=== PATIENT | male | born 1955 | race Two or more races ===

== ENCOUNTER 2020-08-30 07:57 | Inpatient (IN) | payer MEDICARE ==
[2020-08-30] VITALS (21 sets, daily range): BP systolic 79–124; BP diastolic 49–66
[~2020-08-30] VITALS: Ht 170.2 cm; Wt 54.4 kg
[2020-08-30] MEDS ORDERED: Vancomycin 1 GM in NS 275 ML IVPB ONE (08:00)
[2020-08-30] MEDS ORDERED: dexAMETHasone 10mg/ml Inj IV ONE (08:00)
[2020-08-30] MEDS ORDERED: Cefepime HCl 2 GM in D5W 55 ML IVPB ONE (08:00)
--- NOTE | 2020-08-30 08:10 | Emergency Room Report ---
History of Present Illness General Chief Complaint: Dyspnea/Respdistress Source: Medical Record, EMS Present Illness HPI Patient is a 64-year-old male past medical history of diabetes, CVA with acute respiratory failure trach in place with blow-by oxygen who presents to the ER for hypoxia. Per EMS correction staff told them that patient had nausea and vomiting since last night. This morning they found him to be hypoxic with oxygen saturation of 77%. Patient was brought into the ER from his extended care facility by EMS. Allergies: Coded Allergies: No Known Allergies (Unverified , 08/30/20) COVID-19 Screening Contact w/high risk pt: No Experienced COVID-19 symptoms?: Yes COVID-19 Testing performed GLUED WOOD TESTER: No Patient History Reviewed Nursing Documentation: PMH: Agreed; PSxH: Agreed Nursing Documentation-PMH Past Medical History: No History, Except For Hx Hypertension: Yes Hx Diabetes: Yes Review of Systems All Other Systems: limited - non-verbal Physical Exam Vital Signs Date Time Temp Pulse Resp B/P (MAP) Pulse Ox O2 Delivery O2 Flow Rate FiO2 08/30/20 07:50 116 12 71/48 (56) 78 Ambu-Bag 15.0 Sp02 EP Interpretation: abnormal General Appearance: thin, Chronically Ill Head: normocephalic, atraumatic ENT: dry mucus membranes Neck: other - Trach in place with vomit around the trach site Respiratory: rhonchi Cardiovascular #1: tachycardia Gastrointestinal: non tender, soft, non-distended, other - G-tube in the epigastric region Rectal: deferred Musculoskeletal: no calf tenderness, no lower extremity edema Psychiatric: other - Unable to assess as parent patient is nonverbal Skin: no rash Procedures Critical Care Time Critical Care Time Total critical care time: Approximately 75 minutes. Due to a high probability of clinically significant, life threatening deterioration, the patient required my highest level of preparedness to intervene emergently and I personally spent this critical care time directly and personally managing the patient. This critical care time included obtaining a history; examining the patient; pulse oximetry; ordering and review of studies; arranging urgent treatment with development of a management plan; evaluation of patient's response to treatment; frequent reassessment; and, discussions with other providers.This critical care time was performed to assess and manage the high probability of imminent, life-threatening deterioration that could result in multi-organ failure. It was exclusive of separately billable procedures and treating other patients and teaching time. Please see MDM section and the rest of the note for further information on patient assessment and treatment. Medical Decision Making Diagnostic Impression: Primary Impression: Sepsis Additional Impressions: Pneumonia Septic shock Acute renal failure Upper GI bleed ER Course Patient presents with coffee-ground emesis our facility is currently back ordered for Protonix patient given IV Pepcid and Zofran. Patient visibly very dehydrated and hypotensive and tachycardic. Patient given IV fluids and is fluid responsive. Heart rate is now in the 80s and patient's map is stayed above 60. I have ordered for a PICC line to be placed in case the patient's blood pressure drops and he requires Levophed which I have also ordered as needed. Patient has not required either of these things while under my care in the emergency room. Patient does have acute renal insufficiency and dehydrated with elevated BUN and creatinine. Patient has elevated white blood cell count and elevated lactate. Patient has been pancultured and started on broad- spectrum antibiotics. Patient likely aspirated his vomitus and x-ray demonstrates bilateral pneumonia. Patient will be admitted for further treatment and evaluation. Laboratory Tests Test 08/30/20 08:00 08/30/20 08:20 08/30/20 08:52 08/30/20 09:20 White Blood Count 14.1 K/UL (4.8-10.8) H Red Blood Count 4.14 M/UL (4.70-6.10) L Hemoglobin 12.2 G/DL (14.2-18.0) L Hematocrit 41.1 % (42.0-52.0) L Mean Corpuscular Volume 99 FL (80-99) Mean Corpuscular Hemoglobin 29.4 PG (27.0-31.0) Mean Corpuscular Hemoglobin Concent 29.6 G/DL (32.0-36.0) L Red Cell Distribution Width 15.3 % (11.6-14.8) H Platelet Count 304 K/UL (150-450) Mean Platelet Volume 7.0 FL (6.5-10.1) Neutrophils (%) (Auto) 82.7 % (45.0-75.0) H Lymphocytes (%) (Auto) 9.5 % (20.0-45.0) L Monocytes (%) (Auto) 6.8 % (1.0-10.0) Eosinophils (%) (Auto) 0.0 % (0.0-3.0) Basophils (%) (Auto) 1.0 % (0.0-2.0) Prothrombin Time 11.4 SEC (9.30-11.50) Prothrombin Time INR 1.0 (0.9-1.1) Activated Partial Thromboplast Time 28 SEC (23-33) D-Dimer 3.64 mg/L FEU (0.00-0.49) H Sodium Level 139 MMOL/L (136-145) Potassium Level 5.8 MMOL/L (3.5-5.1) H Chloride Level 94 MMOL/L (98-107) L Carbon Dioxide Level 40 MMOL/L (21-32) H Anion Gap 5 mmol/L (5-15) Blood Urea Nitrogen 84 mg/dL (7-18) H Creatinine 3.3 MG/DL (0.55-1.30) H Estimated Glomerular Filtration Rate 19.0 mL/min (>60) Glucose Level 146 MG/DL (74-106) H Calcium Level 10.9 MG/DL (8.5-10.1) H Magnesium Level 3.2 MG/DL (1.8-2.4) H Ferritin 153 NG/ML (8-388) Total Bilirubin 0.4 MG/DL (0.2-1.0) Aspartate Amino Transferase (AST) 31 U/L (15-37) Alanine Aminotransferase (ALT) 25 U/L (12-78) Alkaline Phosphatase 146 U/L (46-116) H Lactate Dehydrogenase 128 U/L (81-234) Total Creatine Kinase 245 U/L (26-308) Troponin I 0.000 ng/mL (0.000-0.056) C-Reactive Protein, Quantitative 34.7 mg/dL (0.00-0.90) H Pro-B-Type Natriuretic Peptide 3556 pg/mL (0-125) H Total Protein 9.5 G/DL (6.4-8.2) H Albumin 2.2 G/DL (3.4-5.0) L Globulin 7.3 g/dL Albumin/Globulin Ratio 0.3 (1.0-2.7) L Lipase 159 U/L (73-393) Beta-Hydroxybutyric Acid Pending Acetone Level Negative (NEGATIVE) Lactic Acid Level 3.80 mmol/L (0.4-2.0) H Arterial Blood pH 7.273 (7.350-7.450) Arterial Blood Partial Pressure CO2 71.2 mmHg (35.0-45.0) *H Arterial Blood Partial Pressure O2 244.8 mmHg (75.0-100.0) H Arterial Blood HCO3 32.2 mmol/L (22.0-26.0) H Arterial Blood Oxygen Saturation 99.2 % (95-100) Arterial Blood Base Excess 3.8 (-2-2) H Jayden Test Positive Urine Color Yellow Urine Appearance Clear Urine pH 5 (4.5-8.0) Urine Specific [place] 1.025 (1.005-1.035) Urine Protein 2+ (NEGATIVE) H Urine Glucose (UA) Negative (NEGATIVE) Urine Ketones 1+ (NEGATIVE) H Urine Blood 1+ (NEGATIVE) H Urine Nitrite Negative (NEGATIVE) Urine Bilirubin Negative (NEGATIVE) Urine Urobilinogen 1 MG/DL (0.0-1.0) H Urine Leukocyte Esterase 1+ (NEGATIVE) H Urine RBC 0-2 /HPF (0 - 0) H Urine WBC 2-4 /HPF (0 - 0) Urine Squamous Epithelial Cells Occasional /LPF Urine Bacteria Few /HPF (NONE) EKG Diagnostic Results Troponin ordered: Yes When was troponin ordered?: Aug 30, 2020 EKG Time: 08:29 EP Interpretation: Britta Mckeon MD Rate: tachycardiac - 109 bpm Rhythm: other - Sinus tachycardia ST Segments: no acute changes ASA given to the pt in ED: No Rhythm Strip Diag. Results Rhythm Strip Time: 08:10 EP Interpretation: yes - Britta Mckeon MD Rate: 111 bpm Rhythm: no PVC's, no ectopy, other - Sinus tachycardia Chest X-Ray Diagnostic Results Chest X-Ray Diagnostic Results : Chest X-Ray Ordered: Yes # of Views/Limited/Complete: 1 View Indication: Shortness of Breath EP Interpretation: Yes Interpretation: no effusion, no pneumothorax, other - Bilateral patchy infiltrates most significant left lower right lower lobe Impression: Other - Pneumonia Electronically Signed by: Britta Mckeon MD Last Vital Signs Date Time Temp Pulse Resp B/P (MAP) Pulse Ox O2 Delivery O2 Flow Rate FiO2 08/30/20 07:50 116 12 71/48 (56) 78 Ambu-Bag 15.0 Disposition: ADMITTED INPATIENT - ICU Condition: Critical Physician Consult: Dr. Nette MD Additional Instructions: Please note that this report is being documented using DRAGON technology. This can lead to erroneous entry secondary to incorrect interpretation by the dictating instrument. Sepsis Event Note Evaluation Current Stage of Sepsis: Septic Shock Possible Source: Pulmonary Focused Exam Allergies: Coded Allergies: No Known Allergies (Unverified , 08/30/20) Date Exam Occurred: Aug 30, 2020 Time Exam Occurred: 10:00 Laboratory Studies Laboratory Tests Test 08/30/20 08:00 08/30/20 08:20 08/30/20 08:52 08/30/20 09:20 White Blood Count 14.1 K/UL (4.8-10.8) H Red Blood Count 4.14 M/UL (4.70-6.10) L Hemoglobin 12.2 G/DL (14.2-18.0) L Hematocrit 41.1 % (42.0-52.0) L Mean Corpuscular Volume 99 FL (80-99) Mean Corpuscular Hemoglobin 29.4 PG (27.0-31.0) Mean Corpuscular Hemoglobin Concent 29.6 G/DL (32.0-36.0) L Red Cell Distribution Width 15.3 % (11.6-14.8) H Platelet Count 304 K/UL (150-450) Mean Platelet Volume 7.0 FL (6.5-10.1) Neutrophils (%) (Auto) 82.7 % (45.0-75.0) H Lymphocytes (%) (Auto) 9.5 % (20.0-45.0) L Monocytes (%) (Auto) 6.8 % (1.0-10.0) Eosinophils (%) (Auto) 0.0 % (0.0-3.0) Basophils (%) (Auto) 1.0 % (0.0-2.0) Prothrombin Time 11.4 SEC (9.30-11.50) Prothromb Time International Ratio 1.0 (0.9-1.1) Activated Partial Thromboplast Time 28 SEC (23-33) D-Dimer 3.64 mg/L FEU (0.00-0.49) H Sodium Level 139 MMOL/L (136-145) Potassium Level 5.8 MMOL/L (3.5-5.1) H Chloride Level 94 MMOL/L (98-107) L Carbon Dioxide Level 40 MMOL/L (21-32) H Anion Gap 5 mmol/L (5-15) Blood Urea Nitrogen 84 mg/dL (7-18) H Creatinine 3.3 MG/DL (0.55-1.30) H Estimat Glomerular Filtration Rate 19.0 mL/min (>60) Glucose Level 146 MG/DL (74-106) H Calcium Level 10.9 MG/DL (8.5-10.1) H Magnesium Level 3.2 MG/DL (1.8-2.4) H Ferritin 153 NG/ML (8-388) Total Bilirubin 0.4 MG/DL (0.2-1.0) Aspartate Amino Transf (AST/SGOT) 31 U/L (15-37) Alanine Aminotransferase (ALT/SGPT) 25 U/L (12-78) Alkaline Phosphatase 146 U/L (46-116) H Lactate Dehydrogenase 128 U/L (81-234) Total Creatine Kinase 245 U/L (26-308) Troponin I 0.000 ng/mL (0.000-0.056) C-Reactive Protein, Quantitative 34.7 mg/dL (0.00-0.90) H Pro-B-Type Natriuretic Peptide 3556 pg/mL (0-125) H Total Protein 9.5 G/DL (6.4-8.2) H Albumin 2.2 G/DL (3.4-5.0) L Globulin 7.3 g/dL Albumin/Globulin Ratio 0.3 (1.0-2.7) L Lipase 159 U/L (73-393) Beta-Hydroxybutyric Acid Pending Acetone Level Negative (NEGATIVE) Lactic Acid Level 3.80 mmol/L (0.4-2.0) H Arterial Blood pH 7.273 (7.350-7.450) Arterial Blood Partial Pressure CO2 71.2 mmHg (35.0-45.0) *H Arterial Blood Partial Pressure O2 244.8 mmHg (75.0-100.0) H Arterial Blood HCO3 32.2 mmol/L (22.0-26.0) H Arterial Blood Oxygen Saturation 99.2 % (95-100) Arterial Blood Base Excess 3.8 (-2-2) H Jayden Test Positive Urine Color Yellow Urine Appearance Clear Urine pH 5 (4.5-8.0) Urine Specific [place] 1.025 (1.005-1.035) Urine Protein 2+ (NEGATIVE) H Urine Glucose (UA) Negative (NEGATIVE) Urine Ketones 1+ (NEGATIVE) H Urine Blood 1+ (NEGATIVE) H Urine Nitrite Negative (NEGATIVE) Urine Bilirubin Negative (NEGATIVE) Urine Urobilinogen 1 MG/DL (0.0-1.0) H Urine Leukocyte Esterase 1+ (NEGATIVE) H Urine RBC 0-2 /HPF (0 - 0) H Urine WBC 2-4 /HPF (0 - 0) Urine Squamous Epithelial Cells Occasional /LPF Urine Bacteria Few /HPF (NONE) Vital Signs Last 24 Hour Vital Signs Date Time Temp Pulse Resp B/P (MAP) Pulse Ox O2 Delivery O2 Flow Rate FiO2 08/30/20 11:04 90 22 40 08/30/20 10:00 97.0 92 22 97/66 100 Mechanical Ventilator 15.0 60 08/30/20 09:40 110 22 60 08/30/20 09:30 97.0 107 22 87/56 100 Mechanical Ventilator 15.0 100 08/30/20 09:00 97.0 110 14 95/59 100 Mechanical Ventilator 15.0 100 08/30/20 08:44 97.0 113 14 98/62 100 Mechanical Ventilator 08/30/20 08:37 106 16 100 Mechanical Ventilator 100 116 17 100 08/30/20 08:25 106 16 Mechanical Ventilator 08/30/20 07:50 116 12 71/48 (56) 78 Ambu-Bag 15.0 Respiratory Exam: Rhonchi Cardiovascular Exam: RRR Capillary Refill: Less Than 2 Seconds Peripheral Pulse: Strong Britta Mckeon M.D. Aug 30, 2020 08:10
[2020-08-30] MEDS ORDERED: COLACE100 MG GT (08:12)
[2020-08-30] MEDS ORDERED: ZINC SULFATE220 M1 GT (08:12)
[2020-08-30] MEDS ORDERED: ATROVENT HFA12.9 GM PO (08:12)
[2020-08-30] MEDS ORDERED: HEPARIN SO5000 UNIT2 SUBQ (08:12)
[2020-08-30] MEDS ORDERED: ALBUTEROL SULF8.5 G1 TRANSTR092 (08:12)
[2020-08-30] MEDS ORDERED: UTI-STAT L3875 MG/31 GT (08:12)
[2020-08-30] MEDS ORDERED: ZOFRAN4 M3 GT (08:12)
[2020-08-30] MEDS ORDERED: ARTIFICIALS TEA30 M1 OP (08:12)
[2020-08-30] MEDS ORDERED: ATORVASTATIN CA80 MG GT (08:12)
[2020-08-30] MEDS ORDERED: VITAMIN C500 M1 GT (08:12)
[2020-08-30] MEDS ORDERED: ACETAMINOPHEN325 M1 ORAL (08:12)
--- NOTE | 2020-08-30 08:20 | NUR ---
Resive pt from [facility] by EMS in trauma room due to low oxygen sat and vomiting since last night. 75 % Sat and trach dependent, peg tube in place and patent at this time. Pt with leora brown coming out of his mouth and tracheotomy, suctioned pt by tracheotomy and moth.pt is reposnding to pain and is capable to follow comands at this time. RT in room, conect pt to ventilator, St 100% with [address] IV in his Rt wrist blood samples taken and send to the lab.Provider ordes taken.will continue monitoring pt for any change in condition
[2020-08-30] MEDS: Albuterol/Ipratropium 3ml neb HHN SCH ×2 (08:21→08:45)
[2020-08-30 09:01] LABS: HEMATOCRIT 41.1 % (42.0-52.0); HEMOGLOBIN 12.2 G/DL (14.2-18.0); LYMPHOCYTES % (AUTO) 9.5 % (20.0-45.0); MEAN CORPUSCULAR VOLUME 99 FL (80-99); MONOCYTES % (AUTO) 6.8 % (1.0-10.0); NEUTROPHILS % (AUTO) 82.7 % (45.0-75.0); PLATELET COUNT 304 K/UL (150-450); RED BLOOD COUNT 4.14 M/UL (4.70-6.10); RED CELL DISTRIBUTION WIDTH 15.3 % (11.6-14.8); WHITE BLOOD COUNT 14.1 K/UL (4.8-10.8)
[2020-08-30 09:12] LABS: ANION GAP 5 mmol/L (5-15); BLOOD UREA NITROGEN 84 mg/dL (7-18); CALCIUM 10.9 MG/DL (8.5-10.1); CARBON DIOXIDE 40 MMOL/L (21-32); CHLORIDE 94 MMOL/L (98-107); CREATININE 3.3 MG/DL (0.55-1.30); POTASSIUM 5.8 MMOL/L (3.5-5.1); SODIUM 139 MMOL/L (136-145)
[2020-08-30 09:25] LABS: ALANINE AMINOTRANSFERASE 25 U/L (12-78); ALBUMIN 2.2 G/DL (3.4-5.0); ALBUMIN/GLOBULIN RATIO 0.3 (1.0-2.7); ALKALINE PHOSPHATASE 146 U/L (46-116); ASPARTATE AMINO TRANSFERASE 31 U/L (15-37); BILIRUBIN,TOTAL 0.4 MG/DL (0.2-1.0); CREATINE KINASE 245 U/L (26-308); FERRITIN 153 NG/ML (8-388); LACTATE DEHYDROGENASE 128 U/L (81-234)
--- NOTE | 2020-08-30 09:40 | NUR ---
Medication note: provider give order to put hold levophed
--- NOTE | 2020-08-30 09:41 | Diagnostic Imaging Report ---
Indication: Reason For Exam: SOB Technique: XRAY Chest 1v Comparison:None Findings: Heart is normal in size. There is a tracheostomy. Extensive infiltrate is noted in the left mid and lower lung obscuring the left hemidiaphragm. There is patchy infiltrate in the right base as well. No pleural fluid. Osseous structures are unremarkable. Impression: Left lower lobe infiltrate consistent with pneumonia. Right basilar pneumonia versus atelectasis. Tracheostomy.
[2020-08-30 09:42] LABS: APPEARANCE,URINE CLEAR; BILIRUBIN, URINE NEGATIVE (NEGATIVE); GLUCOSE, URINE (UA) NEGATIVE (NEGATIVE); KETONES,URINE 1+ (NEGATIVE); LEUKOCYTE ESTERASE ,URINE 1+ (NEGATIVE); NITRITE,URINE NEGATIVE (NEGATIVE); PH,URINE 5 (4.5-8.0); PROTEIN,URINE 2+ (NEGATIVE); UROBILINOGEN,URINE 1 MG/DL (0.0-1.0)
[2020-08-30 09:43] LABS: COLOR,URINE YELLOW
--- NOTE | 2020-08-30 11:00 | NUR ---
Nurses note: Pt restin with eyes close. V/S stable under his condition.
--- NOTE | 2020-08-30 14:07 | NUR ---
Call to ICU and give report to Zelda HERNÁNDEZ
--- NOTE | 2020-08-30 14:41 | NUR ---
NURSE NOTES: Report received from EDGAR Epps. Pt admitted from the ER d/t sepsis, hypotension, and, vomiting of coffee ground emesis. Pt is alert and oriented, mostly Croatian speaking. Pt is trach to vent; AC 22, TV 450, FiO2 40%, PEEP 5; O2sat 93%. Pt has a Gtube; currently clamped. Pt had a medium formed brown BM. No bleeding noted from the rectum. Upon assessing pt's skin, old scar noted to Lt ischial tuberosity. Optifoam applied to Bony prominences for protection. Rt Wrist PIV 18g and Lt wrist PIV #24g noted; both intact and patent. Bed locked and in lowest position, with call light within reach. Will contact attending MD for admission orders.
--- NOTE | 2020-08-30 16:00 | NUR ---
NURSE NOTES: Pt is afebrile. B/P remains >90. Pt appears comfortable, resting in bed. FiO4 40%; O2sat 94% on strategic communications manager
[2020-08-30] MEDS ORDERED: Sodium Polystyrene Sulfonate 15gm Powder GT SCH (16:58)
--- NOTE | 2020-08-30 18:00 | NUR ---
NURSE NOTES: Kayexalate given for high potassium. Gtube patent and flushes without issue. Dressing clean, dry, and intact. BS 200. Novolog insulin given, per sliding scale.
[2020-08-30 19:10] LABS: APPEARANCE,URINE SLIGHTLY CLOUDY; BILIRUBIN, URINE NEGATIVE (NEGATIVE); COLOR,URINE PALE YELLOW; GLUCOSE, URINE (UA) NEGATIVE (NEGATIVE); KETONES,URINE NEGATIVE (NEGATIVE); LEUKOCYTE ESTERASE ,URINE NEGATIVE (NEGATIVE); NITRITE,URINE NEGATIVE (NEGATIVE); PH,URINE 5 (4.5-8.0); PROTEIN,URINE 2+ (NEGATIVE); UROBILINOGEN,URINE NORMAL MG/DL (0.0-1.0)
[2020-08-30] MEDS: NovoLOG Insulin Flexpen SUBQ SCH ×2 (19:30→23:54)
--- NOTE | 2020-08-30 19:30 | NUR ---
NURSE NOTES: Received pt , trache to vent on ac mode SR on the monitor Bp stable, afebrile.No coffee ground emesis at this time. NPO GT clamped Will continue to monitor.
--- NOTE | 2020-08-30 19:32 | NUR ---
NURSE HAND-OFF REPORT: Latest Vital Signs: Temperature 98.9 , Pulse 100 , B/P 114 /56 , Respiratory Rate 22 , O2 SAT 97 , Mechanical Ventilator, FiO2 40% . Vital Sign Comment: EKG Rhythm: Sinus Rhythm Rhythm change?: N MD Notified?: - MD Response: Latest Brewer Fall Score: 20 Fall Risk: Low Risk Safety Measures: Call light Within Reach, Bed Alarm Zone 1, Side Rails Side Rails x3, Bed position Low and Locked. Fall Precautions: Yellow Socks Patient Fall Education Report given to EDGAR Dela Cruz.
[2020-08-30] MEDS ORDERED: Vancomycin 1 GM in D5W 275 ML IVPB SCH (21:00)
[2020-08-31] VITALS (22 sets, daily range): BP systolic 99–143; BP diastolic 42–86
--- NOTE | 2020-08-31 | NUR ---
NURSE NOTES: Pt had x1 brownish stool. Cleaned up pt. Will continue to monitor.
--- NOTE | 2020-08-31 01:14 | History and Physical Report ---
DATE OF ADMISSION: 08/30/2020 This is the first admission to [facility] of this 64-year-old patient because of shortness of breath, nausea, vomiting, and hypotension. HISTORY OF PRESENT ILLNESS: Patient is a resident of an extended care facility subacute unit where he has been in relatively stable condition for the last several days. He was recently discharged after COVID-19 pneumonia. He was transferred to [facility] subacute unit. After few days in the subacute unit, patient developed nausea, vomiting, diarrhea, abdominal pain, shortness of breath, palpitations, and dizziness. He was transferred to [facility] ER and was admitted. PAST MEDICAL HISTORY: Known to have high blood pressure and diabetes mellitus. PAST SURGICAL HISTORY: No surgical history. ALLERGIES: No known drug allergy. PHYSICAL EXAMINATION: VITAL SIGNS: Blood pressure , pulse is 97, respirations 22, temperature 98.2. HEENT: Eyes were normal. Pupils were round, equal, and reactive to light. Sclerae were white. Conjunctivae were pale. Extraocular movements were normal. Temporal arteries were palpable bilaterally. There was no bilateral temporal wasting. Visual flor to confrontation were normal and neglect sign was negative. ENT, mucous membranes were not dehydrated. Auditory canals were clear and tympanic membranes could not be visualized. Nasal cavity was not congested. The septum was intact. Soft palate was free of ulcerations. Pharynx was clear from exudate or tonsillar hypertrophy. Uvula anne to phonation. Tongue was moist, midline, and normally papillated. NECK: Supple. There was no goiter. No mass. No lymphadenopathy. There was no JVD. No bruits. Carotid upstroke was 1+. Tracheostomy site was clean. LUNGS: There was bilateral rhonchi at both bases. HEART: PMI was fifth left intercostal space midclavicular line. There was normal S1 and normal S2. There was no murmur. No arrhythmia. No S3. No S4. No pericardial rub. ABDOMEN: Soft, nontender with normal bowel sounds. Gastrostomy site is clean. EXTREMITIES: Warm without cyanosis, clubbing, or edema. NEUROLOGICAL: Reflexes in biceps, triceps, and brachioradialis were symmetric and equal. Patellar retinaculum was symmetric and equal. There was no tremor. No nystagmus. No extrapyramidal rigidity. Sensory exam to pinprick, cotton touch, and position are grossly normal. Motor strength was 4/5 against resistance in upper extremity and 5/5 against resistance in lower extremities in proximal and distal muscles. LABORATORY DATA: Hemoglobin is 12.2, hematocrit 41.1 with MCV of 99, WBC of 14.1, and platelets . His BUN and creatinine are 84 and 3.3 respectively. Sodium is 139, potassium 5.8, chloride 94, CO2 is 40. SGOT and SGPT are within normal limits. CRP is 34. ProBNP is 3500. Albumin is 2.2, globulin is 7.3. IMPRESSION: Patient has sepsis. He is started on cefepime 1 g IV piggyback q.12, vancomycin 1 g IV piggyback q.12 as well. Patient's blood pressure stabilized. He is on vancomycin 1 g q.12, Zosyn 2.25 g IV piggyback q.6. Repeat laboratory tests will be done in the a.m. Jason Perdue M.D. DR: MARY JOB#: [id number] CC:
--- NOTE | 2020-08-31 04:00 | NUR ---
NURSE NOTES: Complete bed bath with bed changed was done.
[2020-08-31 04:25] LABS: HEMATOCRIT 26.7 % (42.0-52.0); HEMOGLOBIN 8.4 G/DL (14.2-18.0); MEAN CORPUSCULAR VOLUME 96 FL (80-99); PLATELET COUNT 189 K/UL (150-450); RED BLOOD COUNT 2.78 M/UL (4.70-6.10); RED CELL DISTRIBUTION WIDTH 14.6 % (11.6-14.8); WHITE BLOOD COUNT 12.1 K/UL (4.8-10.8)
[2020-08-31 04:55] LABS: ALBUMIN 1.6 G/DL (3.4-5.0); ALBUMIN/GLOBULIN RATIO 0.3 (1.0-2.7); BILIRUBIN,TOTAL 0.3 MG/DL (0.2-1.0); CALCIUM 8.7 MG/DL (8.5-10.1); CREATININE 1.3 MG/DL (0.55-1.30)
[2020-08-31 05:00] LABS: CREATINE KINASE 166 U/L (26-308); GAMMA GLUTAMYL TRANSPEPTIDASE 24 U/L (5-85); PHOSPHORUS 1.8 MG/DL (2.5-4.9)
[2020-08-31 05:10] LABS: ALANINE AMINOTRANSFERASE 23 U/L (12-78); ALBUMIN 1.6 G/DL (3.4-5.0); ALKALINE PHOSPHATASE 62 U/L (46-116); AMYLASE 44 U/L (25-115); ANION GAP 6 mmol/L (5-15); ASPARTATE AMINO TRANSFERASE 41 U/L (15-37); BILIRUBIN,DIRECT 0.2 MG/DL (0.0-0.3); BILIRUBIN,TOTAL 0.3 MG/DL (0.2-1.0); BLOOD UREA NITROGEN 51 mg/dL (7-18); CALCIUM 8.7 MG/DL (8.5-10.1); CARBON DIOXIDE 32 MMOL/L (21-32); CHLORIDE 107 MMOL/L (98-107); CREATININE 1.4 MG/DL (0.55-1.30); SODIUM 144 MMOL/L (136-145)
[2020-08-31] MEDS: NovoLOG Insulin Flexpen SUBQ SCH ×3 (05:59→18:00)
[2020-08-31] MEDS ORDERED: Vancomycin 1gm in D5W 275ml IVPB SCH (06:00)
--- NOTE | 2020-08-31 06:00 | NUR ---
NURSE NOTES: No active bleeding noted. VSS
--- NOTE | 2020-08-31 06:54 | Consultation ---
History of Present Illness General Chief Complaint: Dyspnea/Respdistress Present Illness Allergies: Coded Allergies: No Known Allergies (Unverified , 08/30/20) Medication History Scheduled Albuterol Sulfate* (Albuterol Sulfate Hfa*), 2 PUFF [id number] Q3H, (Reported) Ascorbic Acid* (Vitamin C*), 500 MG ORAL DAILY, (Reported) Atorvastatin Calcium* (Lipitor*), 80 MG [id number] BEDTIME, (Reported) Cran/Vitc/Mannose/Inulin/Brom (Uti-Stat Liquid), 3,875 MG GT DAILY, (Reported) Dextran 70/Hypromellose (Artificials Tears Drops), 30 ML OP FOUR TIMES A DAY, (Reported) Docusate Sodium* (Colace*), 100 MG GT DAILY, (Reported) Heparin Sod (Porcine) (Heparin Sodium*), 5,000 UNITS SUBQ EVERY 12 HOURS, (Reported) Ipratropium Huggins (Atrovent Hfa), Unknown Dose [id number] Q3HR, (Reported) Zinc Sulfate (Zinc Sulfate*), 220 MG ORAL DAILY, (Reported) Scheduled PRN Acetaminophen* (Acetaminophen 325MG Tablet*), 650 MG ORAL Q4H PRN for fever/pain, (Reported) Ondansetron* (Zofran*), 4 MG GT Q8HR PRN for Nausea & Vomiting, (Reported) Patient History Healthcare decision maker Resuscitation status Advanced Directive on File Physical Exam Last 24 Hour Vital Signs Date Time Temp Pulse Resp B/P (MAP) Pulse Ox O2 Delivery O2 Flow Rate FiO2 08/31/20 06:00 69 0 135/54 (81) 100 08/31/20 05:30 100.0 61 22 130/70 (90) 100 08/31/20 05:00 59 21 132/60 (84) 100 08/31/20 04:00 Mechanical Ventilator 08/31/20 04:00 64 22 136/85 (102) 100 08/31/20 04:00 76 08/31/20 04:00 99.2 62 17 138/82 (100) 99 08/31/20 03:57 84 22 40 08/31/20 03:30 69 20 121/74 (90) 100 08/31/20 03:00 71 17 107/57 (74) 99 08/31/20 03:00 71 17 107/57 (74) 99 08/31/20 02:30 76 12 124/56 (78) 99 08/31/20 02:30 76 12 124/56 (78) 99 08/31/20 02:00 76 22 107/46 (66) 99 08/31/20 02:00 76 22 107/46 (66) 99 08/31/20 01:30 80 22 125/62 (83) 99 08/31/20 01:00 88 22 98 08/31/20 01:00 88 22 120/62 (81) 98 08/31/20 00:30 87 22 99/81 (87) 99 08/31/20 00:00 93 22 125/86 (99) 99 08/31/20 00:00 Mechanical Ventilator 08/31/20 00:00 99.0 93 22 125/86 (99) 99 08/31/20 00:00 90 08/30/20 23:51 86 22 40 08/30/20 23:00 94 22 124/49 (74) 98 08/30/20 22:00 96 22 107/49 (68) 97 08/30/20 21:00 103 22 114/52 (72) 97 08/30/20 20:00 Mechanical Ventilator 08/30/20 20:00 98.2 98 22 112/56 (74) 97 08/30/20 19:18 100 22 40 08/30/20 19:00 94 22 114/56 (75) 97 08/30/20 18:00 99 22 112/57 (75) 97 08/30/20 17:00 97 22 118/60 (79) 97 08/30/20 16:00 94 08/30/20 16:00 Mechanical Ventilator 08/30/20 16:00 98.9 95 22 110/57 (74) 94 08/30/20 15:49 92 22 40 08/30/20 15:49 92 22 99 Mechanical Ventilator 40 08/30/20 15:30 96 22 79/49 (59) 93 08/30/20 15:15 99 22 83/51 (62) 94 08/30/20 15:01 98.9 101 22 92/56 (68) 95 08/30/20 15:00 100 20 95 08/30/20 14:45 98.3 94 22 91/58 93 Mechanical Ventilator 15.0 40 08/30/20 14:41 40 08/30/20 14:41 Mechanical Ventilator 08/30/20 14:00 98.3 94 22 91/58 93 Mechanical Ventilator 15.0 40 08/30/20 13:30 98.3 94 22 99/56 95 Mechanical Ventilator 15.0 40 08/30/20 13:00 98.3 87 22 96/60 95 Mechanical Ventilator 15.0 40 08/30/20 12:30 98.3 90 22 101/63 94 Mechanical Ventilator 15.0 40 08/30/20 12:00 98.3 87 22 100/64 94 Mechanical Ventilator 15.0 40 08/30/20 11:30 98.3 91 22 92/54 94 Mechanical Ventilator 15.0 40 08/30/20 11:04 90 22 40 08/30/20 10:00 97.0 92 22 97/66 100 Mechanical Ventilator 15.0 60 08/30/20 09:40 110 22 60 08/30/20 09:30 97.0 107 22 87/56 100 Mechanical Ventilator 15.0 100 08/30/20 09:00 97.0 110 14 95/59 100 Mechanical Ventilator 15.0 100 08/30/20 08:44 97.0 113 14 98/62 100 Mechanical Ventilator 08/30/20 08:37 106 16 100 Mechanical Ventilator 100 116 17 100 08/30/20 08:25 106 16 Mechanical Ventilator 08/30/20 07:50 116 12 71/48 (56) 78 Ambu-Bag 15.0 Intake and Output 08/30/20 08/31/20 19:00 07:00 Intake Total 450 ml 1100 ml Output Total 460 ml 900 ml Balance -10 ml 200 ml Intake IV Total 150 ml 1100 ml Other 300 ml Output Urine Total 460 ml 900 ml # Voids 80 # Bowel Movements 3 4 Laboratory Tests Test 08/30/20 08:00 08/30/20 08:20 08/30/20 08:52 08/30/20 09:20 White Blood Count 14.1 K/UL (4.8-10.8) H Red Blood Count 4.14 M/UL (4.70-6.10) L Hemoglobin 12.2 G/DL (14.2-18.0) L Hematocrit 41.1 % (42.0-52.0) L Mean Corpuscular Volume 99 FL (80-99) Mean Corpuscular Hemoglobin 29.4 PG (27.0-31.0) Mean Corpuscular Hemoglobin Concent 29.6 G/DL (32.0-36.0) L Red Cell Distribution Width 15.3 % (11.6-14.8) H Platelet Count 304 K/UL (150-450) Mean Platelet Volume 7.0 FL (6.5-10.1) Neutrophils (%) (Auto) 82.7 % (45.0-75.0) H Lymphocytes (%) (Auto) 9.5 % (20.0-45.0) L Monocytes (%) (Auto) 6.8 % (1.0-10.0) Eosinophils (%) (Auto) 0.0 % (0.0-3.0) Basophils (%) (Auto) 1.0 % (0.0-2.0) Prothrombin Time 11.4 SEC (9.30-11.50) Prothromb Time International Ratio 1.0 (0.9-1.1) Activated Partial Thromboplast Time 28 SEC (23-33) D-Dimer 3.64 mg/L FEU (0.00-0.49) H Sodium Level 139 MMOL/L (136-145) Potassium Level 5.8 MMOL/L (3.5-5.1) H Chloride Level 94 MMOL/L (98-107) L Carbon Dioxide Level 40 MMOL/L (21-32) H Anion Gap 5 mmol/L (5-15) Blood Urea Nitrogen 84 mg/dL (7-18) H Creatinine 3.3 MG/DL (0.55-1.30) H Estimat Glomerular Filtration Rate 19.0 mL/min (>60) Glucose Level 146 MG/DL (74-106) H Calcium Level 10.9 MG/DL (8.5-10.1) H Magnesium Level 3.2 MG/DL (1.8-2.4) H Ferritin 153 NG/ML (8-388) Total Bilirubin 0.4 MG/DL (0.2-1.0) Aspartate Amino Transf (AST/SGOT) 31 U/L (15-37) Alanine Aminotransferase (ALT/SGPT) 25 U/L (12-78) Alkaline Phosphatase 146 U/L (46-116) H Lactate Dehydrogenase 128 U/L (81-234) Total Creatine Kinase 245 U/L (26-308) Troponin I 0.000 ng/mL (0.000-0.056) C-Reactive Protein, Quantitative 34.7 mg/dL (0.00-0.90) H Pro-B-Type Natriuretic Peptide 3556 pg/mL (0-125) H Total Protein 9.5 G/DL (6.4-8.2) H Albumin 2.2 G/DL (3.4-5.0) L Globulin 7.3 g/dL Albumin/Globulin Ratio 0.3 (1.0-2.7) L Lipase 159 U/L (73-393) Beta-Hydroxybutyric Acid Pending Acetone Level Negative (NEGATIVE) Lactic Acid Level 3.80 mmol/L (0.4-2.0) H Arterial Blood pH 7.273 (7.350-7.450) Arterial Blood Partial Pressure CO2 71.2 mmHg (35.0-45.0) *H Arterial Blood Partial Pressure O2 244.8 mmHg (75.0-100.0) H Arterial Blood HCO3 32.2 mmol/L (22.0-26.0) H Arterial Blood Oxygen Saturation 99.2 % (95-100) Arterial Blood Base Excess 3.8 (-2-2) H Jayden Test Positive Urine Color Yellow Urine Appearance Clear Urine pH 5 (4.5-8.0) Urine Specific [place] 1.025 (1.005-1.035) Urine Protein 2+ (NEGATIVE) H Urine Glucose (UA) Negative (NEGATIVE) Urine Ketones 1+ (NEGATIVE) H Urine Blood 1+ (NEGATIVE) H Urine Nitrite Negative (NEGATIVE) Urine Bilirubin Negative (NEGATIVE) Urine Urobilinogen 1 MG/DL (0.0-1.0) H Urine Leukocyte Esterase 1+ (NEGATIVE) H Urine RBC 0-2 /HPF (0 - 0) H Urine WBC 2-4 /HPF (0 - 0) Urine Squamous Epithelial Cells Occasional /LPF Urine Bacteria Few /HPF (NONE) Test 08/30/20 17:00 08/30/20 19:50 08/31/20 03:45 Urine Color Pale yellow Urine Appearance Slightly cloudy Urine pH 5 (4.5-8.0) Urine Specific [place] 1.030 (1.005-1.035) Urine Protein 2+ (NEGATIVE) H Urine Glucose (UA) Negative (NEGATIVE) Urine Ketones Negative (NEGATIVE) Urine Blood 5+ (NEGATIVE) H Urine Nitrite Negative (NEGATIVE) Urine Bilirubin Negative (NEGATIVE) Urine Urobilinogen Normal MG/DL (0.0-1.0) Urine Leukocyte Esterase Negative (NEGATIVE) Urine RBC 60-80 /HPF (0 - 0) H Urine WBC 0-2 /HPF (0 - 0) Urine Squamous Epithelial Cells Occasional /LPF Urine Bacteria Few /HPF (NONE) Lactic Acid Level 2.40 mmol/L (0.4-2.0) H 1.20 mmol/L (0.4-2.0) White Blood Count 12.1 K/UL (4.8-10.8) H Red Blood Count 2.78 M/UL (4.70-6.10) L Hemoglobin 8.4 G/DL (14.2-18.0) #L Hematocrit 26.7 % (42.0-52.0) #L Mean Corpuscular Volume 96 FL (80-99) Mean Corpuscular Hemoglobin 30.3 PG (27.0-31.0) Mean Corpuscular Hemoglobin Concent 31.5 G/DL (32.0-36.0) L Red Cell Distribution Width 14.6 % (11.6-14.8) Platelet Count 189 K/UL (150-450) Mean Platelet Volume 7.3 FL (6.5-10.1) Neutrophils (%) (Auto) % (45.0-75.0) Lymphocytes (%) (Auto) % (20.0-45.0) Monocytes (%) (Auto) % (1.0-10.0) Eosinophils (%) (Auto) % (0.0-3.0) Basophils (%) (Auto) % (0.0-2.0) Neutrophils % (Manual) Pending Lymphocytes % (Manual) Pending Platelet Estimate Pending Platelet Morphology Pending Sodium Level 144 MMOL/L (136-145) Potassium Level 4.0 MMOL/L (3.5-5.1) Chloride Level 107 MMOL/L (98-107) Carbon Dioxide Level 32 MMOL/L (21-32) Anion Gap 5 mmol/L (5-15) Blood Urea Nitrogen 50 mg/dL (7-18) H Creatinine 1.3 MG/DL (0.55-1.30) # Estimat Glomerular Filtration Rate 55.6 mL/min (>60) Glucose Level 136 MG/DL (74-106) H Hemoglobin A1c 5.9 % (4.3-6.0) Uric Acid 5.9 MG/DL (2.6-7.2) Calcium Level 8.7 MG/DL (8.5-10.1) # Phosphorus Level 1.8 MG/DL (2.5-4.9) L Magnesium Level 2.1 MG/DL (1.8-2.4) Total Bilirubin 0.3 MG/DL (0.2-1.0) Direct Bilirubin 0.2 MG/DL (0.0-0.3) Gamma Glutamyl Transpeptidase 24 U/L (5-85) Aspartate Amino Transf (AST/SGOT) 40 U/L (15-37) H Alanine Aminotransferase (ALT/SGPT) 23 U/L (12-78) Alkaline Phosphatase 63 U/L (46-116) Total Creatine Kinase 166 U/L (26-308) C-Reactive Protein, Quantitative 38.2 mg/dL (0.00-0.90) H Pro-B-Type Natriuretic Peptide 967 pg/mL (0-125) H Total Protein 7.0 G/DL (6.4-8.2) Albumin 1.6 G/DL (3.4-5.0) L Globulin 5.4 g/dL Albumin/Globulin Ratio 0.3 (1.0-2.7) L Amylase Level 44 U/L (25-115) Lipase 106 U/L (73-393) Thyroid Stimulating Hormone (TSH) 0.420 uiU/mL (0.358-3.740) Free Thyroxine 1.22 NG/DL (0.76-1.46) Random Vancomycin Level 7.7 ug/mL Microbiology Date/Time Source Procedure Growth Status 08/31/20 03:15 Rectum Received 08/31/20 03:15 Nasopharynx SARS-CoV-2 Antigen (Rapid)(PEDRO) - Final Complete 08/30/20 08:00 Blood Blood Culture - Preliminary Gram Positive Cocci Resulted 08/30/20 08:00 Blood Blood Culture - Preliminary Gram Positive Cocci Resulted Height (Feet): 5 Height (Inches): 7.00 Weight (Pounds): 120 Medications Current Medications Medications (Trade) Dose Ordered Sig/Kirby Route PRN Reason Start Time Stop Time Status Last Admin Dose Admin Albuterol/ Ipratropium (Albuterol/ Ipratropium) 3 ml Q15M HHN 08/30/20 08:00 09/04/20 07:59 08/30/20 08:21 Cefepime HCl 1 gm/ Dextrose 55 ml @ 110 mls/hr Q24H IVPB 08/31/20 12:00 09/07/20 11:59 Dextrose (Dextrose 50%) 25 ml Q30M PRN IV Hypoglycemia 08/30/20 16:45 11/28/20 16:44 Dextrose (Dextrose 50%) 50 ml Q30M PRN IV Hypoglycemia 08/30/20 16:45 11/28/20 16:44 Insulin Aspart (NovoLOG) Q6HR SUBQ 08/30/20 18:00 11/28/20 17:59 08/30/20 19:30 Lansoprazole (Prevacid) 30 mg BID GT 08/31/20 09:00 09/30/20 08:59 UNV Norepinephrine Bitartrate 4 mg/ Dextrose 250 ml @ 0 mls/hr Q24H IV 08/30/20 09:45 09/02/20 09:44 Ondansetron HCl (Zofran) 4 mg Q4H PRN IVP Nausea & Vomiting 08/30/20 16:45 09/29/20 16:44 Sodium Chloride 1,000 ml @ 100 mls/hr Q10H IV 08/30/20 16:45 09/29/20 16:44 08/31/20 03:35 Vancomycin HCl (Vanco pharmacy to dose) 1 ea DAILY PRN MISC . 08/30/20 17:00 09/29/20 16:59 Vancomycin HCl 1 gm/Dextrose 275 ml @ 183.708 mls/hr Q24H IVPB 08/31/20 08:00 09/05/20 07:59 Assessment/Plan Assessment/Plan: Hematology consultation ANDREA GILLILAND: Jason Perdue DOS: 08/31/2020 RFC: Anemia ID Patient is a 64-year-old male past medical history of diabetes, CVA with acute respiratory failure trach in place with blow-by oxygen who presents to the ER for hypoxia. Per EMS correction staff told them that patient had nausea and vomiting since last night. This morning they found him to be hypoxic with oxygen saturation of 77%. Patient was brought into the ER from his extended care facility by EMS. Coded Allergies: No Known Allergies (Unverified , 08/30/20) COVID-19 Screening Contact w/high risk pt: No Experienced COVID-19 symptoms?: Yes COVID-19 Testing performed GED TUTOR: No Patient History Reviewed Nursing Documentation: PMH: Agreed; PSxH: Agreed Nursing Documentation-PMH Past Medical History: No History, Except For Hx Hypertension: Yes Hx Diabetes: Yes Review of Systems All Other Systems: limited - non-verbal Physical Exam Sp02 EP Interpretation: abnormal General Appearance: thin, Chronically Ill Heent: normocephalic, atraumatic ++ Trach in place with vomit around the trach site Respiratory: rhonchi Cardiovascular: tachycardia Gastrointestinal: non tender, soft, non-distended, other ++ G-tube in the epigastric region Musculoskeletal: no calf tenderness, no lower extremity edema Psychiatric: other - Unable to assess as parent patient is nonverbal Skin: no rash Labs: noted Imaging: reviewed Assessment and recs # Leukocytosis due to underlying Sepsis --> per ID recs --> ABX # Anemia with a upper gi bleed --> per gi eval --> hgb 12-->8.8 --> anemia panel is noted --> transfuse prn basis --> review smear # Pneumonia b//l pna on imaging --> imaging seen --> Abx vanc/cefepime # Septic shock # Acute renal failure # Upper GI bleed # Hypotensive and tachycardic. --> Patient given IV fluids and is fluid responsive. # Dvt ppx scds Appreciate consultation and dw Nick Ramírez MD Aug 31, 2020 06:54
--- NOTE | 2020-08-31 07:30 | NUR ---
NURSE NOTES: Report and pt received from EDGAR Dela Cruz. Pt is alert and oriented, mostly [place] speaking. Pt is trach to vent; AC 22, TV 450, FiO2 40%, PEEP 5; O2sat 100%. No coffee ground emesis noted; secretions are greenberg/ brownish. Pt has a Gtube; currently clamped so pt can have an Abd ultrasound, as ordered. Will begin tube feeding; Vital AF 1.2 with a goal of 60mL/hr after ultrasound. Optifoam in place on Bony prominences for protection. Rt Wrist PIV 18g and Lt wrist PIV #24g noted; both intact and patent. Bed locked and in lowest position, with call light within reach. Will contact attending MD for admission orders.
--- NOTE | 2020-08-31 07:33 | NUR ---
NURSE HAND-OFF REPORT: Latest Vital Signs: Temperature 100.0 , Pulse 69 , B/P 133 /45 , Respiratory Rate 0 , O2 SAT 100 , Mechanical Ventilator, O2 Flow Rate 15.0 . Vital Sign Comment: EKG Rhythm: Sinus Rhythm Rhythm change?: N MD Notified?: - MD Response: Latest Brewer Fall Score: 20 Fall Risk: Low Risk Safety Measures: Call light Within Reach, Bed Alarm Zone 1, Side Rails Side Rails x3, Bed position Low and Locked. Fall Precautions: Yellow Socks Patient Fall Education Report given to .
[2020-08-31] MEDS: Vancomycin 1gm in D5W 275ml IVPB SCH (07:56)
--- NOTE | 2020-08-31 07:59 | Consultation ---
DATE OF CONSULTATION: 08/31/2020 GASTROENTEROLOGY CONSULTATION CONSULTING PHYSICIAN: Yaakov Jacques MD. CHIEF COMPLAINT: Coffee-ground emesis. HISTORY OF PRESENT ILLNESS: Most of the history per chart. This is a 64-year-old senior living patient on trach and vent. The patient was transferred to the hospital with hypoxemia and also coffee-ground emesis. His hemoglobin has dropped since admission, so GI consult requested for evaluation. PAST MEDICAL HISTORY: Respiratory failure with trach, dysphagia with PEG, CVA, hypertension, COPD. ALLERGIES: No known allergies. MEDICATIONS: Please see medication reconciliation list. PAST SURGICAL HISTORY: Tracheostomy. FAMILY HISTORY: Noncontributory. SOCIAL HISTORY: Currently lives in a senior living. No history of tobacco, alcohol, or drug abuse. REVIEW OF SYSTEMS: Unable to obtain. PHYSICAL EXAMINATION: VITAL SIGNS: Temperature 100, pulse 61, respirations 22, blood pressure is 130/70. HEENT: Normocephalic and atraumatic. Sclerae are anicteric. NECK: Supple. No evidence of obvious lymphadenopathy. CARDIOVASCULAR: Regular rate and rhythm. Plus S1, S2. LUNGS: Decreased breath sounds bilaterally based on supine exam. ABDOMEN: Soft, nontender. G-tube in place. No rebound. No guarding. No peritoneal sign. EXTREMITIES: No cyanosis, no clubbing, no edema. LABORATORY DATA: White count is 12, hemoglobin 8.4, hematocrit , platelet is 189. ASSESSMENT AND PLAN: This is a 64-year-old male admitted to the hospital with hypoxia, possible sepsis. Also had a coffee-ground emesis with hemoglobin dropped from [address] the patient on G-tube feeding today. Make NPO after midnight tonight. PPI twice a day. Transfuse as needed to keep hemoglobin above 7. Plan to do endoscopy tomorrow, pending consent. Yaakov Jacques M.D. DR: MINNA JOB#: [id number] CC:
[2020-08-31] MEDS: Lansoprazole 15mg cap GT SCH ×2 (08:10→17:03)
--- NOTE | 2020-08-31 08:11 | NUR ---
RD ASSESSMENT & RECOMMENDATIONS SEE CARE ACTIVITY FOR COMPLETE ASSESSMENT DAILY ESTIMATED NEEDS: Needs based on Critical care, underweight, TF SAW GRINDER 50kg 28-33 kcals/kg 7598-7244 total kcals 1.2-2 g protein/kg 60-100 g total protein 25-30 mL/kg 8858-3959 total fluid mLs NUTRITION DIAGNOSIS: Swallowing difficulty r/t respiratory failure as evidenced by pt is vent dep via trach/ PEG dep. CURRENT TF: now vital @60ml/hr ENTERAL NUTRITION RECOMMENDATIONS: rec to LOWER Vital 1.2 goal of 55ml/hr x24 hrs to provide 1320ml, 1584 kcal, 99g pro, 1071ml free H2O - rec to LOWER goal to 55ml/hr to not exceed est needs - flush per MD. HOB over 30 degrees ADDITIONAL RECOMMENDATIONS: 1) Maintain calibrated bed scale wts 2) rec bedside BG testing/ niss 3) replete lytes as needed (low phos) 4) feed w/ stability
--- NOTE | 2020-08-31 08:22 | Consultation ---
Consult Note Consult Note I am asked to evaluate the patient at the request of Dr. Perdue Patient was seen in ICU. Discussed with EDGAR Ndiaye. Emergency room note: Patient is a 64-year-old male past medical history of diabetes, CVA with acute respiratory failure trach in place with blow-by oxygen who presents to the ER for hypoxia. Per EMS [facility] staff told them that patient had nausea and vomiting since last night. This morning they found him to be hypoxic with oxygen saturation of 77%. Patient was brought into the ER from his extended care facility by EMS. Allergies: No Known Allergies (Unverified , 08/30/20) COVID-19 Screening Contact w/high risk pt: No Experienced COVID-19 symptoms?: Yes COVID-19 Testing performed MINUTE CLERK FOR BASIC TRAFFIC: No Past Medical History: No History, Except For Hx Hypertension: Yes Hx Diabetes: Yes Vital Signs Date Time Temp Pulse Resp B/P (MAP) Pulse Ox O2 Delivery O2 Flow Rate FiO2 08/30/20 07:50 116 12 71/48 (56) 78 Ambu-Bag 15.0 PHYSICAL EXAMINATION: GENERAL: Reveals a 64-year-old male. VITAL SIGNS: Blood pressure is 130/40, heart rate is 68, respirations are 26, currently on AC mode, FiO2 of 40%, saturation 100%. HEENT: Unremarkable. LUNGS: Clear breath sounds bilaterally. ABDOMEN: Soft. G-tube is noted. EXTREMITIES: There is no edema. Tracheostomy is clean. LABORATORY DATA: Blood cultures are positive for Gram-positive cocci. His rapid COVID-19 testing is negative. Assessment/Plan Acute renal failure: Cr 3.3 on admission Prerenal azotemia/dehydration Acute GI bleed Sepsis, pneumonia Hypotension, septic shock PEG Trach to vent Hydrate Monitor renal parameters and electrolytes Correct abnormal electrolytes Monitor hemoglobin and hematocrit IV Pepcid Albumin bolus Per call center consultant Ben Aguilar MD Aug 31, 2020 08:22
[2020-08-31] MEDS ORDERED: Acetaminophen 650mg/20.3ml NG PRN (09:00)
--- NOTE | 2020-08-31 09:00 | NUR ---
NURSE NOTES: pre sales technical engineer at bedside performing Abd ultrasound.
--- NOTE | 2020-08-31 09:08 | Consultation ---
History of Present Illness General Date patient seen: Aug 31, 2020 Chief Complaint: Dyspnea/Respdistress Reason for Consultation: Sepsis Present Illness HPI Mr. Shaikh is a 64 yo male with PMHx of CVA, Hx of COVID 19 s/p Trach, DM and HTN who was sent to the ED form his care home with hypoxia. They also report N/V/D and abd pain for one day. He is now on a vent in the ICU. WBCs elevated and Blood Cx 2/2 positive for GPC. CXR LLL PNA and Possibly right PNA vs atelectasis. ID was consulted for bacteremia/sepsis PMHx/PSHx CVA s/p PEG Hx of COVID 19 s/p Trach DM HTN SocHx Unable to obtain FamHx Unable to obtain Allergies: Coded Allergies: No Known Allergies (Unverified , 08/30/20) Medication History Scheduled Albuterol Sulfate* (Albuterol Sulfate Hfa*), 2 PUFF [id number] Q3H, (Reported) Ascorbic Acid* (Vitamin C*), 500 MG ORAL DAILY, (Reported) Atorvastatin Calcium* (Lipitor*), 80 MG [id number] BEDTIME, (Reported) Cran/Vitc/Mannose/Inulin/Brom (Uti-Stat Liquid), 3,875 MG GT DAILY, (Reported) Dextran 70/Hypromellose (Artificials Tears Drops), 30 ML OP FOUR TIMES A DAY, (Reported) Docusate Sodium* (Colace*), 100 MG GT DAILY, (Reported) Heparin Sod (Porcine) (Heparin Sodium*), 5,000 UNITS SUBQ EVERY 12 HOURS, (Reported) Ipratropium [place] (Atrovent Hfa), Unknown Dose [id number] Q3HR, (Reported) Zinc Sulfate (Zinc Sulfate*), 220 MG ORAL DAILY, (Reported) Scheduled PRN Acetaminophen* (Acetaminophen 325MG Tablet*), 650 MG ORAL Q4H PRN for fever/pain, (Reported) Ondansetron* (Zofran*), 4 MG GT Q8HR PRN for Nausea & Vomiting, (Reported) Patient History Healthcare decision maker Resuscitation status Advanced Directive on File Review of Systems ROS Narrative Unable to obtain Physical Exam Last 24 Hour Vital Signs Date Time Temp Pulse Resp B/P (MAP) Pulse Ox O2 Delivery O2 Flow Rate FiO2 08/31/20 08:00 98.9 62 29 135/53 (80) 100 08/31/20 08:00 Mechanical Ventilator 08/31/20 07:54 57 24 40 08/31/20 07:30 66 21 123/47 (72) 100 08/31/20 07:15 133/45 08/31/20 07:00 70 21 133/45 (74) 100 08/31/20 06:00 69 0 135/54 (81) 100 08/31/20 05:30 100.0 61 22 130/70 (90) 100 08/31/20 05:00 59 21 132/60 (84) 100 08/31/20 04:00 Mechanical Ventilator 08/31/20 04:00 64 22 136/85 (102) 100 08/31/20 04:00 76 08/31/20 04:00 99.2 62 17 138/82 (100) 99 08/31/20 03:57 84 22 40 08/31/20 03:30 69 20 121/74 (90) 100 08/31/20 03:00 71 17 107/57 (74) 99 08/31/20 03:00 71 17 107/57 (74) 99 08/31/20 02:30 76 12 124/56 (78) 99 08/31/20 02:30 76 12 124/56 (78) 99 08/31/20 02:00 76 22 107/46 (66) 99 08/31/20 02:00 76 22 107/46 (66) 99 08/31/20 01:30 80 22 125/62 (83) 99 08/31/20 01:00 88 22 98 08/31/20 01:00 88 22 120/62 (81) 98 08/31/20 00:30 87 22 99/81 (87) 99 08/31/20 00:00 93 22 125/86 (99) 99 08/31/20 00:00 Mechanical Ventilator 08/31/20 00:00 99.0 93 22 125/86 (99) 99 08/31/20 00:00 90 08/30/20 23:51 86 22 40 08/30/20 23:00 94 22 124/49 (74) 98 08/30/20 22:00 96 22 107/49 (68) 97 08/30/20 21:00 103 22 114/52 (72) 97 08/30/20 20:00 Mechanical Ventilator 08/30/20 20:00 98.2 98 22 112/56 (74) 97 08/30/20 19:18 100 22 40 08/30/20 19:00 94 22 114/56 (75) 97 08/30/20 18:00 99 22 112/57 (75) 97 08/30/20 17:00 97 22 118/60 (79) 97 08/30/20 16:00 94 08/30/20 16:00 Mechanical Ventilator 08/30/20 16:00 98.9 95 22 110/57 (74) 94 08/30/20 15:49 92 22 40 08/30/20 15:49 92 22 99 Mechanical Ventilator 40 08/30/20 15:30 96 22 79/49 (59) 93 08/30/20 15:15 99 22 83/51 (62) 94 08/30/20 15:01 98.9 101 22 92/56 (68) 95 08/30/20 15:00 100 20 95 08/30/20 14:45 98.3 94 22 91/58 93 Mechanical Ventilator 15.0 40 08/30/20 14:41 40 08/30/20 14:41 Mechanical Ventilator 08/30/20 14:00 98.3 94 22 91/58 93 Mechanical Ventilator 15.0 40 08/30/20 13:30 98.3 94 22 99/56 95 Mechanical Ventilator 15.0 40 08/30/20 13:00 98.3 87 22 96/60 95 Mechanical Ventilator 15.0 40 08/30/20 12:30 98.3 90 22 101/63 94 Mechanical Ventilator 15.0 40 08/30/20 12:00 98.3 87 22 100/64 94 Mechanical Ventilator 15.0 40 08/30/20 11:30 98.3 91 22 92/54 94 Mechanical Ventilator 15.0 40 08/30/20 11:04 90 22 40 08/30/20 10:00 97.0 92 22 97/66 100 Mechanical Ventilator 15.0 60 08/30/20 09:40 110 22 60 08/30/20 09:30 97.0 107 22 87/56 100 Mechanical Ventilator 15.0 100 Intake and Output 08/30/20 08/31/20 19:00 07:00 Intake Total 450 ml 1200 ml Output Total 460 ml 950 ml Balance -10 ml 250 ml Intake IV Total 150 ml 1200 ml Other 300 ml Output Urine Total 460 ml 950 ml # Voids 80 # Bowel Movements 3 4 Laboratory Tests Test 08/30/20 09:20 08/30/20 17:00 08/30/20 19:50 08/31/20 03:45 Urine Color Yellow Pale yellow Urine Appearance Clear Slightly cloudy Urine pH 5 (4.5-8.0) 5 (4.5-8.0) Urine Specific [place] 1.025 (1.005-1.035) 1.030 (1.005-1.035) Urine Protein 2+ (NEGATIVE) H 2+ (NEGATIVE) H Urine Glucose (UA) Negative (NEGATIVE) Negative (NEGATIVE) Urine Ketones 1+ (NEGATIVE) H Negative (NEGATIVE) Urine Blood 1+ (NEGATIVE) H 5+ (NEGATIVE) H Urine Nitrite Negative (NEGATIVE) Negative (NEGATIVE) Urine Bilirubin Negative (NEGATIVE) Negative (NEGATIVE) Urine Urobilinogen 1 MG/DL (0.0-1.0) H Normal MG/DL (0.0-1.0) Urine Leukocyte Esterase 1+ (NEGATIVE) H Negative (NEGATIVE) Urine RBC 0-2 /HPF (0 - 0) H 60-80 /HPF (0 - 0) H Urine WBC 2-4 /HPF (0 - 0) 0-2 /HPF (0 - 0) Urine Squamous Epithelial Cells Occasional /LPF Occasional /LPF Urine Bacteria Few /HPF (NONE) Few /HPF (NONE) Lactic Acid Level 2.40 mmol/L (0.4-2.0) H 1.20 mmol/L (0.4-2.0) White Blood Count 12.1 K/UL (4.8-10.8) H Red Blood Count 2.78 M/UL (4.70-6.10) L Hemoglobin 8.4 G/DL (14.2-18.0) #L Hematocrit 26.7 % (42.0-52.0) #L Mean Corpuscular Volume 96 FL (80-99) Mean Corpuscular Hemoglobin 30.3 PG (27.0-31.0) Mean Corpuscular Hemoglobin Concent 31.5 G/DL (32.0-36.0) L Red Cell Distribution Width 14.6 % (11.6-14.8) Platelet Count 189 K/UL (150-450) Mean Platelet Volume 7.3 FL (6.5-10.1) Neutrophils (%) (Auto) % (45.0-75.0) Lymphocytes (%) (Auto) % (20.0-45.0) Monocytes (%) (Auto) % (1.0-10.0) Eosinophils (%) (Auto) % (0.0-3.0) Basophils (%) (Auto) % (0.0-2.0) Differential Total Cells Counted 100 Neutrophils % (Manual) 81 % (45-75) H Lymphocytes % (Manual) 4 % (20-45) L Monocytes % (Manual) 6 % (1-10) Eosinophils % (Manual) 0 % (0-3) Basophils % (Manual) 0 % (0-2) Band Neutrophils 9 % (0-8) H Platelet Estimate Adequate Platelet Morphology Normal Hypochromasia 1+ Anisocytosis 1+ Sodium Level 144 MMOL/L (136-145) Potassium Level 4.0 MMOL/L (3.5-5.1) Chloride Level 107 MMOL/L (98-107) Carbon Dioxide Level 32 MMOL/L (21-32) Anion Gap 5 mmol/L (5-15) Blood Urea Nitrogen 50 mg/dL (7-18) H Creatinine 1.3 MG/DL (0.55-1.30) # Estimat Glomerular Filtration Rate 55.6 mL/min (>60) Glucose Level 136 MG/DL (74-106) H Hemoglobin A1c 5.9 % (4.3-6.0) Uric Acid 5.9 MG/DL (2.6-7.2) Calcium Level 8.7 MG/DL (8.5-10.1) # Phosphorus Level 1.8 MG/DL (2.5-4.9) L Magnesium Level 2.1 MG/DL (1.8-2.4) Total Bilirubin 0.3 MG/DL (0.2-1.0) Direct Bilirubin 0.2 MG/DL (0.0-0.3) Gamma Glutamyl Transpeptidase 24 U/L (5-85) Aspartate Amino Transf (AST/SGOT) 40 U/L (15-37) H Alanine Aminotransferase (ALT/SGPT) 23 U/L (12-78) Alkaline Phosphatase 63 U/L (46-116) Total Creatine Kinase 166 U/L (26-308) C-Reactive Protein, Quantitative 38.2 mg/dL (0.00-0.90) H Pro-B-Type Natriuretic Peptide 967 pg/mL (0-125) H Total Protein 7.0 G/DL (6.4-8.2) Albumin 1.6 G/DL (3.4-5.0) L Globulin 5.4 g/dL Albumin/Globulin Ratio 0.3 (1.0-2.7) L Amylase Level 44 U/L (25-115) Lipase 106 U/L (73-393) Thyroid Stimulating Hormone (TSH) 0.420 uiU/mL (0.358-3.740) Free Thyroxine 1.22 NG/DL (0.76-1.46) Random Vancomycin Level 7.7 ug/mL Microbiology Date/Time Source Procedure Growth Status 08/31/20 03:15 Rectum Received 08/31/20 03:15 Nasopharynx SARS-CoV-2 Antigen (Rapid)(PEDRO) - Final Complete Height (Feet): 5 Height (Inches): 7.00 Weight (Pounds): 120 Medications Current Medications Medications (Trade) Dose Ordered Sig/Kirby Route PRN Reason Start Time Stop Time Status Last Admin Dose Admin Cefepime HCl 1 gm/ Dextrose 55 ml @ 110 mls/hr Q24H IVPB 08/31/20 12:00 09/07/20 11:59 Dextrose (Dextrose 50%) 25 ml Q30M PRN IV Hypoglycemia 08/30/20 16:45 11/28/20 16:44 Dextrose (Dextrose 50%) 50 ml Q30M PRN IV Hypoglycemia 08/30/20 16:45 11/28/20 16:44 Insulin Aspart (NovoLOG) Q6HR SUBQ 08/30/20 18:00 11/28/20 17:59 08/30/20 19:30 Lansoprazole (Prevacid) 30 mg BID GT 08/31/20 09:00 09/30/20 08:59 08/31/20 08:10 Norepinephrine Bitartrate 4 mg/ Dextrose 250 ml @ 0 mls/hr Q24H IV 08/30/20 09:45 09/02/20 09:44 Ondansetron HCl (Zofran) 4 mg Q4H PRN IVP Nausea & Vomiting 08/30/20 16:45 09/29/20 16:44 Sodium Chloride 1,000 ml @ 100 mls/hr Q10H IV 08/30/20 16:45 09/29/20 16:44 08/31/20 03:35 Sodium Phosphate 30 mm/Sodium Chloride 285 ml @ 47.5 mls/hr ONCE ONCE IVPB 08/31/20 09:30 08/31/20 15:29 Vancomycin HCl (Vanco pharmacy to dose) 1 ea DAILY PRN MISC . 08/30/20 17:00 09/29/20 16:59 Vancomycin HCl 1 gm/Dextrose 275 ml @ 183.708 mls/hr Q24H IVPB 08/31/20 08:00 09/05/20 07:59 08/31/20 07:56 Objective Narrative Gen: NAD on Vent HEENT: NCAT, MMM, EOMI, No scleral icterus, Trach in place NECK Supple, No LAD HEART: RRR, S1, S2 Pulm: CTAB, No W No accessory mescle use Abd: Soft, NT, ND, + BS, PEG ( No E/P) : Differed Neuro: Not verbal SKIN: Exposed skin normal in color no rash noted Assessment/Plan Assessment/Plan: 64 yo male with PMHx of CVA, Hx of COVID 19 s/p Trach, DM and HTN who was sent to the ED form his care home with hypoxia. Sepsis [place]ot[place]oss[place] No fever Bacteremia vs contaminant Blood Cx 08/30/20 - 08/10 GPC Blood Cx 08/30/20 - Possibly right PNA vs atelectasis. Resp fail - Acute on chronic Trached PNA CXR shows - LLL PNA and possible N/V/D and abd pain CVA s/p PEG Hx of COVID 19 s/p Trach DM HTN PLAN Start Flagyl Continue Cefepime #1 and Vancocmyin #1 f/u cultures B/U/S Monitor Resp status [place] CBC and Temps Thank you for this consult. [facility] will continue to follow Mr. Shaikh with you. Kostas Packer MD Aug 31, 2020 09:08
[2020-08-31] MEDS ORDERED: Sodium Phosphate 30 MM in NS 275 ML IVPB ONE (09:30)
[2020-08-31] MEDS: D5 1/2NS 1,000 ML IV SCH ×2 (10:00→22:04)
--- NOTE | 2020-08-31 10:00 | NUR ---
NURSE NOTES: Dr Packer at the bedside assessing pt. Updated him on pt's current condition. Urine and Sputum cultures collected and COVID PCR collected, as ordered. Sent down to the lab for testing. Tube feedings started @ 15mL/hr.
[2020-08-31] MEDS: Cefepime HCl 1 GM in D5W 55 ML IVPB SCH (11:49)
--- NOTE | 2020-08-31 12:00 | NUR ---
NURSE NOTES: Pt fully cleaned after having a moderate brown formed BM. Oral care done. Pt turned and repositioned for comfort. BS 198 Novolog insulin given per sliding scale
--- NOTE | 2020-08-31 13:15 | NUR ---
TRANSFER TO FLOOR: Patient transferred to SDU 237-1, per Dr Ferguson. Report given to EDGAR Dubois. Pt had no belongings. informed of transfer.
--- NOTE | 2020-08-31 14:12 | Diagnostic Imaging Report ---
EXAM: ULTRASOUND US ABD Complete CLINICAL HISTORY: Nausea and vomiting. COMPARISON: None TECHNIQUE: Ultrasound examination of the abdomen includes grayscale images, and color and spectral doppler analysis. FINDINGS: The liver and spleen are homogeneous. Mild wall thickening of the gallbladder noted. Common bile duct measures 3 mm. The pancreas is unremarkable to the extent visualized. There are nonshadowing cortical echogenic focus in the left kidney likely perivascular fat. No renal stone or hydronephrosis seen bilaterally. Aorta and cava are within normal limits. IMPRESSION: NO GALLSTONE OR SLUDGE IS IDENTIFIED BUT THERE IS EDEMA AND GALLBLADDER WALL THICKENING. PATIENT IS UNABLE TO REPORT FOCAL SYMPTOMS. LEFT RENAL CORTICAL ECHOGENIC FOCUS WITHOUT SHADOWING LIKELY PERIVASCULAR FAT. NO DISCRETE RENAL STONE OR HYDRONEPHROSIS. INCIDENTAL SMALL LEFT PLEURAL EFFUSION.
--- NOTE | 2020-08-31 19:06 | Consultation ---
History of Present Illness General Date patient seen: Aug 31, 2020 Reason for Hospitalization: Dyspnea/Respdistress Present Illness HPI Is a 64-year-old male multiple medical committees history of CVA presented from care facility where he is care dependent for evaluation hypoxia identified to have leukocytosis abnormal labs ultrasound with gallbladder wall thickening no stones consideration of a calculus cholecystitis surgery called to evaluate assist with care patient seen patient evaluate chart reviewed patient who provide history given his history. Drop in hemoglobin bloody stool consideration GI bleed. Allergies: Coded Allergies: No Known Allergies (Unverified , 08/30/20) COVID-19 Screening Contact w/high risk pt: No Experienced COVID-19 symptoms?: Yes Coronavirus symptoms experienc: Shortness of Breath, Nausea/Vomiting Medication History Scheduled Albuterol Sulfate* (Albuterol Sulfate Hfa*), 2 PUFF [id number] Q3H, (Reported) Ascorbic Acid* (Vitamin C*), 500 MG ORAL DAILY, (Reported) Atorvastatin Calcium* (Lipitor*), 80 MG [id number] BEDTIME, (Reported) Cran/Vitc/Mannose/Inulin/Brom (Uti-Stat Liquid), 3,875 MG GT DAILY, (Reported) Dextran 70/Hypromellose (Artificials Tears Drops), 30 ML OP FOUR TIMES A DAY, (Reported) Docusate Sodium* (Colace*), 100 MG GT DAILY, (Reported) Heparin Sod (Porcine) (Heparin Sodium*), 5,000 UNITS SUBQ EVERY 12 HOURS, (Reported) Ipratropium [place] (Atrovent Hfa), Unknown Dose [id number] Q3HR, (Reported) Zinc Sulfate (Zinc Sulfate*), 220 MG ORAL DAILY, (Reported) Scheduled PRN Acetaminophen* (Acetaminophen 325MG Tablet*), 650 MG ORAL Q4H PRN for fever/pain, (Reported) Ondansetron* (Zofran*), 4 MG GT Q8HR PRN for Nausea & Vomiting, (Reported) Patient History Limited by: medical condition History Provided By: Medical Record, PMD Healthcare decision maker Resuscitation status Advanced Directive on File Past Medical/Surgical History Past Medical/Surgical History: (1) Septic shock (2) Acute renal failure (3) Sepsis (4) Pneumonia (5) Upper GI bleed Review of Systems Review of Symptoms General ROS: no weight loss or fever Psychological ROS: no depression or mood changes, no memory loss Ophthalmic ROS: no visual changes or eye irritation ENT ROS: no nasal congestion, hearing loss, dizziness Allergy and Immunology ROS: no allergic symptoms or urticaria Hematological and Lymphatic ROS: no swollen glands, unusual bleeding or bruising Endocrine ROS: no polyuria, polydipsia, weight changes, temperature intolerance Respiratory ROS: no cough, shortness of breath, or wheezing Cardiovascular ROS: no chest pain or dyspnea on exertion Gastrointestinal ROS: denies abdominal pain, bright red blood in stool. Musculoskeletal ROS: no myalgias or arthralgias Neurological ROS: no TIA or stroke symptoms Dermatological ROS: no new or changing skin lesions, rashes or pruritis limited given medical condition Physical Exam Physical Exam General appearance: alert, cooperative, no distress, appears stated age Head: Normocephalic, without obvious abnormality, atraumatic Eyes: conjunctivae/corneas clear. PERRL, EOM's intact. Fundi benign Throat: Lips, mucosa, and tongue normal. Teeth and gums normal Neck: supple, symmetrical, trachea midline, no adenopathy, thyroid: not enlarged, symmetric, no tenderness/mass/nodules, no carotid bruit and no JVD Lungs: clear to auscultation bilaterally Heart: regular rate and rhythm, S1, S2 normal, no murmur, click, rub or gallop Abdomen: soft, non-tender. Bowel sounds normal. No masses, no organomegaly Extremities: extremities normal, atraumatic, no cyanosis or edema Pulses: 2+ and symmetric Skin: Skin color, texture, turgor normal. No rashes or lesions Neurologic: Grossly normal Last 24 Hour Vital Signs Date Time Temp Pulse Resp B/P (MAP) Pulse Ox O2 Delivery O2 Flow Rate FiO2 08/31/20 16:00 Mechanical Ventilator 08/31/20 16:00 76 08/31/20 16:00 98.4 73 26 118/61 (80) 100 08/31/20 15:38 60 26 40 08/31/20 14:00 40 08/31/20 12:00 98.4 73 26 118/61 (80) 100 08/31/20 12:00 Mechanical Ventilator 08/31/20 12:00 72 08/31/20 11:26 75 25 40 08/31/20 11:00 65 31 130/42 (71) 100 08/31/20 10:00 65 27 136/59 (84) 100 08/31/20 09:00 73 30 143/61 (88) 100 08/31/20 08:30 59 29 142/61 (88) 100 08/31/20 08:00 62 08/31/20 08:00 98.9 62 29 135/53 (80) 100 08/31/20 08:00 Mechanical Ventilator 08/31/20 07:54 57 24 40 08/31/20 07:30 66 21 123/47 (72) 100 08/31/20 07:15 133/45 08/31/20 07:00 70 21 133/45 (74) 100 08/31/20 06:00 69 0 135/54 (81) 100 08/31/20 05:30 100.0 61 22 130/70 (90) 100 08/31/20 05:00 59 21 132/60 (84) 100 08/31/20 04:00 Mechanical Ventilator 08/31/20 04:00 64 22 136/85 (102) 100 08/31/20 04:00 76 08/31/20 04:00 99.2 62 17 138/82 (100) 99 08/31/20 03:57 84 22 40 08/31/20 03:30 69 20 121/74 (90) 100 08/31/20 03:00 71 17 107/57 (74) 99 08/31/20 03:00 71 17 107/57 (74) 99 08/31/20 02:30 76 12 124/56 (78) 99 08/31/20 02:30 76 12 124/56 (78) 99 08/31/20 02:00 76 22 107/46 (66) 99 08/31/20 02:00 76 22 107/46 (66) 99 08/31/20 01:30 80 22 125/62 (83) 99 08/31/20 01:00 88 22 98 08/31/20 01:00 88 22 120/62 (81) 98 08/31/20 00:30 87 22 99/81 (87) 99 08/31/20 00:00 93 22 125/86 (99) 99 08/31/20 00:00 Mechanical Ventilator 08/31/20 00:00 99.0 93 22 125/86 (99) 99 08/31/20 00:00 90 08/30/20 23:51 86 22 40 08/30/20 23:00 94 22 124/49 (74) 98 08/30/20 22:00 96 22 107/49 (68) 97 08/30/20 21:00 103 22 114/52 (72) 97 08/30/20 20:00 Mechanical Ventilator 08/30/20 20:00 98.2 98 22 112/56 (74) 97 08/30/20 19:18 100 22 40 Intake and Output 08/30/20 08/31/20 19:00 07:00 Intake Total 450 ml 1200 ml Output Total 460 ml 950 ml Balance -10 ml 250 ml Intake IV Total 150 ml 1200 ml Other 300 ml Output Urine Total 460 ml 950 ml # Voids 80 # Bowel Movements 3 4 Laboratory Tests Test 08/30/20 19:50 08/31/20 03:45 08/31/20 18:55 Lactic Acid Level 2.40 mmol/L (0.4-2.0) H 1.20 mmol/L (0.4-2.0) White Blood Count 12.1 K/UL (4.8-10.8) H Red Blood Count 2.78 M/UL (4.70-6.10) L Hemoglobin 8.4 G/DL (14.2-18.0) #L Hematocrit 26.7 % (42.0-52.0) #L Mean Corpuscular Volume 96 FL (80-99) Mean Corpuscular Hemoglobin 30.3 PG (27.0-31.0) Mean Corpuscular Hemoglobin Concent 31.5 G/DL (32.0-36.0) L Red Cell Distribution Width 14.6 % (11.6-14.8) Platelet Count 189 K/UL (150-450) Mean Platelet Volume 7.3 FL (6.5-10.1) Neutrophils (%) (Auto) % (45.0-75.0) Lymphocytes (%) (Auto) % (20.0-45.0) Monocytes (%) (Auto) % (1.0-10.0) Eosinophils (%) (Auto) % (0.0-3.0) Basophils (%) (Auto) % (0.0-2.0) Differential Total Cells Counted 100 Neutrophils % (Manual) 81 % (45-75) H Lymphocytes % (Manual) 4 % (20-45) L Monocytes % (Manual) 6 % (1-10) Eosinophils % (Manual) 0 % (0-3) Basophils % (Manual) 0 % (0-2) Band Neutrophils 9 % (0-8) H Platelet Estimate Adequate Platelet Morphology Normal Hypochromasia 1+ Anisocytosis 1+ Sodium Level 144 MMOL/L (136-145) Potassium Level 4.0 MMOL/L (3.5-5.1) Chloride Level 107 MMOL/L (98-107) Carbon Dioxide Level 32 MMOL/L (21-32) Anion Gap 5 mmol/L (5-15) Blood Urea Nitrogen 50 mg/dL (7-18) H Creatinine 1.3 MG/DL (0.55-1.30) # Estimat Glomerular Filtration Rate 55.6 mL/min (>60) Glucose Level 136 MG/DL (74-106) H Hemoglobin A1c 5.9 % (4.3-6.0) Uric Acid 5.9 MG/DL (2.6-7.2) Calcium Level 8.7 MG/DL (8.5-10.1) # Phosphorus Level 1.8 MG/DL (2.5-4.9) L Magnesium Level 2.1 MG/DL (1.8-2.4) Total Bilirubin 0.3 MG/DL (0.2-1.0) Direct Bilirubin 0.2 MG/DL (0.0-0.3) Gamma Glutamyl Transpeptidase 24 U/L (5-85) Aspartate Amino Transf (AST/SGOT) 40 U/L (15-37) H Alanine Aminotransferase (ALT/SGPT) 23 U/L (12-78) Alkaline Phosphatase 63 U/L (46-116) Total Creatine Kinase 166 U/L (26-308) C-Reactive Protein, Quantitative 38.2 mg/dL (0.00-0.90) H Pro-B-Type Natriuretic Peptide 967 pg/mL (0-125) H Total Protein 7.0 G/DL (6.4-8.2) Albumin 1.6 G/DL (3.4-5.0) L Globulin 5.4 g/dL Albumin/Globulin Ratio 0.3 (1.0-2.7) L Amylase Level 44 U/L (25-115) Lipase 106 U/L (73-393) Thyroid Stimulating Hormone (TSH) 0.420 uiU/mL (0.358-3.740) Free Thyroxine 1.22 NG/DL (0.76-1.46) Random Vancomycin Level 7.7 ug/mL POC Whole Blood Glucose 180 MG/DL (74-106) H Microbiology Date/Time Source Procedure Growth Status 08/31/20 03:15 Rectum Received 08/31/20 03:15 Nasopharynx SARS-CoV-2 Antigen (Rapid)(PEDRO) - Final Complete Height (Feet): 5 Height (Inches): 7.00 Weight (Pounds): 120 Medications Current Medications Medications (Trade) Dose Ordered Sig/Kirby Route PRN Reason Start Time Stop Time Status Last Admin Dose Admin Acetaminophen (Tylenol) 650 mg Q4H PRN NG Mild Pain (Pain Scale 1-3) 08/31/20 09:00 09/30/20 08:59 Acetaminophen (Tylenol) 650 mg Q4H PRN NG Temp >100.5 08/31/20 09:00 09/30/20 08:59 Cefepime HCl 1 gm/ Dextrose 55 ml @ 110 mls/hr Q24H IVPB 08/31/20 12:00 09/07/20 11:59 08/31/20 11:49 Dextrose (Dextrose 50%) 25 ml Q30M PRN IV Hypoglycemia 08/30/20 16:45 11/28/20 16:44 Dextrose (Dextrose 50%) 50 ml Q30M PRN IV Hypoglycemia 08/30/20 16:45 11/28/20 16:44 Dextrose/Sodium Chloride 1,000 ml @ 100 mls/hr Q10H IV 08/31/20 09:30 09/30/20 09:29 08/31/20 10:00 Famotidine (Pepcid I.v.) 20 mg Q12HR IVP 08/31/20 09:30 09/30/20 09:29 08/31/20 10:21 Insulin Aspart (NovoLOG) Q6HR SUBQ 08/30/20 18:00 11/28/20 17:59 08/31/20 11:54 Lansoprazole (Prevacid) 30 mg BID GT 08/31/20 09:00 09/30/20 08:59 08/31/20 17:03 Metronidazole 100 ml @ 100 mls/hr Q8HR IVPB 08/31/20 14:00 09/07/20 13:59 08/31/20 14:00 Ondansetron HCl (Zofran) 4 mg Q4H PRN IVP Nausea & Vomiting 08/30/20 16:45 09/29/20 16:44 Vancomycin HCl (Vanco pharmacy to dose) 1 ea DAILY PRN MISC . 08/30/20 17:00 09/29/20 16:59 Vancomycin HCl 1 gm/Dextrose 275 ml @ 183.708 mls/hr Q24H IVPB 08/31/20 08:00 09/05/20 07:59 08/31/20 07:56 Assessment/Plan Problem List: (1) Septic shock ICD Codes: A41.9 - Sepsis, unspecified organism; R65.21 - Severe sepsis with septic shock SNOMED: 45882515 (2) Acute renal failure ICD Codes: N17.9 - Acute kidney failure, unspecified SNOMED: 01990200 (3) Sepsis Assessment & Plan: 64-year-old male leukocytosis abnormal labs ultrasound with gallbladder wall thickening no pericholecystic fluid no gallstones potentially a calculus cholecystitis. Patient unable to verbalize or identify tenderness. Examination fairly unreliable. Clinically recommend given patient's history and condition medical management and will monitor clinically. The liver and spleen are homogeneous. Mild wall thickening of the gallbladder noted. Common bile duct measures 3 mm. The pancreas is unremarkable to the extent visualized. There are nonshadowing cortical echogenic focus in the left kidney likely perivascular fat. No renal stone or hydronephrosis seen bilaterally. Aorta and cava are within normal limits. IMPRESSION: NO GALLSTONE OR SLUDGE IS IDENTIFIED BUT THERE IS EDEMA AND GALLBLADDER WALL THICKENING. PATIENT IS UNABLE TO REPORT FOCAL SYMPTOMS. LEFT RENAL CORTICAL ECHOGENIC FOCUS WITHOUT SHADOWING LIKELY PERIVASCULAR FAT. NO DISCRETE RENAL STONE OR HYDRONEPHROSIS. INCIDENTAL SMALL LEFT PLEURAL EFFUSION. ICD Codes: A41.9 - Sepsis, unspecified organism SNOMED: 41081604 (4) Pneumonia ICD Codes: J18.9 - Pneumonia, unspecified organism SNOMED: 879763945 (5) Upper GI bleed Assessment & Plan: Patient had acute drop in hemoglobin noted some dark stool consider removed potentially blood GI called GI eval pending occult stool trend H&H PRBC if drops below 7 will follow with recommendations ICD Codes: K92.2 - Gastrointestinal hemorrhage, unspecified SNOMED: [id number] Doe Nina Aug 31, 2020 19:06
--- NOTE | 2020-08-31 19:10 | NUR ---
Received pt in bed, alert but non verbal, on vent via trach not showing any signs of distress at current settings. Vital AF 1.2 running at 20cc/hr via PEG. Right wrist #18 intact and patent with D51/2NS infusing at 100cc/hr. Bob cath in place draining yellow urine. VSS and pt is SR on the monitor.
--- NOTE | 2020-08-31 19:51 | General Progress Note ---
Subjective Constitutional: Reports: no symptoms HEENT: Reports: no symptoms Cardiovascular: Reports: no symptoms Respiratory: Reports: no symptoms Gastrointestinal/Abdominal: Reports: no symptoms Genitourinary: Reports: no symptoms Neurologic/Psychiatric: Reports: no symptoms Endocrine: Reports: no symptoms Hematologic/Lymphatic: Reports: no symptoms Allergies: Coded Allergies: No Known Allergies (Unverified , 08/30/20) Objective Last 24 Hour Vital Signs Date Time Temp Pulse Resp B/P (MAP) Pulse Ox O2 Delivery O2 Flow Rate FiO2 08/31/20 19:26 59 22 40 08/31/20 16:00 Mechanical Ventilator 08/31/20 16:00 76 08/31/20 16:00 98.4 73 26 118/61 (80) 100 08/31/20 15:38 60 26 40 08/31/20 14:00 40 08/31/20 12:00 98.4 73 26 118/61 (80) 100 08/31/20 12:00 Mechanical Ventilator 08/31/20 12:00 72 08/31/20 11:26 75 25 40 08/31/20 11:00 65 31 130/42 (71) 100 08/31/20 10:00 65 27 136/59 (84) 100 08/31/20 09:00 73 30 143/61 (88) 100 08/31/20 08:30 59 29 142/61 (88) 100 08/31/20 08:00 62 08/31/20 08:00 98.9 62 29 135/53 (80) 100 08/31/20 08:00 Mechanical Ventilator 08/31/20 07:54 57 24 40 08/31/20 07:30 66 21 123/47 (72) 100 08/31/20 07:15 133/45 08/31/20 07:00 70 21 133/45 (74) 100 08/31/20 06:00 69 0 135/54 (81) 100 08/31/20 05:30 100.0 61 22 130/70 (90) 100 08/31/20 05:00 59 21 132/60 (84) 100 08/31/20 04:00 Mechanical Ventilator 08/31/20 04:00 64 22 136/85 (102) 100 08/31/20 04:00 76 08/31/20 04:00 99.2 62 17 138/82 (100) 99 08/31/20 03:57 84 22 40 08/31/20 03:30 69 20 121/74 (90) 100 08/31/20 03:00 71 17 107/57 (74) 99 08/31/20 03:00 71 17 107/57 (74) 99 08/31/20 02:30 76 12 124/56 (78) 99 08/31/20 02:30 76 12 124/56 (78) 99 08/31/20 02:00 76 22 107/46 (66) 99 08/31/20 02:00 76 22 107/46 (66) 99 08/31/20 01:30 80 22 125/62 (83) 99 08/31/20 01:00 88 22 98 08/31/20 01:00 88 22 120/62 (81) 98 08/31/20 00:30 87 22 99/81 (87) 99 08/31/20 00:00 93 22 125/86 (99) 99 08/31/20 00:00 Mechanical Ventilator 08/31/20 00:00 99.0 93 22 125/86 (99) 99 08/31/20 00:00 90 08/30/20 23:51 86 22 40 08/30/20 23:00 94 22 124/49 (74) 98 08/30/20 22:00 96 22 107/49 (68) 97 08/30/20 21:00 103 22 114/52 (72) 97 08/30/20 20:00 Mechanical Ventilator 08/30/20 20:00 98.2 98 22 112/56 (74) 97 Intake and Output 08/30/20 08/31/20 19:00 07:00 Intake Total 450 ml 1200 ml Output Total 460 ml 950 ml Balance -10 ml 250 ml Intake IV Total 150 ml 1200 ml Other 300 ml Output Urine Total 460 ml 950 ml # Voids 80 # Bowel Movements 3 4 Laboratory Tests 08/30/20 19:50: Lactic Acid Level 2.40H 08/31/20 03:45: Lactic Acid Level 1.20, White Blood Count 12.1H, Red Blood Count 2.78L, Hemoglobin 8.4#L, Hematocrit 26.7#L, Mean Corpuscular Volume 96, Mean Corpuscular Hemoglobin 30.3, Mean Corpuscular Hemoglobin Concent 31.5L, Red Cell Distribution Width 14.6, Platelet Count 189, Mean Platelet Volume 7.3, Neutrophils (%) (Auto) , Lymphocytes (%) (Auto) , Monocytes (%) (Auto) , Eosinophils (%) (Auto) , Basophils (%) (Auto) , Differential Total Cells Counted 100, Neutrophils % (Manual) 81H, Lymphocytes % (Manual) 4L, Monocytes % (Manual) 6, Eosinophils % (Manual) 0, Basophils % (Manual) 0, Band Neutrophils 9H, Platelet Estimate Adequate, Platelet Morphology Normal, Hypochromasia 1+, Anisocytosis 1+, Sodium Level 144, Potassium Level 4.0, Chloride Level 107, Carbon Dioxide Level 32, Anion Gap 5, Blood Urea Nitrogen 50H, Creatinine 1.3#, Estimat Glomerular Filtration Rate 55.6, Glucose Level 136H, Hemoglobin A1c 5.9, Uric Acid 5.9, Calcium Level 8.7#, Phosphorus Level 1.8L, Magnesium Level 2.1, Total Bilirubin 0.3, Direct Bilirubin 0.2, Gamma Glutamyl Transpeptidase 24, Aspartate Amino Transf (AST/SGOT) 40H, Alanine Aminotransferase (ALT/SGPT) 23, Alkaline Phosphatase 63, Total Creatine Kinase 166, C-Reactive Protein, Quantitative 38.2H, Pro-B-Type Natriuretic Peptide 967H, Total Protein 7.0, Albumin 1.6L, Globulin 5.4, Albumin/Globulin Ratio 0.3L, Amylase Level 44, Lip ase 106, Thyroid Stimulating Hormone (TSH) 0.420, Free Thyroxine 1.22, Random Vancomycin Level 7.7 08/31/20 18:55: POC Whole Blood Glucose 180H Height (Feet): 5 Height (Inches): 7.00 Weight (Pounds): 120 General Appearance: WD/WN, no apparent distress, alert EENT: normal ENT inspection Neck: supple Cardiovascular: normal rate, regular rhythm, no gallop/murmur, no JVD Respiratory/Chest: lungs clear, normal breath sounds, no respiratory distress, no accessory muscle use Abdomen: normal bowel sounds, non tender, soft, no organomegaly, no mass Extremities: non-tender Neurologic: alert Skin: warm/dry Assessment/Plan Status Narrative Awake alert responsive afebrile declares that he has no symptoms he was transferred to from the ICU today with a plan to undergo upper GI endoscopy tomorrow the signs are normal oratory tests are acceptable for the procedure admitted because of multiple coffee-ground material vomiting repeat laboratory tests will be done in a.m.Jason Figueroa MD, MD Aug 31, 2020 19:51
--- NOTE | 2020-08-31 19:59 | Consultation ---
DATE OF CONSULTATION: 08/31/2020 PULMONARY CONSULTATION CONSULTING PHYSICIAN: Michel Pleitez M.D. HISTORY OF PRESENT ILLNESS: This is a 64-year-old male with history of chronic tracheostomy and chronic vent dependence, who was brought in from the facility with hypoxia. The patient was also noted to have an upper GI bleeding and having emesis. The patient was hypoxic. He was admitted to the hospital for management and care. Overnight, the patient has been seen by Nephrology, ID, and Gastroenterology. His hemoglobin has dropped, however, there are no immediate plans for endoscopy. The patient was started on a proton pump inhibitor and transfusions were recommended for anemia. His recent hemoglobin was 12.2 on arrival. It is noted to be 8.4 today. Also, his ABG shows pH 7.27, pCO2 71, pO2 244. Coags are negative. D-dimer 3.6. Toxicology is negative. Urinalysis negative. Imaging studies were obtained, which shows right bibasilar pneumonia. The patient has been seen by ID specialist and it is noted that the patient also has a history of previous COVID-19. The patient was started on Flagyl, cefepime, and vancomycin. REVIEW OF SYSTEMS: Not obtainable. PAST MEDICAL HISTORY: Notable for previous CVA, COVID-19 pneumonia, chronic tracheostomy, diabetes mellitus, hypertension, [facility]dc resident. ALLERGIES: None reported. HOME MEDICATIONS: Reviewed and reconciled in the chart. PAST SURGICAL HISTORY: Chronic tracheostomy, chronic G-tube. PHYSICAL EXAMINATION: GENERAL: Reveals a 64-year-old male. VITAL SIGNS: Blood pressure is 130/40, heart rate is 68, respirations are 26, currently on AC mode, FiO2 of 40%, saturation 100%. HEENT: Unremarkable. LUNGS: Clear breath sounds bilaterally. ABDOMEN: Soft. G-tube is noted. EXTREMITIES: There is no edema. Tracheostomy is clean. LABORATORY DATA: Blood cultures are positive for Gram-positive cocci. His rapid COVID-19 testing is negative. as discussed above. IMPRESSION: 1. Bilateral health-care associated pneumonia. 2. GI bleed. 3. Tracheostomy. 4. Diabetes mellitus. 5. Hypertension. 6. CVA. DISCUSSION: Admit to the hospital. Continue vent. We will continue AC mode, FiO2 40%, keep sats more than 94%. Agree with antibiotics as per ID. DVT and GI prophylaxes, we will hold anticoagulation given GI bleed. The patient was started on proton pump inhibitor and endoscopy was planned. We will follow carefully. Michel lPeitez M.D. DR: RENARD JOB#: [id number] CC:
[2020-09-01] VITALS: BP 120/67
--- NOTE | 2020-09-01 | NUR ---
NURSE NOTES: Pt remains stable. VSS. Accucheck 197. No coverage given as pt will be NPO for EGD in AM. Pt remains SR on the monitor.
[2020-09-01 04:00] VITALS: BP 157/80
--- NOTE | 2020-09-01 04:00 | NUR ---
NURSE NOTES: Pt remains stable with stable VS. Pt remains SR on the monitor.
[2020-09-01 05:36] LABS: HEMATOCRIT 26.7 % (42.0-52.0); HEMOGLOBIN 8.6 G/DL (14.2-18.0); MEAN CORPUSCULAR VOLUME 94 FL (80-99); PLATELET COUNT 203 K/UL (150-450); RED BLOOD COUNT 2.84 M/UL (4.70-6.10); RED CELL DISTRIBUTION WIDTH 14.3 % (11.6-14.8); WHITE BLOOD COUNT 13.3 K/UL (4.8-10.8)
[2020-09-01] MEDS: NovoLOG Insulin Flexpen SUBQ SCH ×4 (05:55→18:00)
[2020-09-01 06:04] LABS: ALANINE AMINOTRANSFERASE 53 U/L (12-78); ALBUMIN 1.4 G/DL (3.4-5.0); ALBUMIN/GLOBULIN RATIO 0.3 (1.0-2.7); ALKALINE PHOSPHATASE 68 U/L (46-116); ANION GAP 12 mmol/L (5-15); ASPARTATE AMINO TRANSFERASE 77 U/L (15-37); BILIRUBIN,TOTAL 0.3 MG/DL (0.2-1.0); BLOOD UREA NITROGEN 30 mg/dL (7-18); CALCIUM 8.2 MG/DL (8.5-10.1); CARBON DIOXIDE 27 MMOL/L (21-32); CHLORIDE 103 MMOL/L (98-107); CREATININE 0.9 MG/DL (0.55-1.30); SODIUM 141 MMOL/L (136-145)
[2020-09-01 06:08] LABS: POTASSIUM 2.7 MMOL/L (3.5-5.1)
--- NOTE | 2020-09-01 06:12 | NUR ---
NURSE NOTES: Joshua of lab calls. Pt's K is 2.7. Dr. Ferguson who is in to see pt made aware. Order to give KCL 40meq IV given.
--- NOTE | 2020-09-01 06:18 | Hematology/Onc Progress Note ---
Assessment/Plan Assessment/Plan Assessment and recs # Leukocytosis due to underlying Sepsis --> per ID recs --> ABX --> wbc 13 # Anemia with a upper gi bleed --> per gi eval --> hgb 12-->8.8 --> anemia panel is noted --> transfuse prn basis --> review smear # Pneumonia b//l pna on imaging --> imaging seen --> Abx vanc/cefepime/flagyl # Septic shock # Acute renal failure # Upper GI bleed # Hypotensive and tachycardic. --> Patient given IV fluids and is fluid responsive. # Dvt ppx scds Appreciate consultation and stefany Rn Subjective Constitutional: Denies: no symptoms, chills, fever, malaise, weakness, other HEENT: Denies: no symptoms, eye pain, blurred vision, tearing, double vision, ear pain, ear discharge, nose pain, nose congestion, throat pain, throat swelling, mouth pain, mouth swelling, other Cardiovascular: Denies: no symptoms, chest pain, edema, irregular heart rate, lightheadedness, palpitations, syncope, other Respiratory: Denies: no symptoms, cough, shortness of breath, SOB with excertion, SOB at rest, sputum, wheezing, other Gastrointestinal/Abdominal: Denies: no symptoms, abdomen distended, abdominal pain, black stools, tarry stools, blood in stool, constipated, diarrhea, difficulty swallowing, nausea, poor appetite, poor fluid intake, rectal bleeding, vomiting, other Genitourinary: Denies: no symptoms, burning, discharge, frequency, flank pain, hematuria, incontinence, pain, urgency, other Hematologic/Lymphatic: Denies: no symptoms, anemia, easy bleeding, easy bruising, adenopathy, other Allergies: Coded Allergies: No Known Allergies (Unverified , 08/30/20) Subjective 09/01 stefany rn, on abx broad spectrum, labs noted, no active bleed at this time Objective Objective Current Medications Medications (Trade) Dose Ordered Sig/Kirby Route PRN Reason Start Time Stop Time Status Last Admin Dose Admin Acetaminophen (Tylenol) 650 mg Q4H PRN NG Mild Pain (Pain Scale 1-3) 08/31/20 09:00 09/30/20 08:59 Acetaminophen (Tylenol) 650 mg Q4H PRN NG Temp >100.5 08/31/20 09:00 09/30/20 08:59 Cefepime HCl 1 gm/ Dextrose 55 ml @ 110 mls/hr Q24H IVPB 08/31/20 12:00 09/07/20 11:59 08/31/20 11:49 Dextrose (Dextrose 50%) 25 ml Q30M PRN IV Hypoglycemia 08/30/20 16:45 11/28/20 16:44 Dextrose (Dextrose 50%) 50 ml Q30M PRN IV Hypoglycemia 08/30/20 16:45 11/28/20 16:44 Dextrose/Sodium Chloride 1,000 ml @ 100 mls/hr Q10H IV 08/31/20 09:30 09/30/20 09:29 08/31/20 22:04 Famotidine (Pepcid I.v.) 20 mg Q12HR IVP 08/31/20 09:30 09/30/20 09:29 08/31/20 20:48 Insulin Aspart (NovoLOG) Q6HR SUBQ 08/30/20 18:00 11/28/20 17:59 08/31/20 18:00 Lansoprazole (Prevacid) 30 mg BID GT 08/31/20 09:00 09/30/20 08:59 08/31/20 17:03 Metronidazole 100 ml @ 100 mls/hr Q8HR IVPB 08/31/20 14:00 09/07/20 13:59 09/01/20 05:16 Ondansetron HCl (Zofran) 4 mg Q4H PRN IVP Nausea & Vomiting 08/30/20 16:45 09/29/20 16:44 Vancomycin HCl (Vanco pharmacy to dose) 1 ea DAILY PRN MISC . 08/30/20 17:00 09/29/20 16:59 Vancomycin HCl 1 gm/Dextrose 275 ml @ 183.708 mls/hr Q24H IVPB 08/31/20 08:00 09/05/20 07:59 08/31/20 07:56 Last 24 Hour Vital Signs Date Time Temp Pulse Resp B/P (MAP) Pulse Ox O2 Delivery O2 Flow Rate FiO2 09/01/20 05:16 55 22 40 09/01/20 04:00 Mechanical Ventilator 09/01/20 04:00 56 09/01/20 04:00 97.7 60 26 157/80 (105) 100 09/01/20 03:39 57 22 40 09/01/20 01:22 59 26 40 09/01/20 00:00 97.7 60 24 120/67 (84) 100 09/01/20 00:00 Mechanical Ventilator 09/01/20 00:00 61 08/31/20 23:02 62 26 40 08/31/20 21:34 64 22 40 08/31/20 20:00 97.7 63 24 126/69 (88) 100 08/31/20 20:00 98.1 70 20 136/83 (100) 93 08/31/20 20:00 60 08/31/20 20:00 Mechanical Ventilator 08/31/20 19:26 59 22 40 08/31/20 16:00 Mechanical Ventilator 08/31/20 16:00 76 08/31/20 16:00 98.4 73 26 118/61 (80) 100 08/31/20 15:38 60 26 40 08/31/20 14:00 40 08/31/20 12:00 98.4 73 26 118/61 (80) 100 08/31/20 12:00 Mechanical Ventilator 08/31/20 12:00 72 08/31/20 11:26 75 25 40 08/31/20 11:00 65 31 130/42 (71) 100 08/31/20 10:00 65 27 136/59 (84) 100 08/31/20 09:00 73 30 143/61 (88) 100 08/31/20 08:30 59 29 142/61 (88) 100 08/31/20 08:00 62 08/31/20 08:00 98.9 62 29 135/53 (80) 100 08/31/20 08:00 Mechanical Ventilator 08/31/20 07:54 57 24 40 08/31/20 07:30 66 21 123/47 (72) 100 08/31/20 07:15 133/45 08/31/20 07:00 70 21 133/45 (74) 100 08/31/20 06:00 69 0 135/54 (81) 100 08/31/20 05:30 100.0 61 22 130/70 (90) 100 08/31/20 05:00 59 21 132/60 (84) 100 08/31/20 04:00 Mechanical Ventilator 08/31/20 04:00 64 22 136/85 (102) 100 08/31/20 04:00 76 08/31/20 04:00 99.2 62 17 138/82 (100) 99 08/31/20 03:57 84 22 40 08/31/20 03:30 69 20 121/74 (90) 100 08/31/20 03:00 71 17 107/57 (74) 99 08/31/20 03:00 71 17 107/57 (74) 99 08/31/20 02:30 76 12 124/56 (78) 99 08/31/20 02:30 76 12 124/56 (78) 99 08/31/20 02:00 76 22 107/46 (66) 99 08/31/20 02:00 76 22 107/46 (66) 99 08/31/20 01:30 80 22 125/62 (83) 99 08/31/20 01:00 88 22 98 08/31/20 01:00 88 22 120/62 (81) 98 08/31/20 00:30 87 22 99/81 (87) 99 08/31/20 00:00 93 22 125/86 (99) 99 08/31/20 00:00 Mechanical Ventilator 08/31/20 00:00 99.0 93 22 125/86 (99) 99 08/31/20 00:00 90 08/30/20 23:51 86 22 40 08/30/20 23:00 94 22 124/49 (74) 98 08/30/20 22:00 96 22 107/49 (68) 97 08/30/20 21:00 103 22 114/52 (72) 97 08/30/20 20:00 Mechanical Ventilator 08/30/20 20:00 98.2 98 22 112/56 (74) 97 08/30/20 19:18 100 22 40 08/30/20 19:00 94 22 114/56 (75) 97 08/30/20 18:00 99 22 112/57 (75) 97 08/30/20 17:00 97 22 118/60 (79) 97 08/30/20 16:00 94 08/30/20 16:00 Mechanical Ventilator 08/30/20 16:00 98.9 95 22 110/57 (74) 94 08/30/20 15:49 92 22 40 08/30/20 15:49 92 22 99 Mechanical Ventilator 40 08/30/20 15:30 96 22 79/49 (59) 93 08/30/20 15:15 99 22 83/51 (62) 94 08/30/20 15:01 98.9 101 22 92/56 (68) 95 08/30/20 15:00 100 20 95 08/30/20 14:45 98.3 94 22 91/58 93 Mechanical Ventilator 15.0 40 08/30/20 14:41 40 08/30/20 14:41 Mechanical Ventilator 08/30/20 14:00 98.3 94 22 91/58 93 Mechanical Ventilator 15.0 40 08/30/20 13:30 98.3 94 22 99/56 95 Mechanical Ventilator 15.0 40 08/30/20 13:00 98.3 87 22 96/60 95 Mechanical Ventilator 15.0 40 08/30/20 12:30 98.3 90 22 101/63 94 Mechanical Ventilator 15.0 40 08/30/20 12:00 98.3 87 22 100/64 94 Mechanical Ventilator 15.0 40 08/30/20 11:30 98.3 91 22 92/54 94 Mechanical Ventilator 15.0 40 08/30/20 11:04 90 22 40 08/30/20 10:00 97.0 92 22 97/66 100 Mechanical Ventilator 15.0 60 08/30/20 09:40 110 22 60 08/30/20 09:30 97.0 107 22 87/56 100 Mechanical Ventilator 15.0 100 08/30/20 09:00 97.0 110 14 95/59 100 Mechanical Ventilator 15.0 100 08/30/20 08:44 97.0 113 14 98/62 100 Mechanical Ventilator 08/30/20 08:37 106 16 100 Mechanical Ventilator 100 116 17 100 08/30/20 08:25 106 16 Mechanical Ventilator 08/30/20 07:50 116 12 71/48 (56) 78 Ambu-Bag 15.0 Intake and Output 08/31/20 09/01/20 19:00 07:00 Intake Total 1379.1 ml 1220 ml Output Total 460 ml Balance 919.1 ml 1220 ml Intake IV Total 1119.1 ml 1100 ml Tube Feeding 100 ml 120 ml Other 160 ml Output Urine Total 460 ml # Bowel Movements 2 1 Labs Test 08/30/20 08:00 2/22/21 08:20 08/30/20 08:52 08/30/20 09:20 White Blood Count 14.1 K/UL (4.8-10.8) Red Blood Count 4.14 M/UL (4.70-6.10) Hemoglobin 12.2 G/DL (14.2-18.0) Hematocrit 41.1 % (42.0-52.0) Mean Corpuscular Volume 99 FL (80-99) Mean Corpuscular Hemoglobin 29.4 PG (27.0-31.0) Mean Corpuscular Hemoglobin Concent 29.6 G/DL (32.0-36.0) Red Cell Distribution Width 15.3 % (11.6-14.8) Platelet Count 304 K/UL (150-450) Mean Platelet Volume 7.0 FL (6.5-10.1) Neutrophils (%) (Auto) 82.7 % (45.0-75.0) Lymphocytes (%) (Auto) 9.5 % (20.0-45.0) Monocytes (%) (Auto) 6.8 % (1.0-10.0) Eosinophils (%) (Auto) 0.0 % (0.0-3.0) Basophils (%) (Auto) 1.0 % (0.0-2.0) Prothrombin Time 11.4 SEC (9.30-11.50) Prothromb Time International Ratio 1.0 (0.9-1.1) Activated Partial Thromboplast Time 28 SEC (23-33) D-Dimer 3.64 mg/L FEU (0.00-0.49) Sodium Level 139 MMOL/L (136-145) Potassium Level 5.8 MMOL/L (3.5-5.1) Chloride Level 94 MMOL/L (98-107) Carbon Dioxide Level 40 MMOL/L (21-32) Anion Gap 5 mmol/L (5-15) Blood Urea Nitrogen 84 mg/dL (7-18) Creatinine 3.3 MG/DL (0.55-1.30) Estimat Glomerular Filtration Rate 19.0 mL/min (>60) Glucose Level 146 MG/DL (74-106) Calcium Level 10.9 MG/DL (8.5-10.1) Magnesium Level 3.2 MG/DL (1.8-2.4) Ferritin 153 NG/ML (8-388) Total Bilirubin 0.4 MG/DL (0.2-1.0) Aspartate Amino Transf (AST/SGOT) 31 U/L (15-37) Alanine Aminotransferase (ALT/SGPT) 25 U/L (12-78) Alkaline Phosphatase 146 U/L (46-116) Lactate Dehydrogenase 128 U/L (81-234) Total Creatine Kinase 245 U/L (26-308) Troponin I 0.000 ng/mL (0.000-0.056) C-Reactive Protein, Quantitative 34.7 mg/dL (0.00-0.90) Pro-B-Type Natriuretic Peptide 3556 pg/mL (0-125) Total Protein 9.5 G/DL (6.4-8.2) Albumin 2.2 G/DL (3.4-5.0) Globulin 7.3 g/dL Albumin/Globulin Ratio 0.3 (1.0-2.7) Lipase 159 U/L (73-393) Acetone Level Negative (NEGATIVE) Lactic Acid Level 3.80 mmol/L (0.4-2.0) Arterial Blood pH 7.273 (7.350-7.450) Arterial Blood Partial Pressure CO2 71.2 mmHg (35.0-45.0) Arterial Blood Partial Pressure O2 244.8 mmHg (75.0-100.0) Arterial Blood HCO3 32.2 mmol/L (22.0-26.0) Arterial Blood Oxygen Saturation 99.2 % (95-100) Arterial Blood Base Excess 3.8 (-2-2) Jayden Test Positive Urine Color Yellow Urine Appearance Clear Urine pH 5 (4.5-8.0) Urine Specific Sutton 1.025 (1.005-1.035) Urine Protein 2+ (NEGATIVE) Urine Glucose (UA) Negative (NEGATIVE) Urine Ketones 1+ (NEGATIVE) Urine Blood 1+ (NEGATIVE) Urine Nitrite Negative (NEGATIVE) Urine Bilirubin Negative (NEGATIVE) Urine Urobilinogen 1 MG/DL (0.0-1.0) Urine Leukocyte Esterase 1+ (NEGATIVE) Urine RBC 0-2 /HPF (0 - 0) Urine WBC 2-4 /HPF (0 - 0) Urine Squamous Epithelial Cells Occasional /LPF Urine Bacteria Few /HPF (NONE) Test 08/30/20 17:00 08/30/20 19:50 08/31/20 03:45 08/31/20 18:55 Urine Color Pale yellow Urine Appearance Slightly cloudy Urine pH 5 (4.5-8.0) Urine Specific Sutton 1.030 (1.005-1.035) Urine Protein 2+ (NEGATIVE) Urine Glucose (UA) Negative (NEGATIVE) Urine Ketones Negative (NEGATIVE) Urine Blood 5+ (NEGATIVE) Urine Nitrite Negative (NEGATIVE) Urine Bilirubin Negative (NEGATIVE) Urine Urobilinogen Normal MG/DL (0.0-1.0) Urine Leukocyte Esterase Negative (NEGATIVE) Urine RBC 60-80 /HPF (0 - 0) Urine WBC 0-2 /HPF (0 - 0) Urine Squamous Epithelial Cells Occasional /LPF Urine Bacteria Few /HPF (NONE) Lactic Acid Level 2.40 mmol/L (0.4-2.0) 1.20 mmol/L (0.4-2.0) White Blood Count 12.1 K/UL (4.8-10.8) Red Blood Count 2.78 M/UL (4.70-6.10) Hemoglobin 8.4 G/DL (14.2-18.0) Hematocrit 26.7 % (42.0-52.0) Mean Corpuscular Volume 96 FL (80-99) Mean Corpuscular Hemoglobin 30.3 PG (27.0-31.0) Mean Corpuscular Hemoglobin Concent 31.5 G/DL (32.0-36.0) Red Cell Distribution Width 14.6 % (11.6-14.8) Platelet Count 189 K/UL (150-450) Mean Platelet Volume 7.3 FL (6.5-10.1) Neutrophils (%) (Auto) % (45.0-75.0) Lymphocytes (%) (Auto) % (20.0-45.0) Monocytes (%) (Auto) % (1.0-10.0) Eosinophils (%) (Auto) % (0.0-3.0) Basophils (%) (Auto) % (0.0-2.0) Differential Total Cells Counted 100 Neutrophils % (Manual) 81 % (45-75) Lymphocytes % (Manual) 4 % (20-45) Monocytes % (Manual) 6 % (1-10) Eosinophils % (Manual) 0 % (0-3) Basophils % (Manual) 0 % (0-2) Band Neutrophils 9 % (0-8) Platelet Estimate Adequate Platelet Morphology Normal Hypochromasia 1+ Anisocytosis 1+ Sodium Level 144 MMOL/L (136-145) Potassium Level 4.0 MMOL/L (3.5-5.1) Chloride Level 107 MMOL/L (98-107) Carbon Dioxide Level 32 MMOL/L (21-32) Anion Gap 5 mmol/L (5-15) Blood Urea Nitrogen 50 mg/dL (7-18) Creatinine 1.3 MG/DL (0.55-1.30) Estimat Glomerular Filtration Rate 55.6 mL/min (>60) Glucose Level 136 MG/DL (74-106) Hemoglobin A1c 5.9 % (4.3-6.0) Uric Acid 5.9 MG/DL (2.6-7.2) Calcium Level 8.7 MG/DL (8.5-10.1) Phosphorus Level 1.8 MG/DL (2.5-4.9) Magnesium Level 2.1 MG/DL (1.8-2.4) Total Bilirubin 0.3 MG/DL (0.2-1.0) Direct Bilirubin 0.2 MG/DL (0.0-0.3) Gamma Glutamyl Transpeptidase 24 U/L (5-85) Aspartate Amino Transf (AST/SGOT) 40 U/L (15-37) Alanine Aminotransferase (ALT/SGPT) 23 U/L (12-78) Alkaline Phosphatase 63 U/L (46-116) Total Creatine Kinase 166 U/L (26-308) C-Reactive Protein, Quantitative 38.2 mg/dL (0.00-0.90) Pro-B-Type Natriuretic Peptide 967 pg/mL (0-125) Total Protein 7.0 G/DL (6.4-8.2) Albumin 1.6 G/DL (3.4-5.0) Globulin 5.4 g/dL Albumin/Globulin Ratio 0.3 (1.0-2.7) Amylase Level 44 U/L (25-115) Lipase 106 U/L (73-393) Thyroid Stimulating Hormone (TSH) 0.420 uiU/mL (0.358-3.740) Free Thyroxine 1.22 NG/DL (0.76-1.46) Random Vancomycin Level 7.7 ug/mL POC Whole Blood Glucose 180 MG/DL (74-106) Test 08/31/20 23:36 09/01/20 04:40 09/01/20 05:07 White Blood Count 13.3 K/UL (4.8-10.8) Red Blood Count 2.84 M/UL (4.70-6.10) Hemoglobin 8.6 G/DL (14.2-18.0) Hematocrit 26.7 % (42.0-52.0) Mean Corpuscular Volume 94 FL (80-99) Mean Corpuscular Hemoglobin 30.3 PG (27.0-31.0) Mean Corpuscular Hemoglobin Concent 32.3 G/DL (32.0-36.0) Red Cell Distribution Width 14.3 % (11.6-14.8) Platelet Count 203 K/UL (150-450) Mean Platelet Volume 8.0 FL (6.5-10.1) Neutrophils (%) (Auto) % (45.0-75.0) Lymphocytes (%) (Auto) % (20.0-45.0) Monocytes (%) (Auto) % (1.0-10.0) Eosinophils (%) (Auto) % (0.0-3.0) Basophils (%) (Auto) % (0.0-2.0) Sodium Level 141 MMOL/L (136-145) Potassium Level 2.7 MMOL/L (3.5-5.1) Chloride Level 103 MMOL/L (98-107) Carbon Dioxide Level 27 MMOL/L (21-32) Anion Gap 12 mmol/L (5-15) Blood Urea Nitrogen 30 mg/dL (7-18) Creatinine 0.9 MG/DL (0.55-1.30) Estimat Glomerular Filtration Rate > 60 mL/min (>60) Glucose Level 198 MG/DL (74-106) Calcium Level 8.2 MG/DL (8.5-10.1) Total Bilirubin 0.3 MG/DL (0.2-1.0) Aspartate Amino Transf (AST/SGOT) 77 U/L (15-37) Alanine Aminotransferase (ALT/SGPT) 53 U/L (12-78) Alkaline Phosphatase 68 U/L (46-116) Total Protein 6.7 G/DL (6.4-8.2) Albumin 1.4 G/DL (3.4-5.0) Globulin 5.3 g/dL Albumin/Globulin Ratio 0.3 (1.0-2.7) Height (Feet): 5 Height (Inches): 7.00 Weight (Pounds): 120 Objective Physical Exam Vitals abnormal General Appearance: nv, thin, Chronically Ill Heent: normocephalic, atraumatic ++ Trach in place with vomit around the trach site Respiratory: rhonchi Cardiovascular: tachycardia Gastrointestinal: non tender, soft, non-distended, other ++ G-tube in the epigastric region Musculoskeletal: no calf tenderness, no lower extremity edema Psychiatric: other - Unable to assess as parent patient is nonverbal Skin: no rash Nick Ferguson MD Sep 01, 2020 06:18
[2020-09-01] MEDS: D5 1/2NS 1,000 ML IV SCH ×2 (07:13→15:32)
--- NOTE | 2020-09-01 07:25 | NUR ---
NURSE HAND-OFF REPORT: Important Events on Shift: Patient Status: Diet: Pending Orders: Pending Results/Labs: Pending MD notification: Latest Vital Signs: Temperature 97.7 , Pulse 55 , B/P 157 /80 , Respiratory Rate 22 , O2 SAT 100 , Mechanical Ventilator, O2 Flow Rate 15.0 . Vital Sign Comment: EKG Rhythm: Sinus Bradycardia Rhythm change?: N MD Notified?: - MD Response: Latest Brewer Fall Score: 20 Fall Risk: Low Risk Safety Measures: Call light Within Reach, Bed Alarm Zone 1, Side Rails Side Rails x3, Bed position Low and Locked. Fall Precautions: Yellow Socks Patient Fall Education Report given to EDGAR Dubois.
[2020-09-01 08:00] VITALS: BP 119/70
[2020-09-01] MEDS: Vancomycin 1gm in D5W 275ml IVPB SCH (08:00)
[2020-09-01] MEDS ORDERED: fentaNYL 100 mcg/2 mL IV PRN (08:30)
[2020-09-01] MEDS ORDERED: Midazolam 2mg/2ml Inj IVP PRN (08:30)
[2020-09-01] MEDS ORDERED: Atropine Inj 1mg/10ml Syr IVP PRN (08:30)
[2020-09-01] MEDS ORDERED: DiphenhydrAMINE 50mg/ml Inj IVP PRN (08:30)
--- NOTE | 2020-09-01 08:49 | General Progress Note ---
Subjective ROS Limited/Unobtainable: No Allergies: Coded Allergies: No Known Allergies (Unverified , 08/30/20) Objective Last 24 Hour Vital Signs Date Time Temp Pulse Resp B/P (MAP) Pulse Ox O2 Delivery O2 Flow Rate FiO2 09/01/20 05:16 55 22 40 09/01/20 04:00 Mechanical Ventilator 09/01/20 04:00 56 09/01/20 04:00 97.7 60 26 157/80 (105) 100 09/01/20 03:39 57 22 40 09/01/20 01:22 59 26 40 09/01/20 00:00 97.7 60 24 120/67 (84) 100 09/01/20 00:00 Mechanical Ventilator 09/01/20 00:00 61 08/31/20 23:02 62 26 40 08/31/20 21:34 64 22 40 08/31/20 20:00 97.7 63 24 126/69 (88) 100 08/31/20 20:00 98.1 70 20 136/83 (100) 93 08/31/20 20:00 60 08/31/20 20:00 Mechanical Ventilator 08/31/20 19:26 59 22 40 08/31/20 16:00 Mechanical Ventilator 08/31/20 16:00 76 08/31/20 16:00 98.4 73 26 118/61 (80) 100 08/31/20 15:38 60 26 40 08/31/20 14:00 40 08/31/20 12:00 98.4 73 26 118/61 (80) 100 08/31/20 12:00 Mechanical Ventilator 08/31/20 12:00 72 08/31/20 11:26 75 25 40 08/31/20 11:00 65 31 130/42 (71) 100 08/31/20 10:00 65 27 136/59 (84) 100 08/31/20 09:00 73 30 143/61 (88) 100 Intake and Output 08/31/20 09/01/20 19:00 07:00 Intake Total 1379.1 ml 1420.00 ml Output Total 460 ml 1500 ml Balance 919.1 ml -80.00 ml Intake IV Total 1119.1 ml 1300.00 ml Tube Feeding 100 ml 120 ml Other 160 ml Output Urine Total 460 ml 1500 ml # Bowel Movements 2 2 Laboratory Tests 08/31/20 18:55: POC Whole Blood Glucose 180H 08/31/20 23:36: POC Whole Blood Glucose [Pending] 09/01/20 04:40: White Blood Count 13.3H, Red Blood Count 2.84L, Hemoglobin 8.6L, Hematocrit 26.7L, Mean Corpuscular Volume 94, Mean Corpuscular Hemoglobin 30.3, Mean Corpuscular Hemoglobin Concent 32.3, Red Cell Distribution Width 14.3, Platelet Count 203, Mean Platelet Volume 8.0, Neutrophils (%) (Auto) , Lymphocytes (%) (Auto) , Monocytes (%) (Auto) , Eosinophils (%) (Auto) , Basophils (%) (Auto) , Neutrophils % (Manual) [Pending], Lymphocytes % (Manual) [Pending], Platelet Estimate [Pending], Platelet Morphology [Pending], Sodium Level 141, Potassium Level 2.7*L, Chloride Level 103, Carbon Dioxide Level 27, Anion Gap 12, Blood Urea Nitrogen 30H, Creatinine 0.9, Estimat Glomerular Filtration Rate > 60, Glucose Level 198H, Calcium Level 8.2L, Total Bilirubin 0.3, Aspartate Amino Transf (AST/SGOT) 77H, Alanine Aminotransferase (ALT/SGPT) 53, Alkaline Phosphatase 68, Total Protein 6.7, Albumin 1.4L, Globulin 5.3, Albumin/Globulin Ratio 0.3L 09/01/20 05:07: POC Whole Blood Glucose [Pending] Height (Feet): 5 Height (Inches): 7.00 Weight (Pounds): 120 General Appearance: no apparent distress EENT: normal ENT inspection Neck: supple Cardiovascular: normal rate Respiratory/Chest: decreased breath sounds Abdomen: hypoactive bowel sounds Extremities: non-tender Assessment/Plan Problem List: (1) Upper GI bleed ICD Codes: K92.2 - Gastrointestinal hemorrhage, unspecified SNOMED: 24900297 (2) Pneumonia ICD Codes: J18.9 - Pneumonia, unspecified organism SNOMED: 273627507 (3) Sepsis ICD Codes: A41.9 - Sepsis, unspecified organism SNOMED: 28374611 (4) Acute renal failure ICD Codes: N17.9 - Acute kidney failure, unspecified SNOMED: 55846075 (5) Septic shock ICD Codes: A41.9 - Sepsis, unspecified organism; R65.21 - Severe sepsis with septic shock SNOMED: 18616499 Assessment/Plan: EGD is rescheduled to tomorrow due to low K ppi fu H&H prn blood transfusion will Yaakov Rosen MD Sep 01, 2020 08:49
--- NOTE | 2020-09-01 09:10 | Infectious Diseases Prog Note ---
Assessment/Plan 64 yo male with PMHx of CVA, S/P PEG s/p Trach, DM and HTN who was sent to the ED form his half-way with hypoxia. Sepsis Leuckotyossi No fever Bacteremia vs contaminant Blood Cx 08/30/20 - 2/ GPC Blood Cx 08/31/20 - Pend Resp fail - Acute on chronic Trached PNA CXR shows - LLL PNA and possible N/V/D and abd pain Some blood In the vomit CVA s/p PEG and s/p Trach DM HTN PLAN Continue Flagyl #2 Continue Cefepime #2 and Vancocmyin #2 f/u cultures B/U/S Monitor Resp status Monitor CBC and Temps Thank you for this consult. [facility] will continue to follow Mr. Shaikh with you. Subjective Allergies: Coded Allergies: No Known Allergies (Unverified , 08/30/20) Afebrile WBCs 13 today On Vent satting well Patient reports no acute complaints Objective Last 24 Hour Vital Signs Date Time Temp Pulse Resp B/P (MAP) Pulse Ox O2 Delivery O2 Flow Rate FiO2 09/01/20 08:00 56 09/01/20 08:00 97.2 56 23 119/70 (86) 100 09/01/20 08:00 Mechanical Ventilator 09/01/20 05:16 55 22 40 09/01/20 04:00 Mechanical Ventilator 09/01/20 04:00 56 09/01/20 04:00 97.7 60 26 157/80 (105) 100 09/01/20 03:39 57 22 40 09/01/20 01:22 59 26 40 09/01/20 00:00 97.7 60 24 120/67 (84) 100 09/01/20 00:00 Mechanical Ventilator 09/01/20 00:00 61 08/31/20 23:02 62 26 40 08/31/20 21:34 64 22 40 08/31/20 20:00 97.7 63 24 126/69 (88) 100 08/31/20 20:00 98.1 70 20 136/83 (100) 93 08/31/20 20:00 60 08/31/20 20:00 Mechanical Ventilator 08/31/20 19:26 59 22 40 08/31/20 16:00 Mechanical Ventilator 08/31/20 16:00 76 08/31/20 16:00 98.4 73 26 118/61 (80) 100 08/31/20 15:38 60 26 40 08/31/20 14:00 40 08/31/20 12:00 98.4 73 26 118/61 (80) 100 08/31/20 12:00 Mechanical Ventilator 08/31/20 12:00 72 08/31/20 11:26 75 25 40 08/31/20 11:00 65 31 130/42 (71) 100 08/31/20 10:00 65 27 136/59 (84) 100 Height (Feet): 5 Height (Inches): 7.00 Weight (Pounds): 120 Gen: NAD on Vent HEENT: NCAT, MMM, EOMI, No scleral icterus, Trach in place Pulm: Equal rise and fall B/L No accessory muscle use Abd: Soft,ND PEG ( No E/P) SKIN: Exposed skin normal in color no rash noted Microbiology Date/Time Source Procedure Growth Status 08/31/20 03:15 Rectum Received 08/31/20 03:15 Nasopharynx SARS-CoV-2 Antigen (Rapid)(PEDRO) - Final Complete 08/30/20 08:00 Blood Blood Culture - Preliminary Gram Positive Cocci Resulted 08/30/20 08:00 Blood Blood Culture - Preliminary Gram Positive Cocci Resulted Laboratory Tests Test 08/31/20 18:55 08/31/20 23:36 09/01/20 04:40 09/01/20 05:07 POC Whole Blood Glucose 180 MG/DL (74-106) H Pending Pending White Blood Count 13.3 K/UL (4.8-10.8) H Red Blood Count 2.84 M/UL (4.70-6.10) L Hemoglobin 8.6 G/DL (14.2-18.0) L Hematocrit 26.7 % (42.0-52.0) L Mean Corpuscular Volume 94 FL (80-99) Mean Corpuscular Hemoglobin 30.3 PG (27.0-31.0) Mean Corpuscular Hemoglobin Concent 32.3 G/DL (32.0-36.0) Red Cell Distribution Width 14.3 % (11.6-14.8) Platelet Count 203 K/UL (150-450) Mean Platelet Volume 8.0 FL (6.5-10.1) Neutrophils (%) (Auto) % (45.0-75.0) Lymphocytes (%) (Auto) % (20.0-45.0) Monocytes (%) (Auto) % (1.0-10.0) Eosinophils (%) (Auto) % (0.0-3.0) Basophils (%) (Auto) % (0.0-2.0) Neutrophils % (Manual) Pending Lymphocytes % (Manual) Pending Platelet Estimate Pending Platelet Morphology Pending Sodium Level 141 MMOL/L (136-145) Potassium Level 2.7 MMOL/L (3.5-5.1) *L Chloride Level 103 MMOL/L (98-107) Carbon Dioxide Level 27 MMOL/L (21-32) Anion Gap 12 mmol/L (5-15) Blood Urea Nitrogen 30 mg/dL (7-18) H Creatinine 0.9 MG/DL (0.55-1.30) Estimat Glomerular Filtration Rate > 60 mL/min (>60) Glucose Level 198 MG/DL (74-106) H Calcium Level 8.2 MG/DL (8.5-10.1) L Total Bilirubin 0.3 MG/DL (0.2-1.0) Aspartate Amino Transf (AST/SGOT) 77 U/L (15-37) H Alanine Aminotransferase (ALT/SGPT) 53 U/L (12-78) Alkaline Phosphatase 68 U/L (46-116) Total Protein 6.7 G/DL (6.4-8.2) Albumin 1.4 G/DL (3.4-5.0) L Globulin 5.3 g/dL Albumin/Globulin Ratio 0.3 (1.0-2.7) L Current Medications Medications (Trade) Dose Ordered Sig/Kirby Route PRN Reason Start Time Stop Time Status Last Admin Dose Admin Acetaminophen (Tylenol) 650 mg Q4H PRN NG Mild Pain (Pain Scale 1-3) 08/31/20 09:00 09/30/20 08:59 Acetaminophen (Tylenol) 650 mg Q4H PRN NG Temp >100.5 08/31/20 09:00 09/30/20 08:59 Cefepime HCl 1 gm/ Dextrose 55 ml @ 110 mls/hr Q24H IVPB 08/31/20 12:00 09/07/20 11:59 08/31/20 11:49 Dextrose (Dextrose 50%) 25 ml Q30M PRN IV Hypoglycemia 08/30/20 16:45 11/28/20 16:44 Dextrose (Dextrose 50%) 50 ml Q30M PRN IV Hypoglycemia 08/30/20 16:45 11/28/20 16:44 Dextrose/Sodium Chloride 1,000 ml @ 100 mls/hr Q10H IV 08/31/20 09:30 09/30/20 09:29 09/01/20 07:13 Famotidine (Pepcid I.v.) 20 mg Q12HR IVP 08/31/20 09:30 09/30/20 09:29 08/31/20 20:48 Insulin Aspart (NovoLOG) Q6HR SUBQ 08/30/20 18:00 11/28/20 17:59 08/31/20 18:00 Lansoprazole (Prevacid) 30 mg BID GT 08/31/20 09:00 09/30/20 08:59 08/31/20 17:03 Metronidazole 100 ml @ 100 mls/hr Q8HR IVPB 08/31/20 14:00 09/07/20 13:59 09/01/20 05:16 Ondansetron HCl (Zofran) 4 mg Q4H PRN IVP Nausea & Vomiting 08/30/20 16:45 09/29/20 16:44 Potassium Chloride 100 ml @ 100 mls/hr Q1HR IVPB 09/01/20 07:00 09/01/20 10:59 09/01/20 08:00 Vancomycin HCl (Vanco pharmacy to dose) 1 ea DAILY PRN MISC . 08/30/20 17:00 09/29/20 16:59 Vancomycin HCl 1 gm/Dextrose 275 ml @ 183.708 mls/hr Q24H IVPB 08/31/20 08:00 09/05/20 07:59 09/01/20 08:00 Kostas Packer MD Sep 01, 2020 09:10
--- NOTE | 2020-09-01 09:45 | Pulmonology Progress Note ---
Subjective ROS Limited/Unobtainable: Yes Interval Events: EGD rescheduled for tomorrow given hypokalemia Constitutional: Reports: no symptoms HEENT: Repors: no symptoms Respiratory: Reports: no symptoms Cardiovascular: Reports: no symptoms Gastrointestinal/Abdominal: Reports: no symptoms Allergies: Coded Allergies: No Known Allergies (Unverified , 08/30/20) Objective Last 24 Hour Vital Signs Date Time Temp Pulse Resp B/P (MAP) Pulse Ox O2 Delivery O2 Flow Rate FiO2 09/01/20 08:00 56 09/01/20 08:00 97.2 56 23 119/70 (86) 100 09/01/20 08:00 Mechanical Ventilator 09/01/20 05:16 55 22 40 09/01/20 04:00 Mechanical Ventilator 09/01/20 04:00 56 09/01/20 04:00 97.7 60 26 157/80 (105) 100 09/01/20 03:39 57 22 40 09/01/20 01:22 59 26 40 09/01/20 00:00 97.7 60 24 120/67 (84) 100 09/01/20 00:00 Mechanical Ventilator 09/01/20 00:00 61 08/31/20 23:02 62 26 40 08/31/20 21:34 64 22 40 08/31/20 20:00 97.7 63 24 126/69 (88) 100 08/31/20 20:00 98.1 70 20 136/83 (100) 93 08/31/20 20:00 60 08/31/20 20:00 Mechanical Ventilator 08/31/20 19:26 59 22 40 08/31/20 16:00 Mechanical Ventilator 08/31/20 16:00 76 08/31/20 16:00 98.4 73 26 118/61 (80) 100 08/31/20 15:38 60 26 40 08/31/20 14:00 40 08/31/20 12:00 98.4 73 26 118/61 (80) 100 08/31/20 12:00 Mechanical Ventilator 08/31/20 12:00 72 08/31/20 11:26 75 25 40 08/31/20 11:00 65 31 130/42 (71) 100 08/31/20 10:00 65 27 136/59 (84) 100 Intake and Output 08/31/20 09/01/20 19:00 07:00 Intake Total 1379.1 ml 1420.00 ml Output Total 460 ml 1500 ml Balance 919.1 ml -80.00 ml Intake IV Total 1119.1 ml 1300.00 ml Tube Feeding 100 ml 120 ml Other 160 ml Output Urine Total 460 ml 1500 ml # Bowel Movements 2 2 General Appearance: no acute distress HEENT: atraumatic Respiratory: other - trach vent Cardiovascular: normal rate, regular rhythm Abdomen: soft, non tender Microbiology Date/Time Source Procedure Growth Status 08/31/20 03:15 Rectum Received 08/31/20 03:15 Nasopharynx SARS-CoV-2 Antigen (Rapid)(PEDRO) - Final Complete 08/30/20 08:00 Blood Blood Culture - Preliminary Gram Positive Cocci Resulted 08/30/20 08:00 Blood Blood Culture - Preliminary Gram Positive Cocci Resulted Laboratory Tests 08/31/20 18:55: POC Whole Blood Glucose 180H 08/31/20 23:36: POC Whole Blood Glucose [Pending] 09/01/20 04:40: White Blood Count 13.3H, Red Blood Count 2.84L, Hemoglobin 8.6L, Hematocrit 26.7L, Mean Corpuscular Volume 94, Mean Corpuscular Hemoglobin 30.3, Mean Corpuscular Hemoglobin Concent 32.3, Red Cell Distribution Width 14.3, Platelet Count 203, Mean Platelet Volume 8.0, Neutrophils (%) (Auto) , Lymphocytes (%) (Auto) , Monocytes (%) (Auto) , Eosinophils (%) (Auto) , Basophils (%) (Auto) , Differential Total Cells Counted 100, Neutrophils % (Manual) 89H, Lymphocytes % (Manual) 7L, Monocytes % (Manual) 4, Eosinophils % (Manual) 0, Basophils % ( Manual) 0, Band Neutrophils 0, Platelet Estimate Adequate, Platelet Morphology Normal, Red Blood Cell Morphology Normal, Sodium Level 141, Potassium Level 2.7*L, Chloride Level 103, Carbon Dioxide Level 27, Anion Gap 12, Blood Urea Nitrogen 30H, Creatinine 0.9, Estimat Glomerular Filtration Rate > 60, Glucose Level 198H, Calcium Level 8.2L, Total Bilirubin 0.3, Aspartate Amino Transf (AST/SGOT) 77H, Alanine Aminotransferase (ALT/SGPT) 53, Alkaline Phosphatase 68, Total Protein 6.7, Albumin 1.4L, Globulin 5.3, Albumin/Globulin Ratio 0.3L 09/01/20 05:07: POC Whole Blood Glucose [Pending] Current Medications Medications (Trade) Dose Ordered Sig/Kirby Route PRN Reason Start Time Stop Time Status Last Admin Dose Admin Acetaminophen (Tylenol) 650 mg Q4H PRN NG Mild Pain (Pain Scale 1-3) 08/31/20 09:00 09/30/20 08:59 Acetaminophen (Tylenol) 650 mg Q4H PRN NG Temp >100.5 08/31/20 09:00 09/30/20 08:59 Cefepime HCl 1 gm/ Dextrose 55 ml @ 110 mls/hr Q24H IVPB 08/31/20 12:00 09/07/20 11:59 08/31/20 11:49 Dextrose (Dextrose 50%) 25 ml Q30M PRN IV Hypoglycemia 08/30/20 16:45 11/28/20 16:44 Dextrose (Dextrose 50%) 50 ml Q30M PRN IV Hypoglycemia 08/30/20 16:45 11/28/20 16:44 Dextrose/Sodium Chloride 1,000 ml @ 100 mls/hr Q10H IV 08/31/20 09:30 09/30/20 09:29 09/01/20 07:13 Famotidine (Pepcid I.v.) 20 mg Q12HR IVP 08/31/20 09:30 09/30/20 09:29 08/31/20 20:48 Insulin Aspart (NovoLOG) Q6HR SUBQ 08/30/20 18:00 11/28/20 17:59 08/31/20 18:00 Lansoprazole (Prevacid) 30 mg BID GT 08/31/20 09:00 09/30/20 08:59 08/31/20 17:03 Metronidazole 100 ml @ 100 mls/hr Q8HR IVPB 08/31/20 14:00 09/07/20 13:59 09/01/20 05:16 Ondansetron HCl (Zofran) 4 mg Q4H PRN IVP Nausea & Vomiting 08/30/20 16:45 09/29/20 16:44 Potassium Chloride 100 ml @ 100 mls/hr Q1HR IVPB 09/01/20 07:00 09/01/20 10:59 09/01/20 08:00 Vancomycin HCl (Vanco pharmacy to dose) 1 ea DAILY PRN MISC . 08/30/20 17:00 09/29/20 16:59 Vancomycin HCl 1 gm/Dextrose 275 ml @ 183.708 mls/hr Q24H IVPB 08/31/20 08:00 09/05/20 07:59 09/01/20 08:00 Assessment/Plan Assessment/Plan 1. Bilateral health-care associated pneumonia. - Agree with Abx per ID 2. GI bleed. - On PPI - EGD rescheduled for 09/02 given hypokalemia 3. Tracheostomy. - Continue AC mode, FiO2 40%; Keep SaO2 >94% 4. Diabetes mellitus. 5. Hypertension. 6. CVA. 7. hypokalemia - K replaced DVT and GI prophylaxes, we will hold anticoagulation given GI bleed. The care for this patient was discussed with my supervising physician Time spent for this case was approximately 31 minutes Vicente Zhu Sep 01, 2020 09:45
[2020-09-01 12:00] VITALS: BP 119/70
[2020-09-01] MEDS: Cefepime HCl 1 GM in D5W 55 ML IVPB SCH (12:00)
[2020-09-01] MEDS ORDERED: Heparin1,000 units/500ml Premix(Conc:2 units/ml) IV PRN (13:05)
[2020-09-01] MEDS ORDERED: Lidocaine 1% Plain 30 ml INJ PRN (13:05)
--- NOTE | 2020-09-01 13:09 | Surgery Progress Note ---
Surgery Progress Note Subjective Additional Comments ill appearing on support no n/v labs noted wbc Objective Last 24 Hour Vital Signs Date Time Temp Pulse Resp B/P (MAP) Pulse Ox O2 Delivery O2 Flow Rate FiO2 09/01/20 12:00 61 09/01/20 12:00 97.2 56 23 119/70 (86) 100 09/01/20 12:00 Mechanical Ventilator 09/01/20 08:00 56 09/01/20 08:00 97.2 56 23 119/70 (86) 100 09/01/20 08:00 Mechanical Ventilator 09/01/20 05:16 55 22 40 09/01/20 04:00 Mechanical Ventilator 09/01/20 04:00 56 09/01/20 04:00 97.7 60 26 157/80 (105) 100 09/01/20 03:39 57 22 40 09/01/20 01:22 59 26 40 09/01/20 00:00 97.7 60 24 120/67 (84) 100 09/01/20 00:00 Mechanical Ventilator 09/01/20 00:00 61 08/31/20 23:02 62 26 40 08/31/20 21:34 64 22 40 08/31/20 20:00 97.7 63 24 126/69 (88) 100 08/31/20 20:00 98.1 70 20 136/83 (100) 93 08/31/20 20:00 60 08/31/20 20:00 Mechanical Ventilator 08/31/20 19:26 59 22 40 08/31/20 16:00 Mechanical Ventilator 08/31/20 16:00 76 08/31/20 16:00 98.4 73 26 118/61 (80) 100 08/31/20 15:38 60 26 40 08/31/20 14:00 40 I&O Intake and Output 08/31/20 09/01/20 19:00 07:00 Intake Total 1379.1 ml 1420.00 ml Output Total 460 ml 1500 ml Balance 919.1 ml -80.00 ml Intake IV Total 1119.1 ml 1300.00 ml Tube Feeding 100 ml 120 ml Other 160 ml Output Urine Total 460 ml 1500 ml # Bowel Movements 2 2 Dressing: saturated Cardiovascular: RSR Respiratory: decreased breath sounds Abdomen: soft, non-tender, present bowel sounds, decreased bowel sounds Extremities: no tenderness, no cyanosis Laboratory Tests Test 08/31/20 18:55 08/31/20 23:36 09/01/20 04:40 09/01/20 05:07 POC Whole Blood Glucose 180 MG/DL (74-106) H Pending Pending White Blood Count 13.3 K/UL (4.8-10.8) H Red Blood Count 2.84 M/UL (4.70-6.10) L Hemoglobin 8.6 G/DL (14.2-18.0) L Hematocrit 26.7 % (42.0-52.0) L Mean Corpuscular Volume 94 FL (80-99) Mean Corpuscular Hemoglobin 30.3 PG (27.0-31.0) Mean Corpuscular Hemoglobin Concent 32.3 G/DL (32.0-36.0) Red Cell Distribution Width 14.3 % (11.6-14.8) Platelet Count 203 K/UL (150-450) Mean Platelet Volume 8.0 FL (6.5-10.1) Neutrophils (%) (Auto) % (45.0-75.0) Lymphocytes (%) (Auto) % (20.0-45.0) Monocytes (%) (Auto) % (1.0-10.0) Eosinophils (%) (Auto) % (0.0-3.0) Basophils (%) (Auto) % (0.0-2.0) Differential Total Cells Counted 100 Neutrophils % (Manual) 89 % (45-75) H Lymphocytes % (Manual) 7 % (20-45) L Monocytes % (Manual) 4 % (1-10) Eosinophils % (Manual) 0 % (0-3) Basophils % (Manual) 0 % (0-2) Band Neutrophils 0 % (0-8) Platelet Estimate Adequate Platelet Morphology Normal Red Blood Cell Morphology Normal Sodium Level 141 MMOL/L (136-145) Potassium Level 2.7 MMOL/L (3.5-5.1) *L Chloride Level 103 MMOL/L (98-107) Carbon Dioxide Level 27 MMOL/L (21-32) Anion Gap 12 mmol/L (5-15) Blood Urea Nitrogen 30 mg/dL (7-18) H Creatinine 0.9 MG/DL (0.55-1.30) Estimat Glomerular Filtration Rate > 60 mL/min (>60) Glucose Level 198 MG/DL (74-106) H Calcium Level 8.2 MG/DL (8.5-10.1) L Total Bilirubin 0.3 MG/DL (0.2-1.0) Aspartate Amino Transf (AST/SGOT) 77 U/L (15-37) H Alanine Aminotransferase (ALT/SGPT) 53 U/L (12-78) Alkaline Phosphatase 68 U/L (46-116) Total Protein 6.7 G/DL (6.4-8.2) Albumin 1.4 G/DL (3.4-5.0) L Globulin 5.3 g/dL Albumin/Globulin Ratio 0.3 (1.0-2.7) L Test 09/01/20 12:37 POC Whole Blood Glucose 190 MG/DL (74-106) H Plan Problems: (1) Septic shock (2) Acute renal failure (3) Sepsis Assessment & Plan: 64-year-old male leukocytosis abnormal labs ultrasound with gallbladder wall thickening no pericholecystic fluid no gallstones potentially a calculus cholecystitis. Patient unable to verbalize or identify tenderness. Examination fairly unreliable. Clinically recommend given patient's history and condition medical management and will monitor clinically. The liver and spleen are homogeneous. Mild wall thickening of the gallbladder noted. Common bile duct measures 3 mm. The pancreas is unremarkable to the extent visualized. There are nonshadowing cortical echogenic focus in the left kidney likely perivascular fat. No renal stone or hydronephrosis seen bilaterally. Aorta and cava are within normal limits. IMPRESSION: NO GALLSTONE OR SLUDGE IS IDENTIFIED BUT THERE IS EDEMA AND GALLBLADDER WALL THICKENING. PATIENT IS UNABLE TO REPORT FOCAL SYMPTOMS. LEFT RENAL CORTICAL ECHOGENIC FOCUS WITHOUT SHADOWING LIKELY PERIVASCULAR FAT. NO DISCRETE RENAL STONE OR HYDRONEPHROSIS. INCIDENTAL SMALL LEFT PLEURAL EFFUSION. (4) Pneumonia (5) Upper GI bleed Assessment & Plan: Patient had acute drop in hemoglobin noted some dark stool consider removed potentially blood GI called GI eval pending occult stool trend H&H PRBC if drops below 7 will follow with recommendations Doe Nina Sep 01, 2020 13:09
--- NOTE | 2020-09-01 14:06 | NUR ---
RADIOLOGY NOTE: RIGHT UPPER EXTREMITY PICC LINE PLACEMENT BY DR. LYNN AT 1350 HRS. FA
--- NOTE | 2020-09-01 14:17 | Pre-Procedure Note/Attestation ---
Pre-Procedure Note/Attestation Complete Prior to Procedure Planned Procedure: not applicable Procedure Narrative: PICC insertion Indications for Procedure Pre-Operative Diagnosis: need IV access Attestation Informed consent obtained by the medical team, verified prior to the procedure Manuel Quezada M.D. Sep 01, 2020 14:17
[2020-09-01] MEDS ORDERED: LOVENOX10 M4 SUBQ (14:44)
[2020-09-01] MEDS ORDERED: HUMALOG KW200 UNIT/1 SQ (14:44)
[2020-09-01] MEDS ORDERED: ACETYLCYST200 MG/1 M HHN (14:44)
[2020-09-01] MEDS ORDERED: PRO-STAT LIQUID30 ML GT (14:44)
[2020-09-01] MEDS ORDERED: SEN-O-TAB8.6 MG GT (14:44)
[2020-09-01] MEDS ORDERED: MULTIVITAMINS1 EAC8 GT (14:44)
[2020-09-01] MEDS ORDERED: MILK OF MA400 MG/51 GT (14:44)
[2020-09-01] MEDS ORDERED: MIRALAX17 G2 GT (14:44)
[2020-09-01] MEDS ORDERED: santyl ointment TOPIC (14:44)
[2020-09-01] MEDS ORDERED: METFORMIN HCL500 M1 GT (14:44)
[2020-09-01] MEDS ORDERED: OMEPRAZOLE20 M2 GT (14:44)
--- NOTE | 2020-09-01 14:52 | Diagnostic Imaging Report ---
Indications: Needs long-term IV access Technique: Procedure performed at bedside. Procedural timeout performed. Ultrasound confirms patent compressible right brachial vein. Total sterile technique, including sterile probe cover and sterile gel, sterile gloves, hand hygiene, hat, mask,, sterile gown, large sterile drape, and preparation with 2% chlorhexidine utilized. Local anesthesia with 1% lidocaine. Under real-time ultrasound guidance, puncture right brachial vein using 21-gauge needle, passage 0.018 guidewire, exchange for 4.5 Malagasy peel-away sheath. 4French dual-lumen power PICC cut to 35 cm. It was inserted through the peel-away sheath. Peel-away sheath and guidewire removed. Catheter fixed to the skin. Both catheter ports aspirated and flushed. Patient tolerated procedure well, without immediate complication. Followup chest x-ray obtained, documents catheter tip position at the cavoatrial junction. Extensive bilateral infiltrate are again seen, similar to the prior chest radiograph. There is an indwelling tracheostomy tube. There is no pneumothorax. IMPRESSION: Successful bedside placement of right arm PICC under sonographic guidance, as described above. Catheter cleared for immediate use.
[2020-09-01 16:00] VITALS: BP 138/76
--- NOTE | 2020-09-01 16:41 | NUR ---
CASE MANAGEMENT: REVIEW 09/01/2020 SI:SEVERE SEPSIS. VS: T 97.3 HR 56 RR 23 B/P 138/76 SATS 100% ON MECH VENT FIO2 40 LABS: WBC 13.3 K 2.7 BUN 30 GLU 198 CA 8.2 AST 77 IS:D5ND @ 100 ML/HR PREVACID GT BID CEFEPIME IV Q24H VANCO IV Q24H INSULIN ASPART SUBQ Q6H FLAGYL IV Q8H SDU PLAN OF CARE: EGD rescheduled for 09/02 given hypokalemia
--- NOTE | 2020-09-01 17:06 | Nephrology Progress Note ---
Assessment/Plan Problem List: (1) Acute renal failure (2) Sepsis (3) Pneumonia (4) Upper GI bleed (5) Anemia Assessment Acute renal failure Prerenal azotemia/dehydration Acute GI bleed Sepsis, pneumonia Hypotension, septic shock PEG Trach to vent Plan Hydrate Monitor renal parameters and electrolytes Correct abnormal electrolytes Monitor hemoglobin and hematocrit IV Pepcid Albumin bolus Per python consultant Subjective ROS Limited/Unobtainable: Yes Objective Objective Last 24 Hour Vital Signs Date Time Temp Pulse Resp B/P (MAP) Pulse Ox O2 Delivery O2 Flow Rate FiO2 09/01/20 16:00 55 09/01/20 16:00 97.3 56 23 138/76 (96) 100 09/01/20 16:00 Mechanical Ventilator 09/01/20 15:00 56 22 40 09/01/20 14:00 40 09/01/20 12:00 61 09/01/20 12:00 97.2 56 23 119/70 (86) 100 09/01/20 12:00 Mechanical Ventilator 09/01/20 11:00 50 22 40 09/01/20 08:00 56 09/01/20 08:00 97.2 56 23 119/70 (86) 100 09/01/20 08:00 Mechanical Ventilator 09/01/20 07:00 54 22 40 09/01/20 05:16 55 22 40 09/01/20 04:00 Mechanical Ventilator 09/01/20 04:00 56 09/01/20 04:00 97.7 60 26 157/80 (105) 100 09/01/20 03:39 57 22 40 09/01/20 01:22 59 26 40 09/01/20 00:00 97.7 60 24 120/67 (84) 100 09/01/20 00:00 Mechanical Ventilator 09/01/20 00:00 61 08/31/20 23:02 62 26 40 08/31/20 21:34 64 22 40 08/31/20 20:00 97.7 63 24 126/69 (88) 100 08/31/20 20:00 98.1 70 20 136/83 (100) 93 08/31/20 20:00 60 08/31/20 20:00 Mechanical Ventilator 08/31/20 19:26 59 22 40 Intake and Output 08/31/20 09/01/20 19:00 07:00 Intake Total 1379.1 ml 1420.00 ml Output Total 460 ml 1500 ml Balance 919.1 ml -80.00 ml Intake IV Total 1119.1 ml 1300.00 ml Tube Feeding 100 ml 120 ml Other 160 ml Output Urine Total 460 ml 1500 ml # Bowel Movements 2 2 Laboratory Tests 08/31/20 18:55: POC Whole Blood Glucose 180H 08/31/20 23:36: POC Whole Blood Glucose [Pending] Current Medications Medications (Trade) Dose Ordered Sig/Kirby Route PRN Reason Start Time Stop Time Status Last Admin Dose Admin Acetaminophen (Tylenol) 650 mg Q4H PRN NG Mild Pain (Pain Scale 1-3) 08/31/20 09:00 09/30/20 08:59 Acetaminophen (Tylenol) 650 mg Q4H PRN NG Temp >100.5 08/31/20 09:00 09/30/20 08:59 Cefepime HCl 1 gm/ Dextrose 55 ml @ 110 mls/hr Q24H IVPB 08/31/20 12:00 09/07/20 11:59 09/01/20 12:00 Dextrose (Dextrose 50%) 25 ml Q30M PRN IV Hypoglycemia 08/30/20 16:45 11/28/20 16:44 Dextrose (Dextrose 50%) 50 ml Q30M PRN IV Hypoglycemia 08/30/20 16:45 11/28/20 16:44 Dextrose/Sodium Chloride 1,000 ml @ 100 mls/hr Q10H IV 08/31/20 09:30 09/30/20 09:29 09/01/20 15:32 Famotidine (Pepcid I.v.) 20 mg Q12HR IVP 08/31/20 09:30 09/30/20 09:29 09/01/20 09:00 Heparin Sodium/ Sodium Chloride (Heparin 1000 units/500ml Premix) 1,000 unit ONCE PRN IV PROCEDURE 09/01/20 13:05 09/01/20 23:59 Insulin Aspart (NovoLOG) Q6HR SUBQ 08/30/20 18:00 11/28/20 17:59 08/31/20 18:00 Lansoprazole (Prevacid) 30 mg BID GT 09/01/20 18:00 09/30/20 17:59 Lidocaine HCl (Xylocaine 1% 30ml) 30 ml ONCE PRN INJ PROCEDURE 09/01/20 13:05 09/01/20 23:59 Metronidazole 100 ml @ 100 mls/hr Q8HR IVPB 08/31/20 14:00 09/07/20 13:59 09/01/20 14:00 Ondansetron HCl (Zofran) 4 mg Q4H PRN IVP Nausea & Vomiting 08/30/20 16:45 09/29/20 16:44 Vancomycin HCl (Vanco pharmacy to dose) 1 ea DAILY PRN MISC . 08/30/20 17:00 09/29/20 16:59 Vancomycin HCl 1 gm/Dextrose 275 ml @ 183.708 mls/hr Q24H IVPB 08/31/20 08:00 09/05/20 07:59 09/01/20 08:00 09/01/20 04:40: White Blood Count 13.3H, Red Blood Count 2.84L, Hemoglobin 8.6L, Hematocrit 26.7L, Mean Corpuscular Volume 94, Mean Corpuscular Hemoglobin 30.3, Mean Corpuscular Hemoglobin Concent 32.3, Red Cell Distribution Width 14.3, Platelet Count 203, Mean Platelet Volume 8.0, Neutrophils (%) (Auto) , Lymphocytes (%) (Auto) , Monocytes (%) (Auto) , Eosinophils (%) (Auto) , Basophils (%) (Auto) , Differential Total Cells Counted 100, Neutrophils % (Manual) 89H, Lymphocytes % (Manual) 7L, Monocytes % (Manual) 4, Eosinophils % (Manual) 0, Basophils % (Manual) 0, Band Neutrophils 0, Platelet Estimate Adequate, Platelet Morphology Normal, Red Blood Cell Morphology Normal, Sodium Level 141, Potassium Level 2.7*L, Chloride Level 103, Carbon Dioxide Level 27, Anion Gap 12, Blood Urea Nitrogen 30H, Creatinine 0.9, Estimat Glomerular Filtration Rate > 60, Glucose Level 198H, Calcium Level 8.2L, Total Bilirubin 0.3, Aspartate Amino Transf (AST/SGOT) 77H, Alanine Aminotransferase (ALT/SGPT) 53, Alkaline Phosphatase 68, Total Protein 6.7, Albumin 1.4L, Globulin 5.3, Albumin/Globulin Ratio 0.3L 09/01/20 05:07: POC Whole Blood Glucose [Pending] 09/01/20 12:37: POC Whole Blood Glucose 190H Height (Feet): 5 Height (Inches): 7.00 Weight (Pounds): 120 General Appearance: no apparent distress EENT: other - Trach to vent Cardiovascular: normal rate Respiratory/Chest: decreased breath sounds Abdomen: distended Ben Aguilar MD Sep 01, 2020 17:06
[2020-09-01] MEDS ORDERED: NS 275ml ONE (18:02)
[2020-09-01] MEDS ORDERED: Tubing IV Secondary IV ONE (18:02)
--- NOTE | 2020-09-01 19:25 | NUR ---
Received report from EDGAR Dubois and assumed care of patient.
[2020-09-01 20:00] VITALS: BP 132/70
--- NOTE | 2020-09-01 20:35 | NUR ---
Assessment completed on patient. Pt now has PICC line so dc'd B wrist PIV's. VSS. Will continue to monitor the patient.
--- NOTE | 2020-09-01 22:30 | NUR ---
Patient stable, appears comfortable in bed. Asked if patient was in pain to which he nodded no that he is not in pain. Pt remains appropriate. Will continue to monitor.
--- NOTE | 2020-09-01 22:42 | General Progress Note ---
Subjective Constitutional: Reports: no symptoms HEENT: Reports: no symptoms Cardiovascular: Reports: no symptoms Respiratory: Reports: no symptoms Gastrointestinal/Abdominal: Reports: no symptoms Genitourinary: Reports: no symptoms Neurologic/Psychiatric: Reports: no symptoms Endocrine: Reports: no symptoms Hematologic/Lymphatic: Reports: no symptoms Allergies: Coded Allergies: No Known Allergies (Unverified , 08/30/20) Objective Last 24 Hour Vital Signs Date Time Temp Pulse Resp B/P (MAP) Pulse Ox O2 Delivery O2 Flow Rate FiO2 09/01/20 21:08 50 22 40 09/01/20 20:00 Mechanical Ventilator 09/01/20 20:00 98.2 58 20 132/70 (90) 100 09/01/20 20:00 55 09/01/20 19:07 55 22 40 09/01/20 16:00 55 09/01/20 16:00 97.3 56 23 138/76 (96) 100 09/01/20 16:00 Mechanical Ventilator 09/01/20 15:00 56 22 40 09/01/20 14:00 40 09/01/20 12:00 61 09/01/20 12:00 97.2 56 23 119/70 (86) 100 09/01/20 12:00 Mechanical Ventilator 09/01/20 11:00 50 22 40 09/01/20 08:00 56 09/01/20 08:00 97.2 56 23 119/70 (86) 100 09/01/20 08:00 Mechanical Ventilator 09/01/20 07:00 54 22 40 09/01/20 05:16 55 22 40 09/01/20 04:00 Mechanical Ventilator 09/01/20 04:00 56 09/01/20 04:00 97.7 60 26 157/80 (105) 100 09/01/20 03:39 57 22 40 09/01/20 01:22 59 26 40 09/01/20 00:00 97.7 60 24 120/67 (84) 100 09/01/20 00:00 Mechanical Ventilator 09/01/20 00:00 61 08/31/20 23:02 62 26 40 Intake and Output 08/31/20 09/01/20 19:00 07:00 Intake Total 1379.1 ml 1420.00 ml Output Total 460 ml 1500 ml Balance 919.1 ml -80.00 ml Intake IV Total 1119.1 ml 1300.00 ml Tube Feeding 100 ml 120 ml Other 160 ml Output Urine Total 460 ml 1500 ml # Bowel Movements 2 2 Laboratory Tests 08/31/20 23:36: POC Whole Blood Glucose [Pending] 09/01/20 04:40: White Blood Count 13.3H, Red Blood Count 2.84L, Hemoglobin 8.6L, Hematocrit 26.7L, Mean Corpuscular Volume 94, Mean Corpuscular Hemoglobin 30.3, Mean Corpuscular Hemoglobin Concent 32.3, Red Cell Distribution Width 14.3, Platelet Count 203, Mean Platelet Volume 8.0, Neutrophils (%) (Auto) , Lymphocytes (%) (Auto) , Monocytes (%) (Auto) , Eosinophils (%) (Auto) , Basophils (%) (Auto) , Differential Total Cells Counted 100, Neutrophils % (Manual) 89H, Lymphocytes % (Manual) 7L, Monocytes % (Manual) 4, Eosinophils % (Manual) 0, Basophils % (Manual) 0, Band Neutrophils 0, Platelet Estimate Adequate, Platelet Morphology Normal, Red Blood Cell Morphology Normal, Sodium Level 141, Potassium Level 2.7*L, Chloride Level 103, Carbon Dioxide Level 27, Anion Gap 12, Blood Urea Nitrogen 30H, Creatinine 0.9, Estimat Glomerular Filtration Rate > 60, Glucose Level 198H, Calcium Level 8.2L, Total Bilirubin 0.3, Aspartate Amino Transf (AST/SGOT) 77H, Alanine Aminotransferase (ALT/SGPT) 53, Alkaline Phosphatase 68, Total Protein 6.7, Albumin 1.4L, Globulin 5.3, Albumin/Globulin Ratio 0.3L 09/01/20 05:07: POC Whole Blood Glucose [Pending] 09/01/20 12:37: POC Whole Blood Glucose 190H 09/01/20 18:55: POC Whole Blood Glucose 112H Height (Feet): 5 Height (Inches): 7.00 Weight (Pounds): 120 General Appearance: WD/WN, no apparent distress, alert EENT: normal ENT inspection Neck: supple Cardiovascular: normal rate, regular rhythm, no gallop/murmur, no JVD Respiratory/Chest: lungs clear, normal breath sounds, no respiratory distress, no accessory muscle use Abdomen: normal bowel sounds, non tender, soft, no organomegaly, no mass Neurologic: alert, oriented x 3, responsive Skin: warm/dry Assessment/Plan Status Narrative Patient is awake alert afebrile hemodynamically stable denying any discomfort normal vital signs upper GI endoscopy however the procedure was delayed by 1 day until central line will be inserted currently patient is asymptomatic and his laboratory tests are stable scheduled to undergo upper GI endoscopy in a.m. repeat laboratory tests will be done in a.m. Jason Figueroa MD, MD Sep 01, 2020 22:42
[2020-09-02] VITALS: BP 142/72
--- NOTE | 2020-09-02 00:40 | NUR ---
Midnight assessment completed and charted. Pt denies pain when asked. VSS. Will continue to monitor patient. Pt assists with turns.
--- NOTE | 2020-09-02 02:45 | NUR ---
Pt remains stable, denies pain. Will continue to monitor.
[2020-09-02 04:00] VITALS: BP 136/70
--- NOTE | 2020-09-02 04:20 | NUR ---
Patient VSS, repositioned, denies pain. Will continue to monitor the patient.
[2020-09-02] MEDS: NovoLOG Insulin Flexpen SUBQ SCH ×5 (05:48→23:10)
--- NOTE | 2020-09-02 06:00 | NUR ---
BG checked on patient. Patient denies pain. Patient says he is comfortable when asked. Pt in NAD. Will continue to monitor.
--- NOTE | 2020-09-02 06:55 | Hematology/Onc Progress Note ---
Assessment/Plan Assessment/Plan Assessment and recs # Leukocytosis due to underlying Sepsis --> per ID recs --> ABX cefepime/vanc --> wbc 13-->13 # Anemia with a upper gi bleed --> per gi eval --> hgb 12-->8.8-->8.6 --> anemia panel is noted --> transfuse prn basis --> review smear # Pneumonia b//l pna on imaging --> imaging seen --> Abx vanc/cefepime/flagyl # Septic shock # Acute renal failure # Upper GI bleed # Hypotensive and tachycardic. --> Patient given IV fluids and is fluid responsive. # Dvt ppx scds Appreciate consultation and stefany Rn Subjective Constitutional: Denies: no symptoms, chills, fever, malaise, weakness, other HEENT: Denies: no symptoms, eye pain, blurred vision, tearing, double vision, ear pain, ear discharge, nose pain, nose congestion, throat pain, throat swelling, mouth pain, mouth swelling, other Respiratory: Denies: no symptoms, cough, shortness of breath, SOB with excer tion, SOB at rest, sputum, wheezing, other Gastrointestinal/Abdominal: Denies: no symptoms, abdomen distended, abdominal pain, black stools, tarry stools, blood in stool, constipated, diarrhea, difficulty swallowing, nausea, poor appetite, poor fluid intake, rectal bleeding, vomiting, other Neurologic/Psychiatric: Denies: no symptoms, anxiety, depressed, emotional problems, headache, numbness, paresthesia, pre-existing deficit, seizure, tingling, tremors, weakness, other Endocrine: Denies: no symptoms, excessive sweating, flushing, intolerance to cold, intolerance to heat, increased hunger, increased thirst, increased urine, unexplained weight gain, unexplained weight loss, other Hematologic/Lymphatic: Denies: no symptoms, anemia, easy bleeding, easy bruising, adenopathy, other Allergies: Coded Allergies: No Known Allergies (Unverified , 08/30/20) Subjective 09/01 stefany rn, on abx broad spectrum, labs noted, no active bleed at this time 09/02 meds noted, no bleeding, stefany rn, wbc 18, hgb 8.6, no hemolysis Objective Objective Current Medications Medications (Trade) Dose Ordered Sig/Kirby Route PRN Reason Start Time Stop Time Status Last Admin Dose Admin Acetaminophen (Tylenol) 650 mg Q4H PRN NG Mild Pain (Pain Scale 1-3) 08/31/20 09:00 09/30/20 08:59 Acetaminophen (Tylenol) 650 mg Q4H PRN NG Temp >100.5 08/31/20 09:00 09/30/20 08:59 Cefepime HCl 1 gm/ Dextrose 55 ml @ 110 mls/hr Q24H IVPB 08/31/20 12:00 09/07/20 11:59 09/01/20 12:00 Dextrose (Dextrose 50%) 25 ml Q30M PRN IV Hypoglycemia 08/30/20 16:45 11/28/20 16:44 Dextrose (Dextrose 50%) 50 ml Q30M PRN IV Hypoglycemia 08/30/20 16:45 11/28/20 16:44 Dextrose/Sodium Chloride 1,000 ml @ 50 mls/hr Q20H IV 08/31/20 09:30 09/30/20 09:29 09/01/20 15:32 Famotidine (Pepcid I.v.) 20 mg Q12HR IVP 08/31/20 09:30 09/30/20 09:29 09/01/20 21:00 Insulin Aspart (NovoLOG) Q6HR SUBQ 08/30/20 18:00 11/28/20 17:59 08/31/20 18:00 Lansoprazole (Prevacid) 30 mg BID GT 09/01/20 18:00 09/30/20 17:59 09/01/20 18:00 Metronidazole 100 ml @ 100 mls/hr Q8HR IVPB 08/31/20 14:00 09/07/20 13:59 09/02/20 05:47 Ondansetron HCl (Zofran) 4 mg Q4H PRN IVP Nausea & Vomiting 08/30/20 16:45 09/29/20 16:44 Vancomycin HCl (Vanco pharmacy to dose) 1 ea DAILY PRN MISC . 08/30/20 17:00 09/29/20 16:59 Vancomycin HCl 1 gm/Dextrose 275 ml @ 183.708 mls/hr Q24H IVPB 08/31/20 08:00 09/05/20 07:59 09/01/20 08:00 Last 24 Hour Vital Signs Date Time Temp Pulse Resp B/P (MAP) Pulse Ox O2 Delivery O2 Flow Rate FiO2 09/02/20 04:47 56 23 40 09/02/20 04:00 52 09/02/20 04:00 Mechanical Ventilator 09/02/20 04:00 97.2 57 24 136/70 (92) 100 09/02/20 03:24 57 23 40 09/02/20 01:06 54 22 40 09/02/20 00:00 98.2 56 23 142/72 (95) 100 09/02/20 00:00 Mechanical Ventilator 09/01/20 22:53 59 25 40 09/01/20 21:08 50 22 40 09/01/20 20:00 Mechanical Ventilator 09/01/20 20:00 98.2 58 20 132/70 (90) 100 09/01/20 20:00 55 09/01/20 19:07 55 22 40 09/01/20 16:00 55 09/01/20 16:00 97.3 56 23 138/76 (96) 100 09/01/20 16:00 Mechanical Ventilator 09/01/20 15:00 56 22 40 09/01/20 14:00 40 09/01/20 12:00 61 09/01/20 12:00 97.2 56 23 119/70 (86) 100 09/01/20 12:00 Mechanical Ventilator 09/01/20 11:00 50 22 40 09/01/20 08:00 56 09/01/20 08:00 97.2 56 23 119/70 (86) 100 09/01/20 08:00 Mechanical Ventilator 09/01/20 07:00 54 22 40 09/01/20 05:16 55 22 40 09/01/20 04:00 Mechanical Ventilator 09/01/20 04:00 56 09/01/20 04:00 97.7 60 26 157/80 (105) 100 09/01/20 03:39 57 22 40 09/01/20 01:22 59 26 40 09/01/20 00:00 97.7 60 24 120/67 (84) 100 09/01/20 00:00 Mechanical Ventilator 09/01/20 00:00 61 08/31/20 23:02 62 26 40 08/31/20 21:34 64 22 40 08/31/20 20:00 97.7 63 24 126/69 (88) 100 08/31/20 20:00 98.1 70 20 136/83 (100) 93 08/31/20 20:00 60 08/31/20 20:00 Mechanical Ventilator 08/31/20 19:26 59 22 40 08/31/20 16:00 Mechanical Ventilator 08/31/20 16:00 76 08/31/20 16:00 98.4 73 26 118/61 (80) 100 08/31/20 15:38 60 26 40 08/31/20 14:00 40 08/31/20 12:00 98.4 73 26 118/61 (80) 100 08/31/20 12:00 Mechanical Ventilator 08/31/20 12:00 72 08/31/20 11:26 75 25 40 08/31/20 11:00 65 31 130/42 (71) 100 08/31/20 10:00 65 27 136/59 (84) 100 08/31/20 09:00 73 30 143/61 (88) 100 08/31/20 08:30 59 29 142/61 (88) 100 08/31/20 08:00 62 08/31/20 08:00 98.9 62 29 135/53 (80) 100 08/31/20 08:00 Mechanical Ventilator 08/31/20 07:54 57 24 40 08/31/20 07:30 66 21 123/47 (72) 100 08/31/20 07:15 133/45 08/31/20 07:00 70 21 133/45 (74) 100 Intake and Output 09/01/20 09/02/20 19:00 07:00 Intake Total 100 ml 1000 ml Output Total 120 ml 855 ml Balance -20 ml 145 ml Intake IV Total 100 ml 1000 ml Tube Feeding 0 ml 0 ml Output Urine Total 120 ml 855 ml Labs Test 08/30/20 08:00 08/30/20 08:20 08/30/20 08:52 08/30/20 09:20 White Blood Count 14.1 K/UL (4.8-10.8) Red Blood Count 4.14 M/UL (4.70-6.10) Hemoglobin 12.2 G/DL (14.2-18.0) Hematocrit 41.1 % (42.0-52.0) Mean Corpuscular Volume 99 FL (80-99) Mean Corpuscular Hemoglobin 29.4 PG (27.0-31.0) Mean Corpuscular Hemoglobin Concent 29.6 G/DL (32.0-36.0) Red Cell Distribution Width 15.3 % (11.6-14.8) Platelet Count 304 K/UL (150-450) Mean Platelet Volume 7.0 FL (6.5-10.1) Neutrophils (%) (Auto) 82.7 % (45.0-75.0) Lymphocytes (%) (Auto) 9.5 % (20.0-45.0) Monocytes (%) (Auto) 6.8 % (1.0-10.0) Eosinophils (%) (Auto) 0.0 % (0.0-3.0) Basophils (%) (Auto) 1.0 % (0.0-2.0) Prothrombin Time 11.4 SEC (9.30-11.50) Prothromb Time International Ratio 1.0 (0.9-1.1) Activated Partial Thromboplast Time 28 SEC (23-33) D-Dimer 3.64 mg/L FEU (0.00-0.49) Sodium Level 139 MMOL/L (136-145) Potassium Level 5.8 MMOL/L (3.5-5.1) Chloride Level 94 MMOL/L (98-107) Carbon Dioxide Level 40 MMOL/L (21-32) Anion Gap 5 mmol/L (5-15) Blood Urea Nitrogen 84 mg/dL (7-18) Creatinine 3.3 MG/DL (0.55-1.30) Estimat Glomerular Filtration Rate 19.0 mL/min (>60) Glucose Level 146 MG/DL (74-106) Calcium Level 10.9 MG/DL (8.5-10.1) Magnesium Level 3.2 MG/DL (1.8-2.4) Ferritin 153 NG/ML (8-388) Total Bilirubin 0.4 MG/DL (0.2-1.0) Aspartate Amino Transf (AST/SGOT) 31 U/L (15-37) Alanine Aminotransferase (ALT/SGPT) 25 U/L (12-78) Alkaline Phosphatase 146 U/L (46-116) Lactate Dehydrogenase 128 U/L (81-234) Total Creatine Kinase 245 U/L (26-308) Troponin I 0.000 ng/mL (0.000-0.056) C-Reactive Protein, Quantitative 34.7 mg/dL (0.00-0.90) Pro-B-Type Natriuretic Peptide 3556 pg/mL (0-125) Total Protein 9.5 G/DL (6.4-8.2) Albumin 2.2 G/DL (3.4-5.0) Globulin 7.3 g/dL Albumin/Globulin Ratio 0.3 (1.0-2.7) Lipase 159 U/L (73-393) Acetone Level Negative (NEGATIVE) Lactic Acid Level 3.80 mmol/L (0.4-2.0) Arterial Blood pH 7.273 (7.350-7.450) Arterial Blood Partial Pressure CO2 71.2 mmHg (35.0-45.0) Arterial Blood Partial Pressure O2 244.8 mmHg (75.0-100.0) Arterial Blood HCO3 32.2 mmol/L (22.0-26.0) Arterial Blood Oxygen Saturation 99.2 % (95-100) Arterial Blood Base Excess 3.8 (-2-2) Jayden Test Positive Urine Color Yellow Urine Appearance Clear Urine pH 5 (4.5-8.0) Urine Specific [place] 1.025 (1.005-1.035) Urine Protein 2+ (NEGATIVE) Urine Glucose (UA) Negative (NEGATIVE) Urine Ketones 1+ (NEGATIVE) Urine Blood 1+ (NEGATIVE) Urine Nitrite Negative (NEGATIVE) Urine Bilirubin Negative (NEGATIVE) Urine Urobilinogen 1 MG/DL (0.0-1.0) Urine Leukocyte Esterase 1+ (NEGATIVE) Urine RBC 0-2 /HPF (0 - 0) Urine WBC 2-4 /HPF (0 - 0) Urine Squamous Epithelial Cells Occasional /LPF Urine Bacteria Few /HPF (NONE) Test 08/30/20 17:00 08/30/20 19:50 08/31/20 03:45 08/31/20 18:55 Urine Color Pale yellow Urine Appearance Slightly cloudy Urine pH 5 (4.5-8.0) Urine Specific [place] 1.030 (1.005-1.035) Urine Protein 2+ (NEGATIVE) Urine Glucose (UA) Negative (NEGATIVE) Urine Ketones Negative (NEGATIVE) Urine Blood 5+ (NEGATIVE) Urine Nitrite Negative (NEGATIVE) Urine Bilirubin Negative (NEGATIVE) Urine Urobilinogen Normal MG/DL (0.0-1.0) Urine Leukocyte Esterase Negative (NEGATIVE) Urine RBC 60-80 /HPF (0 - 0) Urine WBC 0-2 /HPF (0 - 0) Urine Squamous Epithelial Cells Occasional /LPF Urine Bacteria Few /HPF (NONE) Lactic Acid Level 2.40 mmol/L (0.4-2.0) 1.20 mmol/L (0.4-2.0) White Blood Count 12.1 K/UL (4.8-10.8) Red Blood Count 2.78 M/UL (4.70-6.10) Hemoglobin 8.4 G/DL (14.2-18.0) Hematocrit 26.7 % (42.0-52.0) Mean Corpuscular Volume 96 FL (80-99) Mean Corpuscular Hemoglobin 30.3 PG (27.0-31.0) Mean Corpuscular Hemoglobin Concent 31.5 G/DL (32.0-36.0) Red Cell Distribution Width 14.6 % (11.6-14.8) Platelet Count 189 K/UL (150-450) Mean Platelet Volume 7.3 FL (6.5-10.1) Neutrophils (%) (Auto) % (45.0-75.0) Lymphocytes (%) (Auto) % (20.0-45.0) Monocytes (%) (Auto) % (1.0-10.0) Eosinophils (%) (Auto) % (0.0-3.0) Basophils (%) (Auto) % (0.0-2.0) Differential Total Cells Counted 100 Neutrophils % (Manual) 81 % (45-75) Lymphocytes % (Manual) 4 % (20-45) Monocytes % (Manual) 6 % (1-10) Eosinophils % (Manual) 0 % (0-3) Basophils % (Manual) 0 % (0-2) Band Neutrophils 9 % (0-8) Platelet Estimate Adequate Platelet Morphology Normal Hypochromasia 1+ Anisocytosis 1+ Sodium Level 144 MMOL/L (136-145) Potassium Level 4.0 MMOL/L (3.5-5.1) Chloride Level 107 MMOL/L (98-107) Carbon Dioxide Level 32 MMOL/L (21-32) Anion Gap 5 mmol/L (5-15) Blood Urea Nitrogen 50 mg/dL (7-18) Creatinine 1.3 MG/DL (0.55-1.30) Estimat Glomerular Filtration Rate 55.6 mL/min (>60) Glucose Level 136 MG/DL (74-106) Hemoglobin A1c 5.9 % (4.3-6.0) Uric Acid 5.9 MG/DL (2.6-7.2) Calcium Level 8.7 MG/DL (8.5-10.1) Phosphorus Level 1.8 MG/DL (2.5-4.9) Magnesium Level 2.1 MG/DL (1.8-2.4) Total Bilirubin 0.3 MG/DL (0.2-1.0) Direct Bilirubin 0.2 MG/DL (0.0-0.3) Gamma Glutamyl Transpeptidase 24 U/L (5-85) Aspartate Amino Transf (AST/SGOT) 40 U/L (15-37) Alanine Aminotransferase (ALT/SGPT) 23 U/L (12-78) Alkaline Phosphatase 63 U/L (46-116) Total Creatine Kinase 166 U/L (26-308) C-Reactive Protein, Quantitative 38.2 mg/dL (0.00-0.90) Pro-B-Type Natriuretic Peptide 967 pg/mL (0-125) Total Protein 7.0 G/DL (6.4-8.2) Albumin 1.6 G/DL (3.4-5.0) Globulin 5.4 g/dL Albumin/Globulin Ratio 0.3 (1.0-2.7) Amylase Level 44 U/L (25-115) Lipase 106 U/L (73-393) Thyroid Stimulating Hormone (TSH) 0.420 uiU/mL (0.358-3.740) Free Thyroxine 1.22 NG/DL (0.76-1.46) Random Vancomycin Level 7.7 ug/mL POC Whole Blood Glucose 180 MG/DL (74-106) Test 08/31/20 23:36 09/01/20 04:40 09/01/20 05:07 09/01/20 12:37 White Blood Count 13.3 K/UL (4.8-10.8) Red Blood Count 2.84 M/UL (4.70-6.10) Hemoglobin 8.6 G/DL (14.2-18.0) Hematocrit 26.7 % (42.0-52.0) Mean Corpuscular Volume 94 FL (80-99) Mean Corpuscular Hemoglobin 30.3 PG (27.0-31.0) Mean Corpuscular Hemoglobin Concent 32.3 G/DL (32.0-36.0) Red Cell Distribution Width 14.3 % (11.6-14.8) Platelet Count 203 K/UL (150-450) Mean Platelet Volume 8.0 FL (6.5-10.1) Neutrophils (%) (Auto) % (45.0-75.0) Lymphocytes (%) (Auto) % (20.0-45.0) Monocytes (%) (Auto) % (1.0-10.0) Eosinophils (%) (Auto) % (0.0-3.0) Basophils (%) (Auto) % (0.0-2.0) Differential Total Cells Counted 100 Neutrophils % (Manual) 89 % (45-75) Lymphocytes % (Manual) 7 % (20-45) Monocytes % (Manual) 4 % (1-10) Eosinophils % (Manual) 0 % (0-3) Basophils % (Manual) 0 % (0-2) Band Neutrophils 0 % (0-8) Platelet Estimate Adequate Platelet Morphology Normal Red Blood Cell Morphology Normal Sodium Level 141 MMOL/L (136-145) Potassium Level 2.7 MMOL/L (3.5-5.1) Chloride Level 103 MMOL/L (98-107) Carbon Dioxide Level 27 MMOL/L (21-32) Anion Gap 12 mmol/L (5-15) Blood Urea Nitrogen 30 mg/dL (7-18) Creatinine 0.9 MG/DL (0.55-1.30) Estimat Glomerular Filtration Rate > 60 mL/min (>60) Glucose Level 198 MG/DL (74-106) Calcium Level 8.2 MG/DL (8.5-10.1) Total Bilirubin 0.3 MG/DL (0.2-1.0) Aspartate Amino Transf (AST/SGOT) 77 U/L (15-37) Alanine Aminotransferase (ALT/SGPT) 53 U/L (12-78) Alkaline Phosphatase 68 U/L (46-116) Total Protein 6.7 G/DL (6.4-8.2) Albumin 1.4 G/DL (3.4-5.0) Globulin 5.3 g/dL Albumin/Globulin Ratio 0.3 (1.0-2.7) POC Whole Blood Glucose 190 MG/DL (74-106) Test 09/01/20 18:55 09/01/20 23:58 09/02/20 05:43 POC Whole Blood Glucose 112 MG/DL (74-106) 130 MG/DL (74-106) Height (Feet): 5 Height (Inches): 7.00 Weight (Pounds): 120 Objective Physical Exam Vitals abnormal General Appearance: nv, thin, Chronically Ill Heent: normocephalic, atraumatic ++ Trach in place with vomit around the trach site Respiratory: rhonchi Cardiovascular: tachycardia Gastrointestinal: non tender, soft, non-distended, other ++ G-tube in the epigastric region Musculoskeletal: no calf tenderness, no lower extremity edema Psychiatric: other - Unable to assess as parent patient is nonverbal Skin: no rash Nick Ferguson MD Sep 02, 2020 06:55
[2020-09-02 07:13] LABS: BASOPHILS % (AUTO) 0.2 % (0.0-2.0); EOSINOPHILS % (AUTO) 0.3 % (0.0-3.0); HEMOGLOBIN 9.2 G/DL (14.2-18.0); LYMPHOCYTES % (AUTO) 8.2 % (20.0-45.0); MEAN CORPUSCULAR VOLUME 91 FL (80-99); MONOCYTES % (AUTO) 6.9 % (1.0-10.0); NEUTROPHILS % (AUTO) 84.5 % (45.0-75.0); PLATELET COUNT 224 K/UL (150-450); RED BLOOD COUNT 3.07 M/UL (4.70-6.10); RED CELL DISTRIBUTION WIDTH 13.7 % (11.6-14.8); WHITE BLOOD COUNT 11.5 K/UL (4.8-10.8)
--- NOTE | 2020-09-02 07:14 | NUR ---
This RN continuing care of the patient. Remains stable.
[2020-09-02 07:15] LABS: ALANINE AMINOTRANSFERASE 35 U/L (12-78); ALBUMIN 1.4 G/DL (3.4-5.0); ALBUMIN/GLOBULIN RATIO 0.3 (1.0-2.7); ALKALINE PHOSPHATASE 69 U/L (46-116); ANION GAP 8 mmol/L (5-15); ASPARTATE AMINO TRANSFERASE 40 U/L (15-37); BILIRUBIN,TOTAL 0.5 MG/DL (0.2-1.0); BLOOD UREA NITROGEN 18 mg/dL (7-18); CALCIUM 7.8 MG/DL (8.5-10.1); CARBON DIOXIDE 30 MMOL/L (21-32); CHLORIDE 102 MMOL/L (98-107); CREATININE 0.7 MG/DL (0.55-1.30); SODIUM 140 MMOL/L (136-145)
[2020-09-02 07:17] LABS: POTASSIUM 2.4 MMOL/L (3.5-5.1)
[2020-09-02 07:18] LABS: % IRON SATURATION 16 % (15-50); IRON 27 ug/dL (50-175); TOTAL IRON BINDING CAPACITY 167 ug/dL (250-450)
--- NOTE | 2020-09-02 07:20 | NUR ---
Called Dr. Perdue's office to leave a voicemail due to critically low K+ level of 2.4 called by the lab to this RN. Awaiting return call to begin K+ administration order. make up girl, Trudy vickers.
[2020-09-02 07:26] LABS: PHOSPHORUS 2.6 MG/DL (2.5-4.9)
[2020-09-02 08:00] VITALS: BP 122/68
--- NOTE | 2020-09-02 08:19 | Infectious Diseases Prog Note ---
Assessment/Plan 64 yo male with PMHx of CVA, S/P PEG s/p Trach, DM and HTN who was sent to the ED form his shelter with hypoxia. Sepsis Leuckotyosis No fever Bacteremialikely GI source Blood Cx 08/30/20- Enterococcus Blood Cx 08/31/20 - 1/2 GPC Blood Cx 09/02/20 - Pend Resp fail - Acute on chronic Trached PNA CXR shows - LLL PNA and possible N/V/D and abd pain Some blood In the vomit CVA s/p PEG and s/p Trach DM HTN PLAN Start Ampicillin 2g Q4hr #1/14 09/02/20 - SP Flagyl #3 and Cefepime #3 and Vancomycin #3 f/u TTE f/u culture Blood Monitor Resp status Monitor CBC and Temps Thank you for this consult. [facility] will continue to follow Mr. Shaikh with you. Subjective Allergies: Coded Allergies: No Known Allergies (Unverified , 08/30/20) Afebrile WBCs 11 today On Vent satting well Patient reports no acute complaints Blood Cx 08/10 Enterococcus Objective Last 24 Hour Vital Signs Date Time Temp Pulse Resp B/P (MAP) Pulse Ox O2 Delivery O2 Flow Rate FiO2 09/02/20 08:00 Mechanical Ventilator 09/02/20 04:47 56 23 40 09/02/20 04:00 52 09/02/20 04:00 Mechanical Ventilator 09/02/20 04:00 97.2 57 24 136/70 (92) 100 09/02/20 03:24 57 23 40 09/02/20 01:06 54 22 40 09/02/20 00:00 98.2 56 23 142/72 (95) 100 09/02/20 00:00 Mechanical Ventilator 09/01/20 22:53 59 25 40 09/01/20 21:08 50 22 40 09/01/20 20:00 Mechanical Ventilator 09/01/20 20:00 98.2 58 20 132/70 (90) 100 09/01/20 20:00 55 09/01/20 19:07 55 22 40 09/01/20 16:00 55 09/01/20 16:00 97.3 56 23 138/76 (96) 100 09/01/20 16:00 Mechanical Ventilator 09/01/20 15:00 56 22 40 09/01/20 14:00 40 09/01/20 12:00 61 09/01/20 12:00 97.2 56 23 119/70 (86) 100 09/01/20 12:00 Mechanical Ventilator 09/01/20 11:00 50 22 40 Height (Feet): 5 Height (Inches): 7.00 Weight (Pounds): 120 Gen: NAD on Vent 40% O2 HEENT: NCAT, MMM, EOMI, No scleral icterus, Trach in place Pulm: Equal rise and fall B/L No accessory muscle use Abd: Soft,ND PEG ( No E/P) SKIN: Exposed skin normal in color no rash noted Microbiology Date/Time Source Procedure Growth Status 08/31/20 10:20 Blood Blood Culture - Preliminary Resulted 08/31/20 10:20 Blood Blood Culture - Preliminary NO GROWTH AFTER 24 HOURS Resulted 08/31/20 09:45 Indwelling Cath Urine Culture - Preliminary NO GROWTH Resulted 08/31/20 09:45 Nasopharynx Coronavirus COVID-19 PCR (PEDRO) - Final Complete 08/31/20 09:45 Sputum Gram Stain - Final Resulted 08/31/20 09:45 Sputum Sputum Culture - Preliminary Resulted 08/31/20 03:15 Rectum VRE Culture - Final Enterococcus Faecium - Vre Complete 08/31/20 03:15 Nasal Nares MRSA Culture - Final NO METHICILLIN RESISTANT STAPH AUREUS... Complete 08/31/20 03:15 Nasopharynx SARS-CoV-2 Antigen (Rapid)(PEDRO) - Final Complete Laboratory Tests Test 09/01/20 12:37 09/01/20 18:55 09/01/20 23:58 09/02/20 05:43 POC Whole Blood Glucose 190 MG/DL (74-106) H 112 MG/DL (74-106) H Pending 130 MG/DL (74-106) H Test 09/02/20 06:51 White Blood Count 11.5 K/UL (4.8-10.8) H Red Blood Count 3.07 M/UL (4.70-6.10) L Hemoglobin 9.2 G/DL (14.2-18.0) L Hematocrit 28.0 % (42.0-52.0) L Mean Corpuscular Volume 91 FL (80-99) Mean Corpuscular Hemoglobin 30.0 PG (27.0-31.0) Mean Corpuscular Hemoglobin Concent 33.0 G/DL (32.0-36.0) Red Cell Distribution Width 13.7 % (11.6-14.8) Platelet Count 224 K/UL (150-450) Mean Platelet Volume 7.2 FL (6.5-10.1) Neutrophils (%) (Auto) 84.5 % (45.0-75.0) H Lymphocytes (%) (Auto) 8.2 % (20.0-45.0) L Monocytes (%) (Auto) 6.9 % (1.0-10.0) Eosinophils (%) (Auto) 0.3 % (0.0-3.0) Basophils (%) (Auto) 0.2 % (0.0-2.0) Sodium Level 140 MMOL/L (136-145) Potassium Level 2.4 MMOL/L (3.5-5.1) *L Chloride Level 102 MMOL/L (98-107) Carbon Dioxide Level 30 MMOL/L (21-32) Anion Gap 8 mmol/L (5-15) Blood Urea Nitrogen 18 mg/dL (7-18) Creatinine 0.7 MG/DL (0.55-1.30) Estimat Glomerular Filtration Rate > 60 mL/min (>60) Glucose Level 155 MG/DL (74-106) H Calcium Level 7.8 MG/DL (8.5-10.1) L Phosphorus Level 2.6 MG/DL (2.5-4.9) Magnesium Level 1.2 MG/DL (1.8-2.4) L Iron Level 27 ug/dL (50-175) L Total Iron Binding Capacity 167 ug/dL (250-450) L Percent Iron Saturation 16 % (15-50) Unsaturated Iron Binding 140 ug/dL (112-346) Ferritin 154 NG/ML (8-388) Total Bilirubin 0.5 MG/DL (0.2-1.0) Aspartate Amino Transf (AST/SGOT) 40 U/L (15-37) H Alanine Aminotransferase (ALT/SGPT) 35 U/L (12-78) Alkaline Phosphatase 69 U/L (46-116) Total Protein 6.6 G/DL (6.4-8.2) Albumin 1.4 G/DL (3.4-5.0) L Globulin 5.2 g/dL Albumin/Globulin Ratio 0.3 (1.0-2.7) L Vitamin B12 Level Pending Folate Pending Vancomycin Level Trough 3.2 ug/mL (5.0-12.0) L Current Medications Medications (Trade) Dose Ordered Sig/Kirby Route PRN Reason Start Time Stop Time Status Last Admin Dose Admin Acetaminophen (Tylenol) 650 mg Q4H PRN NG Mild Pain (Pain Scale 1-3) 08/31/20 09:00 09/30/20 08:59 Acetaminophen (Tylenol) 650 mg Q4H PRN NG Temp >100.5 08/31/20 09:00 09/30/20 08:59 Cefepime HCl 1 gm/ Dextrose 55 ml @ 110 mls/hr Q24H IVPB 08/31/20 12:00 09/07/20 11:59 09/01/20 12:00 Dextrose (Dextrose 50%) 25 ml Q30M PRN IV Hypoglycemia 08/30/20 16:45 11/28/20 16:44 Dextrose (Dextrose 50%) 50 ml Q30M PRN IV Hypoglycemia 08/30/20 16:45 11/28/20 16:44 Dextrose/Sodium Chloride 1,000 ml @ 50 mls/hr Q20H IV 08/31/20 09:30 09/30/20 09:29 09/01/20 15:32 Famotidine (Pepcid I.v.) 20 mg Q12HR IVP 08/31/20 09:30 09/30/20 09:29 09/01/20 21:00 Insulin Aspart (NovoLOG) Q6HR SUBQ 08/30/20 18:00 11/28/20 17:59 08/31/20 18:00 Lansoprazole (Prevacid) 30 mg BID GT 09/01/20 18:00 09/30/20 17:59 09/01/20 18:00 Magnesium Sulfate 100 ml @ 100 mls/hr Q1H IVPB 09/02/20 08:30 09/02/20 10:29 Metronidazole 100 ml @ 100 mls/hr Q8HR IVPB 08/31/20 14:00 09/07/20 13:59 09/02/20 05:47 Ondansetron HCl (Zofran) 4 mg Q4H PRN IVP Nausea & Vomiting 2/22/21 16:45 09/29/20 16:44 Potassium Chloride 100 ml @ 50 mls/hr Q2H IVPB 09/02/20 08:00 09/02/20 11:59 09/02/20 08:02 Potassium Chloride (K-Dur) 40 meq TWICE A DAY ORAL 09/02/20 21:00 12/01/20 20:59 Vancomycin HCl 250 ml @ 166.667 mls/hr Q12HR IVPB 09/02/20 09:00 09/07/20 08:59 Vancomycin HCl ([facility] pharmacy to dose) 1 ea DAILY PRN MISC . 08/30/20 17:00 09/29/20 16:59 Kostas Packer MD Sep 02, 2020 08:19
--- NOTE | 2020-09-02 08:30 | NUR ---
Report given to EDGAR Yates who assumed care of patient.
--- NOTE | 2020-09-02 08:33 | NUR ---
NURSE NOTES: received report EDGAR Hall,on ventilator,G tube feeding off for EGD
[2020-09-02] MEDS ORDERED: Vancomycin 1.25gm/250ml Premix IVPB SCH (09:00)
[2020-09-02] MEDS: Ampicillin 2 GM in NS 110 ML IV SCH ×4 (10:02→20:21)
[2020-09-02] MEDS: D5 1/2NS 1,000 ML IV SCH (10:12)
--- NOTE | 2020-09-02 10:25 | Pulmonology Progress Note ---
Subjective ROS Limited/Unobtainable: Yes Interval Events: EGD today Constitutional: Reports: no symptoms HEENT: Repors: no symptoms Respiratory: Reports: no symptoms Cardiovascular: Reports: no symptoms Gastrointestinal/Abdominal: Reports: no symptoms Allergies: Coded Allergies: No Known Allergies (Unverified , 08/30/20) Objective Last 24 Hour Vital Signs Date Time Temp Pulse Resp B/P (MAP) Pulse Ox O2 Delivery O2 Flow Rate FiO2 09/02/20 08:00 Mechanical Ventilator 09/02/20 08:00 97.9 50 22 122/68 (86) 98 09/02/20 07:12 56 24 40 09/02/20 04:47 56 23 40 09/02/20 04:00 52 09/02/20 04:00 Mechanical Ventilator 09/02/20 04:00 97.2 57 24 136/70 (92) 100 09/02/20 03:24 57 23 40 09/02/20 01:06 54 22 40 09/02/20 00:00 98.2 56 23 142/72 (95) 100 09/02/20 00:00 Mechanical Ventilator 09/01/20 22:53 59 25 40 09/01/20 21:08 50 22 40 09/01/20 20:00 Mechanical Ventilator 09/01/20 20:00 98.2 58 20 132/70 (90) 100 09/01/20 20:00 55 09/01/20 19:07 55 22 40 09/01/20 16:00 55 09/01/20 16:00 97.3 56 23 138/76 (96) 100 09/01/20 16:00 Mechanical Ventilator 09/01/20 15:00 56 22 40 09/01/20 14:00 40 09/01/20 12:00 61 09/01/20 12:00 97.2 56 23 119/70 (86) 100 09/01/20 12:00 Mechanical Ventilator 09/01/20 11:00 50 22 40 Intake and Output 09/01/20 09/02/20 19:00 07:00 Intake Total 100 ml 1000 ml Output Total 120 ml 855 ml Balance -20 ml 145 ml Intake IV Total 100 ml 1000 ml Tube Feeding 0 ml 0 ml Output Urine Total 120 ml 855 ml General Appearance: no acute distress HEENT: atraumatic Respiratory: other - trach vent Cardiovascular: normal rate, regular rhythm Abdomen: soft, non tender Microbiology Date/Time Source Procedure Growth Status 08/31/20 10:20 Blood Blood Culture - Preliminary Resulted 08/31/20 10:20 Blood Blood Culture - Preliminary NO GROWTH AFTER 24 HOURS Resulted 08/31/20 09:45 Indwelling Cath Urine Culture - Final NO GROWTH AFTER 48 HOURS Complete 08/31/20 09:45 Nasopharynx Coronavirus COVID-19 PCR (PEDRO) - Final Complete 08/31/20 09:45 Sputum Gram Stain - Final Resulted 08/31/20 09:45 Sputum Sputum Culture - Preliminary Resulted 08/31/20 03:15 Rectum VRE Culture - Final Enterococcus Faecium - Vre Complete 08/31/20 03:15 Nasal Nares MRSA Culture - Final NO METHICILLIN RESISTANT STAPH AUREUS... Complete 08/31/20 03:15 Nasopharynx SARS-CoV-2 Antigen (Rapid)(PEDRO) - Final Complete Laboratory Tests 09/01/20 12:37: POC Whole Blood Glucose 190H 09/01/20 18:55: POC Whole Blood Glucose 112H 09/01/20 23:58: POC Whole Blood Glucose [Pending] 09/02/20 05:43: POC Whole Blood Glucose 130H 09/02/20 06:51: White Blood Count 11.5H, Red Blood Count 3.07L, Hemoglobin 9.2L, Hematocrit 28.0L, Mean Corpuscular Volume 91, Mean Corpuscular Hemoglobin 30.0, Mean Corpuscular Hemoglobin Concent 33.0, Red Cell Distribution Width 13.7, Platelet Count 224, Mean Platelet Volume 7.2, Neutrophils (%) (Auto) 84.5H, Lymphocytes ( %) (Auto) 8.2L, Monocytes (%) (Auto) 6.9, Eosinophils (%) (Auto) 0.3, Basophils (%) (Auto) 0.2, Sodium Level 140, Potassium Level 2.4*L, Chloride Level 102, Carbon Dioxide Level 30, Anion Gap 8, Blood Urea Nitrogen 18, Creatinine 0.7, Estimat Glomerular Filtration Rate > 60, Glucose Level 155H, Calcium Level 7.8L, Phosphorus Level 2.6, Magnesium Level 1.2L, Iron Level 27L, Total Iron Binding Capacity 167L, Percent Iron Saturation 16, Unsaturated Iron Binding 140, Ferritin 154, Total Bilirubin 0.5, Aspartate Amino Transf (AST/SGOT) 40H, Alanine Aminotransferase (ALT/SGPT) 35, Alkaline Phosphatase 69, Total Protein 6.6, Albumin 1.4L, Globulin 5.2, Albumin/Globulin Ratio 0.3L, Vitamin B12 Level 1870H, Folate 9.6, Vancomycin Level Trough 3.2L Current Medications Medications (Trade) Dose Ordered Sig/Kirby Route PRN Reason Start Time Stop Time Status Last Admin Dose Admin Acetaminophen (Tylenol) 650 mg Q4H PRN NG Mild Pain (Pain Scale 1-3) 08/31/20 09:00 09/30/20 08:59 Acetaminophen (Tylenol) 650 mg Q4H PRN NG Temp >100.5 08/31/20 09:00 09/30/20 08:59 Ampicillin 2 gm/ Sodium Chloride 110 ml @ 220 mls/hr EVERY 4 HOURS IV 09/02/20 09:30 09/09/20 09:29 09/02/20 10:02 Dextrose (Dextrose 50%) 25 ml Q30M PRN IV Hypoglycemia 08/30/20 16:45 11/28/20 16:44 Dextrose (Dextrose 50%) 50 ml Q30M PRN IV Hypoglycemia 08/30/20 16:45 11/28/20 16:44 Dextrose/Sodium Chloride 1,000 ml @ 50 mls/hr Q20H IV 08/31/20 09:30 09/30/20 09:29 09/02/20 10:12 Famotidine (Pepcid I.v.) 20 mg Q12HR IVP 08/31/20 09:30 09/30/20 09:29 09/02/20 08:23 Insulin Aspart (NovoLOG) Q6HR SUBQ 08/30/20 18:00 11/28/20 17:59 08/31/20 18:00 Lansoprazole (Prevacid) 30 mg BID GT 09/01/20 18:00 09/30/20 17:59 09/01/20 18:00 Magnesium Sulfate 100 ml @ 100 mls/hr Q1H IVPB 09/02/20 08:30 09/02/20 10:29 09/02/20 10:02 Magnesium Sulfate 100 ml @ 100 mls/hr Q1H IVPB 09/02/20 11:00 09/02/20 12:59 Ondansetron HCl (Zofran) 4 mg Q4H PRN IVP Nausea & Vomiting 08/30/20 16:45 09/29/20 16:44 Potassium Chloride 20 ml @ 20 mls/hr ONCE IVPB 09/02/20 12:00 09/02/20 15:00 Potassium Chloride 100 ml @ 50 mls/hr Q2H IVPB 09/02/20 08:00 09/02/20 11:59 09/02/20 10:12 Potassium Chloride (K-Dur) 40 meq TWICE A DAY ORAL 09/02/20 21:00 12/01/20 20:59 Assessment/Plan Assessment/Plan 1. Bilateral health-care associated pneumonia. - Agree with Abx per ID 2. GI bleed. - On PPI - EGD (09/02) 3. Tracheostomy. - Continue AC mode, FiO2 40%; Keep SaO2 >94% 4. Diabetes mellitus. 5. Hypertension. 6. CVA. 7. hypokalemia - K replaced DVT and GI prophylaxes, we will hold anticoagulation given GI bleed. The care for this patient was discussed with my supervising physician Time spent for this case was approximately 31 minutes Vicente Zhu Sep 02, 2020 10:25
--- NOTE | 2020-09-02 11:59 | Surgery Progress Note ---
Surgery Progress Note Subjective Additional Comments no acute events labs noted imaging reviewed picc line in Objective Last 24 Hour Vital Signs Date Time Temp Pulse Resp B/P (MAP) Pulse Ox O2 Delivery O2 Flow Rate FiO2 09/02/20 11:22 54 24 40 09/02/20 08:00 Mechanical Ventilator 09/02/20 08:00 97.9 50 22 122/68 (86) 98 09/02/20 07:12 56 24 40 09/02/20 04:47 56 23 40 09/02/20 04:00 52 09/02/20 04:00 Mechanical Ventilator 09/02/20 04:00 97.2 57 24 136/70 (92) 100 09/02/20 03:24 57 23 40 09/02/20 01:06 54 22 40 09/02/20 00:00 98.2 56 23 142/72 (95) 100 09/02/20 00:00 Mechanical Ventilator 09/01/20 22:53 59 25 40 09/01/20 21:08 50 22 40 09/01/20 20:00 Mechanical Ventilator 09/01/20 20:00 98.2 58 20 132/70 (90) 100 09/01/20 20:00 55 09/01/20 19:07 55 22 40 09/01/20 16:00 55 09/01/20 16:00 97.3 56 23 138/76 (96) 100 09/01/20 16:00 Mechanical Ventilator 09/01/20 15:00 56 22 40 09/01/20 14:00 40 09/01/20 12:00 61 09/01/20 12:00 97.2 56 23 119/70 (86) 100 09/01/20 12:00 Mechanical Ventilator I&O Intake and Output 09/01/20 09/02/20 19:00 07:00 Intake Total 100 ml 1000 ml Output Total 120 ml 855 ml Balance -20 ml 145 ml Intake IV Total 100 ml 1000 ml Tube Feeding 0 ml 0 ml Output Urine Total 120 ml 855 ml Dressing: saturated Cardiovascular: RSR Respiratory: decreased breath sounds Abdomen: soft, non-tender, present bowel sounds, non-distended Extremities: no edema, no tenderness, no cyanosis Laboratory Tests Test 09/01/20 12:37 09/01/20 18:55 09/01/20 23:58 09/02/20 05:43 POC Whole Blood Glucose 190 MG/DL (74-106) H 112 MG/DL (74-106) H Pending 130 MG/DL (74-106) H Test 09/02/20 06:51 White Blood Count 11.5 K/UL (4.8-10.8) H Red Blood Count 3.07 M/UL (4.70-6.10) L Hemoglobin 9.2 G/DL (14.2-18.0) L Hematocrit 28.0 % (42.0-52.0) L Mean Corpuscular Volume 91 FL (80-99) Mean Corpuscular Hemoglobin 30.0 PG (27.0-31.0) Mean Corpuscular Hemoglobin Concent 33.0 G/DL (32.0-36.0) Red Cell Distribution Width 13.7 % (11.6-14.8) Platelet Count 224 K/UL (150-450) Mean Platelet Volume 7.2 FL (6.5-10.1) Neutrophils (%) (Auto) 84.5 % (45.0-75.0) H Lymphocytes (%) (Auto) 8.2 % (20.0-45.0) L Monocytes (%) (Auto) 6.9 % (1.0-10.0) Eosinophils (%) (Auto) 0.3 % (0.0-3.0) Basophils (%) (Auto) 0.2 % (0.0-2.0) Sodium Level 140 MMOL/L (136-145) Potassium Level 2.4 MMOL/L (3.5-5.1) *L Chloride Level 102 MMOL/L (98-107) Carbon Dioxide Level 30 MMOL/L (21-32) Anion Gap 8 mmol/L (5-15) Blood Urea Nitrogen 18 mg/dL (7-18) Creatinine 0.7 MG/DL (0.55-1.30) Estimat Glomerular Filtration Rate > 60 mL/min (>60) Glucose Level 155 MG/DL (74-106) H Calcium Level 7.8 MG/DL (8.5-10.1) L Phosphorus Level 2.6 MG/DL (2.5-4.9) Magnesium Level 1.2 MG/DL (1.8-2.4) L Iron Level 27 ug/dL (50-175) L Total Iron Binding Capacity 167 ug/dL (250-450) L Percent Iron Saturation 16 % (15-50) Unsaturated Iron Binding 140 ug/dL (112-346) Ferritin 154 NG/ML (8-388) Total Bilirubin 0.5 MG/DL (0.2-1.0) Aspartate Amino Transf (AST/SGOT) 40 U/L (15-37) H Alanine Aminotransferase (ALT/SGPT) 35 U/L (12-78) Alkaline Phosphatase 69 U/L (46-116) Total Protein 6.6 G/DL (6.4-8.2) Albumin 1.4 G/DL (3.4-5.0) L Globulin 5.2 g/dL Albumin/Globulin Ratio 0.3 (1.0-2.7) L Vitamin B12 Level 1870 PG/ML (193-986) H Folate 9.6 NG/ML (8.6-58.9) Vancomycin Level Trough 3.2 ug/mL (5.0-12.0) L Plan Problems: (1) Septic shock (2) Acute renal failure (3) Sepsis Assessment & Plan: 64-year-old male leukocytosis abnormal labs ultrasound with gallbladder wall thickening no pericholecystic fluid no gallstones potentially a calculus cholecystitis. Patient unable to verbalize or identify tenderness. Examination fairly unreliable. Clinically recommend given patient's history and condition medical management and will monitor clinically. The liver and spleen are homogeneous. Mild wall thickening of the gallbladder noted. Common bile duct measures 3 mm. The pancreas is unremarkable to the extent visualized. There are nonshadowing cortical echogenic focus in the left kidney likely perivascular fat. No renal stone or hydronephrosis seen bilaterally. Aorta and cava are within normal limits. IMPRESSION: NO GALLSTONE OR SLUDGE IS IDENTIFIED BUT THERE IS EDEMA AND GALLBLADDER WALL THICKENING. PATIENT IS UNABLE TO REPORT FOCAL SYMPTOMS. LEFT RENAL CORTICAL ECHOGENIC FOCUS WITHOUT SHADOWING LIKELY PERIVASCULAR FAT. NO DISCRETE RENAL STONE OR HYDRONEPHROSIS. INCIDENTAL SMALL LEFT PLEURAL EFFUSION. (4) Pneumonia (5) Upper GI bleed Assessment & Plan: Patient had acute drop in hemoglobin noted some dark stool consider removed potentially blood GI called GI eval pending occult stool trend H&H PRBC if drops below 7 will follow with recommendations Doe Nina Sep 02, 2020 11:59
[2020-09-02 12:00] VITALS: BP 126/77
[2020-09-02] MEDS ORDERED: POTASSIUM CHL 20 MEQ/100 ML IVPB SCH (12:00)
--- NOTE | 2020-09-02 12:57 | General Progress Note ---
Subjective ROS Limited/Unobtainable: No Allergies: Coded Allergies: No Known Allergies (Unverified , 08/30/20) Objective Last 24 Hour Vital Signs Date Time Temp Pulse Resp B/P (MAP) Pulse Ox O2 Delivery O2 Flow Rate FiO2 09/02/20 11:22 54 24 40 09/02/20 08:00 Mechanical Ventilator 09/02/20 08:00 97.9 50 22 122/68 (86) 98 09/02/20 07:12 56 24 40 09/02/20 04:47 56 23 40 09/02/20 04:00 52 09/02/20 04:00 Mechanical Ventilator 09/02/20 04:00 97.2 57 24 136/70 (92) 100 09/02/20 03:24 57 23 40 09/02/20 01:06 54 22 40 09/02/20 00:00 98.2 56 23 142/72 (95) 100 09/02/20 00:00 Mechanical Ventilator 09/01/20 22:53 59 25 40 09/01/20 21:08 50 22 40 09/01/20 20:00 Mechanical Ventilator 09/01/20 20:00 98.2 58 20 132/70 (90) 100 09/01/20 20:00 55 09/01/20 19:07 55 22 40 09/01/20 16:00 55 09/01/20 16:00 97.3 56 23 138/76 (96) 100 09/01/20 16:00 Mechanical Ventilator 09/01/20 15:00 56 22 40 09/01/20 14:00 40 Intake and Output 09/01/20 09/02/20 19:00 07:00 Intake Total 100 ml 1000 ml Output Total 120 ml 855 ml Balance -20 ml 145 ml Intake IV Total 100 ml 1000 ml Tube Feeding 0 ml 0 ml Output Urine Total 120 ml 855 ml Laboratory Tests 09/01/20 18:55: POC Whole Blood Glucose 112H 09/01/20 23:58: POC Whole Blood Glucose [Pending] 09/02/20 05:43: POC Whole Blood Glucose 130H 09/02/20 06:51: White Blood Count 11.5H, Red Blood Count 3.07L, Hemoglobin 9.2L, Hematocrit 28.0L, Mean Corpuscular Volume 91, Mean Corpuscular Hemoglobin 30.0, Mean Corpuscular Hemoglobin Concent 33.0, Red Cell Distribution Width 13.7, Platelet Count 224, Mean Platelet Volume 7.2, Neutrophils (%) (Auto) 84.5H, Lymphocytes (%) (Auto) 8.2L, Monocytes (%) (Auto) 6.9, Eosinophils (%) (Auto) 0.3, Basophils (%) (Auto) 0.2, Sodium Level 140, Potassium Level 2.4*L, Chloride Level 102, Carbon Dioxide Level 30, Anion Gap 8, Blood Urea Nitrogen 18, Creatinine 0.7, Estimat Glomerular Filtration Rate > 60, Glucose Level 155H, Calcium Level 7.8L, Phosphorus Level 2.6, Magnesium Level 1.2L, Iron Level 27L, Total Iron Binding Capacity 167L, Percent Iron Saturation 16, Unsaturated Iron Binding 140, Ferritin 154, Total Bilirubin 0.5, Aspartate Amino Transf (AST/SGOT) 40H, Alanine Aminotransferase (ALT/SGPT) 35, Alkaline Phosphatase 69, Total Protein 6.6, Albumin 1.4L, Globulin 5.2, Albumin/Globulin Ratio 0.3L, Vitamin B12 Level 1870H, Folate 9.6, Vancomycin Level Trough 3.2L Height (Feet): 5 Height (Inches): 7.00 Weight (Pounds): 120 General Appearance: no apparent distress EENT: normal ENT inspection Neck: supple Cardiovascular: normal rate Respiratory/Chest: decreased breath sounds Abdomen: normal bowel sounds, non tender, soft Extremities: non-tender Assessment/Plan Problem List: (1) Upper GI bleed ICD Codes: K92.2 - Gastrointestinal hemorrhage, unspecified SNOMED: 62668417 (2) Pneumonia ICD Codes: J18.9 - Pneumonia, unspecified organism SNOMED: 076627523 (3) Sepsis ICD Codes: A41.9 - Sepsis, unspecified organism SNOMED: 77847656 (4) Acute renal failure ICD Codes: N17.9 - Acute kidney failure, unspecified SNOMED: 62699336 (5) Septic shock ICD Codes: A41.9 - Sepsis, unspecified organism; R65.21 - Severe sepsis with septic shock SNOMED: 50787473 Assessment/Plan: EGD is rescheduled to tomorrow due to low K ppi fu H&H prn blood transfusion will Yaakov Rosen MD Sep 02, 2020 12:57
--- NOTE | 2020-09-02 13:18 | Diagnostic Imaging Report ---
EXAM: ULTRASOUND Venous Duplex Scan Edward Leg CLINICAL HISTORY: Leg pain and edema. COMPARISON: None TECHNIQUE: Doppler examination include grayscale images obtained with and without compression, and color and spectral doppler analysis. FINDINGS: Doppler examination shows normal spontaneity, phasicity, compressibility in the bilateral lower extremities. There is no thrombus identified by grayscale. Normal color and spectral flow is identified. There is no evidence of valvular incompetency or insufficiency. IMPRESSION: UNREMARKABLE VENOUS DUPLEX.
--- NOTE | 2020-09-02 13:24 | Nephrology Progress Note ---
Assessment/Plan Problem List: (1) Acute renal failure (2) Sepsis (3) Pneumonia (4) Upper GI bleed (5) Anemia Assessment Acute renal failure Prerenal azotemia/dehydration Acute GI bleed Sepsis, pneumonia Hypotension, septic shock PEG Trach to vent Plan September 02: Labs reviewed. Abnormal electrolytes addressed. Continue to monitor renal parameters and electrolytes. Continue per consultants. Medication list reviewed. Previously: Hydrate Monitor renal parameters and electrolytes Correct abnormal electrolytes Monitor hemoglobin and hematocrit IV Pepcid Albumin bolus Per financial analysis consultant Subjective ROS Limited/Unobtainable: Yes Objective Objective Last 24 Hour Vital Signs Date Time Temp Pulse Resp B/P (MAP) Pulse Ox O2 Delivery O2 Flow Rate FiO2 09/02/20 11:22 54 24 40 09/02/20 08:00 Mechanical Ventilator 09/02/20 08:00 97.9 50 22 122/68 (86) 98 09/02/20 07:12 56 24 40 09/02/20 04:47 56 23 40 09/02/20 04:00 52 09/02/20 04:00 Mechanical Ventilator 09/02/20 04:00 97.2 57 24 136/70 (92) 100 09/02/20 03:24 57 23 40 09/02/20 01:06 54 22 40 09/02/20 00:00 98.2 56 23 142/72 (95) 100 09/02/20 00:00 Mechanical Ventilator 09/01/20 22:53 59 25 40 09/01/20 21:08 50 22 40 09/01/20 20:00 Mechanical Ventilator 09/01/20 20:00 98.2 58 20 132/70 (90) 100 09/01/20 20:00 55 09/01/20 19:07 55 22 40 09/01/20 16:00 55 09/01/20 16:00 97.3 56 23 138/76 (96) 100 09/01/20 16:00 Mechanical Ventilator 09/01/20 15:00 56 22 40 09/01/20 14:00 40 Intake and Output 09/01/20 09/02/20 19:00 07:00 Intake Total 100 ml 1000 ml Output Total 120 ml 855 ml Balance -20 ml 145 ml Intake IV Total 100 ml 1000 ml Tube Feeding 0 ml 0 ml Output Urine Total 120 ml 855 ml Current Medications Medications (Trade) Dose Ordered Sig/Kirby Route PRN Reason Start Time Stop Time Status Last Admin Dose Admin Acetaminophen (Tylenol) 650 mg Q4H PRN NG Mild Pain (Pain Scale 1-3) 08/31/20 09:00 09/30/20 08:59 Acetaminophen (Tylenol) 650 mg Q4H PRN NG Temp >100.5 08/31/20 09:00 09/30/20 08:59 Ampicillin 2 gm/ Sodium Chloride 110 ml @ 220 mls/hr EVERY 4 HOURS IV 09/02/20 09:30 09/09/20 09:29 09/02/20 13:20 Dextrose (Dextrose 50%) 25 ml Q30M PRN IV Hypoglycemia 08/30/20 16:45 11/28/20 16:44 Dextrose (Dextrose 50%) 50 ml Q30M PRN IV Hypoglycemia 08/30/20 16:45 11/28/20 16:44 Dextrose/Sodium Chloride 1,000 ml @ 50 mls/hr Q20H IV 08/31/20 09:30 09/30/20 09:29 09/02/20 10:12 Famotidine (Pepcid I.v.) 20 mg Q12HR IVP 08/31/20 09:30 09/30/20 09:29 09/02/20 08:23 Insulin Aspart (NovoLOG) Q6HR SUBQ 08/30/20 18:00 11/28/20 17:59 08/31/20 18:00 Lansoprazole (Prevacid) 30 mg BID GT 09/01/20 18:00 09/30/20 17:59 09/01/20 18:00 Ondansetron HCl (Zofran) 4 mg Q4H PRN IVP Nausea & Vomiting 08/30/20 16:45 09/29/20 16:44 Potassium Chloride 100 ml @ 50 mls/hr ONCE ONCE IVPB 09/02/20 13:00 09/02/20 14:59 09/02/20 13:18 Potassium Chloride (K-Dur) 40 meq TWICE A DAY ORAL 09/02/20 21:00 12/01/20 20:59 Laboratory Tests 09/01/20 18:55: POC Whole Blood Glucose 112H 09/01/20 23:58: POC Whole Blood Glucose [Pending] 09/02/20 05:43: POC Whole Blood Glucose 130H 09/02/20 06:51: White Blood Count 11.5H, Red Blood Count 3.07L, Hemoglobin 9.2L, Hematocrit 28.0L, Mean Corpuscular Volume 91, Mean Corpuscular Hemoglobin 30.0, Mean Corpuscular Hemoglobin Concent 33.0, Red Cell Distribution Width 13.7, Platelet Count 224, Mean Platelet Volume 7.2, Neutrophils (%) (Auto) 84.5H, Lymphocytes (%) (Auto) 8.2L, Monocytes (%) (Auto) 6.9, Eosinophils (%) (Auto) 0.3, Basophils (%) (Auto) 0.2, Sodium Level 140, Potassium Level 2.4*L, Chloride Level 102, Carbon Dioxide Level 30, Anion Gap 8, Blood Urea Nitrogen 18, Creatinine 0.7, Estimat Glomerular Filtration Rate > 60, Glucose Level 155H, Calcium Level 7.8L, Phosphorus Level 2.6, Magnesium Level 1.2L, Iron Level 27L, Total Iron Binding Capacity 167L, Percent Iron Saturation 16, Unsaturated Iron Binding 140, Ferritin 154, Total Bilirubin 0.5, Aspartate Amino Transf (AST/SGOT) 40H, Alanine Aminotransferase (ALT/SGPT) 35, Alkaline Phosphatase 69, Total Protein 6.6, Albumin 1.4L, Globulin 5.2, Albumin/Globulin Ratio 0.3L, Vitamin B12 Level 1870H, Folate 9.6, Vancomycin Level Trough 3.2L Height (Feet): 5 Height (Inches): 7.00 Weight (Pounds): 120 General Appearance: no apparent distress EENT: other - Trach to vent Cardiovascular: normal rate Respiratory/Chest: decreased breath sounds Abdomen: distended Ben Aguilar MD Sep 02, 2020 13:24
[2020-09-02] MEDS ORDERED: Tubing IV Secondary IV ONE (15:21)
[2020-09-02] MEDS ORDERED: D5 1/2NS 1000ml IV ONE (15:21)
[2020-09-02] MEDS ORDERED: NS 275ml ONE (15:21)
[2020-09-02 16:00] VITALS: BP 116/58
[2020-09-02] MEDS ORDERED: DiphenhydrAMINE 50mg/ml Inj IVP PRN (18:45)
--- NOTE | 2020-09-02 19:35 | NUR ---
NURSE NOTES: Report received from EDGAR Yates. Pt is awake, non-verbal, but appears to be alert and oriented. Able to communication through head nods, body language, and facial expressions. Follows directions. No signs of acute distress noted. SpO2 100% on TV 450, AC 22, FiO2 35%, PEEP 5. SR on cardiac nurse practitioner. GT intact and dry, no residual and flushing well. Bob intact and draining well to gravity yellow urine. R UA PICC 2x intact, flushing well, no signs of infiltration noted, running D5 1/2 NS at 50cc/hr. Fall and aspiration precautions noted and reinforced. HOB elevated, side rails x3, call light within reach, bed alarmed, locked, and in lowest position. Will continue plan of care. Will continue to monitor.
[2020-09-02 20:00] VITALS: BP 113/62
--- NOTE | 2020-09-02 20:05 | General Progress Note ---
Subjective Constitutional: Reports: no symptoms HEENT: Reports: no symptoms Cardiovascular: Reports: no symptoms Respiratory: Reports: no symptoms Gastrointestinal/Abdominal: Reports: no symptoms Genitourinary: Reports: no symptoms Neurologic/Psychiatric: Reports: no symptoms Endocrine: Reports: no symptoms Hematologic/Lymphatic: Reports: no symptoms Allergies: Coded Allergies: No Known Allergies (Unverified , 08/30/20) Objective Last 24 Hour Vital Signs Date Time Temp Pulse Resp B/P (MAP) Pulse Ox O2 Delivery O2 Flow Rate FiO2 09/02/20 19:04 67 27 35 09/02/20 16:00 97.5 67 22 116/58 (77) 100 09/02/20 16:00 66 09/02/20 15:20 67 28 35 09/02/20 12:00 97.5 56 22 126/77 (93) 99 09/02/20 12:00 52 09/02/20 11:22 54 24 40 09/02/20 08:00 57 09/02/20 08:00 Mechanical Ventilator 09/02/20 08:00 97.9 50 22 122/68 (86) 98 09/02/20 07:12 56 24 40 09/02/20 04:47 56 23 40 09/02/20 04:00 52 09/02/20 04:00 Mechanical Ventilator 09/02/20 04:00 97.2 57 24 136/70 (92) 100 09/02/20 03:24 57 23 40 09/02/20 01:06 54 22 40 09/02/20 00:00 98.2 56 23 142/72 (95) 100 09/02/20 00:00 Mechanical Ventilator 09/01/20 22:53 59 25 40 09/01/20 21:08 50 22 40 Intake and Output 09/01/20 09/02/20 19:00 07:00 Intake Total 100 ml 1000 ml Output Total 120 ml 855 ml Balance -20 ml 145 ml Intake IV Total 100 ml 1000 ml Tube Feeding 0 ml 0 ml Output Urine Total 120 ml 855 ml Laboratory Tests 09/01/20 23:58: POC Whole Blood Glucose [Pending] 09/02/20 05:43: POC Whole Blood Glucose 130H 09/02/20 06:51: White Blood Count 11.5H, Red Blood Count 3.07L, Hemoglobin 9.2L, Hematocrit 28.0L, Mean Corpuscular Volume 91, Mean Corpuscular Hemoglobin 30.0, Mean Corpuscular Hemoglobin Concent 33.0, Red Cell Distribution Width 13.7, Platelet Count 224, Mean Platelet Volume 7.2, Neutrophils (%) (Auto) 84.5H, Lymphocytes (%) (Auto) 8.2L, Monocytes (%) (Auto) 6.9, Eosinophils (%) (Auto) 0.3, Basophils (%) (Auto) 0.2, Sodium Level 140, Potassium Level 2.4*L, Chloride Level 102, Carbon Dioxide Level 30, Anion Gap 8, Blood Urea Nitrogen 18, Creatinine 0.7, Estimat Glomerular Filtration Rate > 60, Glucose Level 155H, Calcium Level 7.8L, Phosphorus Level 2.6, Magnesium Level 1.2L, Iron Level 27L, Total Iron Binding Capacity 167L, Percent Iron Saturation 16, Unsaturated Iron Binding 140, Ferritin 154, Total Bilirubin 0.5, Aspartate Amino Transf (AST/SGOT) 40H, Alanine Aminotransferase (ALT/SGPT) 35, Alkaline Phosphatase 69, Total Protein 6.6, Albumin 1.4L, Globulin 5.2, Albumin/Globulin Ratio 0.3L, Vitamin B12 Level 1870H, Folate 9.6, Vancomycin Level Trough 3.2L 09/02/20 17:08: POC Whole Blood Glucose 133H Height (Feet): 5 Height (Inches): 7.00 Weight (Pounds): 120 General Appearance: WD/WN, no apparent distress, alert EENT: normal ENT inspection Neck: supple Cardiovascular: normal rate, regular rhythm, regularly irregular Respiratory/Chest: no respiratory distress, no accessory muscle use, decreased breath sounds, rhonchi - left Abdomen: non tender, soft, no organomegaly, no mass Extremities: non-tender Neurologic: alert, oriented x 3, responsive Skin: warm/dry Assessment/Plan Status Narrative Patient is awake alert afebrile responsive his blood pressure and heart rate are in normal limit his blood culture grew gram-positive cocci even though patient was on Zosyn Vanco disease pci security consultant BC is previous antibiotic and patient now is on ampicillin 2 g IVP IV piggyback every 4 hours increase the patient is responsive to question and deny having any symptom repeat laboratory tests and c hest x-ray will be done in a.m.Jason Perdue,Jason GILLILAND Sep 02, 2020 20:05
[2020-09-03] VITALS: BP 111/73
[2020-09-03] MEDS: Ampicillin 2 GM in NS 110 ML IV SCH ×6 (00:03→21:40)
--- NOTE | 2020-09-03 01:07 | NUR ---
NURSE NOTES: Pt had one large soft brown BM. Cleaned and changed linens and gowns. Oral care provided. Bed bath provided. Pt tolerated well. No change in status. Pt is able to communicate needs and is able to orally self-suction. Will continue to monitor.
[2020-09-03 04:00] VITALS: BP 122/69
[2020-09-03] MEDS: D5 1/2NS 1,000 ML IV SCH (05:04)
[2020-09-03] MEDS: NovoLOG Insulin Flexpen SUBQ SCH ×3 (05:14→18:58)
--- NOTE | 2020-09-03 05:40 | NUR ---
NURSE NOTES: BG 133, pt has been NPO since midnight for planned EGD. Assisted in turning pt. Oral care performed. No acute distress noted, vital signs stable. Pt denies pain. Will continue plan of care. WIll continue to monitor.
[2020-09-03 05:45] LABS: BASOPHILS % (AUTO) 0.3 % (0.0-2.0); EOSINOPHILS % (AUTO) 0.8 % (0.0-3.0); HEMATOCRIT 26.8 % (42.0-52.0); HEMOGLOBIN 8.8 G/DL (14.2-18.0); LYMPHOCYTES % (AUTO) 11.2 % (20.0-45.0); MEAN CORPUSCULAR VOLUME 92 FL (80-99); MONOCYTES % (AUTO) 9.9 % (1.0-10.0); NEUTROPHILS % (AUTO) 77.9 % (45.0-75.0); PLATELET COUNT 247 K/UL (150-450); RED BLOOD COUNT 2.91 M/UL (4.70-6.10); WHITE BLOOD COUNT 10.1 K/UL (4.8-10.8)
[2020-09-03 06:02] LABS: ALANINE AMINOTRANSFERASE 33 U/L (12-78); ALBUMIN 1.3 G/DL (3.4-5.0); ALBUMIN/GLOBULIN RATIO 0.3 (1.0-2.7); ALKALINE PHOSPHATASE 92 U/L (46-116); ANION GAP 7 mmol/L (5-15); ASPARTATE AMINO TRANSFERASE 31 U/L (15-37); BILIRUBIN,TOTAL 0.2 MG/DL (0.2-1.0); BLOOD UREA NITROGEN 15 mg/dL (7-18); CALCIUM 7.7 MG/DL (8.5-10.1); CARBON DIOXIDE 28 MMOL/L (21-32); CHLORIDE 102 MMOL/L (98-107); CREATININE 0.8 MG/DL (0.55-1.30); POTASSIUM 2.9 MMOL/L (3.5-5.1); SODIUM 137 MMOL/L (136-145)
--- NOTE | 2020-09-03 06:57 | NUR ---
NURSE HAND-OFF REPORT: Important Events on Shift:[No acute events] Patient Status: [Stable] Diet: [Vital AF 60cc/hr/ NPO] Pending Orders: [NA] Pending Results/Labs:[NA] Pending MD notification:[NA] Latest Vital Signs: Temperature 96.8 , Pulse 71 , B/P 122 /69 , Respiratory Rate 23 , O2 SAT 100 , Mechanical Ventilator, O2 Flow Rate 15.0 . Vital Sign Comment: [Stable] EKG Rhythm: Sinus Rhythm Rhythm change?: N MD Notified?: - MD Response: Latest Brewer Fall Score: 50 Fall Risk: High Risk Safety Measures: Call light Within Reach, Bed Alarm Zone 1, Side Rails Side Rails x3, Bed position Low and Locked. Fall Precautions: Yellow Socks Patient Fall Education Report given to [EDGAR Aguero].
--- NOTE | 2020-09-03 07:40 | NUR ---
RD ASSESSMENT & RECOMMENDATIONS SEE CARE ACTIVITY FOR COMPLETE ASSESSMENT DAILY ESTIMATED NEEDS: Needs based on Critical care, underweight, TF HEEL FINISHER 50kg 28-33 kcals/kg 2704-1398 total kcals 1.2-2 g protein/kg 60-100 g total protein 25-30 mL/kg 7529-1634 total fluid mLs NUTRITION DIAGNOSIS: Swallowing difficulty r/t respiratory failure as evidenced by pt is vent dep via trach/ PEG dep. CURRENT TF:Vital @60ml/hr x24 hrs -> now NPO for EGD ENTERAL NUTRITION RECOMMENDATIONS: rec to LOWER Vital 1.2 goal of 55ml/hr x24 hrs to provide 1320ml, 1584 kcal, 99g pro, 1071ml free H2O - rec to LOWER goal to 55ml/hr to not exceed est needs - flush per MD. HOB over 30 degrees ADDITIONAL RECOMMENDATIONS: 1) Maintain calibrated bed scale wts 2) rec bedside BG testing/ niss -> now on NISS 3) replete lytes as needed (low K and phos) 4) DC D5 IVF when TF resumes for improved BG control
--- NOTE | 2020-09-03 07:54 | Infectious Diseases Prog Note ---
Assessment/Plan 64 yo male with PMHx of CVA, S/P PEG s/p Trach, DM and HTN who was sent to the ED form his residential with hypoxia. Sepsis Leuckotyosis No fever Bacteremialikely GI source Blood Cx 08/30/20- Enterococcus Amp and Vanco sen Blood Cx 08/31/20 - Enterococcus Blood Cx 09/02/20 - Pend Resp fail - Acute on chronic Trached PNA CXR shows - LLL PNA and possible N/V/D and abd pain Some blood In the vomit CVA s/p PEG and s/p Trach DM HTN PLAN Ampicillin 2g Q4hr #2/ ( End date if Blood Cx 09/02/20 neg) 09/02/20 - SP Flagyl #3 and Cefepime #3 and Vancomycin #3 f/u TTE f/u culture Blood Monitor Resp status Monitor CBC and Temps Thank you for this consult. [facility] will continue to follow Mr. Shaikh with you. Subjective Allergies: Coded Allergies: No Known Allergies (Unverified , 08/30/20) Afebrile WBCs 10 today On Vent satting well Patient reports no acute complaints Objective Last 24 Hour Vital Signs Date Time Temp Pulse Resp B/P (MAP) Pulse Ox O2 Delivery O2 Flow Rate FiO2 09/03/20 05:08 71 23 35 09/03/20 04:00 Mechanical Ventilator 09/03/20 04:00 72 09/03/20 04:00 96.8 80 22 122/69 (86) 100 09/03/20 03:18 78 25 35 09/03/20 00:46 82 27 35 09/03/20 00:00 97.7 80 22 111/73 (86) 99 09/03/20 00:00 80 09/03/20 00:00 Mechanical Ventilator 09/02/20 23:14 83 27 35 09/02/20 20:57 65 24 35 09/02/20 20:00 97.5 72 22 113/62 (79) 99 09/02/20 20:00 Mechanical Ventilator 09/02/20 20:00 64 09/02/20 19:04 67 27 35 09/02/20 18:00 35 09/02/20 17:00 35 09/02/20 16:00 97.5 67 22 116/58 (77) 100 09/02/20 16:00 66 09/02/20 16:00 35 09/02/20 16:00 Mechanical Ventilator 09/02/20 15:20 67 28 35 09/02/20 15:00 35 09/02/20 14:00 35 09/02/20 13:00 35 09/02/20 12:00 97.5 56 22 126/77 (93) 99 09/02/20 12:00 Mechanical Ventilator 09/02/20 12:00 40 09/02/20 12:00 52 09/02/20 11:22 54 24 40 09/02/20 11:00 40 09/02/20 10:00 40 09/02/20 09:00 40 09/02/20 08:00 57 09/02/20 08:00 Mechanical Ventilator 09/02/20 08:00 97.9 50 22 122/68 (86) 98 09/02/20 08:00 40 Height (Feet): 5 Height (Inches): 7.00 Weight (Pounds): 120 Gen: NAD on Vent HEENT: NCAT, MMM, EOMI, No scleral icterus, Trach in place Pulm: Equal rise and fall B/L No accessory muscle use Abd: Soft,ND PEG ( No E/P) SKIN: Exposed skin normal in color no rash noted Microbiology Date/Time Source Procedure Growth Status 08/31/20 10:20 Blood Blood Culture - Final Enterococcus Faecalis Complete 08/31/20 10:20 Blood Blood Culture - Preliminary NO GROWTH AFTER 48 HOURS Resulted 08/31/20 09:45 Indwelling Cath Urine Culture - Final NO GROWTH AFTER 48 HOURS Complete 08/31/20 09:45 Nasopharynx Coronavirus COVID-19 PCR (PEDRO) - Final Complete 08/31/20 09:45 Sputum Gram Stain - Final Resulted 08/31/20 09:45 Sputum Sputum Culture - Preliminary Resulted Laboratory Tests Test 09/02/20 17:08 09/02/20 23:08 09/03/20 03:30 09/03/20 05:15 POC Whole Blood Glucose 133 MG/DL (74-106) H 153 MG/DL (74-106) H Pending White Blood Count 10.1 K/UL (4.8-10.8) Red Blood Count 2.91 M/UL (4.70-6.10) L Hemoglobin 8.8 G/DL (14.2-18.0) L Hematocrit 26.8 % (42.0-52.0) L Mean Corpuscular Volume 92 FL (80-99) Mean Corpuscular Hemoglobin 30.2 PG (27.0-31.0) Mean Corpuscular Hemoglobin Concent 32.8 G/DL (32.0-36.0) Red Cell Distribution Width 14.0 % (11.6-14.8) Platelet Count 247 K/UL (150-450) Mean Platelet Volume 7.5 FL (6.5-10.1) Neutrophils (%) (Auto) 77.9 % (45.0-75.0) H Lymphocytes (%) (Auto) 11.2 % (20.0-45.0) L Monocytes (%) (Auto) 9.9 % (1.0-10.0) Eosinophils (%) (Auto) 0.8 % (0.0-3.0) Basophils (%) (Auto) 0.3 % (0.0-2.0) Sodium Level 137 MMOL/L (136-145) Potassium Level 2.9 MMOL/L (3.5-5.1) L Chloride Level 102 MMOL/L (98-107) Carbon Dioxide Level 28 MMOL/L (21-32) Anion Gap 7 mmol/L (5-15) Blood Urea Nitrogen 15 mg/dL (7-18) Creatinine 0.8 MG/DL (0.55-1.30) Estimat Glomerular Filtration Rate > 60 mL/min (>60) Glucose Level 241 MG/DL (74-106) H Calcium Level 7.7 MG/DL (8.5-10.1) L Phosphorus Level 2.0 MG/DL (2.5-4.9) L Magnesium Level 1.7 MG/DL (1.8-2.4) L Total Bilirubin 0.2 MG/DL (0.2-1.0) Aspartate Amino Transf (AST/SGOT) 31 U/L (15-37) Alanine Aminotransferase (ALT/SGPT) 33 U/L (12-78) Alkaline Phosphatase 92 U/L (46-116) Total Protein 6.1 G/DL (6.4-8.2) L Albumin 1.3 G/DL (3.4-5.0) L Globulin 4.8 g/dL Albumin/Globulin Ratio 0.3 (1.0-2.7) L Current Medications Medications (Trade) Dose Ordered Sig/Kirby Route PRN Reason Start Time Stop Time Status Last Admin Dose Admin Acetaminophen (Tylenol) 650 mg Q4H PRN NG Mild Pain (Pain Scale 1-3) 08/31/20 09:00 09/30/20 08:59 Acetaminophen (Tylenol) 650 mg Q4H PRN NG Temp >100.5 08/31/20 09:00 09/30/20 08:59 Ampicillin 2 gm/ Sodium Chloride 110 ml @ 220 mls/hr EVERY 4 HOURS IV 09/02/20 09:30 09/09/20 09:29 09/03/20 05:04 Dextrose (Dextrose 50%) 25 ml Q30M PRN IV Hypoglycemia 08/30/20 16:45 11/28/20 16:44 Dextrose (Dextrose 50%) 50 ml Q30M PRN IV Hypoglycemia 08/30/20 16:45 11/28/20 16:44 Dextrose/Sodium Chloride 1,000 ml @ 50 mls/hr Q20H IV 08/31/20 09:30 09/30/20 09:29 09/03/20 05:04 Famotidine (Pepcid I.v.) 20 mg Q12HR IVP 08/31/20 09:30 09/30/20 09:29 09/02/20 20:21 Insulin Aspart (NovoLOG) Q6HR SUBQ 08/30/20 18:00 11/28/20 17:59 09/02/20 23:10 Lansoprazole (Prevacid) 30 mg BID GT 09/01/20 18:00 09/30/20 17:59 09/02/20 17:16 Ondansetron HCl (Zofran) 4 mg Q4H PRN IVP Nausea & Vomiting 08/30/20 16:45 09/29/20 16:44 Potassium Chloride (K-Dur) 40 meq TWICE A DAY ORAL 09/02/20 21:00 12/01/20 20:59 09/02/20 20:21 Kostas Packer MD Sep 03, 2020 07:54
[2020-09-03 08:00] VITALS: BP 133/77
--- NOTE | 2020-09-03 08:07 | Anethesia Preoperative Eval ---
Anesthesia Pre-op PMH/ROS General Date of Evaluation: Sep 03, 2020 Anesthesiologist: Joey ASA Score: ASA 3 Mallampati Score Class I : Soft palate, uvula, fauces, pillars visible Class II: Soft palate, uvula, fauces visible Class III: Soft palate, base of uvula visible Class IV: Only hard plate visible Mallampati Classification: Class II Surgeon: Sawyer Diagnosis: GI bleed Surgical Procedure: EGD Anesthesia History: none Family History: no anesthesia problems Allergies: Coded Allergies: No Known Allergies (Unverified , 08/30/20) Medications: see eMAR Patient NPO?: Yes NPO Date: Sep 03, 2020 NPO Time: 00:00 Anesthesia Pre-op Phys. Exam Physician Exam Last Vital Signs Date Time Temp Pulse Resp B/P (MAP) Pulse Ox O2 Delivery O2 Flow Rate FiO2 09/03/20 05:08 71 23 35 09/03/20 04:00 Mechanical Ventilator 09/03/20 04:00 96.8 122/69 (86) 100 08/30/20 14:45 15.0 Constitutional: NAD Respiratory: other - trach in place Airway Exam Mallampati Score: Class II Anesthesia Pre-op A/P Labs Hematology Test 09/03/20 03:30 White Blood Count 10.1 K/UL (4.8-10.8) Red Blood Count 2.91 M/UL (4.70-6.10) L Hemoglobin 8.8 G/DL (14.2-18.0) L Hematocrit 26.8 % (42.0-52.0) L Mean Corpuscular Volume 92 FL (80-99) Mean Corpuscular Hemoglobin 30.2 PG (27.0-31.0) Mean Corpuscular Hemoglobin Concent 32.8 G/DL (32.0-36.0) Red Cell Distribution Width 14.0 % (11.6-14.8) Platelet Count 247 K/UL (150-450) Mean Platelet Volume 7.5 FL (6.5-10.1) Neutrophils (%) (Auto) 77.9 % (45.0-75.0) H Lymphocytes (%) (Auto) 11.2 % (20.0-45.0) L Monocytes (%) (Auto) 9.9 % (1.0-10.0) Eosinophils (%) (Auto) 0.8 % (0.0-3.0) Basophils (%) (Auto) 0.3 % (0.0-2.0) Chemistry Test 09/02/20 17:08 09/02/20 23:08 09/03/20 03:30 09/03/20 05:15 POC Whole Blood Glucose 133 MG/DL (74-106) H 153 MG/DL (74-106) H Pending Sodium Level 137 MMOL/L (136-145) Potassium Level 2.9 MMOL/L (3.5-5.1) L Chloride Level 102 MMOL/L (98-107) Carbon Dioxide Level 28 MMOL/L (21-32) Anion Gap 7 mmol/L (5-15) Blood Urea Nitrogen 15 mg/dL (7-18) Creatinine 0.8 MG/DL (0.55-1.30) Estimat Glomerular Filtration Rate > 60 mL/min (>60) Glucose Level 241 MG/DL (74-106) H Calcium Level 7.7 MG/DL (8.5-10.1) L Phosphorus Level 2.0 MG/DL (2.5-4.9) L Magnesium Level 1.7 MG/DL (1.8-2.4) L Total Bilirubin 0.2 MG/DL (0.2-1.0) Aspartate Amino Transf (AST/SGOT) 31 U/L (15-37) Alanine Aminotransferase (ALT/SGPT) 33 U/L (12-78) Alkaline Phosphatase 92 U/L (46-116) Total Protein 6.1 G/DL (6.4-8.2) L Albumin 1.3 G/DL (3.4-5.0) L Globulin 4.8 g/dL Albumin/Globulin Ratio 0.3 (1.0-2.7) L Risk Assessment & Plan Assessment: ASA IV Plan: GA Status Change Before Surgery: No Pre-Antibiotics Drug: N/A Faith Cook MD Sep 03, 2020 08:07
--- NOTE | 2020-09-03 08:38 | Pulmonology Progress Note ---
Subjective ROS Limited/Unobtainable: Yes Interval Events: EGD pending correction of hypokalemia Constitutional: Reports: no symptoms HEENT: Repors: no symptoms Respiratory: Reports: no symptoms Cardiovascular: Reports: no symptoms Gastrointestinal/Abdominal: Reports: no symptoms Allergies: Coded Allergies: No Known Allergies (Unverified , 08/30/20) Objective Last 24 Hour Vital Signs Date Time Temp Pulse Resp B/P (MAP) Pulse Ox O2 Delivery O2 Flow Rate FiO2 09/03/20 07:36 65 22 30 09/03/20 05:08 71 23 35 09/03/20 04:00 Mechanical Ventilator 09/03/20 04:00 72 09/03/20 04:00 96.8 80 22 122/69 (86) 100 09/03/20 03:18 78 25 35 09/03/20 00:46 82 27 35 09/03/20 00:00 97.7 80 22 111/73 (86) 99 09/03/20 00:00 80 09/03/20 00:00 Mechanical Ventilator 09/02/20 23:14 83 27 35 09/02/20 20:57 65 24 35 09/02/20 20:00 97.5 72 22 113/62 (79) 99 09/02/20 20:00 Mechanical Ventilator 09/02/20 20:00 64 09/02/20 19:04 67 27 35 09/02/20 18:00 35 09/02/20 17:00 35 09/02/20 16:00 97.5 67 22 116/58 (77) 100 09/02/20 16:00 66 09/02/20 16:00 35 09/02/20 16:00 Mechanical Ventilator 09/02/20 15:20 67 28 35 09/02/20 15:00 35 09/02/20 14:00 35 09/02/20 13:00 35 09/02/20 12:00 97.5 56 22 126/77 (93) 99 09/02/20 12:00 Mechanical Ventilator 09/02/20 12:00 40 09/02/20 12:00 52 09/02/20 11:22 54 24 40 09/02/20 11:00 40 09/02/20 10:00 40 09/02/20 09:00 40 Intake and Output 09/02/20 09/03/20 19:00 07:00 Intake Total 590 ml 900 ml Output Total 1000 ml 600 ml Balance -410 ml 300 ml Intake Free Water 100 ml IV Total 50 ml 500 ml Tube Feeding 540 ml 300 ml Output Urine Total 1000 ml 600 ml # Bowel Movements 2 General Appearance: no acute distress HEENT: atraumatic Respiratory: other - trach vent Cardiovascular: normal rate, regular rhythm Abdomen: soft, non tender Microbiology Date/Time Source Procedure Growth Status 08/31/20 10:20 Blood Blood Culture - Final Enterococcus Faecalis Complete 08/31/20 10:20 Blood Blood Culture - Preliminary NO GROWTH AFTER 48 HOURS Resulted 08/31/20 09:45 Indwelling Cath Urine Culture - Final NO GROWTH AFTER 48 HOURS Complete 08/31/20 09:45 Nasopharynx Coronavirus COVID-19 PCR (PEDRO) - Final Complete 08/31/20 09:45 Sputum Gram Stain - Final Resulted 08/31/20 09:45 Sputum Sputum Culture - Preliminary Resulted Laboratory Tests 09/02/20 17:08: POC Whole Blood Glucose 133H 09/02/20 23:08: POC Whole Blood Glucose 153H 09/03/20 03:30: White Blood Count 10.1, Red Blood Count 2.91L, Hemoglobin 8.8L, Hematocrit 26.8L , Mean Corpuscular Volume 92, Mean Corpuscular Hemoglobin 30.2, Mean Corpuscular Hemoglobin Concent 32.8, Red Cell Distribution Width 14.0, Platelet Count 247, Mean Platelet Volume 7.5, Neutrophils (%) (Auto) 77.9H, Lymphocytes (%) (Auto) 11.2L, Monocytes (%) (Auto) 9.9, Eosinophils (%) (Auto) 0.8, Basophils (%) (Auto) 0.3, Sodium Level 137, Potassium Level 2.9L, Chloride Level 102, Carbon Dioxide Level 28, Anion Gap 7, Blood Urea Nitrogen 15, Creatinine 0.8, Estimat Glomerular Filtration Rate > 60, Glucose Level 241H, Calcium Level 7.7L, Phosphorus Level 2.0L, Magnesium Level 1.7L, Total Bilirubin 0.2, Aspartate Amino Transf (AST/SGOT) 31, Alanine Aminotransferase (ALT/SGPT) 33, Alkaline Phosphatase 92, Total Protein 6.1L, Albumin 1.3L, Globulin 4.8, Albumin/Globulin Ratio 0.3L 09/03/20 05:15: POC Whole Blood Glucose [Pending] Current Medications Medications (Trade) Dose Ordered Sig/Kirby Route PRN Reason Start Time Stop Time Status Last Admin Dose Admin Acetaminophen (Tylenol) 650 mg Q4H PRN NG Mild Pain (Pain Scale 1-3) 08/31/20 09:00 09/30/20 08:59 Acetaminophen (Tylenol) 650 mg Q4H PRN NG Temp >100.5 08/31/20 09:00 09/30/20 08:59 Ampicillin 2 gm/ Sodium Chloride 110 ml @ 220 mls/hr EVERY 4 HOURS IV 09/02/20 09:30 09/09/20 09:29 09/03/20 05:04 Dextrose (Dextrose 50%) 25 ml Q30M PRN IV Hypoglycemia 08/30/20 16:45 11/28/20 16:44 Dextrose (Dextrose 50%) 50 ml Q30M PRN IV Hypoglycemia 08/30/20 16:45 11/28/20 16:44 Dextrose/Sodium Chloride 1,000 ml @ 50 mls/hr Q20H IV 08/31/20 09:30 09/30/20 09:29 09/03/20 05:04 Famotidine (Pepcid I.v.) 20 mg Q12HR IVP 08/31/20 09:30 09/30/20 09:29 09/02/20 20:21 Insulin Aspart (NovoLOG) Q6HR SUBQ 08/30/20 18:00 11/28/20 17:59 09/02/20 23:10 Lansoprazole (Prevacid) 30 mg BID GT 09/01/20 18:00 09/30/20 17:59 09/02/20 17:16 Ondansetron HCl (Zofran) 4 mg Q4H PRN IVP Nausea & Vomiting 08/30/20 16:45 09/29/20 16:44 Potassium Phosphate 20 mm/ Sodium Chloride 281.6667 ml @ 46.944 m... ONCE ONCE IV 09/03/20 08:30 09/03/20 14:29 UNV Potassium Chloride 100 ml @ 50 mls/hr Q2H IVPB 09/03/20 08:30 09/03/20 12:29 09/03/20 08:21 Potassium Chloride (K-Dur) 40 meq TWICE A DAY ORAL 09/02/20 21:00 12/01/20 20:59 09/02/20 20:21 Assessment/Plan Assessment/Plan 1. Bilateral health-care associated pneumonia. - on Abx per ID 2. GI bleed. - On PPI - EGD held until hypokalemia resolves 3. Tracheostomy. - Continue AC mode; now FiO2 30%; Keep SaO2 >94% 4. Diabetes mellitus. 5. Hypertension. 6. CVA. 7. hypokalemia - K being replaced 8. hypomagnesemia 9. DVT ppx - V/D legs negative for DVT - we will order SCD GI prophylaxes, we will hold anticoagulation given GI bleed. The care for this patient was discussed with my supervising physician Time spent for this case was approximately 31 minutes Vicente Zhu Sep 03, 2020 08:38
--- NOTE | 2020-09-03 09:03 | Hematology/Onc Progress Note ---
Assessment/Plan Assessment/Plan Assessment and recs # Leukocytosis due to underlying Sepsis --> per ID recs --> ABX cefepime/vanc--ampicillin --> wbc 13-->13-->9 # Anemia with a upper gi bleed --> per gi eval --> hgb 12-->8.8-->8.6-->8.8 --> anemia panel is noted, and dw ACD --> transfuse prn basis --> review smear # Pneumonia b//l pna on imaging --> imaging seen --> Abx vanc/cefepime/flagyl # Septic shock # Acute renal failure # Upper GI bleed # Hypotensive and tachycardic. --> Patient given IV fluids and is fluid responsive. # Dvt ppx scds Appreciate consultation and stefany Rn Subjective Constitutional: Denies: no symptoms, chills, fever, malaise, weakness, other HEENT: Denies: no symptoms, eye pain, blurred vision, tearing, double vision, ear pain, ear discharge, nose pain, nose congestion, throat pain, throat swelling, mouth pain, mouth swelling, other Cardiovascular: Denies: no symptoms, chest pain, edema, irregular heart rate, lightheadedness, palpitations, syncope, other Respiratory: Denies: no symptoms, cough, shortness of breath, SOB with excertion, SOB at rest, sputum, wheezing, other Gastrointestinal/Abdominal: Denies: no symptoms, abdomen distended, abdominal pain, black stools, tarry stools, blood in stool, constipated, diarrhea, difficulty swallowing, nausea, poor appetite, poor fluid intake, rectal bleeding, vomiting, other Genitourinary: Denies: no symptoms, burning, discharge, frequency, flank pain, hematuria, incontinence, pain, urgency, other Neurologic/Psychiatric: Denies: no symptoms, anxiety, depressed, emotional problems, headache, numbness, paresthesia, pre-existing deficit, seizure, tingling, tremors, weakness, other Allergies: Coded Allergies: No Known Allergies (Unverified , 08/30/20) Subjective 09/01 stefany rn, on abx broad spectrum, labs noted, no active bleed at this time 09/02 meds noted, no bleeding, stefany rn, wbc 18, hgb 8.6, no hemolysis 09/03 plan for egd this am, labs noted, no bleeding, dw rn Objective Objective Current Medications Medications (Trade) Dose Ordered Sig/Kirby Route PRN Reason Start Time Stop Time Status Last Admin Dose Admin Acetaminophen (Tylenol) 650 mg Q4H PRN NG Mild Pain (Pain Scale 1-3) 08/31/20 09:00 09/30/20 08:59 Acetaminophen (Tylenol) 650 mg Q4H PRN NG Temp >100.5 08/31/20 09:00 09/30/20 08:59 Ampicillin 2 gm/ Sodium Chloride 110 ml @ 220 mls/hr EVERY 4 HOURS IV 09/02/20 09:30 09/09/20 09:29 09/03/20 05:04 Dextrose (Dextrose 50%) 25 ml Q30M PRN IV Hypoglycemia 08/30/20 16:45 11/28/20 16:44 Dextrose (Dextrose 50%) 50 ml Q30M PRN IV Hypoglycemia 08/30/20 16:45 11/28/20 16:44 Dextrose/Sodium Chloride 1,000 ml @ 50 mls/hr Q20H IV 08/31/20 09:30 09/30/20 09:29 09/03/20 05:04 Famotidine (Pepcid I.v.) 20 mg Q12HR IVP 08/31/20 09:30 09/30/20 09:29 09/02/20 20:21 Insulin Aspart (NovoLOG) Q6HR SUBQ 08/30/20 18:00 11/28/20 17:59 09/02/20 23:10 Lansoprazole (Prevacid) 30 mg BID GT 09/01/20 18:00 09/30/20 17:59 09/02/20 17:16 Ondansetron HCl (Zofran) 4 mg Q4H PRN IVP Nausea & Vomiting 08/30/20 16:45 09/29/20 16:44 Potassium Phosphate 20 mm/ Sodium Chloride 281.6667 ml @ 46.944 m... ONCE IV 09/03/20 10:00 09/03/20 11:00 Potassium Chloride 100 ml @ 50 mls/hr Q2H IVPB 09/03/20 08:30 09/03/20 12:29 09/03/20 08:21 Potassium Chloride (K-Dur) 40 meq TWICE A DAY ORAL 09/02/20 21:00 12/01/20 20:59 09/02/20 20:21 Last 24 Hour Vital Signs Date Time Temp Pulse Resp B/P (MAP) Pulse Ox O2 Delivery O2 Flow Rate FiO2 09/03/20 07:36 65 22 30 09/03/20 05:08 71 23 35 09/03/20 04:00 Mechanical Ventilator 09/03/20 04:00 72 09/03/20 04:00 96.8 80 22 122/69 (86) 100 09/03/20 03:18 78 25 35 09/03/20 00:46 82 27 35 09/03/20 00:00 97.7 80 22 111/73 (86) 99 09/03/20 00:00 80 09/03/20 00:00 Mechanical Ventilator 09/02/20 23:14 83 27 35 09/02/20 20:57 65 24 35 09/02/20 20:00 97.5 72 22 113/62 (79) 99 09/02/20 20:00 Mechanical Ventilator 09/02/20 20:00 64 09/02/20 19:04 67 27 35 09/02/20 18:00 35 09/02/20 17:00 35 09/02/20 16:00 97.5 67 22 116/58 (77) 100 09/02/20 16:00 66 09/02/20 16:00 35 09/02/20 16:00 Mechanical Ventilator 09/02/20 15:20 67 28 35 09/02/20 15:00 35 09/02/20 14:00 35 09/02/20 13:00 35 09/02/20 12:00 97.5 56 22 126/77 (93) 99 09/02/20 12:00 Mechanical Ventilator 09/02/20 12:00 40 09/02/20 12:00 52 09/02/20 11:22 54 24 40 09/02/20 11:00 40 09/02/20 10:00 40 09/02/20 09:00 40 09/02/20 08:00 57 09/02/20 08:00 Mechanical Ventilator 09/02/20 08:00 97.9 50 22 122/68 (86) 98 09/02/20 08:00 40 09/02/20 07:12 56 24 40 09/02/20 07:00 40 09/02/20 04:47 56 23 40 09/02/20 04:00 52 09/02/20 04:00 Mechanical Ventilator 09/02/20 04:00 97.2 57 24 136/70 (92) 100 09/02/20 03:24 57 23 40 09/02/20 01:06 54 22 40 09/02/20 00:00 98.2 56 23 142/72 (95) 100 09/02/20 00:00 Mechanical Ventilator 09/01/20 22:53 59 25 40 09/01/20 21:08 50 22 40 09/01/20 20:00 Mechanical Ventilator 09/01/20 20:00 98.2 58 20 132/70 (90) 100 09/01/20 20:00 55 09/01/20 19:07 55 22 40 09/01/20 16:00 55 09/01/20 16:00 97.3 56 23 138/76 (96) 100 09/01/20 16:00 Mechanical Ventilator 09/01/20 15:00 56 22 40 09/01/20 14:00 40 09/01/20 12:00 61 09/01/20 12:00 97.2 56 23 119/70 (86) 100 09/01/20 12:00 Mechanical Ventilator 09/01/20 11:00 50 22 40 Intake and Output 09/02/20 09/03/20 19:00 07:00 Intake Total 590 ml 900 ml Output Total 1000 ml 600 ml Balance -410 ml 300 ml Intake Free Water 100 ml IV Total 50 ml 500 ml Tube Feeding 540 ml 300 ml Output Urine Total 1000 ml 600 ml # Bowel Movements 2 Labs Test 08/31/20 18:55 08/31/20 23:36 09/01/20 04:40 09/01/20 05:07 POC Whole Blood Glucose 180 MG/DL (74-106) White Blood Count 13.3 K/UL (4.8-10.8) Red Blood Count 2.84 M/UL (4.70-6.10) Hemoglobin 8.6 G/DL (14.2-18.0) Hematocrit 26.7 % (42.0-52.0) Mean Corpuscular Volume 94 FL (80-99) Mean Corpuscular Hemoglobin 30.3 PG (27.0-31.0) Mean Corpuscular Hemoglobin Concent 32.3 G/DL (32.0-36.0) Red Cell Distribution Width 14.3 % (11.6-14.8) Platelet Count 203 K/UL (150-450) Mean Platelet Volume 8.0 FL (6.5-10.1) Neutrophils (%) (Auto) % (45.0-75.0) Lymphocytes (%) (Auto) % (20.0-45.0) Monocytes (%) (Auto) % (1.0-10.0) Eosinophils (%) (Auto) % (0.0-3.0) Basophils (%) (Auto) % (0.0-2.0) Differential Total Cells Counted 100 Neutrophils % (Manual) 89 % (45-75) Lymphocytes % (Manual) 7 % (20-45) Monocytes % (Manual) 4 % (1-10) Eosinophils % (Manual) 0 % (0-3) Basophils % (Manual) 0 % (0-2) Band Neutrophils 0 % (0-8) Platelet Estimate Adequate Platelet Morphology Normal Red Blood Cell Morphology Normal Sodium Level 141 MMOL/L (136-145) Potassium Level 2.7 MMOL/L (3.5-5.1) Chloride Level 103 MMOL/L (98-107) Carbon Dioxide Level 27 MMOL/L (21-32) Anion Gap 12 mmol/L (5-15) Blood Urea Nitrogen 30 mg/dL (7-18) Creatinine 0.9 MG/DL (0.55-1.30) Estimat Glomerular Filtration Rate > 60 mL/min (>60) Glucose Level 198 MG/DL (74-106) Calcium Level 8.2 MG/DL (8.5-10.1) Total Bilirubin 0.3 MG/DL (0.2-1.0) Aspartate Amino Transf (AST/SGOT) 77 U/L (15-37) Alanine Aminotransferase (ALT/SGPT) 53 U/L (12-78) Alkaline Phosphatase 68 U/L (46-116) Total Protein 6.7 G/DL (6.4-8.2) Albumin 1.4 G/DL (3.4-5.0) Globulin 5.3 g/dL Albumin/Globulin Ratio 0.3 (1.0-2.7) Test 09/01/20 12:37 09/01/20 18:55 09/01/20 23:58 09/02/20 05:43 POC Whole Blood Glucose 190 MG/DL (74-106) 112 MG/DL (74-106) 130 MG/DL (74-106) Test 09/02/20 06:51 09/02/20 17:08 09/02/20 23:08 09/03/20 03:30 White Blood Count 11.5 K/UL (4.8-10.8) 10.1 K/UL (4.8-10.8) Red Blood Count 3.07 M/UL (4.70-6.10) 2.91 M/UL (4.70-6.10) Hemoglobin 9.2 G/DL (14.2-18.0) 8.8 G/DL (14.2-18.0) Hematocrit 28.0 % (42.0-52.0) 26.8 % (42.0-52.0) Mean Corpuscular Volume 91 FL (80-99) 92 FL (80-99) Mean Corpuscular Hemoglobin 30.0 PG (27.0-31.0) 30.2 PG (27.0-31.0) Mean Corpuscular Hemoglobin Concent 33.0 G/DL (32.0-36.0) 32.8 G/DL (32.0-36.0) Red Cell Distribution Width 13.7 % (11.6-14.8) 14.0 % (11.6-14.8) Platelet Count 224 K/UL (150-450) 247 K/UL (150-450) Mean Platelet Volume 7.2 FL (6.5-10.1) 7.5 FL (6.5-10.1) Neutrophils (%) (Auto) 84.5 % (45.0-75.0) 77.9 % (45.0-75.0) Lymphocytes (%) (Auto) 8.2 % (20.0-45.0) 11.2 % (20.0-45.0) Monocytes (%) (Auto) 6.9 % (1.0-10.0) 9.9 % (1.0-10.0) Eosinophils (%) (Auto) 0.3 % (0.0-3.0) 0.8 % (0.0-3.0) Basophils (%) (Auto) 0.2 % (0.0-2.0) 0.3 % (0.0-2.0) Sodium Level 140 MMOL/L (136-145) 137 MMOL/L (136-145) Potassium Level 2.4 MMOL/L (3.5-5.1) 2.9 MMOL/L (3.5-5.1) Chloride Level 102 MMOL/L (98-107) 102 MMOL/L (98-107) Carbon Dioxide Level 30 MMOL/L (21-32) 28 MMOL/L (21-32) Anion Gap 8 mmol/L (5-15) 7 mmol/L (5-15) Blood Urea Nitrogen 18 mg/dL (7-18) 15 mg/dL (7-18) Creatinine 0.7 MG/DL (0.55-1.30) 0.8 MG/DL (0.55-1.30) Estimat Glomerular Filtration Rate > 60 mL/min (>60) > 60 mL/min (>60) Glucose Level 155 MG/DL (74-106) 241 MG/DL (74-106) Calcium Level 7.8 MG/DL (8.5-10.1) 7.7 MG/DL (8.5-10.1) Phosphorus Level 2.6 MG/DL (2.5-4.9) 2.0 MG/DL (2.5-4.9) Magnesium Level 1.2 MG/DL (1.8-2.4) 1.7 MG/DL (1.8-2.4) Iron Level 27 ug/dL (50-175) Total Iron Binding Capacity 167 ug/dL (250-450) Percent Iron Saturation 16 % (15-50) Unsaturated Iron Binding 140 ug/dL (112-346) Ferritin 154 NG/ML (8-388) Total Bilirubin 0.5 MG/DL (0.2-1.0) 0.2 MG/DL (0.2-1.0) Aspartate Amino Transf (AST/SGOT) 40 U/L (15-37) 31 U/L (15-37) Alanine Aminotransferase (ALT/SGPT) 35 U/L (12-78) 33 U/L (12-78) Alkaline Phosphatase 69 U/L (46-116) 92 U/L (46-116) Total Protein 6.6 G/DL (6.4-8.2) 6.1 G/DL (6.4-8.2) Albumin 1.4 G/DL (3.4-5.0) 1.3 G/DL (3.4-5.0) Globulin 5.2 g/dL 4.8 g/dL Albumin/Globulin Ratio 0.3 (1.0-2.7) 0.3 (1.0-2.7) Vitamin B12 Level 1870 PG/ML (193-986) Folate 9.6 NG/ML (8.6-58.9) Vancomycin Level Trough 3.2 ug/mL (5.0-12.0) POC Whole Blood Glucose 133 MG/DL (74-106) 153 MG/DL (74-106) Test 09/03/20 05:15 Height (Feet): 5 Height (Inches): 7.00 Weight (Pounds): 120 Objective Physical Exam Vitals abnormal General Appearance: nv, thin, Chronically Ill Heent: normocephalic, atraumatic ++ Trach in place with vomit around the trach site Respiratory: rhonchi Cardiovascular: tachycardia Gastrointestinal: non tender, soft, non-distended, other ++ G-tube in the epigastric region Musculoskeletal: no calf tenderness, no lower extremity edema Psychiatric: other - Unable to assess as parent patient is nonverbal Skin: no rash Nick Ferguson MD Sep 03, 2020 09:03
[2020-09-03] MEDS ORDERED: Potassium Phosphate 20 MM in NS 275 ML IV SCH (10:00)
--- NOTE | 2020-09-03 10:35 | Nephrology Progress Note ---
Assessment/Plan Problem List: (1) Acute renal failure (2) Sepsis (3) Pneumonia (4) Upper GI bleed (5) Anemia Assessment Acute renal failure Prerenal azotemia/dehydration Acute GI bleed Sepsis, pneumonia Hypotension, septic shock PEG Trach to vent Plan September 03: Labs reviewed. Abnormal electrolyte addressed. Discussed with RN. Continue to monitor renal parameters and electrolytes. Medication list reviewed. September 02: Labs reviewed. Abnormal electrolytes addressed. Continue to monitor renal parameters and electrolytes. Continue per consultants. Medication list reviewed. Previously: Hydrate Monitor renal parameters and electrolytes Correct abnormal electrolytes Monitor hemoglobin and hematocrit IV Pepcid Albumin bolus Per talent development consultant Subjective ROS Limited/Unobtainable: Yes Objective Objective Last 24 Hour Vital Signs Date Time Temp Pulse Resp B/P (MAP) Pulse Ox O2 Delivery O2 Flow Rate FiO2 09/03/20 07:36 65 22 30 09/03/20 05:08 71 23 35 09/03/20 04:00 Mechanical Ventilator 09/03/20 04:00 72 09/03/20 04:00 96.8 80 22 122/69 (86) 100 09/03/20 03:18 78 25 35 09/03/20 00:46 82 27 35 09/03/20 00:00 97.7 80 22 111/73 (86) 99 09/03/20 00:00 80 09/03/20 00:00 Mechanical Ventilator 09/02/20 23:14 83 27 35 09/02/20 20:57 65 24 35 09/02/20 20:00 97.5 72 22 113/62 (79) 99 09/02/20 20:00 Mechanical Ventilator 09/02/20 20:00 64 09/02/20 19:04 67 27 35 09/02/20 18:00 35 09/02/20 17:00 35 09/02/20 16:00 97.5 67 22 116/58 (77) 100 09/02/20 16:00 66 09/02/20 16:00 35 09/02/20 16:00 Mechanical Ventilator 09/02/20 15:20 67 28 35 09/02/20 15:00 35 09/02/20 14:00 35 09/02/20 13:00 35 09/02/20 12:00 97.5 56 22 126/77 (93) 99 09/02/20 12:00 Mechanical Ventilator 09/02/20 12:00 40 09/02/20 12:00 52 09/02/20 11:22 54 24 40 09/02/20 11:00 40 Intake and Output 09/02/20 09/03/20 19:00 07:00 Intake Total 590 ml 900 ml Output Total 1000 ml 600 ml Balance -410 ml 300 ml Intake Free Water 100 ml IV Total 50 ml 500 ml Tube Feeding 540 ml 300 ml Output Urine Total 1000 ml 600 ml # Bowel Movements 2 Current Medications Medications (Trade) Dose Ordered Sig/Kirby Route PRN Reason Start Time Stop Time Status Last Admin Dose Admin Acetaminophen (Tylenol) 650 mg Q4H PRN NG Mild Pain (Pain Scale 1-3) 08/31/20 09:00 09/30/20 08:59 Acetaminophen (Tylenol) 650 mg Q4H PRN NG Temp >100.5 08/31/20 09:00 09/30/20 08:59 Ampicillin 2 gm/ Sodium Chloride 110 ml @ 220 mls/hr EVERY 4 HOURS IV 09/02/20 09:30 09/09/20 09:29 09/03/20 09:03 Dextrose (Dextrose 50%) 25 ml Q30M PRN IV Hypoglycemia 08/30/20 16:45 11/28/20 16:44 Dextrose (Dextrose 50%) 50 ml Q30M PRN IV Hypoglycemia 08/30/20 16:45 11/28/20 16:44 Dextrose/Sodium Chloride 1,000 ml @ 50 mls/hr Q20H IV 08/31/20 09:30 09/30/20 09:29 09/03/20 05:04 Famotidine (Pepcid I.v.) 20 mg Q12HR IVP 08/31/20 09:30 09/30/20 09:29 09/03/20 09:02 Insulin Aspart (NovoLOG) Q6HR SUBQ 08/30/20 18:00 11/28/20 17:59 09/02/20 23:10 Lansoprazole (Prevacid) 30 mg BID GT 09/01/20 18:00 09/30/20 17:59 09/03/20 09:02 Ondansetron HCl (Zofran) 4 mg Q4H PRN IVP Nausea & Vomiting 08/30/20 16:45 09/29/20 16:44 Potassium Chloride (K-Dur) 40 meq TWICE A DAY ORAL 2/25/21 21:00 12/01/20 20:59 09/03/20 09:02 Sucralfate (Carafate) 1 gm FOUR TIMES A DAY ORAL 09/03/20 13:00 12/02/20 12:59 Laboratory Tests 09/02/20 17:08: POC Whole Blood Glucose 133H 09/02/20 23:08: POC Whole Blood Glucose 153H 09/03/20 03:30: White Blood Count 10.1, Red Blood Count 2.91L, Hemoglobin 8.8L, Hematocrit 26.8L , Mean Corpuscular Volume 92, Mean Corpuscular Hemoglobin 30.2, Mean Corpuscular Hemoglobin Concent 32.8, Red Cell Distribution Width 14.0, Platelet Count 247, Mean Platelet Volume 7.5, Neutrophils (%) (Auto) 77.9H, Lymphocytes (%) (Auto) 11.2L, Monocytes (%) (Auto) 9.9, Eosinophils (%) (Auto) 0.8, Basophils (%) (Auto) 0.3, Sodium Level 137, Potassium Level 2.9L, Chloride Level 102, Carbon Dioxide Level 28, Anion Gap 7, Blood Urea Nitrogen 15, Creatinine 0.8, Estimat Glomerular Filtration Rate > 60, Glucose Level 241H, Calcium Level 7.7L, Phosphorus Level 2.0L, Magnesium Level 1.7L, Total Bilirubin 0.2, Aspartate Amino Transf (AST/SGOT) 31, Alanine Aminotransferase (ALT/SGPT) 33, Alkaline Phosphatase 92, Total Protein 6.1L, Albumin 1.3L, Globulin 4.8, Albumin/Globulin Ratio 0.3L 09/03/20 05:15: POC Whole Blood Glucose [Pending] Height (Feet): 5 Height (Inches): 7.00 Weight (Pounds): 120 General Appearance: no apparent distress Cardiovascular: normal rate Respiratory/Chest: decreased breath sounds Abdomen: distended Ben Aguilar MD Sep 03, 2020 10:35
--- NOTE | 2020-09-03 10:58 | Diagnostic Imaging Report ---
Procedure: XRAY Chest 1v Reason for study: Shortness of breath. Comparison films: 08/30/2020. FINDINGS: Tracheostomy remains in place. There is a right PICC line with the tip in the SVC. Lateral infiltrates slightly improved with improved aeration of the lung bases. Cardiomegaly and small left effusion noted. The bony thorax appear unremarkable. IMPRESSION: Slightly improved aeration.
--- NOTE | 2020-09-03 11:21 | Surgery Progress Note ---
Surgery Progress Note Subjective Symptoms: improved, pain absent, tolerating diet, voiding well, passing flatus, BM Objective Last 24 Hour Vital Signs Date Time Temp Pulse Resp B/P (MAP) Pulse Ox O2 Delivery O2 Flow Rate FiO2 09/03/20 08:00 65 09/03/20 08:00 Mechanical Ventilator 09/03/20 08:00 97.0 22 133/77 (95) 100 09/03/20 07:36 65 22 30 09/03/20 05:08 71 23 35 09/03/20 04:00 Mechanical Ventilator 09/03/20 04:00 72 09/03/20 04:00 96.8 80 22 122/69 (86) 100 09/03/20 03:18 78 25 35 09/03/20 00:46 82 27 35 09/03/20 00:00 97.7 80 22 111/73 (86) 99 09/03/20 00:00 80 09/03/20 00:00 Mechanical Ventilator 09/02/20 23:14 83 27 35 09/02/20 20:57 65 24 35 09/02/20 20:00 97.5 72 22 113/62 (79) 99 09/02/20 20:00 Mechanical Ventilator 09/02/20 20:00 64 09/02/20 19:04 67 27 35 09/02/20 18:00 35 09/02/20 17:00 35 09/02/20 16:00 97.5 67 22 116/58 (77) 100 09/02/20 16:00 66 09/02/20 16:00 35 09/02/20 16:00 Mechanical Ventilator 09/02/20 15:20 67 28 35 09/02/20 15:00 35 09/02/20 14:00 35 09/02/20 13:00 35 09/02/20 12:00 97.5 56 22 126/77 (93) 99 09/02/20 12:00 Mechanical Ventilator 09/02/20 12:00 40 09/02/20 12:00 52 09/02/20 11:22 54 24 40 I&O Intake and Output 09/02/20 09/03/20 19:00 07:00 Intake Total 590 ml 900 ml Output Total 1000 ml 600 ml Balance -410 ml 300 ml Intake Free Water 100 ml IV Total 50 ml 500 ml Tube Feeding 540 ml 300 ml Output Urine Total 1000 ml 600 ml # Bowel Movements 2 Laboratory Tests Test 09/02/20 17:08 09/02/20 23:08 09/03/20 03:30 09/03/20 05:15 POC Whole Blood Glucose 133 MG/DL (74-106) H 153 MG/DL (74-106) H Pending White Blood Count 10.1 K/UL (4.8-10.8) Red Blood Count 2.91 M/UL (4.70-6.10) L Hemoglobin 8.8 G/DL (14.2-18.0) L Hematocrit 26.8 % (42.0-52.0) L Mean Corpuscular Volume 92 FL (80-99) Mean Corpuscular Hemoglobin 30.2 PG (27.0-31.0) Mean Corpuscular Hemoglobin Concent 32.8 G/DL (32.0-36.0) Red Cell Distribution Width 14.0 % (11.6-14.8) Platelet Count 247 K/UL (150-450) Mean Platelet Volume 7.5 FL (6.5-10.1) Neutrophils (%) (Auto) 77.9 % (45.0-75.0) H Lymphocytes (%) (Auto) 11.2 % (20.0-45.0) L Monocytes (%) (Auto) 9.9 % (1.0-10.0) Eosinophils (%) (Auto) 0.8 % (0.0-3.0) Basophils (%) (Auto) 0.3 % (0.0-2.0) Sodium Level 137 MMOL/L (136-145) Potassium Level 2.9 MMOL/L (3.5-5.1) L Chloride Level 102 MMOL/L (98-107) Carbon Dioxide Level 28 MMOL/L (21-32) Anion Gap 7 mmol/L (5-15) Blood Urea Nitrogen 15 mg/dL (7-18) Creatinine 0.8 MG/DL (0.55-1.30) Estimat Glomerular Filtration Rate > 60 mL/min (>60) Glucose Level 241 MG/DL (74-106) H Calcium Level 7.7 MG/DL (8.5-10.1) L Phosphorus Level 2.0 MG/DL (2.5-4.9) L Magnesium Level 1.7 MG/DL (1.8-2.4) L Total Bilirubin 0.2 MG/DL (0.2-1.0) Aspartate Amino Transf (AST/SGOT) 31 U/L (15-37) Alanine Aminotransferase (ALT/SGPT) 33 U/L (12-78) Alkaline Phosphatase 92 U/L (46-116) Total Protein 6.1 G/DL (6.4-8.2) L Albumin 1.3 G/DL (3.4-5.0) L Globulin 4.8 g/dL Albumin/Globulin Ratio 0.3 (1.0-2.7) L Plan Problems: (1) Septic shock (2) Acute renal failure (3) Sepsis Assessment & Plan: 64-year-old male leukocytosis abnormal labs ultrasound with gallbladder wall thickening no pericholecystic fluid no gallstones potentially a calculus cholecystitis. Patient unable to verbalize or identify tenderness. Examination fairly unreliable. Clinically recommend given patient's history and condition medical management and will monitor clinically. The liver and spleen are homogeneous. Mild wall thickening of the gallbladder noted. Common bile duct measures 3 mm. The pancreas is unremarkable to the extent visualized. There are nonshadowing cortical echogenic focus in the left kidney likely perivascular fat. No renal stone or hydronephrosis seen bilaterally. Aorta and cava are within normal limits. IMPRESSION: NO GALLSTONE OR SLUDGE IS IDENTIFIED BUT THERE IS EDEMA AND GALLBLADDER WALL THICKENING. PATIENT IS UNABLE TO REPORT FOCAL SYMPTOMS. LEFT RENAL CORTICAL ECHOGENIC FOCUS WITHOUT SHADOWING LIKELY PERIVASCULAR FAT. NO DISCRETE RENAL STONE OR HYDRONEPHROSIS. INCIDENTAL SMALL LEFT PLEURAL EFFUSION. (4) Pneumonia (5) Upper GI bleed Assessment & Plan: Patient had acute drop in hemoglobin noted some dark stool consider removed potentially blood GI called GI eval pending occult stool trend H&H PRBC if drops below 7 will follow with recommendations DAILY ESTIMATED NEEDS: Needs based on Critical care, underweight, TF CENTRAL SUPPLY AIDE 50kg 28-33 kcals/kg 2374-7027 total kcals 1.2-2 g protein/kg 60-100 g total protein 25-30 mL/kg 2117-6853 total fluid mLs NUTRITION DIAGNOSIS: Swallowing difficulty r/t respiratory failure as evidenced by pt is vent dep via trach/ PEG dep. CURRENT TF:Vital @60ml/hr x24 hrs -> now NPO for EGD ENTERAL NUTRITION RECOMMENDATIONS: rec to LOWER Vital 1.2 goal of 55ml/hr x24 hrs to provide 1320ml, 1584 kcal, 99g pro, 1071ml free H2O - rec to LOWER goal to 55ml/hr to not exceed est needs - flush per MD. HOB over 30 degrees ADDITIONAL RECOMMENDATIONS: 1) Maintain calibrated bed scale wts 2) rec bedside BG testing/ niss -> now on NISS 3) replete lytes as needed (low K and phos) 4) DC D5 IVF when TF resumes for improved BG control Doe Nina Sep 03, 2020 11:21
[2020-09-03 12:00] VITALS: BP 130/76
[2020-09-03] MEDS ORDERED: NS 500ML IVPB ONE (12:00)
[2020-09-03] MEDS ORDERED: Lidocaine 1% MPF 10mg/ml 5ml ONE (12:00)
--- NOTE | 2020-09-03 12:14 | Pre-Procedure Note/Attestation ---
Pre-Procedure Note/Attestation Complete Prior to Procedure Planned Procedure: not applicable Procedure Narrative: egd Indications for Procedure Pre-Operative Diagnosis: gib Attestation I attest that I discussed the nature of the procedure; its benefits; risks and complications; and alternatives (and the risks and benefits of such alternatives), prior to the procedure, with the patient (or the patient's legal brand representative). I attest that, if there was a reasonable possibility of needing a blood transfusion, the patient (or the patient's legal brand representative) was given the [facility] standardized written summary, pursuant to the Ghanshyam Dominguez Blood Safety Act ([place] Health and Safety Code # 1645, as amended). I attest that I re-evaluated the patient just prior to the surgery and that there has been no change in the patient's H&P, except as documented below: Yaakov Jacques MD Sep 03, 2020 12:13
--- NOTE | 2020-09-03 12:26 | NUR ---
RADIOLOGY DEPT., CHEST X-RAY DONE.-P.DYE
--- NOTE | 2020-09-03 12:31 | Immediate Post-Op Evaluation ---
Immediate Post-Op Evalulation Immediate Post-Op Evalulation Procedure: EGD Date of Evaluation: Sep 03, 2020 Time of Evaluation: 13:04 IV Fluids: 200 NS Blood Products: 0 Estimated Blood Loss: 1 Urinary Output: 0 Blood Pressure Systolic: 121 Blood Pressure Diastolic: 76 Pulse Rate: 82 Respiratory Rate: 18 O2 Sat by Pulse Oximetry: 100 Temperature (Fahrenheit): 98 Pain Score (1-10): 0 Nausea: No Vomiting: No Complications 0 Patient Status: awake, reacts, patent, none George Aguayo MD Sep 03, 2020 12:31
--- NOTE | 2020-09-03 12:31 | Anethesia Preoperative Eval ---
Anesthesia Pre-op PMH/ROS General Date of Evaluation: Sep 03, 2020 Time of Evaluation: 12:18 Anesthesiologist: Dede ASA Score: ASA 4 Mallampati Score Class I : Soft palate, uvula, fauces, pillars visible Class II: Soft palate, uvula, fauces visible Class III: Soft palate, base of uvula visible Class IV: Only hard plate visible Mallampati Classification: Class II Surgeon: Sawyer Diagnosis: Abd Pain Surgical Procedure: EGD Anesthesia History: none Family History: no anesthesia problems Allergies: Coded Allergies: No Known Allergies (Unverified , 08/30/20) Patient NPO?: Yes NPO Date: Sep 03, 2020 NPO Time: 00:00 Past Medical History Cardiovascular: Reports: HTN, other - HL Pulmonary: Reports: COPD Neurologic/Psychiatric: Reports: dementia, CVA Endocrine: Reports: DM HEENT: Reports: other - Tracheostomy Hematology/Immune: Reports: anemia Anesthesia Pre-op Phys. Exam Physician Exam Last Vital Signs Date Time Temp Pulse Resp B/P (MAP) Pulse Ox O2 Delivery O2 Flow Rate FiO2 09/03/20 12:00 76 09/03/20 12:00 97.7 24 130/76 (94) 100 09/03/20 12:00 Mechanical Ventilator 09/03/20 07:36 30 08/30/20 14:45 15.0 Constitutional: NAD Neurologic: CN 2-12 intact Cardiovascular: RRR Respiratory: CTA Gastrointestinal: S/NT/ND Airway Exam Mallampati Score: Class II MO: limited Neck: Trach ROM: limited Teeth: missing Anesthesia Pre-op A/P Labs Hematology Test 09/03/20 03:30 White Blood Count 10.1 K/UL (4.8-10.8) Red Blood Count 2.91 M/UL (4.70-6.10) L Hemoglobin 8.8 G/DL (14.2-18.0) L Hematocrit 26.8 % (42.0-52.0) L Mean Corpuscular Volume 92 FL (80-99) Mean Corpuscular Hemoglobin 30.2 PG (27.0-31.0) Mean Corpuscular Hemoglobin Concent 32.8 G/DL (32.0-36.0) Red Cell Distribution Width 14.0 % (11.6-14.8) Platelet Count 247 K/UL (150-450) Mean Platelet Volume 7.5 FL (6.5-10.1) Neutrophils (%) (Auto) 77.9 % (45.0-75.0) H Lymphocytes (%) (Auto) 11.2 % (20.0-45.0) L Monocytes (%) (Auto) 9.9 % (1.0-10.0) Eosinophils (%) (Auto) 0.8 % (0.0-3.0) Basophils (%) (Auto) 0.3 % (0.0-2.0) Chemistry Test 09/02/20 17:08 09/02/20 23:08 09/03/20 03:30 09/03/20 05:15 POC Whole Blood Glucose 133 MG/DL (74-106) H 153 MG/DL (74-106) H Pending Sodium Level 137 MMOL/L (136-145) Potassium Level 2.9 MMOL/L (3.5-5.1) L Chloride Level 102 MMOL/L (98-107) Carbon Dioxide Level 28 MMOL/L (21-32) Anion Gap 7 mmol/L (5-15) Blood Urea Nitrogen 15 mg/dL (7-18) Creatinine 0.8 MG/DL (0.55-1.30) Estimat Glomerular Filtration Rate > 60 mL/min (>60) Glucose Level 241 MG/DL (74-106) H Calcium Level 7.7 MG/DL (8.5-10.1) L Phosphorus Level 2.0 MG/DL (2.5-4.9) L Magnesium Level 1.7 MG/DL (1.8-2.4) L Total Bilirubin 0.2 MG/DL (0.2-1.0) Aspartate Amino Transf (AST/SGOT) 31 U/L (15-37) Alanine Aminotransferase (ALT/SGPT) 33 U/L (12-78) Alkaline Phosphatase 92 U/L (46-116) Total Protein 6.1 G/DL (6.4-8.2) L Albumin 1.3 G/DL (3.4-5.0) L Globulin 4.8 g/dL Albumin/Globulin Ratio 0.3 (1.0-2.7) L Risk Assessment & Plan Assessment: ASA 4 Plan: TIVA Status Change Before Surgery: No Magdi Aguayoen MD Sep 03, 2020 12:30
--- NOTE | 2020-09-03 12:32 | 48 Hour Post Anesthesia Eval ---
Post Anesthesia Evaluation Procedure: EGD Date of Evaluation: Sep 03, 2020 Time of Evaluation: 15:12 Blood Pressure Systolic: 134 0: 76 Pulse Rate: 82 Respiratory Rate: 18 Temperature (Fahrenheit): 98 O2 Sat by Pulse Oximetry: 100 Airway: patent Nausea: No Vomiting: No Pain Intensity: 0 Hydration Status: adequate Cardiopulmonary Status: Stable Mental Status/LOC: patient returned to baseline Follow-up Care/Observations: 0 Post-Anesthesia Complications: 0 Follow-up care needed: N/A George Aguayo MD Sep 03, 2020 12:32
--- NOTE | 2020-09-03 13:25 | Endoscopy Procedure Note ---
Endoscopy Procedure Note General Indication for Procedure: gib Procedures Performed: EGD Operative Findings/Diagnosis: esophagitis Specimen: none Pt Tolerated Procedure Well: Yes Estimated Blood Loss: none Anesthesia Anesthesiologist: tino Anesthesia: MAC Inserted Devices Implant(s) used?: No GI Core Measures 50 yrs or older w/o bx or poly: Not Applicable 10yrs. F/U recommended: Not Applicable Yaakov Jacques MD Sep 03, 2020 13:25
[2020-09-03] MEDS: Sucralfate 1gm tab ORAL SCH ×3 (13:40→21:39)
--- NOTE | 2020-09-03 13:44 | Procedure Note ---
DATE OF PROCEDURE: 09/03/2020 SURGEON: Yaakov Jacques MD. PROCEDURE: Upper endoscopy with biopsy and G-tube replacement. ANESTHESIA: Per Dr. George Aguayo. INSTRUMENT: Olympus adult flexible upper endoscope. INDICATION: Upper GI bleeding. REASON FOR PROCEDURE: The procedure, risks, benefits, and possible consequences, including hemorrhage, aspiration, perforation and infection, and alternative treatments, were explained to the patient/legal guardian by Dr. Yaakov Jacques and the patient/legal guardian understood and accepted these risks. DESCRIPTION OF PROCEDURE: After informed consent was obtained and the patient was adequately sedated, Olympus upper endoscope was advanced from mouth into the second portion of the duodenum and retroflexion was performed in the stomach. The patient had significant distal esophagitis with ulceration, most probably the source of bleeding. In the stomach, there was diffuse gastritis. Random biopsies from antrum was obtained to rule out H. pylori infection. The patient had a malfunctioning G-tube, which was replaced by 20-Omani balloon type G-tube. The patient tolerated the procedure very well without any complication. SUMMARY OF FINDINGS: 1. Severe esophagitis. 2. Gastritis, status post biopsy. 3. Status post successful G-tube replacement. PLAN: Reflux measures. Resume G-tube feeding. PPI and Carafate. Followup hemoglobin and hematocrit. Transfuse as needed. Discharge planning per primary team. Yaakov Jacques M.D. DR: MINNA JOB#: [id number] CC:
--- NOTE | 2020-09-03 14:19 | Cardiology Report ---
APPROVED REPORT EKG Measurement Heart [id number] MD [id number] <Conclusion> Sinus tachycardia Septal infarct, age undetermined Abnormal ECG
[2020-09-03] MEDS: NS w/KCl 40mEq 1,000 ML IV SCH (14:53)
[2020-09-03 16:00] VITALS: BP 110/64
--- NOTE | 2020-09-03 18:22 | General Progress Note ---
Subjective Constitutional: Reports: no symptoms HEENT: Reports: no symptoms Cardiovascular: Reports: no symptoms Respiratory: Reports: no symptoms Gastrointestinal/Abdominal: Reports: no symptoms Genitourinary: Reports: no symptoms Neurologic/Psychiatric: Reports: no symptoms Endocrine: Reports: no symptoms Hematologic/Lymphatic: Reports: no symptoms Allergies: Coded Allergies: No Known Allergies (Unverified , 08/30/20) Objective Last 24 Hour Vital Signs Date Time Temp Pulse Resp B/P (MAP) Pulse Ox O2 Delivery O2 Flow Rate FiO2 09/03/20 16:00 62 09/03/20 16:00 98.1 65 22 110/64 (79) 100 09/03/20 16:00 Mechanical Ventilator 09/03/20 15:39 65 24 30 09/03/20 14:40 30 09/03/20 13:29 82 18 100 09/03/20 13:28 82 18 100 09/03/20 12:00 76 09/03/20 12:00 97.7 60 24 130/76 (94) 100 09/03/20 12:00 Mechanical Ventilator 09/03/20 11:16 61 22 30 09/03/20 08:00 65 09/03/20 08:00 Mechanical Ventilator 09/03/20 08:00 97.0 65 22 133/77 (95) 100 09/03/20 07:36 65 22 30 09/03/20 05:08 71 23 35 09/03/20 04:00 Mechanical Ventilator 09/03/20 04:00 72 09/03/20 04:00 96.8 80 22 122/69 (86) 100 09/03/20 03:18 78 25 35 09/03/20 00:46 82 27 35 09/03/20 00:00 97.7 80 22 111/73 (86) 99 09/03/20 00:00 80 09/03/20 00:00 Mechanical Ventilator 09/02/20 23:14 83 27 35 09/02/20 20:57 65 24 35 09/02/20 20:00 97.5 72 22 113/62 (79) 99 09/02/20 20:00 Mechanical Ventilator 09/02/20 20:00 64 09/02/20 19:04 67 27 35 Intake and Output 0 09/02/20 09/03/20 19:00 07:00 Intake Total 590 ml 950 ml Output Total 1000 ml 600 ml Balance -410 ml 350 ml Intake Free Water 100 ml IV Total 50 ml 550 ml Tube Feeding 540 ml 300 ml Output Urine Total 1000 ml 600 ml # Bowel Movements 2 Laboratory Tests 09/02/20 23:08: POC Whole Blood Glucose 153H 09/03/20 03:30: White Blood Count 10.1, Red Blood Count 2.91L, Hemoglobin 8.8L, Hematocrit 26.8L , Mean Corpuscular Volume 92, Mean Corpuscular Hemoglobin 30.2, Mean Corpuscular Hemoglobin Concent 32.8, Red Cell Distribution Width 14.0, Platelet Count 247, Mean Platelet Volume 7.5, Neutrophils (%) (Auto) 77.9H, Lymphocytes (%) (Auto) 11.2L, Monocytes (%) (Auto) 9.9, Eosinophils (%) (Auto) 0.8, Basophils (%) (Auto) 0.3, Sodium Level 137, Potassium Level 2.9L, Chloride Level 102, Carbon Dioxide Level 28, Anion Gap 7, Blood Urea Nitrogen 15, Creatinine 0.8, Estimat Glomerular Filtration Rate > 60, Glucose Level 241H, Calcium Level 7.7L, Phosphorus Level 2.0L, Magnesium Level 1.7L, Total Bilirubin 0.2, Aspartate Amino Transf (AST/SGOT) 31, Alanine Aminotransferase (ALT/SGPT) 33, Alkaline Phosphatase 92, Total Protein 6.1L, Albumin 1.3L, Globulin 4.8, Albumin/Globulin Ratio 0.3L 09/03/20 05:15: POC Whole Blood Glucose [Pending] 09/03/20 18:05: POC Whole Blood Glucose 151H Height (Feet): 5 Height (Inches): 7.00 Weight (Pounds): 120 General Appearance: WD/WN, no apparent distress, alert EENT: normal ENT inspection Neck: supple Cardiovascular: normal rate, no gallop/murmur, no JVD Respiratory/Chest: lungs clear, normal breath sounds, no respiratory distress Abdomen: normal bowel sounds, non tender, soft, no organomegaly, no mass Neurologic: alert, oriented x 3, responsive Skin: warm/dry Assessment/Plan Status Narrative Patient is awake alert afebrile and hemodynamically stable and denies any new symptom he underwent today upper GI endoscopy that revealed the patient has severe erosive esophagitis he is afebrile and has no leukocytosis his BUN/creatinine and electrolytes are normal patient repeat laboratory tests will be done in a.m. feeding orders will be given by the nursing secretary patient resume normal feeding and is normal laboratory tests discharge planning can be static and be started as of tomorrow Jason Figueroa MD, MD Sep 03, 2020 18:22
--- NOTE | 2020-09-03 18:47 | NUR ---
0720: Assumed care of pt from previous RN. Pt is currently in bed asleep with trach to vent. Pt currently NPO for EGD today. Bed in lowest position. Pt in NAD. Will continue to monitor. 1300: EGD done. Pt with severe esophagitis. Per MD Sawyer ok to restart TF. Pt changed and repositioned. Pt in NAD. Pt denies pain at this time. Will continue to monitor. 1730: Dr. Perdue at bedside. No new orders. Pt in NAD. VSS. Bed in lowest position. Call haile within reach. All needs addressed. Bed alarm on. Will continue to monitor.
--- NOTE | 2020-09-03 19:00 | NUR ---
Patient is not in acute distress, tubes and lines were assessed, in place and secured. Safety measures in place, refer to MR for full assessment and trending vitals.
[2020-09-03 20:00] VITALS: BP 142/71
--- NOTE | 2020-09-03 21:00 | NUR ---
No acute changes, safety measures in place. Will continue to monitor.
[2020-09-04] VITALS: BP 108/71
[2020-09-04] MEDS: Ampicillin 2 GM in NS 110 ML IV SCH ×6 (00:58→20:31)
[2020-09-04 04:00] VITALS: BP 122/69
[2020-09-04 04:50] LABS: ALANINE AMINOTRANSFERASE 21 U/L (12-78); ALBUMIN 1.3 G/DL (3.4-5.0); ALBUMIN/GLOBULIN RATIO 0.3 (1.0-2.7); ALKALINE PHOSPHATASE 97 U/L (46-116); ANION GAP 7 mmol/L (5-15); ASPARTATE AMINO TRANSFERASE 24 U/L (15-37); BILIRUBIN,TOTAL 0.1 MG/DL (0.2-1.0); BLOOD UREA NITROGEN 13 mg/dL (7-18); CARBON DIOXIDE 24 MMOL/L (21-32); CHLORIDE 110 MMOL/L (98-107); CREATININE 0.8 MG/DL (0.55-1.30); POTASSIUM 4.4 MMOL/L (3.5-5.1); SODIUM 141 MMOL/L (136-145)
[2020-09-04] MEDS: NovoLOG Insulin Flexpen SUBQ SCH ×4 (06:00→17:17)
--- NOTE | 2020-09-04 07:00 | NUR ---
NURSE NOTES: received patient report from cachorro gaines. patient is on bed, awake. not in acute distress. no acute events reported last night. afebrile. tube feeding, tolerating. on vent at prescribed rate.VS stable. will follow plan fo care.
[2020-09-04 08:00] VITALS: BP 134/71
[2020-09-04] MEDS: Sucralfate 1gm tab ORAL SCH ×4 (08:30→20:50)
[2020-09-04] MEDS: NS w/KCl 40mEq 1,000 ML IV SCH (08:32)
--- NOTE | 2020-09-04 09:16 | Surgery Progress Note ---
Surgery Progress Note Subjective Additional Comments g tube placed egd results noted no n/v comfortable tube okay abd exam stable Objective Last 24 Hour Vital Signs Date Time Temp Pulse Resp B/P (MAP) Pulse Ox O2 Delivery O2 Flow Rate FiO2 09/04/20 08:00 97.2 69 20 134/71 (92) 100 09/04/20 07:42 66 09/04/20 05:00 63 22 30 09/04/20 04:00 Mechanical Ventilator 09/04/20 04:00 98.0 72 22 122/69 (86) 98 09/04/20 04:00 62 09/04/20 03:05 62 22 30 09/04/20 00:54 68 22 30 09/04/20 00:00 Mechanical Ventilator 09/04/20 00:00 99.0 72 22 108/71 (83) 97 09/03/20 23:15 67 23 30 09/03/20 20:57 70 26 30 09/03/20 20:00 Mechanical Ventilator 09/03/20 20:00 98.1 80 22 142/71 (94) 98 09/03/20 20:00 73 09/03/20 19:05 73 28 30 09/03/20 16:00 62 09/03/20 16:00 98.1 65 22 110/64 (79) 100 09/03/20 16:00 Mechanical Ventilator 09/03/20 15:39 65 24 30 09/03/20 14:40 30 09/03/20 13:29 82 18 100 09/03/20 13:28 82 18 100 09/03/20 12:00 76 09/03/20 12:00 97.7 60 24 130/76 (94) 100 09/03/20 12:00 Mechanical Ventilator 09/03/20 11:16 61 22 30 I&O Intake and Output 09/03/20 09/04/20 19:00 07:00 Intake Total 870 ml 2070 ml Output Total 550 ml 500 ml Balance 320 ml 1570 ml Intake Free Water 150 ml IV Total 600 ml 1410 ml Tube Feeding 120 ml 660 ml Output Urine Total 550 ml 500 ml # Bowel Movements 2 4 Dressing: saturated Cardiovascular: RSR Respiratory: decreased breath sounds Abdomen: soft, non-tender, present bowel sounds, other, non-distended Extremities: no edema, no tenderness, no cyanosis Laboratory Tests Test 09/03/20 18:05 09/04/20 00:34 09/04/20 03:00 POC Whole Blood Glucose 151 MG/DL (74-106) H Pending Sodium Level 141 MMOL/L (136-145) Potassium Level 4.4 MMOL/L (3.5-5.1) # Chloride Level 110 MMOL/L (98-107) H Carbon Dioxide Level 24 MMOL/L (21-32) Anion Gap 7 mmol/L (5-15) Blood Urea Nitrogen 13 mg/dL (7-18) Creatinine 0.8 MG/DL (0.55-1.30) Estimat Glomerular Filtration Rate > 60 mL/min (>60) Glucose Level 142 MG/DL (74-106) #H Calcium Level 8.0 MG/DL (8.5-10.1) L Phosphorus Level 2.0 MG/DL (2.5-4.9) L Magnesium Level 2.0 MG/DL (1.8-2.4) Total Bilirubin 0.1 MG/DL (0.2-1.0) L Aspartate Amino Transf (AST/SGOT) 24 U/L (15-37) Alanine Aminotransferase (ALT/SGPT) 21 U/L (12-78) Alkaline Phosphatase 97 U/L (46-116) Total Protein 6.3 G/DL (6.4-8.2) L Albumin 1.3 G/DL (3.4-5.0) L Globulin 5.0 g/dL Albumin/Globulin Ratio 0.3 (1.0-2.7) L Plan Problems: (1) Septic shock (2) Acute renal failure (3) Sepsis Assessment & Plan: 64-year-old male leukocytosis abnormal labs ultrasound with gallbladder wall thickening no pericholecystic fluid no gallstones potentially a calculus cholecystitis. Patient unable to verbalize or identify tenderness. Examination fairly unreliable. Clinically recommend given patient's history and condition medical management and will monitor clinically. The liver and spleen are homogeneous. Mild wall thickening of the gallbladder noted. Common bile duct measures 3 mm. The pancreas is unremarkable to the extent visualized. There are nonshadowing cortical echogenic focus in the left kidney likely perivascular fat. No renal stone or hydronephrosis seen bilaterally. Aorta and cava are within normal limits. IMPRESSION: NO GALLSTONE OR SLUDGE IS IDENTIFIED BUT THERE IS EDEMA AND GALLBLADDER WALL THICKENING. PATIENT IS UNABLE TO REPORT FOCAL SYMPTOMS. LEFT RENAL CORTICAL ECHOGENIC FOCUS WITHOUT SHADOWING LIKELY PERIVASCULAR FAT. NO DISCRETE RENAL STONE OR HYDRONEPHROSIS. INCIDENTAL SMALL LEFT PLEURAL EFFUSION. (4) Pneumonia (5) Upper GI bleed Assessment & Plan: Patient had acute drop in hemoglobin noted some dark stool consider removed potentially blood GI called GI eval pending occult stool trend H&H PRBC if drops below 7 will follow with recommendations s/p egd peg bx results pending DAILY ESTIMATED NEEDS: Needs based on Critical care, underweight, TF TRANSFORMER MOLDER 50kg 28-33 kcals/kg 0997-9605 total kcals 1.2-2 g protein/kg 60-100 g total protein 25-30 mL/kg 2542-1053 total fluid mLs NUTRITION DIAGNOSIS: Swallowing difficulty r/t respiratory failure as evidenced by pt is vent dep via trach/ PEG dep. CURRENT TF:Vital @60ml/hr x24 hrs -> now NPO for EGD ENTERAL NUTRITION RECOMMENDATIONS: rec to LOWER Vital 1.2 goal of 55ml/hr x24 hrs to provide 1320ml, 1584 kcal, 99g pro, 1071ml free H2O - rec to LOWER goal to 55ml/hr to not exceed est needs - flush per MD. HOB over 30 degrees ADDITIONAL RECOMMENDATIONS: 1) Maintain calibrated bed scale wts 2) rec bedside BG testing/ niss -> now on NISS 3) replete lytes as needed (low K and phos) 4) DC D5 IVF when TF resumes for improved BG control Doe Nina Sep 04, 2020 09:16
[2020-09-04 11:22] VITALS: BP 119/73
--- NOTE | 2020-09-04 11:25 | Pulmonology Progress Note ---
Subjective ROS Limited/Unobtainable: Yes Interval Events: s/p EGD Constitutional: Reports: no symptoms HEENT: Repors: no symptoms Respiratory: Reports: no symptoms Cardiovascular: Reports: no symptoms Gastrointestinal/Abdominal: Reports: no symptoms Allergies: Coded Allergies: No Known Allergies (Unverified , 08/30/20) Objective Last 24 Hour Vital Signs Date Time Temp Pulse Resp B/P (MAP) Pulse Ox O2 Delivery O2 Flow Rate FiO2 09/04/20 09:00 Mechanical Ventilator 09/04/20 08:00 97.2 69 20 134/71 (92) 100 09/04/20 07:42 66 09/04/20 05:00 63 22 30 09/04/20 04:00 Mechanical Ventilator 09/04/20 04:00 98.0 72 22 122/69 (86) 98 09/04/20 04:00 62 09/04/20 03:05 62 22 30 09/04/20 00:54 68 22 30 09/04/20 00:00 Mechanical Ventilator 09/04/20 00:00 99.0 72 22 108/71 (83) 97 09/03/20 23:15 67 23 30 09/03/20 20:57 70 26 30 09/03/20 20:00 Mechanical Ventilator 09/03/20 20:00 98.1 80 22 142/71 (94) 98 09/03/20 20:00 73 09/03/20 19:05 73 28 30 09/03/20 16:00 62 09/03/20 16:00 98.1 65 22 110/64 (79) 100 09/03/20 16:00 Mechanical Ventilator 09/03/20 15:39 65 24 30 09/03/20 14:40 30 09/03/20 13:29 82 18 100 09/03/20 13:28 82 18 100 09/03/20 12:00 76 09/03/20 12:00 97.7 60 24 130/76 (94) 100 09/03/20 12:00 Mechanical Ventilator Intake and Output 09/03/20 09/04/20 19:00 07:00 Intake Total 870 ml 2070 ml Output Total 550 ml 500 ml Balance 320 ml 1570 ml Intake Free Water 150 ml IV Total 600 ml 1410 ml Tube Feeding 120 ml 660 ml Output Urine Total 550 ml 500 ml # Bowel Movements 2 4 General Appearance: no acute distress HEENT: atraumatic Respiratory: other - trach vent Cardiovascular: normal rate, regular rhythm Abdomen: soft, non tender Microbiology Date/Time Source Procedure Growth Status 09/02/20 11:40 Blood Blood Culture - Preliminary NO GROWTH AFTER 24 HOURS Resulted 09/02/20 11:30 Blood Blood Culture - Preliminary NO GROWTH AFTER 24 HOURS Resulted Laboratory Tests 09/03/20 18:05: POC Whole Blood Glucose 151H 09/04/20 00:34: POC Whole Blood Glucose [Pending] 09/04/20 03:00: Sodium Level 141, Potassium Level 4.4#, Chloride Level 110H, Carbon Dioxide Level 24, Anion Gap 7, Blood Urea Nitrogen 13, Creatinine 0.8, Estimat Glomerular Filtration Rate > 60, Glucose Level 142#H, Calcium Level 8.0L, Phosphorus Level 2.0L, Magnesium Level 2.0, Total Bilirubin 0.1L, Aspartate Amino Transf (AST/SGOT) 24, Alanine Aminotransferase (ALT/SGPT) 21, Alkaline Phosphatase 97, Total Protein 6.3L, Albumin 1.3L, Globulin 5.0, Albumin/Globulin Ratio 0.3L 09/04/20 11:19: POC Whole Blood Glucose 158H Current Medications Medications (Trade) Dose Ordered Sig/Kirby Route PRN Reason Start Time Stop Time Status Last Admin Dose Admin Acetaminophen (Tylenol) 650 mg Q4H PRN NG Mild Pain (Pain Scale 1-3) 08/31/20 09:00 09/30/20 08:59 Acetaminophen (Tylenol) 650 mg Q4H PRN NG Temp >100.5 08/31/20 09:00 09/30/20 08:59 Ampicillin 2 gm/ Sodium Chloride 110 ml @ 220 mls/hr EVERY 4 HOURS IV 09/02/20 09:30 09/09/20 09:29 09/04/20 08:30 Dextrose (Dextrose 50%) 25 ml Q30M PRN IV Hypoglycemia 08/30/20 16:45 11/28/20 16:44 Dextrose (Dextrose 50%) 50 ml Q30M PRN IV Hypoglycemia 08/30/20 16:45 11/28/20 16:44 Famotidine (Pepcid I.v.) 20 mg Q12HR IVP 08/31/20 09:30 09/30/20 09:29 09/04/20 08:30 Insulin Aspart (NovoLOG) Q6HR SUBQ 08/30/20 18:00 11/28/20 17:59 09/04/20 06:00 Lansoprazole (Prevacid) 30 mg BID GT 09/01/20 18:00 09/30/20 17:59 09/04/20 08:30 Ondansetron HCl (Zofran) 4 mg Q4H PRN IVP Nausea & Vomiting 08/30/20 16:45 09/29/20 16:44 Potassium Chloride/Sodium Chloride 1,000 ml @ 50 mls/hr Q20H IV 09/03/20 14:00 10/03/20 13:59 09/04/20 08:32 Potassium Chloride (K-Dur) 40 meq TWICE A DAY ORAL 09/02/20 21:00 12/01/20 20:59 09/03/20 17:41 Sucralfate (Carafate) 1 gm FOUR TIMES A DAY ORAL 09/03/20 13:00 12/02/20 12:59 09/04/20 08:30 Assessment/Plan Assessment/Plan 1. Bilateral health-care associated pneumonia. - on Abx per ID 2. GI bleed. - On PPI - s/p EGD 3. Tracheostomy. - Continue AC mode; now FiO2 30%; Keep SaO2 >94% 4. Diabetes mellitus. 5. Hypertension. 6. CVA. 7. hypokalemia - K being replaced 8. hypomagnesemia 9. DVT ppx - V/D legs negative for DVT - continue SCD GI prophylaxes, we will hold anticoagulation given GI bleed. The care for this patient was discussed with my supervising physician Time spent for this case was approximately 31 minutes Vicente Zhu Sep 04, 2020 11:25
[2020-09-04] MEDS ORDERED: Potassium Phosphate 20 MM in NS 275 ML IV SCH (13:30)
--- NOTE | 2020-09-04 14:16 | Nephrology Progress Note ---
Assessment/Plan Problem List: (1) Acute renal failure (2) Sepsis (3) Pneumonia (4) Upper GI bleed (5) Anemia Assessment Acute renal failure Prerenal azotemia/dehydration Acute GI bleed Sepsis, pneumonia Hypotension, septic shock PEG Trach to vent Plan September 04: Labs reviewed. Abnormal electrolytes addressed. Medication list reviewed and adjusted. Continue per consultants. Continue to monitor electrolytes September 03: Labs reviewed. Abnormal electrolyte addressed. Discussed with RN. Continue to monitor renal parameters and electrolytes. Medication list reviewed. September 02: Labs reviewed. Abnormal electrolytes addressed. Continue to monitor renal parameters and electrolytes. Continue per consultants. Medication list reviewed. Previously: Hydrate Monitor renal parameters and electrolytes Correct abnormal electrolytes Monitor hemoglobin and hematocrit IV Pepcid Albumin bolus Per forestry consultant Subjective ROS Limited/Unobtainable: Yes Objective Objective Last 24 Hour Vital Signs Date Time Temp Pulse Resp B/P (MAP) Pulse Ox O2 Delivery O2 Flow Rate FiO2 09/04/20 12:00 Mechanical Ventilator 09/04/20 11:42 78 09/04/20 11:22 96.8 74 22 119/73 (88) 99 09/04/20 09:00 77 29 30 09/04/20 09:00 Mechanical Ventilator 09/04/20 08:00 97.2 69 20 134/71 (92) 100 09/04/20 07:42 66 09/04/20 07:20 57 22 30 09/04/20 05:00 63 22 30 09/04/20 04:00 Mechanical Ventilator 09/04/20 04:00 98.0 72 22 122/69 (86) 98 09/04/20 04:00 62 09/04/20 03:05 62 22 30 09/04/20 00:54 68 22 30 09/04/20 00:00 Mechanical Ventilator 09/04/20 00:00 99.0 72 22 108/71 (83) 97 09/03/20 23:15 67 23 30 09/03/20 20:57 70 26 30 09/03/20 20:00 Mechanical Ventilator 09/03/20 20:00 98.1 80 22 142/71 (94) 98 09/03/20 20:00 73 09/03/20 19:05 73 28 30 09/03/20 16:00 62 09/03/20 16:00 98.1 65 22 110/64 (79) 100 09/03/20 16:00 Mechanical Ventilator 09/03/20 15:39 65 24 30 09/03/20 14:40 30 Intake and Output 09/03/20 09/04/20 19:00 07:00 Intake Total 870 ml 2070 ml Output Total 550 ml 500 ml Balance 320 ml 1570 ml Intake Free Water 150 ml IV Total 600 ml 1410 ml Tube Feeding 120 ml 660 ml Output Urine Total 550 ml 500 ml # Bowel Movements 2 4 Current Medications Medications (Trade) Dose Ordered Sig/Kirby Route PRN Reason Start Time Stop Time Status Last Admin Dose Admin Acetaminophen (Tylenol) 650 mg Q4H PRN NG Mild Pain (Pain Scale 1-3) 08/31/20 09:00 09/30/20 08:59 Acetaminophen (Tylenol) 650 mg Q4H PRN NG Temp >100.5 08/31/20 09:00 09/30/20 08:59 Ampicillin 2 gm/ Sodium Chloride 110 ml @ 220 mls/hr EVERY 4 HOURS IV 09/02/20 09:30 09/09/20 09:29 09/04/20 12:27 Dextrose (Dextrose 50%) 25 ml Q30M PRN IV Hypoglycemia 08/30/20 16:45 11/28/20 16:44 Dextrose (Dextrose 50%) 50 ml Q30M PRN IV Hypoglycemia 08/30/20 16:45 11/28/20 16:44 Famotidine (Pepcid I.v.) 20 mg Q12HR IVP 08/31/20 09:30 09/30/20 09:29 09/04/20 08:30 Insulin Aspart (NovoLOG) Q6HR SUBQ 08/30/20 18:00 11/28/20 17:59 09/04/20 11:27 Lansoprazole (Prevacid) 30 mg BID GT 09/01/20 18:00 09/30/20 17:59 09/04/20 08:30 Ondansetron HCl (Zofran) 4 mg Q4H PRN IVP Nausea & Vomiting 08/30/20 16:45 09/29/20 16:44 Potassium Chloride/Sodium Chloride 1,000 ml @ 50 mls/hr Q20H IV 09/03/20 14:00 10/03/20 13:59 09/04/20 08:32 Potassium Phosphate 20 mm/ Sodium Chloride 281.6667 ml @ 46.944 m... ONCE IV 09/04/20 13:30 09/04/20 20:00 09/04/20 12:52 Sucralfate (Carafate) 1 gm FOUR TIMES A DAY ORAL 09/03/20 13:00 12/02/20 12:59 09/04/20 12:28 Laboratory Tests 09/03/20 18:05: POC Whole Blood Glucose 151H 09/04/20 00:34: POC Whole Blood Glucose [Pending] 09/04/20 03:00: Sodium Level 141, Potassium Level 4.4#, Chloride Level 110H, Carbon Dioxide Level 24, Anion Gap 7, Blood Urea Nitrogen 13, Creatinine 0.8, Estimat Glomerular Filtration Rate > 60, Glucose Level 142#H, Calcium Level 8.0L, Phosphorus Level 2.0L, Magnesium Level 2.0, Total Bilirubin 0.1L, Aspartate Amino Transf (AST/SGOT) 24, Alanine Aminotransferase (ALT/SGPT) 21, Alkaline Phosphatase 97, Total Protein 6.3L, Albumin 1.3L, Globulin 5.0, Albumin/Globulin Ratio 0.3L 09/04/20 11:19: POC Whole Blood Glucose 158H Height (Feet): 5 Height (Inches): 7.00 Weight (Pounds): 120 General Appearance: no apparent distress Cardiovascular: normal rate Respiratory/Chest: decreased breath sounds Abdomen: distended Ben Aguilar MD Sep 04, 2020 14:16
[2020-09-04 16:00] VITALS: BP 116/65
--- NOTE | 2020-09-04 19:20 | NUR ---
NURSE HAND-OFF REPORT: Important Events on Shift:stable Patient Status: full code Diet: tube feeds Pending Orders: [] Pending Results/Labs:[] Pending MD notification:[] Latest Vital Signs: Temperature 97.0 , Pulse 77 , B/P 116 /65 , Respiratory Rate 30 , O2 SAT 99 , Mechanical Ventilator, O2 Flow Rate 15.0 . Vital Sign Comment: stable EKG Rhythm: Sinus Rhythm Rhythm change?: N MD Notified?: - MD Response: Latest Brewer Fall Score: 35 Fall Risk: Medium Risk Safety Measures: Call light Within Reach, Bed Alarm Zone 2, Side Rails Side Rails x3, Bed position Low and Locked. Fall Precautions: Yellow Socks Patient Fall Education Report given to juanita gaines.
--- NOTE | 2020-09-04 19:25 | NUR ---
NURSE NOTES: Got report from Olivia HERNÁNDEZ. Pt in stable condition. Pt A+Ox3. Pt running Sinus Rhythm on the monitor. Pt resting in bed comfortably. No s/s of distress or discomfort noted. Pt afebrile. Pt on tube feeding tolerating well Nepro@40. Pt on vent at ordered rate. VSS. Bed in low and locked position, call light within reach, bedside table within reach. Continue to monitor. Addendum: 09/04/20 at 2005 by Tio Yoo RN Pt on Vital AF@60 not Nepro
--- NOTE | 2020-09-04 19:30 | General Progress Note ---
Subjective Allergies: Coded Allergies: No Known Allergies (Unverified , 08/30/20) Subjective above noted resting comfortably tolerating TF opens eye to stimulation Objective Last 24 Hour Vital Signs Date Time Temp Pulse Resp B/P (MAP) Pulse Ox O2 Delivery O2 Flow Rate FiO2 09/04/20 17:05 77 30 99 Mechanical Ventilator 30 09/04/20 17:00 77 30 30 09/04/20 16:50 68 09/04/20 16:00 97.0 78 21 116/65 (82) 100 09/04/20 15:00 77 24 30 09/04/20 14:41 30 09/04/20 13:00 80 29 30 09/04/20 12:00 Mechanical Ventilator 09/04/20 11:42 78 09/04/20 11:22 96.8 74 22 119/73 (88) 99 09/04/20 11:00 79 26 30 09/04/20 09:00 77 29 30 09/04/20 09:00 Mechanical Ventilator 09/04/20 08:00 97.2 69 20 134/71 (92) 100 09/04/20 07:42 66 09/04/20 07:20 57 22 30 09/04/20 05:00 63 22 30 09/04/20 04:00 Mechanical Ventilator 09/04/20 04:00 98.0 72 22 122/69 (86) 98 09/04/20 04:00 62 09/04/20 03:05 62 22 30 09/04/20 00:54 68 22 30 09/04/20 00:00 Mechanical Ventilator 09/04/20 00:00 99.0 72 22 108/71 (83) 97 09/03/20 23:15 67 23 30 09/03/20 20:57 70 26 30 09/03/20 20:00 Mechanical Ventilator 09/03/20 20:00 98.1 80 22 142/71 (94) 98 09/03/20 20:00 73 Intake and Output 09/03/20 09/04/20 19:00 07:00 Intake Total 870 ml 2070 ml Output Total 550 ml 500 ml Balance 320 ml 1570 ml Intake Free Water 150 ml IV Total 600 ml 1410 ml Tube Feeding 120 ml 660 ml Output Urine Total 550 ml 500 ml # Bowel Movements 2 4 Laboratory Tests 09/04/20 00:34: POC Whole Blood Glucose [Pending] 09/04/20 03:00: Sodium Level 141, Potassium Level 4.4#, Chloride Level 110H, Carbon Dioxide Level 24, Anion Gap 7, Blood Urea Nitrogen 13, Creatinine 0.8, Estimat Glomerular Filtration Rate > 60, Glucose Level 142#H, Calcium Level 8.0L, Phosphorus Level 2.0L, Magnesium Level 2.0, Total Bilirubin 0.1L, Aspartate Amino Transf (AST/SGOT) 24, Alanine Aminotransferase (ALT/SGPT) 21, Alkaline Phosphatase 97, Total Protein 6.3L, Albumin 1.3L, Globulin 5.0, Albumin/Globulin Ratio 0.3L 09/04/20 11:19: POC Whole Blood Glucose 158H Height (Feet): 5 Height (Inches): 7.00 Weight (Pounds): 120 Objective Thin man, NAD NCAT (+) trach CTA RR abd soft, (+) GT no edema Assessment/Plan Assessment/Plan: Assessment/Plan Problem List: (1) Upper GI bleed ICD Codes: K92.2 - Gastrointestinal hemorrhage, unspecified SNOMED: 74607254 (2) Pneumonia ICD Codes: J18.9 - Pneumonia, unspecified organism SNOMED: 326673491 (3) Sepsis ICD Codes: A41.9 - Sepsis, unspecified organism SNOMED: 08648734 (4) Acute renal failure ICD Codes: N17.9 - Acute kidney failure, unspecified SNOMED: 85838892 (5) Septic shock ICD Codes: A41.9 - Sepsis, unspecified organism; R65.21 - Severe sepsis with septic shock SNOMED: 07279909 Assessment/Plan: ppi malu H&H prn blood transfusion will Rosaura Bustillos MD Sep 04, 2020 19:30
[2020-09-04 20:00] VITALS: BP 134/71
[2020-09-05] VITALS: BP 120/73
[2020-09-05] MEDS: NovoLOG Insulin Flexpen SUBQ SCH ×5 (00:19→23:46)
[2020-09-05] MEDS: Acetaminophen 650mg/20.3ml NG PRN ×2 (00:23→20:30)
[2020-09-05] MEDS: Ampicillin 2 GM in NS 110 ML IV SCH ×6 (00:30→20:30)
[2020-09-05 03:30] VITALS: BP 115/70
[2020-09-05 05:53] LABS: BASOPHILS % (AUTO) 0.6 % (0.0-2.0); EOSINOPHILS % (AUTO) 1.6 % (0.0-3.0); HEMATOCRIT 25.6 % (42.0-52.0); LYMPHOCYTES % (AUTO) 13.1 % (20.0-45.0); MEAN CORPUSCULAR VOLUME 95 FL (80-99); MONOCYTES % (AUTO) 10.5 % (1.0-10.0); NEUTROPHILS % (AUTO) 74.2 % (45.0-75.0); PLATELET COUNT 310 K/UL (150-450); RED BLOOD COUNT 2.68 M/UL (4.70-6.10); RED CELL DISTRIBUTION WIDTH 15.4 % (11.6-14.8); WHITE BLOOD COUNT 9.8 K/UL (4.8-10.8)
[2020-09-05 06:53] LABS: ALANINE AMINOTRANSFERASE 27 U/L (12-78); ALBUMIN 1.4 G/DL (3.4-5.0); ALBUMIN/GLOBULIN RATIO 0.3 (1.0-2.7); ALKALINE PHOSPHATASE 136 U/L (46-116); ANION GAP 8 mmol/L (5-15); ASPARTATE AMINO TRANSFERASE 27 U/L (15-37); BILIRUBIN,TOTAL < 0.1 MG/DL (0.2-1.0); BLOOD UREA NITROGEN 23 mg/dL (7-18); CALCIUM 8.4 MG/DL (8.5-10.1); CARBON DIOXIDE 24 MMOL/L (21-32); CHLORIDE 111 MMOL/L (98-107); PHOSPHORUS 2.9 MG/DL (2.5-4.9); POTASSIUM 4.3 MMOL/L (3.5-5.1); SODIUM 143 MMOL/L (136-145)
--- NOTE | 2020-09-05 07:07 | NUR ---
NURSE HAND-OFF REPORT: Important Events on Shift:[] Patient Status: [STABLE] Diet: [VITAL AF@60] Pending Orders: [] Pending Results/Labs:[] Pending MD notification:[] Latest Vital Signs: Temperature 99.0 , Pulse 66 , B/P 115 /70 , Respiratory Rate 20 , O2 SAT 98 , Mechanical Ventilator, O2 Flow Rate 15.0 . Vital Sign Comment: [] EKG Rhythm: Sinus Rhythm Rhythm change?: N MD Notified?: - MD Response: Latest Brewer Fall Score: 35 Fall Risk: Medium Risk Safety Measures: Call light Within Reach, Bed Alarm Zone 2, Side Rails Side Rails x3, Bed position Low and Locked. Fall Precautions: Yellow Socks Patient Fall Education Report given to [GISSELLE HERNÁNDEZ].
--- NOTE | 2020-09-05 07:08 | NUR ---
Crossing [place]: received patient report from juanita gaines. patient is on bed asleep. not in acute distress. no acute events reported last night. vent setting tolerating.on tube feeds, tolerating well. bed is low and locked for safety.will follow plan of care.
[2020-09-05 08:00] VITALS: BP 131/76
[2020-09-05] MEDS: Sucralfate 1gm tab ORAL SCH ×4 (08:32→20:30)
[2020-09-05] MEDS ORDERED: D5 1/2NS 1000ml IV ONE ×2 (09:17→09:52)
[2020-09-05] MEDS ORDERED: NS 275ml ONE ×2 (09:17→09:52)
[2020-09-05] MEDS ORDERED: Tubing IV Secondary IV ONE (09:52)
--- NOTE | 2020-09-05 11:10 | Surgery Progress Note ---
Surgery Progress Note Subjective Symptoms: improved, tolerating diet, passing flatus Objective Last 24 Hour Vital Signs Date Time Temp Pulse Resp B/P (MAP) Pulse Ox O2 Delivery O2 Flow Rate FiO2 09/05/20 08:00 98.4 75 22 131/76 (94) 100 09/05/20 07:46 66 09/05/20 07:19 Mechanical Ventilator 09/05/20 04:00 Mechanical Ventilator 09/05/20 04:00 66 09/05/20 03:30 99.0 74 20 115/70 (85) 98 09/05/20 03:21 65 22 30 09/05/20 00:55 99.0 09/05/20 00:00 75 09/05/20 00:00 Mechanical Ventilator 09/05/20 00:00 99.0 80 20 120/73 (89) 99 09/04/20 23:10 73 28 30 09/04/20 20:00 69 09/04/20 20:00 97.2 69 20 134/71 (92) 100 09/04/20 20:00 Mechanical Ventilator 09/04/20 19:30 74 22 30 09/04/20 17:05 77 30 99 Mechanical Ventilator 30 09/04/20 17:00 77 30 30 09/04/20 16:50 68 09/04/20 16:00 97.0 78 21 116/65 (82) 100 09/04/20 15:00 77 24 30 09/04/20 14:41 30 09/04/20 13:00 80 29 30 09/04/20 12:00 Mechanical Ventilator 09/04/20 11:42 78 09/04/20 11:22 96.8 74 22 119/73 (88) 99 I&O Intake and Output 09/04/20 09/05/20 19:00 07:00 Intake Total 1564.720 ml 930 ml Output Total 150 ml 500 ml Balance 1414.720 ml 430 ml Intake Free Water 80 ml IV Total 764.720 ml 330 ml Tube Feeding 720 ml 600 ml Output Urine Total 150 ml 500 ml # Bowel Movements 1 Dressing: saturated Cardiovascular: RSR Respiratory: clear, decreased breath sounds Abdomen: soft, non-tender, present bowel sounds, non-distended Extremities: no edema, no tenderness, no cyanosis Laboratory Tests Test 09/04/20 11:19 09/04/20 17:08 09/05/20 05:21 POC Whole Blood Glucose 158 MG/DL (74-106) H 148 MG/DL (74-106) H White Blood Count 9.8 K/UL (4.8-10.8) Red Blood Count 2.68 M/UL (4.70-6.10) L Hemoglobin 8.0 G/DL (14.2-18.0) L Hematocrit 25.6 % (42.0-52.0) L Mean Corpuscular Volume 95 FL (80-99) Mean Corpuscular Hemoglobin 30.0 PG (27.0-31.0) Mean Corpuscular Hemoglobin Concent 31.5 G/DL (32.0-36.0) L Red Cell Distribution Width 15.4 % (11.6-14.8) H Platelet Count 310 K/UL (150-450) Mean Platelet Volume 6.8 FL (6.5-10.1) Neutrophils (%) (Auto) 74.2 % (45.0-75.0) Lymphocytes (%) (Auto) 13.1 % (20.0-45.0) L Monocytes (%) (Auto) 10.5 % (1.0-10.0) H Eosinophils (%) (Auto) 1.6 % (0.0-3.0) Basophils (%) (Auto) 0.6 % (0.0-2.0) Sodium Level 143 MMOL/L (136-145) Potassium Level 4.3 MMOL/L (3.5-5.1) Chloride Level 111 MMOL/L (98-107) H Carbon Dioxide Level 24 MMOL/L (21-32) Anion Gap 8 mmol/L (5-15) Blood Urea Nitrogen 23 mg/dL (7-18) H Creatinine 1.0 MG/DL (0.55-1.30) Estimat Glomerular Filtration Rate > 60 mL/min (>60) Glucose Level 181 MG/DL (74-106) H Calcium Level 8.4 MG/DL (8.5-10.1) L Phosphorus Level 2.9 MG/DL (2.5-4.9) Magnesium Level 1.7 MG/DL (1.8-2.4) L Total Bilirubin < 0.1 MG/DL (0.2-1.0) L Aspartate Amino Transf (AST/SGOT) 27 U/L (15-37) Alanine Aminotransferase (ALT/SGPT) 27 U/L (12-78) Alkaline Phosphatase 136 U/L (46-116) H Total Protein 6.3 G/DL (6.4-8.2) L Albumin 1.4 G/DL (3.4-5.0) L Globulin 4.9 g/dL Albumin/Globulin Ratio 0.3 (1.0-2.7) L Plan Problems: (1) Septic shock (2) Acute renal failure (3) Sepsis Assessment & Plan: 64-year-old male leukocytosis abnormal labs ultrasound with gallbladder wall thickening no pericholecystic fluid no gallstones potentially a calculus cholecystitis. Patient unable to verbalize or identify tenderness. Examination fairly unreliable. Clinically recommend given patient's history and condition medical management and will monitor clinically. The liver and spleen are homogeneous. Mild wall thickening of the gallbladder noted. Common bile duct measures 3 mm. The pancreas is unremarkable to the extent visualized. There are nonshadowing cortical echogenic focus in the left kidney likely perivascular fat. No renal stone or hydronephrosis seen bilaterally. Aorta and cava are within normal limits. IMPRESSION: NO GALLSTONE OR SLUDGE IS IDENTIFIED BUT THERE IS EDEMA AND GALLBLADDER WALL THICKENING. PATIENT IS UNABLE TO REPORT FOCAL SYMPTOMS. LEFT RENAL CORTICAL ECHOGENIC FOCUS WITHOUT SHADOWING LIKELY PERIVASCULAR FAT. NO DISCRETE RENAL STONE OR HYDRONEPHROSIS. INCIDENTAL SMALL LEFT PLEURAL EFFUSION. (4) Pneumonia (5) Upper GI bleed Assessment & Plan: Patient had acute drop in hemoglobin noted some dark stool consider removed potentially blood GI called GI eval pending occult stool trend H&H PRBC if drops below 7 will follow with recommendations s/p egd peg bx results pending DAILY ESTIMATED NEEDS: Needs based on Critical care, underweight, TF [employer] 50kg 28-33 kcals/kg 7737-0392 total kcals 1.2-2 g protein/kg 60-100 g total protein 25-30 mL/kg 4644-6228 total fluid mLs NUTRITION DIAGNOSIS: Swallowing difficulty r/t respiratory failure as evidenced by pt is vent dep via trach/ PEG dep. CURRENT TF:Vital @60ml/hr x24 hrs -> now NPO for EGD ENTERAL NUTRITION RECOMMENDATIONS: rec to LOWER Vital 1.2 goal of 55ml/hr x24 hrs to provide 1320ml, 1584 kcal, 99g pro, 1071ml free H2O - rec to LOWER goal to 55ml/hr to not exceed est needs - flush per MD. HOB over 30 degrees ADDITIONAL RECOMMENDATIONS: 1) Maintain calibrated bed scale wts 2) rec bedside BG testing/ niss -> now on NISS 3) replete lytes as needed (low K and phos) 4) DC D5 IVF when TF resumes for improved BG control Doe Nina Sep 05, 2020 11:10
--- NOTE | 2020-09-05 11:47 | Hematology/Onc Progress Note ---
Assessment/Plan Assessment/Plan Assessment and recs # Leukocytosis due to underlying Sepsis --> per ID recs --> ABX cefepime/vanc--ampicillin --> wbc 13-->13-->9 # Anemia with a upper gi bleed --> per gi eval --> hgb 12-->8.8-->8.6-->8.8 --> anemia panel is noted, and dw ACD --> transfuse prn basis --> review smear # Pneumonia b//l pna on imaging --> imaging seen --> per id # Respiratory failure --> s/p vent/trach # Septic shock # Acute renal failure # Upper GI bleed # Hypotensive and tachycardic. --> Patient given IV fluids and is fluid responsive. # Dvt ppx scds Appreciate consultation and stefany Rn Subjective Allergies: Coded Allergies: No Known Allergies (Unverified , 08/30/20) All Systems: reviewed and negative except above Subjective 09/01 stefany rn, on abx broad spectrum, labs noted, no active bleed at this time 09/02 meds noted, no bleeding, stefany rn, wbc 18, hgb 8.6, no hemolysis 09/03 plan for egd this am, labs noted, no bleeding, stefany rn 09/05 meds noted, no bleeding, vent setting tolerated, no bleeding Objective Objective Current Medications Medications (Trade) Dose Ordered Sig/Kirby Route PRN Reason Start Time Stop Time Status Last Admin Dose Admin Acetaminophen (Tylenol) 650 mg Q4H PRN NG Mild Pain (Pain Scale 1-3) 08/31/20 09:00 09/30/20 08:59 09/05/20 00:23 Acetaminophen (Tylenol) 650 mg Q4H PRN NG Temp >100.5 08/31/20 09:00 09/30/20 08:59 Ampicillin 2 gm/ Sodium Chloride 110 ml @ 220 mls/hr EVERY 4 HOURS IV 09/02/20 09:30 09/09/20 09:29 09/05/20 08:20 Dextrose (Dextrose 50%) 25 ml Q30M PRN IV Hypoglycemia 08/30/20 16:45 11/28/20 16:44 Dextrose (Dextrose 50%) 50 ml Q30M PRN IV Hypoglycemia 08/30/20 16:45 11/28/20 16:44 Insulin Aspart (NovoLOG) Q6HR SUBQ 08/30/20 18:00 11/28/20 17:59 09/05/20 11:20 Lansoprazole (Prevacid) 30 mg BID GT 09/01/20 18:00 09/30/20 17:59 09/05/20 08:19 Magnesium Sulfate 100 ml @ 100 mls/hr Q1H IVPB 09/05/20 11:45 09/05/20 13:44 09/05/20 11:19 Ondansetron HCl (Zofran) 4 mg Q4H PRN IVP Nausea & Vomiting 08/30/20 16:45 09/29/20 16:44 Sucralfate (Carafate) 1 gm FOUR TIMES A DAY ORAL 09/03/20 13:00 12/02/20 12:59 09/05/20 08:32 Last 24 Hour Vital Signs Date Time Temp Pulse Resp B/P (MAP) Pulse Ox O2 Delivery O2 Flow Rate FiO2 09/05/20 08:00 98.4 75 22 131/76 (94) 100 09/05/20 07:46 66 09/05/20 07:19 Mechanical Ventilator 09/05/20 04:00 Mechanical Ventilator 09/05/20 04:00 66 09/05/20 03:30 99.0 74 20 115/70 (85) 98 09/05/20 03:21 65 22 30 09/05/20 00:55 99.0 09/05/20 00:00 75 09/05/20 00:00 Mechanical Ventilator 09/05/20 00:00 99.0 80 20 120/73 (89) 99 09/04/20 23:10 73 28 30 09/04/20 20:00 69 09/04/20 20:00 97.2 69 20 134/71 (92) 100 09/04/20 20:00 Mechanical Ventilator 09/04/20 19:30 74 22 30 09/04/20 17:05 77 30 99 Mechanical Ventilator 30 09/04/20 17:00 77 30 30 09/04/20 16:50 68 09/04/20 16:00 97.0 78 21 116/65 (82) 100 09/04/20 15:00 77 24 30 09/04/20 14:41 30 09/04/20 13:00 80 29 30 09/04/20 12:00 Mechanical Ventilator 09/04/20 11:42 78 09/04/20 11:22 96.8 74 22 119/73 (88) 99 09/04/20 11:00 79 26 30 09/04/20 09:00 77 29 30 09/04/20 09:00 Mechanical Ventilator 09/04/20 08:00 97.2 69 20 134/71 (92) 100 09/04/20 07:42 66 09/04/20 07:20 57 22 30 09/04/20 05:00 63 22 30 09/04/20 04:00 Mechanical Ventilator 09/04/20 04:00 98.0 72 22 122/69 (86) 98 09/04/20 04:00 62 09/04/20 03:05 62 22 30 09/04/20 00:54 68 22 30 09/04/20 00:00 Mechanical Ventilator 09/04/20 00:00 99.0 72 22 108/71 (83) 97 09/03/20 23:15 67 23 30 09/03/20 20:57 70 26 30 09/03/20 20:00 Mechanical Ventilator 09/03/20 20:00 98.1 80 22 142/71 (94) 98 09/03/20 20:00 73 09/03/20 19:05 73 28 30 09/03/20 16:00 62 09/03/20 16:00 98.1 65 22 110/64 (79) 100 09/03/20 16:00 Mechanical Ventilator 09/03/20 15:39 65 24 30 09/03/20 14:40 30 09/03/20 13:29 82 18 100 09/03/20 13:28 82 18 100 09/03/20 12:00 76 09/03/20 12:00 97.7 60 24 130/76 (94) 100 09/03/20 12:00 Mechanical Ventilator Intake and Output 09/04/20 09/05/20 19:00 07:00 Intake Total 1564.720 ml 930 ml Output Total 150 ml 500 ml Balance 1414.720 ml 430 ml Intake Free Water 80 ml IV Total 764.720 ml 330 ml Tube Feeding 720 ml 600 ml Output Urine Total 150 ml 500 ml # Bowel Movements 1 Labs Test 09/02/20 17:08 09/02/20 23:08 09/03/20 03:30 09/03/20 05:15 POC Whole Blood Glucose 133 MG/DL (74-106) 153 MG/DL (74-106) White Blood Count 10.1 K/UL (4.8-10.8) Red Blood Count 2.91 M/UL (4.70-6.10) Hemoglobin 8.8 G/DL (14.2-18.0) Hematocrit 26.8 % (42.0-52.0) Mean Corpuscular Volume 92 FL (80-99) Mean Corpuscular Hemoglobin 30.2 PG (27.0-31.0) Mean Corpuscular Hemoglobin Concent 32.8 G/DL (32.0-36.0) Red Cell Distribution Width 14.0 % (11.6-14.8) Platelet Count 247 K/UL (150-450) Mean Platelet Volume 7.5 FL (6.5-10.1) Neutrophils (%) (Auto) 77.9 % (45.0-75.0) Lymphocytes (%) (Auto) 11.2 % (20.0-45.0) Monocytes (%) (Auto) 9.9 % (1.0-10.0) Eosinophils (%) (Auto) 0.8 % (0.0-3.0) Basophils (%) (Auto) 0.3 % (0.0-2.0) Sodium Level 137 MMOL/L (136-145) Potassium Level 2.9 MMOL/L (3.5-5.1) Chloride Level 102 MMOL/L (98-107) Carbon Dioxide Level 28 MMOL/L (21-32) Anion Gap 7 mmol/L (5-15) Blood Urea Nitrogen 15 mg/dL (7-18) Creatinine 0.8 MG/DL (0.55-1.30) Estimat Glomerular Filtration Rate > 60 mL/min (>60) Glucose Level 241 MG/DL (74-106) Calcium Level 7.7 MG/DL (8.5-10.1) Phosphorus Level 2.0 MG/DL (2.5-4.9) Magnesium Level 1.7 MG/DL (1.8-2.4) Total Bilirubin 0.2 MG/DL (0.2-1.0) Aspartate Amino Transf (AST/SGOT) 31 U/L (15-37) Alanine Aminotransferase (ALT/SGPT) 33 U/L (12-78) Alkaline Phosphatase 92 U/L (46-116) Total Protein 6.1 G/DL (6.4-8.2) Albumin 1.3 G/DL (3.4-5.0) Globulin 4.8 g/dL Albumin/Globulin Ratio 0.3 (1.0-2.7) Test 09/03/20 18:05 09/04/20 00:34 09/04/20 03:00 09/04/20 11:19 POC Whole Blood Glucose 151 MG/DL (74-106) 158 MG/DL (74-106) Sodium Level 141 MMOL/L (136-145) Potassium Level 4.4 MMOL/L (3.5-5.1) Chloride Level 110 MMOL/L (98-107) Carbon Dioxide Level 24 MMOL/L (21-32) Anion Gap 7 mmol/L (5-15) Blood Urea Nitrogen 13 mg/dL (7-18) Creatinine 0.8 MG/DL (0.55-1.30) Estimat Glomerular Filtration Rate > 60 mL/min (>60) Glucose Level 142 MG/DL (74-106) Calcium Level 8.0 MG/DL (8.5-10.1) Phosphorus Level 2.0 MG/DL (2.5-4.9) Magnesium Level 2.0 MG/DL (1.8-2.4) Total Bilirubin 0.1 MG/DL (0.2-1.0) Aspartate Amino Transf (AST/SGOT) 24 U/L (15-37) Alanine Aminotransferase (ALT/SGPT) 21 U/L (12-78) Alkaline Phosphatase 97 U/L (46-116) Total Protein 6.3 G/DL (6.4-8.2) Albumin 1.3 G/DL (3.4-5.0) Globulin 5.0 g/dL Albumin/Globulin Ratio 0.3 (1.0-2.7) Test 09/04/20 17:08 09/05/20 05:21 09/05/20 11:15 POC Whole Blood Glucose 148 MG/DL (74-106) 150 MG/DL (74-106) White Blood Count 9.8 K/UL (4.8-10.8) Red Blood Count 2.68 M/UL (4.70-6.10) Hemoglobin 8.0 G/DL (14.2-18.0) Hematocrit 25.6 % (42.0-52.0) Mean Corpuscular Volume 95 FL (80-99) Mean Corpuscular Hemoglobin 30.0 PG (27.0-31.0) Mean Corpuscular Hemoglobin Concent 31.5 G/DL (32.0-36.0) Red Cell Distribution Width 15.4 % (11.6-14.8) Platelet Count 310 K/UL (150-450) Mean Platelet Volume 6.8 FL (6.5-10.1) Neutrophils (%) (Auto) 74.2 % (45.0-75.0) Lymphocytes (%) (Auto) 13.1 % (20.0-45.0) Monocytes (%) (Auto) 10.5 % (1.0-10.0) Eosinophils (%) (Auto) 1.6 % (0.0-3.0) Basophils (%) (Auto) 0.6 % (0.0-2.0) Sodium Level 143 MMOL/L (136-145) Potassium Level 4.3 MMOL/L (3.5-5.1) Chloride Level 111 MMOL/L (98-107) Carbon Dioxide Level 24 MMOL/L (21-32) Anion Gap 8 mmol/L (5-15) Blood Urea Nitrogen 23 mg/dL (7-18) Creatinine 1.0 MG/DL (0.55-1.30) Estimat Glomerular Filtration Rate > 60 mL/min (>60) Glucose Level 181 MG/DL (74-106) Calcium Level 8.4 MG/DL (8.5-10.1) Phosphorus Level 2.9 MG/DL (2.5-4.9) Magnesium Level 1.7 MG/DL (1.8-2.4) Total Bilirubin < 0.1 MG/DL (0.2-1.0) Aspartate Amino Transf (AST/SGOT) 27 U/L (15-37) Alanine Aminotransferase (ALT/SGPT) 27 U/L (12-78) Alkaline Phosphatase 136 U/L (46-116) Total Protein 6.3 G/DL (6.4-8.2) Albumin 1.4 G/DL (3.4-5.0) Globulin 4.9 g/dL Albumin/Globulin Ratio 0.3 (1.0-2.7) Height (Feet): 5 Height (Inches): 7.00 Weight (Pounds): 120 Objective Physical Exam Vitals abnormal General Appearance: nv, thin, Chronically Ill Heent: normocephalic, atraumatic ++ Trach in place VEnt++ Respiratory: rhonchi Cardiovascular: tachycardia Gastrointestinal: non tender, soft, non-distended, other ++ G-tube in the epigastric region Musculoskeletal: no calf tenderness, no lower extremity edema Psychiatric: other - Unable to assess as parent patient is nonverbal Skin: no rash Nick Ferguson MD Sep 05, 2020 11:47
[2020-09-05 12:00] VITALS: BP 130/70
--- NOTE | 2020-09-05 12:32 | Pulmonology Progress Note ---
Subjective ROS Limited/Unobtainable: Yes Interval Events: s/p EGD Constitutional: Reports: no symptoms HEENT: Repors: no symptoms Respiratory: Reports: no symptoms Cardiovascular: Reports: no symptoms Gastrointestinal/Abdominal: Reports: no symptoms Allergies: Coded Allergies: No Known Allergies (Unverified , 08/30/20) All Systems: reviewed and negative except above Objective Last 24 Hour Vital Signs Date Time Temp Pulse Resp B/P (MAP) Pulse Ox O2 Delivery O2 Flow Rate FiO2 09/05/20 12:00 65 09/05/20 08:00 98.4 75 22 131/76 (94) 100 09/05/20 07:46 66 09/05/20 07:19 Mechanical Ventilator 09/05/20 04:00 Mechanical Ventilator 09/05/20 04:00 66 09/05/20 03:30 99.0 74 20 115/70 (85) 98 09/05/20 03:21 65 22 30 09/05/20 00:55 99.0 09/05/20 00:00 75 09/05/20 00:00 Mechanical Ventilator 09/05/20 00:00 99.0 80 20 120/73 (89) 99 09/04/20 23:10 73 28 30 09/04/20 20:00 69 09/04/20 20:00 97.2 69 20 134/71 (92) 100 09/04/20 20:00 Mechanical Ventilator 09/04/20 19:30 74 22 30 09/04/20 17:05 77 30 99 Mechanical Ventilator 30 09/04/20 17:00 77 30 30 09/04/20 16:50 68 09/04/20 16:00 97.0 78 21 116/65 (82) 100 09/04/20 15:00 77 24 30 09/04/20 14:41 30 09/04/20 13:00 80 29 30 Intake and Output 09/04/20 09/05/20 19:00 07:00 Intake Total 1564.720 ml 930 ml Output Total 150 ml 500 ml Balance 1414.720 ml 430 ml Intake Free Water 80 ml IV Total 764.720 ml 330 ml Tube Feeding 720 ml 600 ml Output Urine Total 150 ml 500 ml # Bowel Movements 1 General Appearance: no acute distress HEENT: atraumatic Respiratory: other - trach vent Cardiovascular: normal rate, regular rhythm Abdomen: soft, non tender Laboratory Tests 09/04/20 17:08: POC Whole Blood Glucose 148H 09/05/20 05:21: White Blood Count 9.8, Red Blood Count 2.68L, Hemoglobin 8.0L, Hematocrit 25.6L, Mean Corpuscular Volume 95, Mean Corpuscular Hemoglobin 30.0, Mean Corpuscular Hemoglobin Concent 31.5L, Red Cell Distribution Width 15.4H, Platelet Count 310, Mean Platelet Volume 6.8, Neutrophils (%) (Auto) 74.2, Lymphocytes (%) (Auto) 13.1L, Monocytes (%) (Auto) 10.5H, Eosinophils (%) (Auto) 1.6, Basophils (%) (Auto) 0.6, Sodium Level 143, Potassium Level 4.3, Chloride Level 111H, Carbon Dioxide Level 24, Anion Gap 8, Blood Urea Nitrogen 23H, Creatinine 1.0, Estimat Glomerular Filtration Rate > 60, Glucose Level 181H, Calcium Level 8.4L, Phosphorus Level 2.9, Magnesium Level 1.7L, Total Bilirubin < 0.1L, Aspartate Amino Transf (AST/SGOT) 27, Alanine Aminotransferase (ALT/SGPT) 27, Alkaline Phosphatase 136H, Total Protein 6.3L, Albumin 1.4L, Globulin 4.9, Albumin/Globulin Ratio 0.3L 09/05/20 11:15: POC Whole Blood Glucose 150H Current Medications Medications (Trade) Dose Ordered Sig/Kirby Route PRN Reason Start Time Stop Time Status Last Admin Dose Admin Acetaminophen (Tylenol) 650 mg Q4H PRN NG Mild Pain (Pain Scale 1-3) 08/31/20 09:00 09/30/20 08:59 09/05/20 00:23 Acetaminophen (Tylenol) 650 mg Q4H PRN NG Temp >100.5 08/31/20 09:00 09/30/20 08:59 Ampicillin 2 gm/ Sodium Chloride 110 ml @ 220 mls/hr EVERY 4 HOURS IV 09/02/20 09:30 09/09/20 09:29 09/05/20 08:20 Dextrose (Dextrose 50%) 25 ml Q30M PRN IV Hypoglycemia 08/30/20 16:45 11/28/20 16:44 Dextrose (Dextrose 50%) 50 ml Q30M PRN IV Hypoglycemia 08/30/20 16:45 11/28/20 16:44 Insulin Aspart (NovoLOG) Q6HR SUBQ 08/30/20 18:00 11/28/20 17:59 09/05/20 11:20 Lansoprazole (Prevacid) 30 mg BID GT 09/01/20 18:00 09/30/20 17:59 09/05/20 08:19 Magnesium Sulfate 100 ml @ 100 mls/hr Q1H IVPB 09/05/20 11:45 09/05/20 13:44 09/05/20 11:19 Ondansetron HCl (Zofran) 4 mg Q4H PRN IVP Nausea & Vomiting 08/30/20 16:45 09/29/20 16:44 Sucralfate (Carafate) 1 gm FOUR TIMES A DAY ORAL 09/03/20 13:00 12/02/20 12:59 09/05/20 08:32 Assessment/Plan Assessment/Plan 1. Bilateral health-care associated pneumonia. - on Abx per ID 2. GI bleed. - On PPI - s/p EGD 3. Tracheostomy. - Continue AC mode; now FiO2 30%; Keep SaO2 >94% 4. Diabetes mellitus. 5. Hypertension. 6. CVA. 7. hypokalemia, resolved 8. hypomagnesemia 9. DVT ppx - V/D legs negative for DVT - continue SCD GI prophylaxes, we will hold anticoagulation given GI bleed. The care for this patient was discussed with my supervising physician Time spent for this case was approximately 31 minutes Vicente Zhu Sep 05, 2020 12:32
--- NOTE | 2020-09-05 12:50 | Nephrology Progress Note ---
Assessment/Plan Problem List: (1) Acute renal failure (2) Sepsis (3) Pneumonia (4) Upper GI bleed (5) Anemia Assessment Acute renal failure Prerenal azotemia/dehydration Acute GI bleed Sepsis, pneumonia Hypotension, septic shock PEG Trach to vent Plan September 05: Labs reviewed. Abnormal electrolytes addressed. Medication list reviewed. Continue her current treatment plan. September 04: Labs reviewed. Abnormal electrolytes addressed. Medication list reviewed and adjusted. Continue per consultants. Continue to monitor electrolytes September 03: Labs reviewed. Abnormal electrolyte addressed. Discussed with RN. Continue to monitor renal parameters and electrolytes. Medication list reviewed. September 02: Labs reviewed. Abnormal electrolytes addressed. Continue to monitor renal parameters and electrolytes. Continue per consultants. Medication list reviewed. Previously: Hydrate Monitor renal parameters and electrolytes Correct abnormal electrolytes Monitor hemoglobin and hematocrit IV Pepcid Albumin bolus Per retirement sales consultant Subjective ROS Limited/Unobtainable: Yes Objective Objective Last 24 Hour Vital Signs Date Time Temp Pulse Resp B/P (MAP) Pulse Ox O2 Delivery O2 Flow Rate FiO2 09/05/20 12:00 98.6 97 21 130/70 (90) 100 09/05/20 12:00 Mechanical Ventilator 09/05/20 12:00 65 09/05/20 08:00 98.4 75 22 131/76 (94) 100 09/05/20 07:46 66 09/05/20 07:19 Mechanical Ventilator 09/05/20 04:00 Mechanical Ventilator 09/05/20 04:00 66 09/05/20 03:30 99.0 74 20 115/70 (85) 98 09/05/20 03:21 65 22 30 09/05/20 00:55 99.0 09/05/20 00:00 75 09/05/20 00:00 Mechanical Ventilator 09/05/20 00:00 99.0 80 20 120/73 (89) 99 09/04/20 23:10 73 28 30 09/04/20 20:00 69 09/04/20 20:00 97.2 69 20 134/71 (92) 100 09/04/20 20:00 Mechanical Ventilator 09/04/20 19:30 74 22 30 09/04/20 17:05 77 30 99 Mechanical Ventilator 30 09/04/20 17:00 77 30 30 09/04/20 16:50 68 09/04/20 16:00 97.0 78 21 116/65 (82) 100 2/27/21 15:00 77 24 30 09/04/20 14:41 30 09/04/20 13:00 80 29 30 Intake and Output 09/04/20 09/05/20 19:00 07:00 Intake Total 1564.720 ml 930 ml Output Total 150 ml 500 ml Balance 1414.720 ml 430 ml Intake Free Water 80 ml IV Total 764.720 ml 330 ml Tube Feeding 720 ml 600 ml Output Urine Total 150 ml 500 ml # Bowel Movements 1 Current Medications Medications (Trade) Dose Ordered Sig/Kirby Route PRN Reason Start Time Stop Time Status Last Admin Dose Admin Acetaminophen (Tylenol) 650 mg Q4H PRN NG Mild Pain (Pain Scale 1-3) 08/31/20 09:00 09/30/20 08:59 09/05/20 00:23 Acetaminophen (Tylenol) 650 mg Q4H PRN NG Temp >100.5 08/31/20 09:00 09/30/20 08:59 Ampicillin 2 gm/ Sodium Chloride 110 ml @ 220 mls/hr EVERY 4 HOURS IV 09/02/20 09:30 09/09/20 09:29 09/05/20 08:20 Dextrose (Dextrose 50%) 25 ml Q30M PRN IV Hypoglycemia 08/30/20 16:45 11/28/20 16:44 Dextrose (Dextrose 50%) 50 ml Q30M PRN IV Hypoglycemia 08/30/20 16:45 11/28/20 16:44 Insulin Aspart (NovoLOG) Q6HR SUBQ 08/30/20 18:00 11/28/20 17:59 09/05/20 11:20 Lansoprazole (Prevacid) 30 mg BID GT 09/01/20 18:00 09/30/20 17:59 09/05/20 08:19 Magnesium Sulfate 100 ml @ 100 mls/hr Q1H IVPB 09/05/20 11:45 09/05/20 13:44 09/05/20 12:33 Ondansetron HCl (Zofran) 4 mg Q4H PRN IVP Nausea & Vomiting 08/30/20 16:45 09/29/20 16:44 Sucralfate (Carafate) 1 gm FOUR TIMES A DAY ORAL 09/03/20 13:00 12/02/20 12:59 09/05/20 08:32 Laboratory Tests 09/04/20 17:08: POC Whole Blood Glucose 148H 09/05/20 05:21: White Blood Count 9.8, Red Blood Count 2.68L, Hemoglobin 8.0L, Hematocrit 25.6L, Mean Corpuscular Volume 95, Mean Corpuscular Hemoglobin 30.0, Mean Corpuscular Hemoglobin Concent 31.5L, Red Cell Distribution Width 15.4H, Platelet Count 310, Mean Platelet Volume 6.8, Neutrophils (%) (Auto) 74.2, Lymphocytes (%) (Auto) 13.1L, Monocytes (%) (Auto) 10.5H, Eosinophils (%) (Auto) 1.6, Basophils (%) (Auto) 0.6, Sodium Level 143, Potassium Level 4.3, Chloride Level 111H, Carbon Dioxide Level 24, Anion Gap 8, Blood Urea Nitrogen 23H, Creatinine 1.0, Estimat Glomerular Filtration Rate > 60, Glucose Level 181H, Calcium Level 8.4L, Phosphorus Level 2.9, Magnesium Level 1.7L, Total Bilirubin < 0.1L, Aspartate Amino Transf (AST/SGOT) 27, Alanine Aminotransferase (ALT/SGPT) 27, Alkaline Phosphatase 136H, Total Protein 6.3L, Albumin 1.4L, Globulin 4.9, Albumin/Globulin Ratio 0.3L 09/05/20 11:15: POC Whole Blood Glucose 150H Height (Feet): 5 Height (Inches): 7.00 Weight (Pounds): 120 General Appearance: no apparent distress EENT: other - Trach to vent Cardiovascular: normal rate Respiratory/Chest: decreased breath sounds Abdomen: distended Ben Aguilar MD Sep 05, 2020 12:50
--- NOTE | 2020-09-05 13:56 | Infectious Diseases Prog Note ---
Assessment/Plan 64 yo male with PMHx of CVA, S/P PEG s/p Trach, DM and HTN who was sent to the ED form his long term with hypoxia. Sepsis Leuckotyosis- SP No fever Bacteremialikely GI source Blood Cx 08/30/20- Enterococcus Amp and Vanco sen Blood Cx 08/31/20 - Enterococcus Blood Cx 09/02/20 - NTD Resp fail - Acute on chronic Trached PNA CXR shows - LLL PNA and possible N/V/D and abd pain Some blood In the vomit CVA s/p PEG and s/p Trach DM HTN PLAN Ampicillin 2g Q4hr #4/14 ( End date if Blood Cx 09/02/20 neg) 09/02/20 - SP Flagyl #3 and Cefepime #3 and Vancomycin #3 f/u TTE f/u culture Blood Monitor Resp status Monitor CBC and Temps Thank you for this consult. [facility] will continue to follow Mr. Shaikh with you. Subjective Allergies: Coded Allergies: No Known Allergies (Unverified , 08/30/20) afebrile no leukocytosis repeta Bcx NTD Objective Last 24 Hour Vital Signs Date Time Temp Pulse Resp B/P (MAP) Pulse Ox O2 Delivery O2 Flow Rate FiO2 09/05/20 12:00 98.6 97 21 130/70 (90) 100 09/05/20 12:00 Mechanical Ventilator 09/05/20 12:00 65 09/05/20 08:00 98.4 75 22 131/76 (94) 100 09/05/20 07:46 66 09/05/20 07:19 Mechanical Ventilator 09/05/20 04:00 Mechanical Ventilator 09/05/20 04:00 66 09/05/20 03:30 99.0 74 20 115/70 (85) 98 09/05/20 03:21 65 22 30 09/05/20 00:55 99.0 09/05/20 00:00 75 09/05/20 00:00 Mechanical Ventilator 09/05/20 00:00 99.0 80 20 120/73 (89) 99 09/04/20 23:10 73 28 30 09/04/20 20:00 69 09/04/20 20:00 97.2 69 20 134/71 (92) 100 09/04/20 20:00 Mechanical Ventilator 09/04/20 19:30 74 22 30 09/04/20 17:05 77 30 99 Mechanical Ventilator 30 09/04/20 17:00 77 30 30 09/04/20 16:50 68 09/04/20 16:00 97.0 78 21 116/65 (82) 100 09/04/20 15:00 77 24 30 09/04/20 14:41 30 Height (Feet): 5 Height (Inches): 7.00 Weight (Pounds): 120 Gen: NAD on Vent HEENT: NCAT, MMM, EOMI, No scleral icterus, Trach in place Pulm: Equal rise and fall B/L No accessory muscle use Abd: Soft,ND PEG ( No E/P) SKIN: Exposed skin normal in color no rash noted Laboratory Tests Test 09/04/20 17:08 09/05/20 05:21 09/05/20 11:15 POC Whole Blood Glucose 148 MG/DL (74-106) H 150 MG/DL (74-106) H White Blood Count 9.8 K/UL (4.8-10.8) Red Blood Count 2.68 M/UL (4.70-6.10) L Hemoglobin 8.0 G/DL (14.2-18.0) L Hematocrit 25.6 % (42.0-52.0) L Mean Corpuscular Volume 95 FL (80-99) Mean Corpuscular Hemoglobin 30.0 PG (27.0-31.0) Mean Corpuscular Hemoglobin Concent 31.5 G/DL (32.0-36.0) L Red Cell Distribution Width 15.4 % (11.6-14.8) H Platelet Count 310 K/UL (150-450) Mean Platelet Volume 6.8 FL (6.5-10.1) Neutrophils (%) (Auto) 74.2 % (45.0-75.0) Lymphocytes (%) (Auto) 13.1 % (20.0-45.0) L Monocytes (%) (Auto) 10.5 % (1.0-10.0) H Eosinophils (%) (Auto) 1.6 % (0.0-3.0) Basophils (%) (Auto) 0.6 % (0.0-2.0) Sodium Level 143 MMOL/L (136-145) Potassium Level 4.3 MMOL/L (3.5-5.1) Chloride Level 111 MMOL/L (98-107) H Carbon Dioxide Level 24 MMOL/L (21-32) Anion Gap 8 mmol/L (5-15) Blood Urea Nitrogen 23 mg/dL (7-18) H Creatinine 1.0 MG/DL (0.55-1.30) Estimat Glomerular Filtration Rate > 60 mL/min (>60) Glucose Level 181 MG/DL (74-106) H Calcium Level 8.4 MG/DL (8.5-10.1) L Phosphorus Level 2.9 MG/DL (2.5-4.9) Magnesium Level 1.7 MG/DL (1.8-2.4) L Total Bilirubin < 0.1 MG/DL (0.2-1.0) L Aspartate Amino Transf (AST/SGOT) 27 U/L (15-37) Alanine Aminotransferase (ALT/SGPT) 27 U/L (12-78) Alkaline Phosphatase 136 U/L (46-116) H Total Protein 6.3 G/DL (6.4-8.2) L Albumin 1.4 G/DL (3.4-5.0) L Globulin 4.9 g/dL Albumin/Globulin Ratio 0.3 (1.0-2.7) L Current Medications Medications (Trade) Dose Ordered Sig/Kirby Route PRN Reason Start Time Stop Time Status Last Admin Dose Admin Acetaminophen (Tylenol) 650 mg Q4H PRN NG Mild Pain (Pain Scale 1-3) 08/31/20 09:00 09/30/20 08:59 09/05/20 00:23 Acetaminophen (Tylenol) 650 mg Q4H PRN NG Temp >100.5 08/31/20 09:00 09/30/20 08:59 Ampicillin 2 gm/ Sodium Chloride 110 ml @ 220 mls/hr EVERY 4 HOURS IV 09/02/20 09:30 09/09/20 09:29 09/05/20 13:20 Dextrose (Dextrose 50%) 25 ml Q30M PRN IV Hypoglycemia 08/30/20 16:45 11/28/20 16:44 Dextrose (Dextrose 50%) 50 ml Q30M PRN IV Hypoglycemia 08/30/20 16:45 11/28/20 16:44 Insulin Aspart (NovoLOG) Q6HR SUBQ 08/30/20 18:00 11/28/20 17:59 09/05/20 11:20 Lansoprazole (Prevacid) 30 mg BID GT 09/01/20 18:00 09/30/20 17:59 09/05/20 08:19 Magnesium Sulfate 100 ml @ 100 mls/hr Q1H IVPB 09/05/20 11:45 09/05/20 13:44 09/05/20 12:33 Ondansetron HCl (Zofran) 4 mg Q4H PRN IVP Nausea & Vomiting 08/30/20 16:45 09/29/20 16:44 Sucralfate (Carafate) 1 gm FOUR TIMES A DAY ORAL 09/03/20 13:00 12/02/20 12:59 09/05/20 08:32 Meli Ga M.D. Sep 05, 2020 13:56
[2020-09-05 16:00] VITALS: BP 126/72
--- NOTE | 2020-09-05 18:44 | General Progress Note ---
Subjective Allergies: Coded Allergies: No Known Allergies (Unverified , 08/30/20) Subjective above noted resting comfortably tolerating TF Objective Last 24 Hour Vital Signs Date Time Temp Pulse Resp B/P (MAP) Pulse Ox O2 Delivery O2 Flow Rate FiO2 09/05/20 16:00 98.4 70 20 126/72 (90) 99 09/05/20 16:00 Mechanical Ventilator 09/05/20 15:38 73 09/05/20 15:30 73 31 30 09/05/20 14:41 30 09/05/20 12:56 74 29 30 09/05/20 12:00 98.6 97 21 130/70 (90) 100 09/05/20 12:00 Mechanical Ventilator 09/05/20 12:00 65 09/05/20 11:30 72 32 30 09/05/20 09:04 69 22 30 09/05/20 08:00 98.4 75 22 131/76 (94) 100 09/05/20 07:46 66 09/05/20 07:19 72 22 30 09/05/20 07:19 Mechanical Ventilator 09/05/20 04:00 Mechanical Ventilator 09/05/20 04:00 66 09/05/20 03:30 99.0 74 20 115/70 (85) 98 09/05/20 03:21 65 22 30 09/05/20 00:55 99.0 09/05/20 00:00 75 09/05/20 00:00 Mechanical Ventilator 09/05/20 00:00 99.0 80 20 120/73 (89) 99 09/04/20 23:10 73 28 30 09/04/20 20:00 69 09/04/20 20:00 97.2 69 20 134/71 (92) 100 09/04/20 20:00 Mechanical Ventilator 09/04/20 19:30 74 22 30 Intake and Output 09/04/20 09/05/20 19:00 07:00 Intake Total 1564.720 ml 930 ml Output Total 150 ml 500 ml Balance 1414.720 ml 430 ml Intake Free Water 80 ml IV Total 764.720 ml 330 ml Tube Feeding 720 ml 600 ml Output Urine Total 150 ml 500 ml # Bowel Movements 1 Laboratory Tests 09/05/20 05:21: White Blood Count 9.8, Red Blood Count 2.68L, Hemoglobin 8.0L, Hematocrit 25.6L, Mean Corpuscular Volume 95, Mean Corpuscular Hemoglobin 30.0, Mean Corpuscular Hemoglobin Concent 31.5L, Red Cell Distribution Width 15.4H, Platelet Count 310, Mean Platelet Volume 6.8, Neutrophils (%) (Auto) 74.2, Lymphocytes (%) (Auto) 13.1L, Monocytes (%) (Auto) 10.5H, Eosinophils (%) (Auto) 1.6, Basophils (%) (Auto) 0.6, Sodium Level 143, Potassium Level 4.3, Chloride Level 111H, Carbon Dioxide Level 24, Anion Gap 8, Blood Urea Nitrogen 23H, Creatinine 1.0, Estimat Glomerular Filtration Rate > 60, Glucose Level 181H, Calcium Level 8.4L, Phosphorus Level 2.9, Magnesium Level 1.7L, Total Bilirubin < 0.1L, Aspartate Amino Transf (AST/SGOT) 27, Alanine Aminotransferase (ALT/SGPT) 27, Alkaline Phosphatase 136H, Total Protein 6.3L, Albumin 1.4L, Globulin 4.9, Albumin/Globu jed Ratio 0.3L 09/05/20 11:15: POC Whole Blood Glucose 150H Height (Feet): 5 Height (Inches): 7.00 Weight (Pounds): 120 Objective Thin man, NAD NCAT (+) trach CTA RR abd soft, (+) GT no edema Assessment/Plan Assessment/Plan: Assessment/Plan Problem List: (1) Upper GI bleed ICD Codes: K92.2 - Gastrointestinal hemorrhage, unspecified SNOMED: 26656776 (2) Pneumonia ICD Codes: J18.9 - Pneumonia, unspecified organism SNOMED: 688610247 (3) Sepsis ICD Codes: A41.9 - Sepsis, unspecified organism SNOMED: 15066334 (4) Acute renal failure ICD Codes: N17.9 - Acute kidney failure, unspecified SNOMED: 28919619 (5) Septic shock ICD Codes: A41.9 - Sepsis, unspecified organism; R65.21 - Severe sepsis with septic shock SNOMED: 15261929 Assessment/Plan: ppi fu H&H prn blood transfusion will Rosaura Bustillos MD Sep 05, 2020 18:44
--- NOTE | 2020-09-05 19:14 | NUR ---
NURSE HAND-OFF REPORT: Important Events on Shift:stable Patient Status: full code Diet: tube feeds Pending Orders: [] Pending Results/Labs:[] Pending MD notification:[] Latest Vital Signs: Temperature 98.4 , Pulse 70 , B/P 126 /72 , Respiratory Rate 20 , O2 SAT 99 , Mechanical Ventilator, O2 Flow Rate 15.0 . Vital Sign Comment: stable EKG Rhythm: Sinus Rhythm Rhythm change?: N MD Notified?: - MD Response: Latest Brewer Fall Score: 35 Fall Risk: Medium Risk Safety Measures: Call light Within Reach, Bed Alarm Zone 2, Side Rails Side Rails x3, Bed position Low and Locked. Fall Precautions: Yellow Socks Patient Fall Education Report given to juanita gaines
--- NOTE | 2020-09-05 19:15 | NUR ---
NURSE NOTES: Got report from Olivia HERNÁNDEZ. Pt in stable condition. Pt A+Ox3. Pt running Sinus Rhythm on the monitor. Pt resting in bed comfortably. No s/s of distress or discomfort noted. Pt afebrile. Pt on tube feeding tolerating well VitalAF@60. Pt on vent at ordered rate. VSS. Bed in low and locked position, call light within reach, bedside table within reach. Continue to monitor.
[2020-09-05 20:00] VITALS: BP 136/76
[2020-09-06] VITALS: BP 136/72
[2020-09-06] MEDS: Ampicillin 2 GM in NS 110 ML IV SCH ×6 (00:31→20:34)
[2020-09-06 04:00] VITALS: BP 143/78
[2020-09-06] MEDS: NovoLOG Insulin Flexpen SUBQ SCH ×3 (05:50→17:43)
--- NOTE | 2020-09-06 06:26 | Hematology/Onc Progress Note ---
Assessment/Plan Assessment/Plan Assessment and recs # Leukocytosis due to underlying Sepsis --> per ID recs --> ABX cefepime/vanc--ampicillin --> wbc 13-->13-->9 # Anemia with a upper gi bleed --> per gi eval --> hgb 12-->8.8-->8.6-->8.8 --> anemia panel is noted, and dw ACD --> transfuse prn basis --> review smear # Pneumonia b//l pna on imaging --> imaging seen --> per id # Respiratory failure --> s/p vent/trach # Septic shock # Acute renal failure # Upper GI bleed # Hypotensive and tachycardic. --> Patient given IV fluids and is fluid responsive. # Dvt ppx scds Appreciate consultation and stefany Rn Subjective Allergies: Coded Allergies: No Known Allergies (Unverified , 08/30/20) All Systems: reviewed and negative except above Subjective 09/01 stefany rn, on abx broad spectrum, labs noted, no active bleed at this time 09/02 meds noted, no bleeding, stefany rn, wbc 18, hgb 8.6, no hemolysis 09/03 plan for egd this am, labs noted, no bleeding, stefany rn 09/05 meds noted, no bleeding, vent setting tolerated, no bleeding 09/06 sr, on tube feeds, labs are pending, on ampicillin Objective Objective Current Medications Medications (Trade) Dose Ordered Sig/Kirby Route PRN Reason Start Time Stop Time Status Last Admin Dose Admin Acetaminophen (Tylenol) 650 mg Q4H PRN NG Mild Pain (Pain Scale 1-3) 08/31/20 09:00 09/30/20 08:59 09/05/20 20:30 Acetaminophen (Tylenol) 650 mg Q4H PRN NG Temp >100.5 08/31/20 09:00 09/30/20 08:59 Ampicillin 2 gm/ Sodium Chloride 110 ml @ 220 mls/hr EVERY 4 HOURS IV 09/02/20 09:30 09/09/20 09:29 09/06/20 04:42 Dextrose (Dextrose 50%) 25 ml Q30M PRN IV Hypoglycemia 08/30/20 16:45 11/28/20 16:44 Dextrose (Dextrose 50%) 50 ml Q30M PRN IV Hypoglycemia 08/30/20 16:45 11/28/20 16:44 Insulin Aspart (NovoLOG) Q6HR SUBQ 08/30/20 18:00 11/28/20 17:59 09/05/20 23:46 Lansoprazole (Prevacid) 30 mg BID GT 09/01/20 18:00 09/30/20 17:59 09/05/20 17:05 Ondansetron HCl (Zofran) 4 mg Q4H PRN IVP Nausea & Vomiting 08/30/20 16:45 09/29/20 16:44 Sucralfate (Carafate) 1 gm FOUR TIMES A DAY ORAL 09/03/20 13:00 12/02/20 12:59 09/05/20 20:30 Last 24 Hour Vital Signs Date Time Temp Pulse Resp B/P (MAP) Pulse Ox O2 Delivery O2 Flow Rate FiO2 09/06/20 05:17 55 22 30 09/06/20 04:20 Mechanical Ventilator 09/06/20 04:00 61 09/06/20 04:00 97.0 60 20 143/78 (99) 100 09/06/20 03:12 58 26 30 09/06/20 01:24 62 22 30 09/06/20 00:00 99.5 67 21 136/72 (93) 100 09/06/20 00:00 72 09/06/20 00:00 Mechanical Ventilator 09/05/20 23:16 69 26 30 09/05/20 21:33 70 25 30 09/05/20 21:00 98.4 09/05/20 20:08 73 22 30 09/05/20 20:00 Mechanical Ventilator 09/05/20 20:00 99.7 79 20 136/76 (96) 99 09/05/20 20:00 79 09/05/20 16:00 98.4 70 20 126/72 (90) 99 09/05/20 16:00 Mechanical Ventilator 09/05/20 15:38 73 09/05/20 15:30 73 31 30 09/05/20 14:41 30 09/05/20 12:56 74 29 30 09/05/20 12:00 98.6 97 21 130/70 (90) 100 09/05/20 12:00 Mechanical Ventilator 09/05/20 12:00 65 09/05/20 11:30 72 32 30 09/05/20 09:04 69 22 30 09/05/20 08:00 98.4 75 22 131/76 (94) 100 09/05/20 07:46 66 09/05/20 07:19 72 22 30 09/05/20 07:19 Mechanical Ventilator 09/05/20 04:00 Mechanical Ventilator 09/05/20 04:00 66 09/05/20 03:30 99.0 74 20 115/70 (85) 98 09/05/20 03:21 65 22 30 09/05/20 00:55 99.0 09/05/20 00:00 75 09/05/20 00:00 Mechanical Ventilator 09/05/20 00:00 99.0 80 20 120/73 (89) 99 09/04/20 23:10 73 28 30 09/04/20 20:00 69 09/04/20 20:00 97.2 69 20 134/71 (92) 100 09/04/20 20:00 Mechanical Ventilator 09/04/20 19:30 74 22 30 09/04/20 17:05 77 30 99 Mechanical Ventilator 30 09/04/20 17:00 77 30 30 09/04/20 16:50 68 09/04/20 16:00 97.0 78 21 116/65 (82) 100 09/04/20 15:00 77 24 30 09/04/20 14:41 30 09/04/20 13:00 80 29 30 09/04/20 12:00 Mechanical Ventilator 09/04/20 11:42 78 09/04/20 11:22 96.8 74 22 119/73 (88) 99 09/04/20 11:00 79 26 30 09/04/20 09:00 77 29 30 09/04/20 09:00 Mechanical Ventilator 09/04/20 08:00 97.2 69 20 134/71 (92) 100 09/04/20 07:42 66 09/04/20 07:20 57 22 30 Intake and Output 09/05/20 09/06/20 19:00 07:00 Intake Total 1080 ml 60 ml Output Total 550 ml 700 ml Balance 530 ml -640 ml Intake Free Water 60 ml IV Total 420 ml Tube Feeding 600 ml 60 ml Output Urine Total 550 ml 700 ml # Bowel Movements 1 Labs Test 09/03/20 18:05 09/04/20 00:34 09/04/20 03:00 09/04/20 11:19 POC Whole Blood Glucose 151 MG/DL (74-106) 158 MG/DL (74-106) Sodium Level 141 MMOL/L (136-145) Potassium Level 4.4 MMOL/L (3.5-5.1) Chloride Level 110 MMOL/L (98-107) Carbon Dioxide Level 24 MMOL/L (21-32) Anion Gap 7 mmol/L (5-15) Blood Urea Nitrogen 13 mg/dL (7-18) Creatinine 0.8 MG/DL (0.55-1.30) Estimat Glomerular Filtration Rate > 60 mL/min (>60) Glucose Level 142 MG/DL (74-106) Calcium Level 8.0 MG/DL (8.5-10.1) Phosphorus Level 2.0 MG/DL (2.5-4.9) Magnesium Level 2.0 MG/DL (1.8-2.4) Total Bilirubin 0.1 MG/DL (0.2-1.0) Aspartate Amino Transf (AST/SGOT) 24 U/L (15-37) Alanine Aminotransferase (ALT/SGPT) 21 U/L (12-78) Alkaline Phosphatase 97 U/L (46-116) Total Protein 6.3 G/DL (6.4-8.2) Albumin 1.3 G/DL (3.4-5.0) Globulin 5.0 g/dL Albumin/Globulin Ratio 0.3 (1.0-2.7) Test 09/04/20 17:08 09/05/20 05:21 09/05/20 11:15 POC Whole Blood Glucose 148 MG/DL (74-106) 150 MG/DL (74-106) White Blood Count 9.8 K/UL (4.8-10.8) Red Blood Count 2.68 M/UL (4.70-6.10) Hemoglobin 8.0 G/DL (14.2-18.0) Hematocrit 25.6 % (42.0-52.0) Mean Corpuscular Volume 95 FL (80-99) Mean Corpuscular Hemoglobin 30.0 PG (27.0-31.0) Mean Corpuscular Hemoglobin Concent 31.5 G/DL (32.0-36.0) Red Cell Distribution Width 15.4 % (11.6-14.8) Platelet Count 310 K/UL (150-450) Mean Platelet Volume 6.8 FL (6.5-10.1) Neutrophils (%) (Auto) 74.2 % (45.0-75.0) Lymphocytes (%) (Auto) 13.1 % (20.0-45.0) Monocytes (%) (Auto) 10.5 % (1.0-10.0) Eosinophils (%) (Auto) 1.6 % (0.0-3.0) Basophils (%) (Auto) 0.6 % (0.0-2.0) Sodium Level 143 MMOL/L (136-145) Potassium Level 4.3 MMOL/L (3.5-5.1) Chloride Level 111 MMOL/L (98-107) Carbon Dioxide Level 24 MMOL/L (21-32) Anion Gap 8 mmol/L (5-15) Blood Urea Nitrogen 23 mg/dL (7-18) Creatinine 1.0 MG/DL (0.55-1.30) Estimat Glomerular Filtration Rate > 60 mL/min (>60) Glucose Level 181 MG/DL (74-106) Calcium Level 8.4 MG/DL (8.5-10.1) Phosphorus Level 2.9 MG/DL (2.5-4.9) Magnesium Level 1.7 MG/DL (1.8-2.4) Total Bilirubin < 0.1 MG/DL (0.2-1.0) Aspartate Amino Transf (AST/SGOT) 27 U/L (15-37) Alanine Aminotransferase (ALT/SGPT) 27 U/L (12-78) Alkaline Phosphatase 136 U/L (46-116) Total Protein 6.3 G/DL (6.4-8.2) Albumin 1.4 G/DL (3.4-5.0) Globulin 4.9 g/dL Albumin/Globulin Ratio 0.3 (1.0-2.7) Height (Feet): 5 Height (Inches): 7.00 Weight (Pounds): 120 Objective Physical Exam Vitals abnormal General Appearance: nv, thin, Chronically Ill Heent: normocephalic, atraumatic ++ Trach in place VEnt++ Respiratory: rhonchi Cardiovascular: tachycardia Gastrointestinal: non tender, soft, non-distended, other ++ G-tube in the epigastric region Musculoskeletal: no calf tenderness, no lower extremity edema Psychiatric: other - Unable to assess as parent patient is nonverbal Skin: no rash Nick Ferguson MD Sep 06, 2020 06:26
--- NOTE | 2020-09-06 07:00 | NUR ---
NURSE HAND-OFF REPORT: Important Events on Shift:[] Patient Status: [STABLE] Diet: [VITAL AF@60] Pending Orders: [] Pending Results/Labs:[] Pending MD notification:[] Latest Vital Signs: Temperature 97.0 , Pulse 55 , B/P 143 /78 , Respiratory Rate 22 , O2 SAT 100 , Mechanical Ventilator, O2 Flow Rate 15.0 . Vital Sign Comment: [] EKG Rhythm: Sinus Rhythm Rhythm change?: N MD Notified?: - MD Response: Latest Brewer Fall Score: 35 Fall Risk: Medium Risk Safety Measures: Call light Within Reach, Bed Alarm Zone 2, Side Rails Side Rails x3, Bed position Low and Locked. Fall Precautions: Yellow Socks Patient Fall Education Report given to [MIN RN].
--- NOTE | 2020-09-06 07:00 | General Progress Note ---
Subjective ROS Limited/Unobtainable: No Allergies: Coded Allergies: No Known Allergies (Unverified , 08/30/20) Objective Last 24 Hour Vital Signs Date Time Temp Pulse Resp B/P (MAP) Pulse Ox O2 Delivery O2 Flow Rate FiO2 09/06/20 05:17 55 22 30 09/06/20 04:20 Mechanical Ventilator 09/06/20 04:00 61 09/06/20 04:00 97.0 60 20 143/78 (99) 100 09/06/20 03:12 58 26 30 09/06/20 01:24 62 22 30 09/06/20 00:00 99.5 67 21 136/72 (93) 100 09/06/20 00:00 72 09/06/20 00:00 Mechanical Ventilator 09/05/20 23:16 69 26 30 09/05/20 21:33 70 25 30 09/05/20 21:00 98.4 09/05/20 20:08 73 22 30 09/05/20 20:00 Mechanical Ventilator 09/05/20 20:00 99.7 79 20 136/76 (96) 99 09/05/20 20:00 79 09/05/20 16:00 98.4 70 20 126/72 (90) 99 09/05/20 16:00 Mechanical Ventilator 09/05/20 15:38 73 09/05/20 15:30 73 31 30 09/05/20 14:41 30 09/05/20 12:56 74 29 30 09/05/20 12:00 98.6 97 21 130/70 (90) 100 09/05/20 12:00 Mechanical Ventilator 09/05/20 12:00 65 09/05/20 11:30 72 32 30 09/05/20 09:04 69 22 30 09/05/20 08:00 98.4 75 22 131/76 (94) 100 09/05/20 07:46 66 09/05/20 07:19 72 22 30 09/05/20 07:19 Mechanical Ventilator Intake and Output 09/05/20 09/06/20 19:00 07:00 Intake Total 1080 ml 60 ml Output Total 550 ml 700 ml Balance 530 ml -640 ml Intake Free Water 60 ml IV Total 420 ml Tube Feeding 600 ml 60 ml Output Urine Total 550 ml 700 ml # Bowel Movements 1 Laboratory Tests 09/05/20 11:15: POC Whole Blood Glucose 150H Height (Feet): 5 Height (Inches): 7.00 Weight (Pounds): 120 General Appearance: no apparent distress EENT: PERRL/EOMI Neck: supple Cardiovascular: normal rate Respiratory/Chest: decreased breath sounds Abdomen: normal bowel sounds, non tender, soft Extremities: non-tender Assessment/Plan Problem List: (1) Upper GI bleed ICD Codes: K92.2 - Gastrointestinal hemorrhage, unspecified SNOMED: 75035594 (2) Pneumonia ICD Codes: J18.9 - Pneumonia, unspecified organism SNOMED: 846164278 (3) Sepsis ICD Codes: A41.9 - Sepsis, unspecified organism SNOMED: 21674561 (4) Acute renal failure ICD Codes: N17.9 - Acute kidney failure, unspecified SNOMED: 31818902 (5) Septic shock ICD Codes: A41.9 - Sepsis, unspecified organism; R65.21 - Severe sepsis with septic shock SNOMED: 36985306 Assessment/Plan: s/p EGD stable H&H tolerating TF ppi Yaakov Napoles MD Sep 06, 2020 07:00
--- NOTE | 2020-09-06 07:00 | NUR ---
NURSE NOTES: Pt in bed awake, oriented and able to make needs known. IV site in right upper arm PICC with 2 lumens patent and asymptomatic and both lumen running TKO. G-tube site intact and patent. G-tube feeding running with running with Vital @60ml/hr. Trach with shiely 6, connected to vent setting with [id number]%, peep of 5 sating 98%. Bob cath patent and intact. Will continue to plan of care.
--- NOTE | 2020-09-06 07:26 | NUR ---
RESPIRATORY NOTE: PT received stable on mechanical ventilation: AC/VC 22, 450, 30%, +5. Airway is midline, secure and patent. Alarms are on and audible. Vent circuit is secure and out of the way. No s/s of respiratory distress are noted at this time. Will continue to closely moniotr.
--- NOTE | 2020-09-06 07:30 | NUR ---
NURSE NOTES: Received report from EDGAR Barrow. Pt in bed awake and able to follow simple comment. IV site in L wrist 18G SL patent and asymptomatic. Bed in locked and lowest position. Side railsx3 up for safety. On RANDOLPH mattress. Pt trach connected to vent setting with [id number]%, peep 5. Right subclavian perma cath patent and intact. No respiratory distress noted. Will continue to plan care. Addendum: 09/06/20 at 0828 by Marika Workman RN Wrong patient
[2020-09-06 08:00] VITALS: BP 136/72
[2020-09-06 08:04] LABS: BASOPHILS % (AUTO) 0.7 % (0.0-2.0); EOSINOPHILS % (AUTO) 2.7 % (0.0-3.0); HEMATOCRIT 25.5 % (42.0-52.0); LYMPHOCYTES % (AUTO) 17.3 % (20.0-45.0); MEAN CORPUSCULAR VOLUME 96 FL (80-99); MONOCYTES % (AUTO) 9.5 % (1.0-10.0); NEUTROPHILS % (AUTO) 69.8 % (45.0-75.0); PLATELET COUNT 334 K/UL (150-450); RED BLOOD COUNT 2.66 M/UL (4.70-6.10); RED CELL DISTRIBUTION WIDTH 15.1 % (11.6-14.8); WHITE BLOOD COUNT 11.3 K/UL (4.8-10.8)
[2020-09-06 08:26] LABS: ANION GAP 9 mmol/L (5-15); BLOOD UREA NITROGEN 21 mg/dL (7-18); CALCIUM 8.5 MG/DL (8.5-10.1); CARBON DIOXIDE 25 MMOL/L (21-32); CHLORIDE 107 MMOL/L (98-107); CREATININE 0.8 MG/DL (0.55-1.30); POTASSIUM 3.5 MMOL/L (3.5-5.1); SODIUM 141 MMOL/L (136-145)
--- NOTE | 2020-09-06 08:58 | Infectious Diseases Prog Note ---
Assessment/Plan 64 yo male with PMHx of CVA, S/P PEG s/p Trach, DM and HTN who was sent to the ED form his half-way with hypoxia. Sepsis Leuckotyosis- SP No fever Bacteremialikely GI source Blood Cx 08/30/20- Enterococcus Amp and Vanco sen Blood Cx 08/31/20 - Enterococcus Blood Cx 09/02/20 - NTD Resp fail - Acute on chronic Trached PNA CXR shows - LLL PNA and possible N/V/D and abd pain Some blood In the vomit CVA s/p PEG and s/p Trach DM HTN PLAN Ampicillin 2g Q4hr #5/14 ( End date if Blood Cx 09/02/20 neg) 09/02/20 - SP Flagyl #3 and Cefepime #3 and Vancomycin #3 f/u TTE f/u culture Blood Monitor Resp status Monitor CBC and Temps Thank you for this consult. [facility] will continue to follow Mr. Shaikh with you. Subjective Allergies: Coded Allergies: No Known Allergies (Unverified , 08/30/20) Afebrile WBCs 11 today No acute complaints Objective Last 24 Hour Vital Signs Date Time Temp Pulse Resp B/P (MAP) Pulse Ox O2 Delivery O2 Flow Rate FiO2 09/06/20 08:00 97.9 59 20 136/72 (93) 100 09/06/20 08:00 59 09/06/20 07:26 62 24 30 09/06/20 05:17 55 22 30 09/06/20 04:20 Mechanical Ventilator 09/06/20 04:00 61 09/06/20 04:00 97.0 60 20 143/78 (99) 100 09/06/20 03:12 58 26 30 09/06/20 01:24 62 22 30 09/06/20 00:00 99.5 67 21 136/72 (93) 100 09/06/20 00:00 72 09/06/20 00:00 Mechanical Ventilator 09/05/20 23:16 69 26 30 09/05/20 21:33 70 25 30 09/05/20 21:00 98.4 09/05/20 20:08 73 22 30 09/05/20 20:00 Mechanical Ventilator 09/05/20 20:00 99.7 79 20 136/76 (96) 99 09/05/20 20:00 79 09/05/20 16:00 98.4 70 20 126/72 (90) 99 09/05/20 16:00 Mechanical Ventilator 09/05/20 15:38 73 09/05/20 15:30 73 31 30 09/05/20 14:41 30 09/05/20 12:56 74 29 30 09/05/20 12:00 98.6 97 21 130/70 (90) 100 09/05/20 12:00 Mechanical Ventilator 09/05/20 12:00 65 09/05/20 11:30 72 32 30 09/05/20 09:04 69 22 30 Height (Feet): 5 Height (Inches): 7.00 Weight (Pounds): 120 Gen: NAD on Vent 30% O2 HEENT: NCAT, MMM, EOMI, No scleral icterus, Trach in place Pulm: Equal rise and fall B/L No accessory muscle use Abd: Soft,ND PEG ( No E/P) SKIN: Exposed skin normal in color no rash noted Laboratory Tests Test 09/05/20 11:15 09/06/20 07:35 POC Whole Blood Glucose 150 MG/DL (74-106) H White Blood Count 11.3 K/UL (4.8-10.8) H Red Blood Count 2.66 M/UL (4.70-6.10) L Hemoglobin 8.0 G/DL (14.2-18.0) L Hematocrit 25.5 % (42.0-52.0) L Mean Corpuscular Volume 96 FL (80-99) Mean Corpuscular Hemoglobin 29.9 PG (27.0-31.0) Mean Corpuscular Hemoglobin Concent 31.2 G/DL (32.0-36.0) L Red Cell Distribution Width 15.1 % (11.6-14.8) H Platelet Count 334 K/UL (150-450) Mean Platelet Volume 6.6 FL (6.5-10.1) Neutrophils (%) (Auto) 69.8 % (45.0-75.0) Lymphocytes (%) (Auto) 17.3 % (20.0-45.0) L Monocytes (%) (Auto) 9.5 % (1.0-10.0) Eosinophils (%) (Auto) 2.7 % (0.0-3.0) Basophils (%) (Auto) 0.7 % (0.0-2.0) Sodium Level 141 MMOL/L (136-145) Potassium Level 3.5 MMOL/L (3.5-5.1) Chloride Level 107 MMOL/L (98-107) Carbon Dioxide Level 25 MMOL/L (21-32) Anion Gap 9 mmol/L (5-15) Blood Urea Nitrogen 21 mg/dL (7-18) H Creatinine 0.8 MG/DL (0.55-1.30) Estimat Glomerular Filtration Rate > 60 mL/min (>60) Glucose Level 132 MG/DL (74-106) H Calcium Level 8.5 MG/DL (8.5-10.1) Current Medications Medications (Trade) Dose Ordered Sig/Kirby Route PRN Reason Start Time Stop Time Status Last Admin Dose Admin Acetaminophen (Tylenol) 650 mg Q4H PRN NG Mild Pain (Pain Scale 1-3) 08/31/20 09:00 09/30/20 08:59 09/05/20 20:30 Acetaminophen (Tylenol) 650 mg Q4H PRN NG Temp >100.5 08/31/20 09:00 09/30/20 08:59 Ampicillin 2 gm/ Sodium Chloride 110 ml @ 220 mls/hr EVERY 4 HOURS IV 09/02/20 09:30 09/09/20 09:29 09/06/20 04:42 Dextrose (Dextrose 50%) 25 ml Q30M PRN IV Hypoglycemia 08/30/20 16:45 11/28/20 16:44 Dextrose (Dextrose 50%) 50 ml Q30M PRN IV Hypoglycemia 08/30/20 16:45 11/28/20 16:44 Insulin Aspart (NovoLOG) Q6HR SUBQ 08/30/20 18:00 11/28/20 17:59 09/05/20 23:46 Lansoprazole (Prevacid) 30 mg BID GT 09/01/20 18:00 09/30/20 17:59 09/05/20 17:05 Ondansetron HCl (Zofran) 4 mg Q4H PRN IVP Nausea & Vomiting 08/30/20 16:45 09/29/20 16:44 Sucralfate (Carafate) 1 gm FOUR TIMES A DAY ORAL 09/03/20 13:00 12/02/20 12:59 09/05/20 20:30 Kostas Packer MD Sep 06, 2020 08:58
--- NOTE | 2020-09-06 09:04 | NUR ---
RD ASSESSMENT & RECOMMENDATIONS SEE CARE ACTIVITY FOR COMPLETE ASSESSMENT DAILY ESTIMATED NEEDS: Needs based on Critical care, underweight, TF [employer] MACHINE 50kg 28-33 kcals/kg 4579-3398 total kcals 1.2-2 g protein/kg 60-100 g total protein 25-30 mL/kg 1399-9181 total fluid mLs NUTRITION DIAGNOSIS: Swallowing difficulty r/t respiratory failure as evidenced by pt is vent dep via trach/ PEG dep. CURRENT TF:Vital @60ml/hr x24 hrs ENTERAL NUTRITION RECOMMENDATIONS: rec to LOWER Vital 1.2 goal of 55ml/hr x24 hrs to provide 1320ml, 1584 kcal, 99g pro, 1071ml free H2O - rec to LOWER goal to 55ml/hr to not exceed est needs - flush per MD. HOB over 30 degrees ADDITIONAL RECOMMENDATIONS: 1) Maintain calibrated bed scale wts 2) rec bedside BG testing/ niss -> now on NISS 3) replete lytes as needed (low mg) 4) DC D5 IVF when TF resumes for improved BG control
--- NOTE | 2020-09-06 09:18 | Pulmonology Progress Note ---
Subjective ROS Limited/Unobtainable: No Interval Events: s/p EGD Constitutional: Reports: no symptoms HEENT: Repors: no symptoms Respiratory: Reports: no symptoms Cardiovascular: Reports: no symptoms Gastrointestinal/Abdominal: Reports: no symptoms Allergies: Coded Allergies: No Known Allergies (Unverified , 08/30/20) All Systems: reviewed and negative except above Objective Last 24 Hour Vital Signs Date Time Temp Pulse Resp B/P (MAP) Pulse Ox O2 Delivery O2 Flow Rate FiO2 09/06/20 08:00 97.9 59 20 136/72 (93) 100 09/06/20 08:00 59 09/06/20 07:26 62 24 30 09/06/20 05:17 55 22 30 09/06/20 04:20 Mechanical Ventilator 09/06/20 04:00 61 09/06/20 04:00 97.0 60 20 143/78 (99) 100 09/06/20 03:12 58 26 30 09/06/20 01:24 62 22 30 09/06/20 00:00 99.5 67 21 136/72 (93) 100 09/06/20 00:00 72 09/06/20 00:00 Mechanical Ventilator 09/05/20 23:16 69 26 30 09/05/20 21:33 70 25 30 09/05/20 21:00 98.4 09/05/20 20:08 73 22 30 09/05/20 20:00 Mechanical Ventilator 09/05/20 20:00 99.7 79 20 136/76 (96) 99 09/05/20 20:00 79 09/05/20 16:00 98.4 70 20 126/72 (90) 99 09/05/20 16:00 Mechanical Ventilator 09/05/20 15:38 73 09/05/20 15:30 73 31 30 09/05/20 14:41 30 09/05/20 12:56 74 29 30 09/05/20 12:00 98.6 97 21 130/70 (90) 100 09/05/20 12:00 Mechanical Ventilator 09/05/20 12:00 65 09/05/20 11:30 72 32 30 Intake and Output 09/05/20 09/06/20 19:00 07:00 Intake Total 1080 ml 60 ml Output Total 550 ml 700 ml Balance 530 ml -640 ml Intake Free Water 60 ml IV Total 420 ml Tube Feeding 600 ml 60 ml Output Urine Total 550 ml 700 ml # Bowel Movements 1 General Appearance: no acute distress HEENT: atraumatic Respiratory: other - trach vent Cardiovascular: normal rate, regular rhythm Abdomen: soft, non tender Musculoskeletal: other - SCDs in LE Laboratory Tests 09/05/20 11:15: POC Whole Blood Glucose 150H 09/06/20 07:35: White Blood Count 11.3H, Red Blood Count 2.66L, Hemoglobin 8.0L, Hematocrit 25.5L, Mean Corpuscular Volume 96, Mean Corpuscular Hemoglobin 29.9, Mean Corpuscular Hemoglobin Concent 31.2L, Red Cell Distribution Width 15.1H, Platelet Count 334, Mean Platelet Volume 6.6, Neutrophils (%) (Auto) 69.8, Lymphocytes (%) (Auto) 17.3L, Monocytes (%) (Auto) 9.5, Eosinophils (%) (Auto) 2.7, Basophils (%) (Auto) 0.7, Sodium Level 141, Potassium Level 3.5, Chloride Level 107, Carbon Dioxide Level 25, Anion Gap 9, Blood Urea Nitrogen 21H, Creatinine 0.8, Estimat Glomerular Filtration Rate > 60, Glucose Level 132H, Calcium Level 8.5 Current Medications Medications (Trade) Dose Ordered Sig/Kirby Route PRN Reason Start Time Stop Time Status Last Admin Dose Admin Acetaminophen (Tylenol) 650 mg Q4H PRN NG Mild Pain (Pain Scale 1-3) 08/31/20 09:00 09/30/20 08:59 09/05/20 20:30 Acetaminophen (Tylenol) 650 mg Q4H PRN NG Temp >100.5 08/31/20 09:00 09/30/20 08:59 Ampicillin 2 gm/ Sodium Chloride 110 ml @ 220 mls/hr EVERY 4 HOURS IV 09/02/20 09:30 09/09/20 09:29 09/06/20 04:42 Dextrose (Dextrose 50%) 25 ml Q30M PRN IV Hypoglycemia 08/30/20 16:45 11/28/20 16:44 Dextrose (Dextrose 50%) 50 ml Q30M PRN IV Hypoglycemia 08/30/20 16:45 11/28/20 16:44 Insulin Aspart (NovoLOG) Q6HR SUBQ 08/30/20 18:00 11/28/20 17:59 09/05/20 23:46 Lansoprazole (Prevacid) 30 mg BID GT 09/01/20 18:00 09/30/20 17:59 09/05/20 17:05 Ondansetron HCl (Zofran) 4 mg Q4H PRN IVP Nausea & Vomiting 08/30/20 16:45 09/29/20 16:44 Sucralfate (Carafate) 1 gm FOUR TIMES A DAY ORAL 09/03/20 13:00 12/02/20 12:59 09/05/20 20:30 Assessment/Plan Assessment/Plan 1. Bilateral health-care associated pneumonia. - on Abx per ID 2. GI bleed. - On PPI - s/p EGD -> esophagitis 3. Tracheostomy. - Continue AC mode; now FiO2 30%; Keep SaO2 >94% 4. Diabetes mellitus. 5. Hypertension. 6. CVA. 7. hypokalemia, resolved 8. hypomagnesemia 9. DVT ppx - V/D legs negative for DVT - continue SCD GI prophylaxes, we will hold anticoagulation given GI bleed. The care for this patient was discussed with my supervising physician Time spent for this case was approximately 31 minutes Vicente Zhu Sep 06, 2020 09:18
[2020-09-06] MEDS: Sucralfate 1gm tab ORAL SCH ×4 (09:19→20:34)
[2020-09-06 10:17] LABS: ALANINE AMINOTRANSFERASE 26 U/L (12-78); ALBUMIN 1.5 G/DL (3.4-5.0); ALKALINE PHOSPHATASE 97 U/L (46-116); ASPARTATE AMINO TRANSFERASE 32 U/L (15-37); BILIRUBIN,DIRECT < 0.1 MG/DL (0.0-0.3); BILIRUBIN,TOTAL 0.2 MG/DL (0.2-1.0); PHOSPHORUS 2.6 MG/DL (2.5-4.9)
--- NOTE | 2020-09-06 11:00 | NUR ---
RESPIRATORY NOTE: Per Dr Pleitez RR was decreased from 22 to 14. Pt tolerating change well. Min RN aware of change. Will continue to monitor.
--- NOTE | 2020-09-06 11:25 | Nephrology Progress Note ---
Assessment/Plan Problem List: (1) Acute renal failure (2) Sepsis (3) Pneumonia (4) Upper GI bleed (5) Anemia Assessment Acute renal failure Prerenal azotemia/dehydration Acute GI bleed Sepsis, pneumonia Hypotension, septic shock PEG Trach to vent Plan September 06: Labs reviewed. Abnormal electrolytes addressed. Medication list reviewed. Continue per consultants. September 05: Labs reviewed. Abnormal electrolytes addressed. Medication list reviewed. Continue her current treatment plan. September 04: Labs reviewed. Abnormal electrolytes addressed. Medication list reviewed and adjusted. Continue per consultants. Continue to monitor electrolytes September 03: Labs reviewed. Abnormal electrolyte addressed. Discussed with RN. Continue to monitor renal parameters and electrolytes. Medication list reviewed. September 02: Labs reviewed. Abnormal electrolytes addressed. Continue to monitor renal parameters and electrolytes. Continue per consultants. Medication list reviewed. Previously: Hydrate Monitor renal parameters and electrolytes Correct abnormal electrolytes Monitor hemoglobin and hematocrit IV Pepcid Albumin bolus Per search engine optimization consultant Subjective ROS Limited/Unobtainable: Yes Objective Objective Last 24 Hour Vital Signs Date Time Temp Pulse Resp B/P (MAP) Pulse Ox O2 Delivery O2 Flow Rate FiO2 09/06/20 09:28 63 23 30 09/06/20 08:00 97.9 59 20 136/72 (93) 100 09/06/20 08:00 59 09/06/20 07:26 62 24 30 09/06/20 05:17 55 22 30 09/06/20 04:20 Mechanical Ventilator 09/06/20 04:00 61 09/06/20 04:00 97.0 60 20 143/78 (99) 100 09/06/20 03:12 58 26 30 09/06/20 01:24 62 22 30 09/06/20 00:00 99.5 67 21 136/72 (93) 100 09/06/20 00:00 72 09/06/20 00:00 Mechanical Ventilator 09/05/20 23:16 69 26 30 09/05/20 21:33 70 25 30 09/05/20 21:00 98.4 09/05/20 20:08 73 22 30 09/05/20 20:00 Mechanical Ventilator 09/05/20 20:00 99.7 79 20 136/76 (96) 99 09/05/20 20:00 79 09/05/20 16:00 98.4 70 20 126/72 (90) 99 09/05/20 16:00 Mechanical Ventilator 09/05/20 15:38 73 09/05/20 15:30 73 31 30 09/05/20 14:41 30 09/05/20 12:56 74 29 30 09/05/20 12:00 98.6 97 21 130/70 (90) 100 09/05/20 12:00 Mechanical Ventilator 09/05/20 12:00 65 09/05/20 11:30 72 32 30 Intake and Output 09/05/20 09/06/20 19:00 07:00 Intake Total 1080 ml 60 ml Output Total 550 ml 700 ml Balance 530 ml -640 ml Intake Free Water 60 ml IV Total 420 ml Tube Feeding 600 ml 60 ml Output Urine Total 550 ml 700 ml # Bowel Movements 1 Current Medications Medications (Trade) Dose Ordered Sig/Kirby Route PRN Reason Start Time Stop Time Status Last Admin Dose Admin Acetaminophen (Tylenol) 650 mg Q4H PRN NG Mild Pain (Pain Scale 1-3) 08/31/20 09:00 09/30/20 08:59 09/05/20 20:30 Acetaminophen (Tylenol) 650 mg Q4H PRN NG Temp >100.5 08/31/20 09:00 09/30/20 08:59 Ampicillin 2 gm/ Sodium Chloride 110 ml @ 220 mls/hr EVERY 4 HOURS IV 09/02/20 09:30 09/09/20 09:29 09/06/20 09:20 Dextrose (Dextrose 50%) 25 ml Q30M PRN IV Hypoglycemia 08/30/20 16:45 11/28/20 16:44 Dextrose (Dextrose 50%) 50 ml Q30M PRN IV Hypoglycemia 08/30/20 16:45 11/28/20 16:44 Insulin Aspart (NovoLOG) Q6HR SUBQ 08/30/20 18:00 11/28/20 17:59 09/05/20 23:46 Lansoprazole (Prevacid) 30 mg BID GT 09/01/20 18:00 09/30/20 17:59 09/06/20 09:20 Ondansetron HCl (Zofran) 4 mg Q4H PRN IVP Nausea & Vomiting 08/30/20 16:45 09/29/20 16:44 Sucralfate (Carafate) 1 gm FOUR TIMES A DAY ORAL 09/03/20 13:00 12/02/20 12:59 09/06/20 09:19 Laboratory Tests 09/06/20 07:35: White Blood Count 11.3H, Red Blood Count 2.66L, Hemoglobin 8.0L, Hematocrit 25.5L, Mean Corpuscular Volume 96, Mean Corpuscular Hemoglobin 29.9, Mean Corpuscular Hemoglobin Concent 31.2L, Red Cell Distribution Width 15.1H, Platelet Count 334, Mean Platelet Volume 6.6, Neutrophils (%) (Auto) 69.8, Lymphocytes (%) (Auto) 17.3L, Monocytes (%) (Auto) 9.5, Eosinophils (%) (Auto) 2.7, Basophils (%) (Auto) 0.7, Sodium Level 141, Potassium Level 3.5, Chloride Level 107, Carbon Dioxide Level 25, Anion Gap 9, Blood Urea Nitrogen 21H, Creatinine 0.8, Estimat Glomerular Filtration Rate > 60, Glucose Level 132H, Calcium Level 8.5, Phosphorus Level 2.6, Magnesium Level 1.9, Total Bilirubin 0.2, Direct Bilirubin < 0.1, Aspartate Amino Transf (AST/SGOT) 32, Alanine Aminotransferase (ALT/SGPT) 26, Alkaline Phosphatase 97, Total Protein 6.9, Albumin 1.5L Height (Feet): 5 Height (Inches): 7.00 Weight (Pounds): 120 General Appearance: no apparent distress EENT: other - Trach to vent Cardiovascular: normal rate Respiratory/Chest: decreased breath sounds Abdomen: distended Ben Aguilar MD Sep 06, 2020 11:25
[2020-09-06 12:00] VITALS: BP 135/76
--- NOTE | 2020-09-06 12:11 | Surgery Progress Note ---
Surgery Progress Note Subjective Symptoms: improved, tolerating diet, passing flatus Objective Last 24 Hour Vital Signs Date Time Temp Pulse Resp B/P (MAP) Pulse Ox O2 Delivery O2 Flow Rate FiO2 09/06/20 09:28 63 23 30 09/06/20 08:00 97.9 59 20 136/72 (93) 100 09/06/20 08:00 59 09/06/20 07:26 62 24 30 09/06/20 05:17 55 22 30 09/06/20 04:20 Mechanical Ventilator 09/06/20 04:00 61 09/06/20 04:00 97.0 60 20 143/78 (99) 100 09/06/20 03:12 58 26 30 09/06/20 01:24 62 22 30 09/06/20 00:00 99.5 67 21 136/72 (93) 100 09/06/20 00:00 72 09/06/20 00:00 Mechanical Ventilator 09/05/20 23:16 69 26 30 09/05/20 21:33 70 25 30 09/05/20 21:00 98.4 09/05/20 20:08 73 22 30 09/05/20 20:00 Mechanical Ventilator 09/05/20 20:00 99.7 79 20 136/76 (96) 99 09/05/20 20:00 79 09/05/20 16:00 98.4 70 20 126/72 (90) 99 09/05/20 16:00 Mechanical Ventilator 09/05/20 15:38 73 09/05/20 15:30 73 31 30 09/05/20 14:41 30 09/05/20 12:56 74 29 30 I&O Intake and Output 09/05/20 09/06/20 19:00 07:00 Intake Total 1080 ml 60 ml Output Total 550 ml 700 ml Balance 530 ml -640 ml Intake Free Water 60 ml IV Total 420 ml Tube Feeding 600 ml 60 ml Output Urine Total 550 ml 700 ml # Bowel Movements 1 Dressing: saturated Cardiovascular: RSR Respiratory: decreased breath sounds Abdomen: non-tender, present bowel sounds, non-distended Extremities: no edema, no tenderness, no cyanosis Laboratory Tests Test 09/06/20 07:35 White Blood Count 11.3 K/UL (4.8-10.8) H Red Blood Count 2.66 M/UL (4.70-6.10) L Hemoglobin 8.0 G/DL (14.2-18.0) L Hematocrit 25.5 % (42.0-52.0) L Mean Corpuscular Volume 96 FL (80-99) Mean Corpuscular Hemoglobin 29.9 PG (27.0-31.0) Mean Corpuscular Hemoglobin Concent 31.2 G/DL (32.0-36.0) L Red Cell Distribution Width 15.1 % (11.6-14.8) H Platelet Count 334 K/UL (150-450) Mean Platelet Volume 6.6 FL (6.5-10.1) Neutrophils (%) (Auto) 69.8 % (45.0-75.0) Lymphocytes (%) (Auto) 17.3 % (20.0-45.0) L Monocytes (%) (Auto) 9.5 % (1.0-10.0) Eosinophils (%) (Auto) 2.7 % (0.0-3.0) Basophils (%) (Auto) 0.7 % (0.0-2.0) Sodium Level 141 MMOL/L (136-145) Potassium Level 3.5 MMOL/L (3.5-5.1) Chloride Level 107 MMOL/L (98-107) Carbon Dioxide Level 25 MMOL/L (21-32) Anion Gap 9 mmol/L (5-15) Blood Urea Nitrogen 21 mg/dL (7-18) H Creatinine 0.8 MG/DL (0.55-1.30) Estimat Glomerular Filtration Rate > 60 mL/min (>60) Glucose Level 132 MG/DL (74-106) H Calcium Level 8.5 MG/DL (8.5-10.1) Phosphorus Level 2.6 MG/DL (2.5-4.9) Magnesium Level 1.9 MG/DL (1.8-2.4) Total Bilirubin 0.2 MG/DL (0.2-1.0) Direct Bilirubin < 0.1 MG/DL (0.0-0.3) Aspartate Amino Transf (AST/SGOT) 32 U/L (15-37) Alanine Aminotransferase (ALT/SGPT) 26 U/L (12-78) Alkaline Phosphatase 97 U/L (46-116) Total Protein 6.9 G/DL (6.4-8.2) Albumin 1.5 G/DL (3.4-5.0) L Plan Problems: (1) Septic shock (2) Acute renal failure (3) Sepsis Assessment & Plan: 64-year-old male leukocytosis abnormal labs ultrasound with gallbladder wall thickening no pericholecystic fluid no gallstones potentially a calculus cholecystitis. Patient unable to verbalize or identify tenderness. Examination fairly unreliable. Clinically recommend given patient's history and condition medical management and will monitor clinically. The liver and spleen are homogeneous. Mild wall thickening of the gallbladder noted. Common bile duct measures 3 mm. The pancreas is unremarkable to the extent visualized. There are nonshadowing cortical echogenic focus in the left kidney likely perivascular fat. No renal stone or hydronephrosis seen bilaterally. Aorta and cava are within normal limits. IMPRESSION: NO GALLSTONE OR SLUDGE IS IDENTIFIED BUT THERE IS EDEMA AND GALLBLADDER WALL THICKENING. PATIENT IS UNABLE TO REPORT FOCAL SYMPTOMS. LEFT RENAL CORTICAL ECHOGENIC FOCUS WITHOUT SHADOWING LIKELY PERIVASCULAR FAT. NO DISCRETE RENAL STONE OR HYDRONEPHROSIS. INCIDENTAL SMALL LEFT PLEURAL EFFUSION. (4) Pneumonia (5) Upper GI bleed Assessment & Plan: Patient had acute drop in hemoglobin noted some dark stool consider removed potentially blood GI called GI eval pending occult stool trend H&H PRBC if drops below 7 will follow with recommendations s/p egd peg bx results pending DAILY ESTIMATED NEEDS: Needs based on Critical care, underweight, TF ACCOUNT DIRECTOR 50kg 28-33 kcals/kg 2422-0934 total kcals 1.2-2 g protein/kg 60-100 g total protein 25-30 mL/kg 7138-2352 total fluid mLs NUTRITION DIAGNOSIS: Swallowing difficulty r/t respiratory failure as evidenced by pt is vent dep via trach/ PEG dep. CURRENT TF:Vital @60ml/hr x24 hrs -> now NPO for EGD ENTERAL NUTRITION RECOMMENDATIONS: rec to LOWER Vital 1.2 goal of 55ml/hr x24 hrs to provide 1320ml, 1584 kcal, 99g pro, 1071ml free H2O - rec to LOWER goal to 55ml/hr to not exceed est needs - flush per MD. HOB over 30 degrees ADDITIONAL RECOMMENDATIONS: 1) Maintain calibrated bed scale wts 2) rec bedside BG testing/ niss -> now on NISS 3) replete lytes as needed (low K and phos) 4) DC D5 IVF when TF resumes for improved BG control Doe Nina Sep 06, 2020 12:11
[2020-09-06] MEDS ORDERED: D5 1/2NS 1000ml IV ONE (13:24)
[2020-09-06] MEDS ORDERED: Tubing IV Secondary IV ONE (13:24)
[2020-09-06 16:00] VITALS: BP 122/66
--- NOTE | 2020-09-06 19:05 | NUR ---
NURSE HAND-OFF REPORT: Important Events on Shift:7A-7P Patient Status: stable Diet: vital AF@60ml/hr as ordered Pending Orders:n/a Pending Results/Labs:n/a Pending MD notification:n/a Latest Vital Signs: Temperature 98.8 , Pulse 76 , B/P 122 /66 , Respiratory Rate 25 , O2 SAT 100 , Mechanical Ventilator, O2 Flow Rate 15.0 . Vital Sign Comment: stable EKG Rhythm: Sinus Rhythm Rhythm change?: N MD Notified?: - MD Response: Latest Brewer Fall Score: 35 Fall Risk: Medium Risk Safety Measures: Call light Within Reach, Bed Alarm Zone 2, Side Rails Side Rails x3, Bed position Low and Locked. Fall Precautions: Yellow Socks Patient Fall Education Report given to EDGAR youngblood.
--- NOTE | 2020-09-06 19:18 | NUR ---
NURSE NOTES: Received patient awake in bed, able to follow commands and give simple commands. G tube feeding noted, patent, patient tolerating well. Bob catheter in place, secured, draining yellow liquid, patient tolerating well. PICC on LESVIA, running TKO, dressing dry and intact. Trach Shiley 6, TV 450, Resp 14, FI02 30, PEEP 5. Bed low and locked, patient wearing non slip socks.
[2020-09-06 20:00] VITALS: BP 133/70
[2020-09-06] MEDS: Dyna-Hex 2% Top Sol 2oz TOPIC SCH (21:37)
--- NOTE | 2020-09-06 23:33 | NUR ---
Dr Perdue at bedside. requested to have discharge planning tomorrow 09/07/20. Patient stable, no s/s of acute distress. Repositioned in bed.
--- NOTE | 2020-09-06 23:40 | General Progress Note ---
Subjective Constitutional: Reports: no symptoms HEENT: Reports: no symptoms Cardiovascular: Reports: no symptoms Respiratory: Reports: no symptoms Gastrointestinal/Abdominal: Reports: no symptoms Genitourinary: Reports: no symptoms Neurologic/Psychiatric: Reports: no symptoms Endocrine: Reports: no symptoms Hematologic/Lymphatic: Reports: no symptoms Allergies: Coded Allergies: No Known Allergies (Unverified , 08/30/20) Objective Last 24 Hour Vital Signs Date Time Temp Pulse Resp B/P (MAP) Pulse Ox O2 Delivery O2 Flow Rate FiO2 09/06/20 21:37 75 20 30 09/06/20 20:00 Mechanical Ventilator 09/06/20 20:00 98.7 71 17 133/70 (91) 99 09/06/20 20:00 70 09/06/20 19:18 78 20 30 09/06/20 17:06 76 25 30 09/06/20 16:00 70 09/06/20 16:00 98.8 81 18 122/66 (84) 100 09/06/20 16:00 Mechanical Ventilator 09/06/20 15:17 75 20 30 09/06/20 13:14 73 23 30 09/06/20 12:00 98.2 66 20 135/76 (95) 100 09/06/20 12:00 30 09/06/20 12:00 Mechanical Ventilator 09/06/20 12:00 60 09/06/20 11:00 65 15 30 09/06/20 09:28 63 23 30 09/06/20 08:00 97.9 59 20 136/72 (93) 100 09/06/20 08:00 59 09/06/20 08:00 Mechanical Ventilator 09/06/20 08:00 30 09/06/20 07:26 62 24 30 09/06/20 05:17 55 22 30 09/06/20 04:20 Mechanical Ventilator 09/06/20 04:00 61 09/06/20 04:00 97.0 60 20 143/78 (99) 100 09/06/20 03:12 58 26 30 09/06/20 01:24 62 22 30 09/06/20 00:00 99.5 67 21 136/72 (93) 100 09/06/20 00:00 72 09/06/20 00:00 Mechanical Ventilator Intake and Output 09/05/20 09/06/20 19:00 07:00 Intake Total 1080 ml 120 ml Output Total 550 ml 700 ml Balance 530 ml -580 ml Intake Free Water 60 ml IV Total 420 ml Tube Feeding 600 ml 120 ml Output Urine Total 550 ml 700 ml # Bowel Movements 1 Laboratory Tests 09/06/20 07:35: White Blood Count 11.3H, Red Blood Count 2.66L, Hemoglobin 8.0L, Hematocrit 25.5L, Mean Corpuscular Volume 96, Mean Corpuscular Hemoglobin 29.9, Mean Corpuscular Hemoglobin Concent 31.2L, Red Cell Distribution Width 15.1H, Platelet Count 334, Mean Platelet Volume 6.6, Neutrophils (%) (Auto) 69.8, Lymphocytes (%) (Auto) 17.3L, Monocytes (%) (Auto) 9.5, Eosinophils (%) (Auto) 2.7, Basophils (%) (Auto) 0.7, Sodium Level 141, Potassium Level 3.5, Chloride Level 107, Carbon Dioxide Level 25, Anion Gap 9, Blood Urea Nitrogen 21H, Creatinine 0.8, Estimat Glomerular Filtration Rate > 60, Glucose Level 132H, Calcium Level 8.5, Phosphorus Level 2.6, Magnesium Level 1.9, Total Bilirubin 0.2, Direct Bilirubin < 0.1, Aspartate Amino Transf (AST/SGOT) 32, Alanine Aminotransferase (ALT/SGPT) 26, Alkaline Phosphatase 97, Total Protein 6.9, Albumin 1.5L 09/06/20 13:16: POC Whole Blood Glucose 171H 09/06/20 17:43: POC Whole Blood Glucose 134H Height (Feet): 5 Height (Inches): 7.00 Weight (Pounds): 120 General Appearance: WD/WN, no apparent distress, alert EENT: normal ENT inspection Neck: supple Cardiovascular: normal rate, regular rhythm, no gallop/murmur, no JVD Respiratory/Chest: lungs clear, normal breath sounds, no respiratory distress, no accessory muscle use Abdomen: normal bowel sounds, non tender, soft, no organomegaly, no mass Extremities: non-tender Neurologic: alert, oriented x 3, responsive Assessment/Plan Status Narrative Patient is awake alert afebrile hemodynamically stable he feels comfortable and has no pain patient culture blood culture grew for the cholecystitis vancomycin was DC'd ampicillin was more than 5 time was sensitive than vancomycin there is bacteria we will continue with ampicillin 2 g every 4 hours is afebrile he has no leukocytosis and normal heart rate discharge planning will be starting tomorrow repeat laboratory tests will be done in a.m. as a Jason Gabriel MD, MD Sep 06, 2020 23:40
[2020-09-07] VITALS: BP 122/69
[2020-09-07] MEDS: Ampicillin 2 GM in NS 110 ML IV SCH ×6 (01:30→21:04)
--- NOTE | 2020-09-07 03:51 | NUR ---
NURSE NOTES: Patient resting comfortably in bed, no s/s of acute distress, O2 sat 99-100%. Patient tolerating current vent settings. Bed low and locked. PICC patent, running TKO on both lumens.
[2020-09-07 04:00] VITALS: BP 120/65
[2020-09-07 05:35] LABS: BASOPHILS % (AUTO) 0.4 % (0.0-2.0); EOSINOPHILS % (AUTO) 3.5 % (0.0-3.0); HEMATOCRIT 25.4 % (42.0-52.0); LYMPHOCYTES % (AUTO) 16.9 % (20.0-45.0); MEAN CORPUSCULAR VOLUME 95 FL (80-99); MONOCYTES % (AUTO) 8.4 % (1.0-10.0); NEUTROPHILS % (AUTO) 70.9 % (45.0-75.0); PLATELET COUNT 389 K/UL (150-450); RED BLOOD COUNT 2.67 M/UL (4.70-6.10); RED CELL DISTRIBUTION WIDTH 14.6 % (11.6-14.8); WHITE BLOOD COUNT 10.1 K/UL (4.8-10.8)
[2020-09-07 05:40] LABS: ANION GAP 7 mmol/L (5-15); BLOOD UREA NITROGEN 18 mg/dL (7-18); CALCIUM 8.2 MG/DL (8.5-10.1); CARBON DIOXIDE 26 MMOL/L (21-32); CHLORIDE 106 MMOL/L (98-107); CREATININE 0.8 MG/DL (0.55-1.30); POTASSIUM 4.2 MMOL/L (3.5-5.1); SODIUM 139 MMOL/L (136-145)
[2020-09-07] MEDS: NovoLOG Insulin Flexpen SUBQ SCH ×4 (05:43→17:40)
--- NOTE | 2020-09-07 06:36 | Hematology/Onc Progress Note ---
Assessment/Plan Assessment/Plan Assessment and recs # Leukocytosis due to underlying Sepsis --> per ID recs --> ABX cefepime/vanc--ampicillin --> wbc 13-->13-->9 # Anemia with a upper gi bleed --> per gi eval --> hgb 12-->8.8-->8.6-->8.8->8 --> anemia panel is noted, and dw ACD --> transfuse prn basis --> review smear # Pneumonia b//l pna on imaging --> imaging seen --> per id # Respiratory failure --> s/p vent/trach # Septic shock # Acute renal failure # Upper GI bleed # Hypotensive and tachycardic. --> Patient given IV fluids and is fluid responsive. # Dvt ppx scds Appreciate consultation and stefany Rn Subjective Genitourinary: Denies: no symptoms, burning, discharge, frequency, flank pain, hematuria, incontinence, pain, urgency, other Neurologic/Psychiatric: Denies: no symptoms, anxiety, depressed, emotional problems, headache, numbness, paresthesia, pre-existing deficit, seizure, tingling, tremors, weakness, other Endocrine: Denies: no symptoms, excessive sweating, flushing, intolerance to cold, intolerance to heat, increased hunger, increased thirst, increased urine, unexplained weight gain, unexplained weight loss, other Allergies: Coded Allergies: No Known Allergies (Unverified , 08/30/20) Subjective 09/01 stefany rn, on abx broad spectrum, labs noted, no active bleed at this time 09/02 meds noted, no bleeding, stefany rn, wbc 18, hgb 8.6, no hemolysis 09/03 plan for egd this am, labs noted, no bleeding, stefany rn 09/05 meds noted, no bleeding, vent setting tolerated, no bleeding 09/06 sr, on tube feeds, labs are pending, on ampicillin 09/07 no events, sr, labs are noted, on abx, cbc noted Objective Objective Current Medications Medications (Trade) Dose Ordered Sig/Kirby Route PRN Reason Start Time Stop Time Status Last Admin Dose Admin Acetaminophen (Tylenol) 650 mg Q4H PRN NG Mild Pain (Pain Scale 1-3) 08/31/20 09:00 09/30/20 08:59 09/05/20 20:30 Acetaminophen (Tylenol) 650 mg Q4H PRN NG Temp >100.5 08/31/20 09:00 09/30/20 08:59 Ampicillin 2 gm/ Sodium Chloride 110 ml @ 220 mls/hr EVERY 4 HOURS IV 09/02/20 09:30 09/09/20 09:29 09/07/20 04:58 Chlorhexidine Gluconate (Janet-Hex 2%) 1 applic DAILY@2000 TOPIC 09/06/20 21:15 12/05/20 21:14 09/06/20 21:37 Dextrose (Dextrose 50%) 25 ml Q30M PRN IV Hypoglycemia 08/30/20 16:45 11/28/20 16:44 Dextrose (Dextrose 50%) 50 ml Q30M PRN IV Hypoglycemia 08/30/20 16:45 11/28/20 16:44 Insulin Aspart (NovoLOG) Q6HR SUBQ 08/30/20 18:00 11/28/20 17:59 09/06/20 13:24 Lansoprazole (Prevacid) 30 mg BID GT 09/01/20 18:00 09/30/20 17:59 09/06/20 17:14 Ondansetron HCl (Zofran) 4 mg Q4H PRN IVP Nausea & Vomiting 08/30/20 16:45 09/29/20 16:44 Potassium Chloride (K-Dur) 40 meq DAILY GT 09/06/20 11:30 12/05/20 11:29 09/06/20 13:23 Sucralfate (Carafate) 1 gm FOUR TIMES A DAY ORAL 09/03/20 13:00 12/02/20 12:59 09/06/20 20:34 Last 24 Hour Vital Signs Date Time Temp Pulse Resp B/P (MAP) Pulse Ox O2 Delivery O2 Flow Rate FiO2 09/07/20 05:29 64 19 30 09/07/20 04:00 Mechanical Ventilator 09/07/20 04:00 97.2 71 17 120/65 (83) 100 09/07/20 04:00 62 09/07/20 04:00 30 09/07/20 03:19 63 20 30 09/07/20 01:54 65 27 30 09/07/20 00:06 Mechanical Ventilator 09/07/20 00:00 98.2 70 17 122/69 (86) 100 09/07/20 00:00 30 09/06/20 23:41 73 23 30 09/06/20 21:37 75 20 30 09/06/20 20:00 30 09/06/20 20:00 Mechanical Ventilator 09/06/20 20:00 98.7 71 17 133/70 (91) 99 09/06/20 20:00 70 09/06/20 19:18 78 20 30 09/06/20 17:06 76 25 30 09/06/20 16:00 70 09/06/20 16:00 98.8 81 18 122/66 (84) 100 09/06/20 16:00 Mechanical Ventilator 09/06/20 15:17 75 20 30 09/06/20 13:14 73 23 30 09/06/20 12:00 98.2 66 20 135/76 (95) 100 09/06/20 12:00 30 09/06/20 12:00 Mechanical Ventilator 09/06/20 12:00 60 09/06/20 11:00 65 15 30 09/06/20 09:28 63 23 30 09/06/20 08:00 97.9 59 20 136/72 (93) 100 09/06/20 08:00 59 09/06/20 08:00 Mechanical Ventilator 09/06/20 08:00 30 09/06/20 07:26 62 24 30 09/06/20 05:17 55 22 30 09/06/20 04:20 Mechanical Ventilator 09/06/20 04:00 61 09/06/20 04:00 97.0 60 20 143/78 (99) 100 09/06/20 03:12 58 26 30 09/06/20 01:24 62 22 30 09/06/20 00:00 99.5 67 21 136/72 (93) 100 09/06/20 00:00 72 09/06/20 00:00 Mechanical Ventilator 09/05/20 23:16 69 26 30 09/05/20 21:33 70 25 30 09/05/20 21:00 98.4 09/05/20 20:08 73 22 30 09/05/20 20:00 Mechanical Ventilator 09/05/20 20:00 99.7 79 20 136/76 (96) 99 09/05/20 20:00 79 09/05/20 16:00 98.4 70 20 126/72 (90) 99 09/05/20 16:00 Mechanical Ventilator 09/05/20 15:38 73 09/05/20 15:30 73 31 30 09/05/20 14:41 30 09/05/20 12:56 74 29 30 09/05/20 12:00 98.6 97 21 130/70 (90) 100 09/05/20 12:00 Mechanical Ventilator 09/05/20 12:00 65 09/05/20 11:30 72 32 30 09/05/20 09:04 69 22 30 09/05/20 08:00 98.4 75 22 131/76 (94) 100 09/05/20 07:46 66 09/05/20 07:19 72 22 30 09/05/20 07:19 Mechanical Ventilator Intake and Output 09/06/20 09/07/20 19:00 07:00 Intake Total 820 ml 820 ml Output Total 850 ml 1000 ml Balance -30 ml -180 ml IV Total 220 ml Tube Feeding 720 ml 600 ml Other 100 ml Output Urine Total 850 ml 1000 ml # Bowel Movements 2 Labs Test 09/04/20 11:19 09/04/20 17:08 09/05/20 05:21 09/05/20 11:15 POC Whole Blood Glucose 158 MG/DL (74-106) 148 MG/DL (74-106) 150 MG/DL (74-106) White Blood Count 9.8 K/UL (4.8-10.8) Red Blood Count 2.68 M/UL (4.70-6.10) Hemoglobin 8.0 G/DL (14.2-18.0) Hematocrit 25.6 % (42.0-52.0) Mean Corpuscular Volume 95 FL (80-99) Mean Corpuscular Hemoglobin 30.0 PG (27.0-31.0) Mean Corpuscular Hemoglobin Concent 31.5 G/DL (32.0-36.0) Red Cell Distribution Width 15.4 % (11.6-14.8) Platelet Count 310 K/UL (150-450) Mean Platelet Volume 6.8 FL (6.5-10.1) Neutrophils (%) (Auto) 74.2 % (45.0-75.0) Lymphocytes (%) (Auto) 13.1 % (20.0-45.0) Monocytes (%) (Auto) 10.5 % (1.0-10.0) Eosinophils (%) (Auto) 1.6 % (0.0-3.0) Basophils (%) (Auto) 0.6 % (0.0-2.0) Sodium Level 143 MMOL/L (136-145) Potassium Level 4.3 MMOL/L (3.5-5.1) Chloride Level 111 MMOL/L (98-107) Carbon Dioxide Level 24 MMOL/L (21-32) Anion Gap 8 mmol/L (5-15) Blood Urea Nitrogen 23 mg/dL (7-18) Creatinine 1.0 MG/DL (0.55-1.30) Estimat Glomerular Filtration Rate > 60 mL/min (>60) Glucose Level 181 MG/DL (74-106) Calcium Level 8.4 MG/DL (8.5-10.1) Phosphorus Level 2.9 MG/DL (2.5-4.9) Magnesium Level 1.7 MG/DL (1.8-2.4) Total Bilirubin < 0.1 MG/DL (0.2-1.0) Aspartate Amino Transf (AST/SGOT) 27 U/L (15-37) Alanine Aminotransferase (ALT/SGPT) 27 U/L (12-78) Alkaline Phosphatase 136 U/L (46-116) Total Protein 6.3 G/DL (6.4-8.2) Albumin 1.4 G/DL (3.4-5.0) Globulin 4.9 g/dL Albumin/Globulin Ratio 0.3 (1.0-2.7) Test 09/06/20 07:35 09/06/20 13:16 09/06/20 17:43 09/06/20 23:53 White Blood Count 11.3 K/UL (4.8-10.8) Red Blood Count 2.66 M/UL (4.70-6.10) Hemoglobin 8.0 G/DL (14.2-18.0) Hematocrit 25.5 % (42.0-52.0) Mean Corpuscular Volume 96 FL (80-99) Mean Corpuscular Hemoglobin 29.9 PG (27.0-31.0) Mean Corpuscular Hemoglobin Concent 31.2 G/DL (32.0-36.0) Red Cell Distribution Width 15.1 % (11.6-14.8) Platelet Count 334 K/UL (150-450) Mean Platelet Volume 6.6 FL (6.5-10.1) Neutrophils (%) (Auto) 69.8 % (45.0-75.0) Lymphocytes (%) (Auto) 17.3 % (20.0-45.0) Monocytes (%) (Auto) 9.5 % (1.0-10.0) Eosinophils (%) (Auto) 2.7 % (0.0-3.0) Basophils (%) (Auto) 0.7 % (0.0-2.0) Sodium Level 141 MMOL/L (136-145) Potassium Level 3.5 MMOL/L (3.5-5.1) Chloride Level 107 MMOL/L (98-107) Carbon Dioxide Level 25 MMOL/L (21-32) Anion Gap 9 mmol/L (5-15) Blood Urea Nitrogen 21 mg/dL (7-18) Creatinine 0.8 MG/DL (0.55-1.30) Estimat Glomerular Filtration Rate > 60 mL/min (>60) Glucose Level 132 MG/DL (74-106) Calcium Level 8.5 MG/DL (8.5-10.1) Phosphorus Level 2.6 MG/DL (2.5-4.9) Magnesium Level 1.9 MG/DL (1.8-2.4) Total Bilirubin 0.2 MG/DL (0.2-1.0) Direct Bilirubin < 0.1 MG/DL (0.0-0.3) Aspartate Amino Transf (AST/SGOT) 32 U/L (15-37) Alanine Aminotransferase (ALT/SGPT) 26 U/L (12-78) Alkaline Phosphatase 97 U/L (46-116) Total Protein 6.9 G/DL (6.4-8.2) Albumin 1.5 G/DL (3.4-5.0) POC Whole Blood Glucose 171 MG/DL (74-106) 134 MG/DL (74-106) 128 MG/DL (74-106) Test 09/07/20 03:00 09/07/20 05:12 White Blood Count 10.1 K/UL (4.8-10.8) Red Blood Count 2.67 M/UL (4.70-6.10) Hemoglobin 8.0 G/DL (14.2-18.0) Hematocrit 25.4 % (42.0-52.0) Mean Corpuscular Volume 95 FL (80-99) Mean Corpuscular Hemoglobin 29.9 PG (27.0-31.0) Mean Corpuscular Hemoglobin Concent 31.4 G/DL (32.0-36.0) Red Cell Distribution Width 14.6 % (11.6-14.8) Platelet Count 389 K/UL (150-450) Mean Platelet Volume 6.4 FL (6.5-10.1) Neutrophils (%) (Auto) 70.9 % (45.0-75.0) Lymphocytes (%) (Auto) 16.9 % (20.0-45.0) Monocytes (%) (Auto) 8.4 % (1.0-10.0) Eosinophils (%) (Auto) 3.5 % (0.0-3.0) Basophils (%) (Auto) 0.4 % (0.0-2.0) Sodium Level 139 MMOL/L (136-145) Potassium Level 4.2 MMOL/L (3.5-5.1) Chloride Level 106 MMOL/L (98-107) Carbon Dioxide Level 26 MMOL/L (21-32) Anion Gap 7 mmol/L (5-15) Blood Urea Nitrogen 18 mg/dL (7-18) Creatinine 0.8 MG/DL (0.55-1.30) Estimat Glomerular Filtration Rate > 60 mL/min (>60) Glucose Level 130 MG/DL (74-106) Calcium Level 8.2 MG/DL (8.5-10.1) POC Whole Blood Glucose 132 MG/DL (74-106) Height (Feet): 5 Height (Inches): 7.00 Weight (Pounds): 120 Objective Physical Exam Vitals abnormal General Appearance: nv, thin, Chronically Ill Heent: normocephalic, atraumatic ++ Trach in place VEnt++ Respiratory: rhonchi Cardiovascular: tachycardia Gastrointestinal: non tender, soft, non-distended, other ++ G-tube in the epigastric region Musculoskeletal: no calf tenderness, no lower extremity edema Psychiatric: other - Unable to assess as parent patient is nonverbal Skin: no rash Nick Ferguson MD Sep 07, 2020 06:36
--- NOTE | 2020-09-07 07:02 | NUR ---
NURSE NOTES: Report given to EDGAR Workman
--- NOTE | 2020-09-07 07:02 | NUR ---
NURSE NOTES: Received report from EDGAR Onofre. Pt in bed awake, oriented and Non-verbal. Trach connected to vent setting with [id number]%, PEEP OF 5, tolerating well, sating 99%. PICC with 2 lumens flushing well and running TKO. Bob cath intact and patent. HOB elevated 30 degree. Side railsx3 up for safety. Will continue to plan of care.
[2020-09-07 08:00] VITALS: BP 111/60
--- NOTE | 2020-09-07 08:01 | Cardiology Report ---
APPROVED REPORT EXAM: Two-dimensional and M-mode echocardiogram with Doppler and color Doppler. INDICATION Endocarditis M-Mode DIMENSIONS IVSd1.1 (0.7-1.1cm)Left Atrium (MM)2.8 (1.6-4.0cm) LVDd3.1 (3.5-5.6cm)Aortic Root2.9 (2.0-3.7cm) PWd1.4 (0.7-1.1cm)Aortic Cusp Exc.1.9 (1.5-2.0cm) IVSs1.2 cmEPSS0.5 (>1.0cm) LVDs1.9 (2.5-4.0cm) PWs1.7 cm <Conclusion> Normal left ventricular chamber size, systolic function and wall motion. Left ventricular ejection fraction estimated to be 55 %. No evidence of left ventricular hypertrophy. Trivial posterior pericardial effusion. All other cardiac chamber sizes are within normal limits. Focal aortic valve sclerosis with adequate cusp excursion. Thickened mitral valve leaflets with normal excursion. Pulmonic valve not well visualized. Normal tricuspid valve structure. IVC dilated at 2.6 cm without physiologic collapse suggestive of increased RA pressure. A color flow and spectral Doppler study was performed and revealed: Trace to mild aortic regurgitation. Trace to mild mitral regurgitation. Mitral diastolic velocities suggest reduced left ventricular relaxation c/w mild diastolic dysfunction (Grade I). There are 2 jets of mild tricuspid regurgitation. Tricuspid systolic velocities suggests peak right ventricular systolic pressure of 40 mmHg, consistent with mild pulmonary hypertension. Trace pulmonic regurgitation present.
--- NOTE | 2020-09-07 08:05 | Infectious Diseases Prog Note ---
Assessment/Plan 64 yo male with PMHx of CVA, S/P PEG s/p Trach, DM and HTN who was sent to the ED form his [place] [facility] with hypoxia. Sepsis Leuckotyosis- SP No fever Bacteremialikely GI source Blood Cx 08/30/20- Enterococcus Amp and Vanco sen Blood Cx 08/31/20 - Enterococcus Blood Cx 09/02/20 - NTD Resp fail - Acute on chronic Trached PNA CXR shows - LLL PNA and possible N/V/D and abd pain Some blood In the vomit CVA s/p PEG and s/p Trach DM HTN PLAN Ampicillin 2g Q4hr #6/14 ( End date ) If dosing frequency is to high then he could be switch to vancomycin on D/C 09/02/20 - SP Flagyl #3 and Cefepime #3 and Vancomycin #3 f/u TTE f/u culture Blood Monitor Resp status Monitor CBC and Temps Thank you for this consult. [facility] will continue to follow Mr. Shaikh with you. Subjective Allergies: Coded Allergies: No Known Allergies (Unverified , 08/30/20) Afebrile WBCs 10 today No acute complaints Objective Last 24 Hour Vital Signs Date Time Temp Pulse Resp B/P (MAP) Pulse Ox O2 Delivery O2 Flow Rate FiO2 09/07/20 05:29 64 19 30 09/07/20 04:00 Mechanical Ventilator 09/07/20 04:00 97.2 71 17 120/65 (83) 100 09/07/20 04:00 62 09/07/20 04:00 30 09/07/20 03:19 63 20 30 09/07/20 01:54 65 27 30 09/07/20 00:06 Mechanical Ventilator 09/07/20 00:00 98.2 70 17 122/69 (86) 100 09/07/20 00:00 30 09/06/20 23:41 73 23 30 09/06/20 21:37 75 20 30 09/06/20 20:00 30 09/06/20 20:00 Mechanical Ventilator 09/06/20 20:00 98.7 71 17 133/70 (91) 99 09/06/20 20:00 70 09/06/20 19:18 78 20 30 09/06/20 17:06 76 25 30 09/06/20 16:00 70 09/06/20 16:00 98.8 81 18 122/66 (84) 100 09/06/20 16:00 Mechanical Ventilator 09/06/20 15:17 75 20 30 09/06/20 13:14 73 23 30 09/06/20 12:00 98.2 66 20 135/76 (95) 100 09/06/20 12:00 30 09/06/20 12:00 Mechanical Ventilator 09/06/20 12:00 60 09/06/20 11:00 65 15 30 09/06/20 09:28 63 23 30 Height (Feet): 5 Height (Inches): 7.00 Weight (Pounds): 120 Gen: NAD awake and following commands on Vent 30% O2 HEENT: NCAT, MMM, EOMI, No scleral icterus, Trach in place Pulm: Equal rise and fall B/L No accessory muscle use Abd: Soft,ND PEG ( No E/P) SKIN: Exposed skin normal in color no rash noted Laboratory Tests Test 09/06/20 13:16 09/06/20 17:43 09/06/20 23:53 09/07/20 03:00 POC Whole Blood Glucose 171 MG/DL (74-106) H 134 MG/DL (74-106) H 128 MG/DL (74-106) H White Blood Count 10.1 K/UL (4.8-10.8) Red Blood Count 2.67 M/UL (4.70-6.10) L Hemoglobin 8.0 G/DL (14.2-18.0) L Hematocrit 25.4 % (42.0-52.0) L Mean Corpuscular Volume 95 FL (80-99) Mean Corpuscular Hemoglobin 29.9 PG (27.0-31.0) Mean Corpuscular Hemoglobin Concent 31.4 G/DL (32.0-36.0) L Red Cell Distribution Width 14.6 % (11.6-14.8) Platelet Count 389 K/UL (150-450) Mean Platelet Volume 6.4 FL (6.5-10.1) L Neutrophils (%) (Auto) 70.9 % (45.0-75.0) Lymphocytes (%) (Auto) 16.9 % (20.0-45.0) L Monocytes (%) (Auto) 8.4 % (1.0-10.0) Eosinophils (%) (Auto) 3.5 % (0.0-3.0) H Basophils (%) (Auto) 0.4 % (0.0-2.0) Sodium Level 139 MMOL/L (136-145) Potassium Level 4.2 MMOL/L (3.5-5.1) Chloride Level 106 MMOL/L (98-107) Carbon Dioxide Level 26 MMOL/L (21-32) Anion Gap 7 mmol/L (5-15) Blood Urea Nitrogen 18 mg/dL (7-18) Creatinine 0.8 MG/DL (0.55-1.30) Estimat Glomerular Filtration Rate > 60 mL/min (>60) Glucose Level 130 MG/DL (74-106) H Calcium Level 8.2 MG/DL (8.5-10.1) L Test 09/07/20 05:12 POC Whole Blood Glucose 132 MG/DL (74-106) H Current Medications Medications (Trade) Dose Ordered Sig/Kirby Route PRN Reason Start Time Stop Time Status Last Admin Dose Admin Acetaminophen (Tylenol) 650 mg Q4H PRN NG Mild Pain (Pain Scale 1-3) 08/31/20 09:00 09/30/20 08:59 09/05/20 20:30 Acetaminophen (Tylenol) 650 mg Q4H PRN NG Temp >100.5 08/31/20 09:00 09/30/20 08:59 Ampicillin 2 gm/ Sodium Chloride 110 ml @ 220 mls/hr EVERY 4 HOURS IV 09/02/20 09:30 09/09/20 09:29 09/07/20 04:58 Chlorhexidine Gluconate (Janet-Hex 2%) 1 applic DAILY@2000 TOPIC 09/06/20 21:15 12/05/20 21:14 09/06/20 21:37 Dextrose (Dextrose 50%) 25 ml Q30M PRN IV Hypoglycemia 08/30/20 16:45 11/28/20 16:44 Dextrose (Dextrose 50%) 50 ml Q30M PRN IV Hypoglycemia 08/30/20 16:45 11/28/20 16:44 Insulin Aspart (NovoLOG) Q6HR SUBQ 08/30/20 18:00 11/28/20 17:59 09/06/20 13:24 Lansoprazole (Prevacid) 30 mg BID GT 09/01/20 18:00 09/30/20 17:59 09/06/20 17:14 Ondansetron HCl (Zofran) 4 mg Q4H PRN IVP Nausea & Vomiting 08/30/20 16:45 09/29/20 16:44 Potassium Chloride (K-Dur) 40 meq DAILY GT 09/06/20 11:30 12/05/20 11:29 09/06/20 13:23 Sucralfate (Carafate) 1 gm FOUR TIMES A DAY ORAL 09/03/20 13:00 12/02/20 12:59 09/06/20 20:34 Kostas Packer MD Sep 07, 2020 08:05
[2020-09-07] MEDS: Sucralfate 1gm tab ORAL SCH ×4 (08:36→21:04)
--- NOTE | 2020-09-07 09:30 | General Progress Note ---
Subjective ROS Limited/Unobtainable: No Allergies: Coded Allergies: No Known Allergies (Unverified , 08/30/20) Objective Last 24 Hour Vital Signs Date Time Temp Pulse Resp B/P (MAP) Pulse Ox O2 Delivery O2 Flow Rate FiO2 09/07/20 08:00 98.1 64 17 111/60 (77) 100 09/07/20 08:00 Mechanical Ventilator 09/07/20 08:00 64 09/07/20 05:29 64 19 30 09/07/20 04:00 Mechanical Ventilator 09/07/20 04:00 97.2 71 17 120/65 (83) 100 09/07/20 04:00 62 09/07/20 04:00 30 09/07/20 03:19 63 20 30 09/07/20 01:54 65 27 30 09/07/20 00:06 Mechanical Ventilator 09/07/20 00:00 98.2 70 17 122/69 (86) 100 09/07/20 00:00 30 09/06/20 23:41 73 23 30 09/06/20 21:37 75 20 30 09/06/20 20:00 30 09/06/20 20:00 Mechanical Ventilator 09/06/20 20:00 98.7 71 17 133/70 (91) 99 09/06/20 20:00 70 09/06/20 19:18 78 20 30 09/06/20 17:06 76 25 30 09/06/20 16:00 70 09/06/20 16:00 98.8 81 18 122/66 (84) 100 09/06/20 16:00 Mechanical Ventilator 09/06/20 15:17 75 20 30 09/06/20 13:14 73 23 30 09/06/20 12:00 98.2 66 20 135/76 (95) 100 09/06/20 12:00 30 09/06/20 12:00 Mechanical Ventilator 09/06/20 12:00 60 09/06/20 11:00 65 15 30 Intake and Output 09/06/20 09/07/20 19:00 07:00 Intake Total 820 ml 820 ml Output Total 850 ml 1000 ml Balance -30 ml -180 ml IV Total 220 ml Tube Feeding 720 ml 600 ml Other 100 ml Output Urine Total 850 ml 1000 ml # Bowel Movements 2 Laboratory Tests 09/06/20 13:16: POC Whole Blood Glucose 171H 09/06/20 17:43: POC Whole Blood Glucose 134H 09/06/20 23:53: POC Whole Blood Glucose 128H 09/07/20 03:00: White Blood Count 10.1, Red Blood Count 2.67L, Hemoglobin 8.0L, Hematocrit 25.4L , Mean Corpuscular Volume 95, Mean Corpuscular Hemoglobin 29.9, Mean Corpuscular Hemoglobin Concent 31.4L, Red Cell Distribution Width 14.6, Platelet Count 389, Mean Platelet Volume 6.4L, Neutrophils (%) (Auto) 70.9, Lymphocytes (%) (Auto) 16.9L, Monocytes (%) (Auto) 8.4, Eosinophils (%) (Auto) 3.5H, Basophils (%) (Auto) 0.4, Sodium Level 139, Potassium Level 4.2, Chloride Level 106, Carbon Dioxide Level 26, Anion Gap 7, Blood Urea Nitrogen 18, Creatinine 0.8, Estimat Glomerular Filtration Rate > 60, Glucose Level 130H, Calcium Level 8.2L 09/07/20 05:12: POC Whole Blood Glucose 132H Height (Feet): 5 Height (Inches): 7.00 Weight (Pounds): 120 General Appearance: no apparent distress EENT: normal ENT inspection Neck: supple Cardiovascular: normal rate Respiratory/Chest: decreased breath sounds Abdomen: hypoactive bowel sounds Extremities: non-tender Assessment/Plan Problem List: (1) Upper GI bleed ICD Codes: K92.2 - Gastrointestinal hemorrhage, unspecified SNOMED: 67543590 (2) Pneumonia ICD Codes: J18.9 - Pneumonia, unspecified organism SNOMED: 844523715 (3) Sepsis ICD Codes: A41.9 - Sepsis, unspecified organism SNOMED: 45512367 (4) Acute renal failure ICD Codes: N17.9 - Acute kidney failure, unspecified SNOMED: 18510569 (5) Septic shock ICD Codes: A41.9 - Sepsis, unspecified organism; R65.21 - Severe sepsis with septic shock SNOMED: 69600104 Assessment/Plan: s/p EGD stable H&H tolerating TF ppi Yaakov Napoles MD Sep 07, 2020 09:30
--- NOTE | 2020-09-07 09:40 | Pulmonology Progress Note ---
Subjective ROS Limited/Unobtainable: No Interval Events: s/p EGD; esophagitis Constitutional: Reports: no symptoms HEENT: Repors: no symptoms Respiratory: Reports: no symptoms Cardiovascular: Reports: no symptoms Gastrointestinal/Abdominal: Reports: no symptoms Allergies: Coded Allergies: No Known Allergies (Unverified , 08/30/20) All Systems: reviewed and negative except above Objective Last 24 Hour Vital Signs Date Time Temp Pulse Resp B/P (MAP) Pulse Ox O2 Delivery O2 Flow Rate FiO2 09/07/20 08:00 98.1 64 17 111/60 (77) 100 09/07/20 08:00 Mechanical Ventilator 09/07/20 08:00 64 09/07/20 05:29 64 19 30 09/07/20 04:00 Mechanical Ventilator 09/07/20 04:00 97.2 71 17 120/65 (83) 100 09/07/20 04:00 62 09/07/20 04:00 30 09/07/20 03:19 63 20 30 09/07/20 01:54 65 27 30 09/07/20 00:06 Mechanical Ventilator 09/07/20 00:00 98.2 70 17 122/69 (86) 100 09/07/20 00:00 30 09/06/20 23:41 73 23 30 09/06/20 21:37 75 20 30 09/06/20 20:00 30 09/06/20 20:00 Mechanical Ventilator 09/06/20 20:00 98.7 71 17 133/70 (91) 99 09/06/20 20:00 70 09/06/20 19:18 78 20 30 09/06/20 17:06 76 25 30 09/06/20 16:00 70 09/06/20 16:00 98.8 81 18 122/66 (84) 100 09/06/20 16:00 Mechanical Ventilator 09/06/20 15:17 75 20 30 09/06/20 13:14 73 23 30 09/06/20 12:00 98.2 66 20 135/76 (95) 100 09/06/20 12:00 30 09/06/20 12:00 Mechanical Ventilator 09/06/20 12:00 60 09/06/20 11:00 65 15 30 Intake and Output 09/06/20 09/07/20 19:00 07:00 Intake Total 820 ml 820 ml Output Total 850 ml 1000 ml Balance -30 ml -180 ml IV Total 220 ml Tube Feeding 720 ml 600 ml Other 100 ml Output Urine Total 850 ml 1000 ml # Bowel Movements 2 General Appearance: no acute distress HEENT: atraumatic Respiratory: other - trach vent Cardiovascular: normal rate, regular rhythm Abdomen: soft, non tender Musculoskeletal: other - SCDs in LE Laboratory Tests 09/06/20 13:16: POC Whole Blood Glucose 171H 09/06/20 17:43: POC Whole Blood Glucose 134H 09/06/20 23:53: POC Whole Blood Glucose 128H 09/07/20 03:00: White Blood Count 10.1, Red Blood Count 2.67L, Hemoglobin 8.0L, Hematocrit 25.4L , Mean Corpuscular Volume 95, Mean Corpuscular Hemoglobin 29.9, Mean Corpuscular Hemoglobin Concent 31.4L, Red Cell Distribution Width 14.6, Platelet Count 389, Mean Platelet Volume 6.4L, Neutrophils (%) (Auto) 70.9, Lymphocytes (%) (Auto) 16.9L, Monocytes (%) (Auto) 8.4, Eosinophils (%) (Auto) 3.5H, Basophils (%) (Auto) 0.4, Sodium Level 139, Potassium Level 4.2, Chloride Level 106, Carbon Dioxide Level 26, Anion Gap 7, Blood Urea Nitrogen 18, Creatinine 0.8, Estimat Glomerular Filtration Rate > 60, Glucose Level 130H, Calcium Level 8.2L 09/07/20 05:12: POC Whole Blood Glucose 132H Current Medications Medications (Trade) Dose Ordered Sig/Kirby Route PRN Reason Start Time Stop Time Status Last Admin Dose Admin Acetaminophen (Tylenol) 650 mg Q4H PRN NG Mild Pain (Pain Scale 1-3) 08/31/20 09:00 09/30/20 08:59 09/05/20 20:30 Acetaminophen (Tylenol) 650 mg Q4H PRN NG Temp >100.5 08/31/20 09:00 09/30/20 08:59 Ampicillin 2 gm/ Sodium Chloride 110 ml @ 220 mls/hr EVERY 4 HOURS IV 09/02/20 09:30 09/09/20 09:29 09/07/20 08:36 Chlorhexidine Gluconate (Janet-Hex 2%) 1 applic DAILY@2000 TOPIC 09/06/20 21:15 12/05/20 21:14 09/06/20 21:37 Dextrose (Dextrose 50%) 25 ml Q30M PRN IV Hypoglycemia 08/30/20 16:45 11/28/20 16:44 Dextrose (Dextrose 50%) 50 ml Q30M PRN IV Hypoglycemia 08/30/20 16:45 11/28/20 16:44 Insulin Aspart (NovoLOG) Q6HR SUBQ 08/30/20 18:00 11/28/20 17:59 09/06/20 13:24 Lansoprazole (Prevacid) 30 mg BID GT 09/01/20 18:00 09/30/20 17:59 09/07/20 08:36 Ondansetron HCl (Zofran) 4 mg Q4H PRN IVP Nausea & Vomiting 08/30/20 16:45 09/29/20 16:44 Potassium Chloride (K-Dur) 40 meq DAILY GT 09/06/20 11:30 12/05/20 11:29 09/07/20 08:36 Sucralfate (Carafate) 1 gm FOUR TIMES A DAY ORAL 09/03/20 13:00 12/02/20 12:59 09/07/20 08:36 Assessment/Plan Assessment/Plan 1. Bilateral health-care associated pneumonia. - on Abx per ID 2. GI bleed. - On PPI - s/p EGD -> esophagitis 3. Tracheostomy. - Continue AC mode; now FiO2 30%; Keep SaO2 >94% 4. Diabetes mellitus. 5. Hypertension. 6. CVA. 7. hypokalemia, resolved 8. hypomagnesemia 9. DVT ppx - V/D legs negative for DVT - continue SCD GI prophylaxes, we will hold anticoagulation given GI bleed. Medically stable from pulmonary standpoint The care for this patient was discussed with my supervising physician Time spent for this case was approximately 31 minutes Vicente Zhu Sep 07, 2020 09:40
--- NOTE | 2020-09-07 11:43 | Surgery Progress Note ---
Surgery Progress Note Subjective Additional Comments no acute events comfortable stable no n/v Objective Last 24 Hour Vital Signs Date Time Temp Pulse Resp B/P (MAP) Pulse Ox O2 Delivery O2 Flow Rate FiO2 09/07/20 08:00 98.1 64 17 111/60 (77) 100 09/07/20 08:00 Mechanical Ventilator 09/07/20 08:00 64 09/07/20 05:29 64 19 30 09/07/20 04:00 Mechanical Ventilator 09/07/20 04:00 97.2 71 17 120/65 (83) 100 09/07/20 04:00 62 09/07/20 04:00 30 09/07/20 03:19 63 20 30 09/07/20 01:54 65 27 30 09/07/20 00:06 Mechanical Ventilator 09/07/20 00:00 98.2 70 17 122/69 (86) 100 09/07/20 00:00 30 09/06/20 23:41 73 23 30 09/06/20 21:37 75 20 30 09/06/20 20:00 30 09/06/20 20:00 Mechanical Ventilator 09/06/20 20:00 98.7 71 17 133/70 (91) 99 09/06/20 20:00 70 09/06/20 19:18 78 20 30 09/06/20 17:06 76 25 30 09/06/20 16:00 70 09/06/20 16:00 98.8 81 18 122/66 (84) 100 09/06/20 16:00 Mechanical Ventilator 09/06/20 15:17 75 20 30 09/06/20 13:14 73 23 30 09/06/20 12:00 98.2 66 20 135/76 (95) 100 09/06/20 12:00 30 09/06/20 12:00 Mechanical Ventilator 09/06/20 12:00 60 I&O Intake and Output 09/06/20 09/07/20 19:00 07:00 Intake Total 820 ml 820 ml Output Total 850 ml 1000 ml Balance -30 ml -180 ml IV Total 220 ml Tube Feeding 720 ml 600 ml Other 100 ml Output Urine Total 850 ml 1000 ml # Bowel Movements 2 Dressing: saturated Cardiovascular: RSR Respiratory: decreased breath sounds Abdomen: soft, non-tender, present bowel sounds, non-distended Extremities: no tenderness, no cyanosis Laboratory Tests Test 09/06/20 13:16 09/06/20 17:43 09/06/20 23:53 09/07/20 03:00 POC Whole Blood Glucose 171 MG/DL (74-106) H 134 MG/DL (74-106) H 128 MG/DL (74-106) H White Blood Count 10.1 K/UL (4.8-10.8) Red Blood Count 2.67 M/UL (4.70-6.10) L Hemoglobin 8.0 G/DL (14.2-18.0) L Hematocrit 25.4 % (42.0-52.0) L Mean Corpuscular Volume 95 FL (80-99) Mean Corpuscular Hemoglobin 29.9 PG (27.0-31.0) Mean Corpuscular Hemoglobin Concent 31.4 G/DL (32.0-36.0) L Red Cell Distribution Width 14.6 % (11.6-14.8) Platelet Count 389 K/UL (150-450) Mean Platelet Volume 6.4 FL (6.5-10.1) L Neutrophils (%) (Auto) 70.9 % (45.0-75.0) Lymphocytes (%) (Auto) 16.9 % (20.0-45.0) L Monocytes (%) (Auto) 8.4 % (1.0-10.0) Eosinophils (%) (Auto) 3.5 % (0.0-3.0) H Basophils (%) (Auto) 0.4 % (0.0-2.0) Sodium Level 139 MMOL/L (136-145) Potassium Level 4.2 MMOL/L (3.5-5.1) Chloride Level 106 MMOL/L (98-107) Carbon Dioxide Level 26 MMOL/L (21-32) Anion Gap 7 mmol/L (5-15) Blood Urea Nitrogen 18 mg/dL (7-18) Creatinine 0.8 MG/DL (0.55-1.30) Estimat Glomerular Filtration Rate > 60 mL/min (>60) Glucose Level 130 MG/DL (74-106) H Calcium Level 8.2 MG/DL (8.5-10.1) L Test 09/07/20 05:12 POC Whole Blood Glucose 132 MG/DL (74-106) H Plan Problems: (1) Septic shock (2) Acute renal failure (3) Sepsis Assessment & Plan: 64-year-old male leukocytosis abnormal labs ultrasound with gallbladder wall thickening no pericholecystic fluid no gallstones potentially a calculus cholecystitis. Patient unable to verbalize or identify tenderness. Examination fairly unreliable. Clinically recommend given patient's history and condition medical management and will monitor clinically. The liver and spleen are homogeneous. Mild wall thickening of the gallbladder noted. Common bile duct measures 3 mm. The pancreas is unremarkable to the extent visualized. There are nonshadowing cortical echogenic focus in the left kidney likely perivascular fat. No renal stone or hydronephrosis seen bilaterally. Aorta and cava are within normal limits. IMPRESSION: NO GALLSTONE OR SLUDGE IS IDENTIFIED BUT THERE IS EDEMA AND GALLBLADDER WALL THICKENING. PATIENT IS UNABLE TO REPORT FOCAL SYMPTOMS. LEFT RENAL CORTICAL ECHOGENIC FOCUS WITHOUT SHADOWING LIKELY PERIVASCULAR FAT. NO DISCRETE RENAL STONE OR HYDRONEPHROSIS. INCIDENTAL SMALL LEFT PLEURAL EFFUSION. 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 CURRENT TF:Vital @60ml/hr x24 hrs -> now NPO for EGD ENTERAL NUTRITION RECOMMENDATIONS: rec to LOWER Vital 1.2 goal of 55ml/hr x24 hrs to provide 1320ml, 1584 kcal, 99g pro, 1071ml free H2O - rec to LOWER goal to 55ml/hr to not exceed est needs - flush per MD. HOB over 30 degrees ADDITIONAL RECOMMENDATIONS: 1) Maintain calibrated bed scale wts 2) rec bedside BG testing/ niss -> now on NISS 3) replete lytes as needed (low K and phos) 4) DC D5 IVF when TF resumes for improved BG control Doe Nina Sep 07, 2020 11:43
[2020-09-07 12:00] VITALS: BP 124/72
--- NOTE | 2020-09-07 13:40 | Nephrology Progress Note ---
Assessment/Plan Problem List: (1) Acute renal failure (2) Sepsis (3) Pneumonia (4) Upper GI bleed (5) Anemia Assessment Acute renal failure Prerenal azotemia/dehydration Acute GI bleed Sepsis, pneumonia Hypotension, septic shock PEG Trach to vent Plan September 07: Labs reviewed renal parameters stable. Continue per consultants. September 06: Labs reviewed. Abnormal electrolytes addressed. Medication list reviewed. Continue per consultants. September 05: Labs reviewed. Abnormal electrolytes addressed. Medication list reviewed. Continue her current treatment plan. September 04: Labs reviewed. Abnormal electrolytes addressed. Medication list reviewed and adjusted. Continue per consultants. Continue to monitor electrolytes September 03: Labs reviewed. Abnormal electrolyte addressed. Discussed with RN. Continue to monitor renal parameters and electrolytes. Medication list reviewed. September 02: Labs reviewed. Abnormal electrolytes addressed. Continue to monitor renal parameters and electrolytes. Continue per consultants. Medication list reviewed. Previously: Hydrate Monitor renal parameters and electrolytes Correct abnormal electrolytes Monitor hemoglobin and hematocrit IV Pepcid Albumin bolus Per data consultant Subjective ROS Limited/Unobtainable: Yes Objective Objective Last 24 Hour Vital Signs Date Time Temp Pulse Resp B/P (MAP) Pulse Ox O2 Delivery O2 Flow Rate FiO2 09/07/20 12:00 97.9 64 17 124/72 (89) 100 09/07/20 12:00 65 09/07/20 12:00 Mechanical Ventilator 09/07/20 08:00 98.1 64 17 111/60 (77) 100 09/07/20 08:00 Mechanical Ventilator 09/07/20 08:00 64 09/07/20 05:29 64 19 30 09/07/20 04:00 Mechanical Ventilator 09/07/20 04:00 97.2 71 17 120/65 (83) 100 09/07/20 04:00 62 09/07/20 04:00 30 09/07/20 03:19 63 20 30 09/07/20 01:54 65 27 30 09/07/20 00:06 Mechanical Ventilator 09/07/20 00:00 98.2 70 17 122/69 (86) 100 09/07/20 00:00 30 09/06/20 23:41 73 23 30 09/06/20 21:37 75 20 30 09/06/20 20:00 30 09/06/20 20:00 Mechanical Ventilator 09/06/20 20:00 98.7 71 17 133/70 (91) 99 09/06/20 20:00 70 09/06/20 19:18 78 20 30 09/06/20 17:06 76 25 30 09/06/20 16:00 70 09/06/20 16:00 98.8 81 18 122/66 (84) 100 09/06/20 16:00 Mechanical Ventilator 09/06/20 15:17 75 20 30 Intake and Output 09/06/20 09/07/20 19:00 07:00 Intake Total 820 ml 820 ml Output Total 850 ml 1000 ml Balance -30 ml -180 ml IV Total 220 ml Tube Feeding 720 ml 600 ml Other 100 ml Output Urine Total 850 ml 1000 ml # Bowel Movements 2 Current Medications Medications (Trade) Dose Ordered Sig/Kirby Route PRN Reason Start Time Stop Time Status Last Admin Dose Admin Acetaminophen (Tylenol) 650 mg Q4H PRN NG Mild Pain (Pain Scale 1-3) 08/31/20 09:00 09/30/20 08:59 09/05/20 20:30 Acetaminophen (Tylenol) 650 mg Q4H PRN NG Temp >100.5 08/31/20 09:00 09/30/20 08:59 Ampicillin 2 gm/ Sodium Chloride 110 ml @ 220 mls/hr EVERY 4 HOURS IV 09/02/20 09:30 09/16/20 23:59 09/07/20 13:34 Chlorhexidine Gluconate (Janet-Hex 2%) 1 applic DAILY@2000 TOPIC 09/06/20 21:15 12/05/20 21:14 09/06/20 21:37 Dextrose (Dextrose 50%) 25 ml Q30M PRN IV Hypoglycemia 08/30/20 16:45 11/28/20 16:44 Dextrose (Dextrose 50%) 50 ml Q30M PRN IV Hypoglycemia 08/30/20 16:45 11/28/20 16:44 Insulin Aspart (NovoLOG) Q6HR SUBQ 08/30/20 18:00 11/28/20 17:59 09/07/20 12:45 Lansoprazole (Prevacid) 30 mg BID GT 09/01/20 18:00 09/30/20 17:59 09/07/20 08:36 Ondansetron HCl (Zofran) 4 mg Q4H PRN IVP Nausea & Vomiting 08/30/20 16:45 09/29/20 16:44 Potassium Chloride (K-Dur) 40 meq DAILY GT 09/06/20 11:30 12/05/20 11:29 09/07/20 08:36 Sucralfate (Carafate) 1 gm FOUR TIMES A DAY ORAL 09/03/20 13:00 12/02/20 12:59 09/07/20 12:44 Laboratory Tests 09/06/20 17:43: POC Whole Blood Glucose 134H 09/06/20 23:53: POC Whole Blood Glucose 128H 09/07/20 03:00: White Blood Count 10.1, Red Blood Count 2.67L, Hemoglobin 8.0L, Hematocrit 25.4L , Mean Corpuscular Volume 95, Mean Corpuscular Hemoglobin 29.9, Mean Corpuscular Hemoglobin Concent 31.4L, Red Cell Distribution Width 14.6, Platelet Count 389, Mean Platelet Volume 6.4L, Neutrophils (%) (Auto) 70.9, Lymphocytes (%) (Auto) 16.9L, Monocytes (%) (Auto) 8.4, Eosinophils (%) (Auto) 3.5H, Basophils (%) (Auto) 0.4, Sodium Level 139, Potassium Level 4.2, Chloride Level 106, Carbon Dioxide Level 26, Anion Gap 7, Blood Urea Nitrogen 18, Creatinine 0.8, Estimat Glomerular Filtration Rate > 60, Glucose Level 130H, Calcium Level 8.2L 09/07/20 05:12: POC Whole Blood Glucose 132H Height (Feet): 5 Height (Inches): 7.00 Weight (Pounds): 120 General Appearance: no apparent distress EENT: other - Trach to vent Cardiovascular: normal rate Respiratory/Chest: decreased breath sounds Abdomen: distended Ben Aguilar MD Sep 07, 2020 13:40
[2020-09-07 16:00] VITALS: BP 117/68
--- NOTE | 2020-09-07 18:52 | General Progress Note ---
Subjective Constitutional: Reports: no symptoms HEENT: Reports: no symptoms Cardiovascular: Reports: no symptoms Respiratory: Reports: no symptoms Gastrointestinal/Abdominal: Reports: no symptoms Genitourinary: Reports: no symptoms Neurologic/Psychiatric: Reports: no symptoms Endocrine: Reports: no symptoms Hematologic/Lymphatic: Reports: no symptoms Allergies: Coded Allergies: No Known Allergies (Unverified , 08/30/20) Objective Last 24 Hour Vital Signs Date Time Temp Pulse Resp B/P (MAP) Pulse Ox O2 Delivery O2 Flow Rate FiO2 09/07/20 16:00 Mechanical Ventilator 09/07/20 16:00 98.0 66 17 117/68 (84) 100 09/07/20 16:00 68 09/07/20 15:00 65 17 30 09/07/20 14:57 30 09/07/20 12:00 97.9 64 17 124/72 (89) 100 09/07/20 12:00 65 09/07/20 12:00 Mechanical Ventilator 09/07/20 12:00 30 09/07/20 11:45 57 15 30 09/07/20 08:00 98.1 64 17 111/60 (77) 100 09/07/20 08:00 Mechanical Ventilator 09/07/20 08:00 64 09/07/20 08:00 30 09/07/20 07:45 67 25 30 09/07/20 05:29 64 19 30 09/07/20 04:00 Mechanical Ventilator 09/07/20 04:00 97.2 71 17 120/65 (83) 100 09/07/20 04:00 62 09/07/20 04:00 30 09/07/20 03:19 63 20 30 09/07/20 01:54 65 27 30 09/07/20 00:06 Mechanical Ventilator 09/07/20 00:00 98.2 70 17 122/69 (86) 100 09/07/20 00:00 30 09/06/20 23:41 73 23 30 09/06/20 21:37 75 20 30 09/06/20 20:00 30 09/06/20 20:00 Mechanical Ventilator 09/06/20 20:00 98.7 71 17 133/70 (91) 99 09/06/20 20:00 70 09/06/20 19:18 78 20 30 Intake and Output 09/06/20 09/07/20 19:00 07:00 Intake Total 820 ml 880 ml Output Total 850 ml 1000 ml Balance -30 ml -120 ml IV Total 220 ml Tube Feeding 720 ml 660 ml Other 100 ml Output Urine Total 850 ml 1000 ml # Bowel Movements 2 Laboratory Tests 09/06/20 23:53: POC Whole Blood Glucose 128H 09/07/20 03:00: White Blood Count 10.1, Red Blood Count 2.67L, Hemoglobin 8.0L, Hematocrit 25.4L , Mean Corpuscular Volume 95, Mean Corpuscular Hemoglobin 29.9, Mean Corpuscular Hemoglobin Concent 31.4L, Red Cell Distribution Width 14.6, Platelet Count 389, Mean Platelet Volume 6.4L, Neutrophils (%) (Auto) 70.9, Lymphocytes (%) (Auto) 16.9L, Monocytes (%) (Auto) 8.4, Eosinophils (%) (Auto) 3.5H, Basophils (%) (Auto) 0.4, Sodium Level 139, Potassium Level 4.2, Chloride Level 106, Carbon Dioxide Level 26, Anion Gap 7, Blood Urea Nitrogen 18, Creatinine 0.8, Estimat Glomerular Filtration Rate > 60, Glucose Level 130H, Calcium Level 8.2L 09/07/20 05:12: POC Whole Blood Glucose 132H Height (Feet): 5 Height (Inches): 7.00 Weight (Pounds): 120 General Appearance: WD/WN, no apparent distress, alert EENT: normal ENT inspection Neck: supple Cardiovascular: normal rate, regular rhythm, no gallop/murmur, no JVD Respiratory/Chest: no respiratory distress, no accessory muscle use, decreased breath sounds Abdomen: normal bowel sounds, non tender, soft, no organomegaly, no mass Neurologic: alert, oriented x 3, responsive Skin: warm/dry Assessment/Plan Status Narrative Is awake alert afebrile hemodynamically stable he respond appropriately by head node and believes language continue on the same IV antibiotic which he tolerates well is scheduled plan for antibiotic is by tomorrow repeat laboratory tests will be done in a.m Jason Perdue,Jason GILLILAND Sep 07, 2020 18:52
--- NOTE | 2020-09-07 19:19 | NUR ---
NURSE NOTES: Received patient from EDGAR Lai. patient is awake in bed. sinus rhythm on the monitor. trach to vent AC 14 TV 450 FiO2 30% PEEP 5, saturation 100%. gtube in place and tube feeding running Vital AF @60ml/hr. hayden in place and draining well to gravity. bed to lowest position and locked. call light within easy reach. side rails up x2. will continue plan of care.
--- NOTE | 2020-09-07 19:19 | NUR ---
NURSE HAND-OFF REPORT: Important Events on Shift: N/A Patient Status: Stable Diet: tube feeding with Vital AF @60ml/hr Pending Orders: n/a Pending Results/Labs:n/a Pending MD notification:n/a Latest Vital Signs: Temperature 98.0 , Pulse 60 , B/P 117 /68 , Respiratory Rate 18 , O2 SAT 100 , Mechanical Ventilator, O2 Flow Rate 15.0 . Vital Sign Comment: stable EKG Rhythm: Sinus Rhythm Rhythm change?: N MD Notified?: - MD Response: Latest Brewer Fall Score: 35 Fall Risk: Medium Risk Safety Measures: Call light Within Reach, Bed Alarm Zone 2, Side Rails Side Rails x3, Bed position Low and Locked. Fall Precautions: Yellow Socks Patient Fall Education Report given to EDGAR Whitley.
[2020-09-07 20:00] VITALS: BP 116/68
[2020-09-07] MEDS: Dyna-Hex 2% Top Sol 2oz TOPIC SCH (21:04)
[2020-09-08] VITALS: BP 113/65
[2020-09-08] MEDS: Ampicillin 2 GM in NS 110 ML IV SCH ×6 (00:23→20:43)
[2020-09-08] MEDS: NovoLOG Insulin Flexpen SUBQ SCH ×4 (00:24→17:12)
--- NOTE | 2020-09-08 03:06 | NUR ---
NURSE NOTES: bed bath performed. no BM. bed linens changed. vital signs stable. oral care and suction performed.
[2020-09-08 04:00] VITALS: BP 115/64
[2020-09-08 05:08] LABS: BASOPHILS % (AUTO) 0.5 % (0.0-2.0); EOSINOPHILS % (AUTO) 3.2 % (0.0-3.0); HEMATOCRIT 26.9 % (42.0-52.0); HEMOGLOBIN 8.5 G/DL (14.2-18.0); LYMPHOCYTES % (AUTO) 17.9 % (20.0-45.0); MEAN CORPUSCULAR VOLUME 96 FL (80-99); MONOCYTES % (AUTO) 6.8 % (1.0-10.0); NEUTROPHILS % (AUTO) 71.7 % (45.0-75.0); PLATELET COUNT 444 K/UL (150-450); RED CELL DISTRIBUTION WIDTH 14.8 % (11.6-14.8); WHITE BLOOD COUNT 9.4 K/UL (4.8-10.8)
[2020-09-08 06:09] LABS: ALANINE AMINOTRANSFERASE 43 U/L (12-78); ALBUMIN 1.5 G/DL (3.4-5.0); ALBUMIN/GLOBULIN RATIO 0.3 (1.0-2.7); ALKALINE PHOSPHATASE 108 U/L (46-116); ANION GAP 9 mmol/L (5-15); ASPARTATE AMINO TRANSFERASE 46 U/L (15-37); BILIRUBIN,TOTAL < 0.1 MG/DL (0.2-1.0); BLOOD UREA NITROGEN 18 mg/dL (7-18); CALCIUM 8.5 MG/DL (8.5-10.1); CARBON DIOXIDE 25 MMOL/L (21-32); CHLORIDE 104 MMOL/L (98-107); CREATININE 0.7 MG/DL (0.55-1.30); PHOSPHORUS 2.7 MG/DL (2.5-4.9); POTASSIUM 3.7 MMOL/L (3.5-5.1); SODIUM 138 MMOL/L (136-145)
--- NOTE | 2020-09-08 06:49 | Hematology/Onc Progress Note ---
Assessment/Plan Assessment/Plan Assessment and recs # Leukocytosis due to underlying Sepsis --> per ID recs --> ABX cefepime/vanc--ampicillin --> wbc 13-->13-->9 # Anemia with a upper gi bleed --> per gi eval --> hgb 12-->8.8-->8.6-->8.8->8-->8.5 --> anemia panel is noted, and dw ACD --> transfuse prn basis --> review smear # Pneumonia b//l pna on imaging --> imaging seen --> per id # Respiratory failure --> s/p vent/trach # Septic shock # Acute renal failure # Upper GI bleed # Hypotensive and tachycardic. --> Patient given IV fluids and is fluid responsive. # Dvt ppx scds Appreciate consultation and stefany Rn Subjective Respiratory: Denies: no symptoms, cough, shortness of breath, SOB with excertion, SOB at rest, sputum, wheezing, other Allergies: Coded Allergies: No Known Allergies (Unverified , 08/30/20) All Systems: reviewed and negative except above Subjective 09/01 stefany rn, on abx broad spectrum, labs noted, no active bleed at this time 09/02 meds noted, no bleeding, stefany rn, wbc 18, hgb 8.6, no hemolysis 09/03 plan for egd this am, labs noted, no bleeding, stefany rn 09/05 meds noted, no bleeding, vent setting tolerated, no bleeding 09/06 sr, on tube feeds, labs are pending, on ampicillin 09/07 no events, sr, labs are noted, on abx, cbc noted 09/08 t/v, labs reviewed, gt, labs reviewed Objective Objective Current Medications Medications (Trade) Dose Ordered Sig/Kirby Route PRN Reason Start Time Stop Time Status Last Admin Dose Admin Acetaminophen (Tylenol) 650 mg Q4H PRN NG Mild Pain (Pain Scale 1-3) 08/31/20 09:00 09/30/20 08:59 09/05/20 20:30 Acetaminophen (Tylenol) 650 mg Q4H PRN NG Temp >100.5 08/31/20 09:00 09/30/20 08:59 Ampicillin 2 gm/ Sodium Chloride 110 ml @ 220 mls/hr EVERY 4 HOURS IV 2/25/21 09:30 09/16/20 23:59 09/08/20 05:15 Chlorhexidine Gluconate (Janet-Hex 2%) 1 applic DAILY@1999 TOPIC 09/06/20 21:15 12/05/20 21:14 09/07/20 21:04 Dextrose (Dextrose 50%) 25 ml Q30M PRN IV Hypoglycemia 08/30/20 16:45 11/28/20 16:44 Dextrose (Dextrose 50%) 50 ml Q30M PRN IV Hypoglycemia 08/30/20 16:45 11/28/20 16:44 Insulin Aspart (NovoLOG) Q6HR SUBQ 08/30/20 18:00 11/28/20 17:59 09/08/20 00:24 Lansoprazole (Prevacid) 30 mg BID GT 09/01/20 18:00 09/30/20 17:59 09/07/20 17:40 Ondansetron HCl (Zofran) 4 mg Q4H PRN IVP Nausea & Vomiting 08/30/20 16:45 09/29/20 16:44 Potassium Chloride (K-Dur) 40 meq DAILY GT 09/06/20 11:30 12/05/20 11:29 09/07/20 08:36 Sucralfate (Carafate) 1 gm FOUR TIMES A DAY ORAL 09/03/20 13:00 12/02/20 12:59 09/07/20 21:04 Last 24 Hour Vital Signs Date Time Temp Pulse Resp B/P (MAP) Pulse Ox O2 Delivery O2 Flow Rate FiO2 09/08/20 04:00 Mechanical Ventilator 09/08/20 04:00 30 09/08/20 04:00 61 09/08/20 04:00 98.6 63 17 115/64 (81) 100 09/08/20 03:12 65 19 30 09/08/20 01:30 64 09/08/20 00:00 Mechanical Ventilator 09/08/20 00:00 98.1 63 17 113/65 (81) 100 09/08/20 00:00 30 09/07/20 23:09 64 18 30 09/07/20 20:00 98.1 68 18 116/68 (84) 100 09/07/20 20:00 30 09/07/20 20:00 63 09/07/20 20:00 Mechanical Ventilator 09/07/20 19:03 60 18 30 09/07/20 16:00 Mechanical Ventilator 09/07/20 16:00 98.0 66 17 117/68 (84) 100 09/07/20 16:00 68 09/07/20 15:00 65 17 30 09/07/20 14:57 30 09/07/20 12:00 97.9 64 17 124/72 (89) 100 09/07/20 12:00 65 09/07/20 12:00 Mechanical Ventilator 09/07/20 12:00 30 09/07/20 11:45 57 15 30 09/07/20 08:00 98.1 64 17 111/60 (77) 100 09/07/20 08:00 Mechanical Ventilator 09/07/20 08:00 64 09/07/20 08:00 30 09/07/20 07:45 67 25 30 09/07/20 05:29 64 19 30 09/07/20 04:00 Mechanical Ventilator 09/07/20 04:00 97.2 71 17 120/65 (83) 100 09/07/20 04:00 62 09/07/20 04:00 30 09/07/20 03:19 63 20 30 09/07/20 01:54 65 27 30 09/07/20 00:06 Mechanical Ventilator 09/07/20 00:00 98.2 70 17 122/69 (86) 100 09/07/20 00:00 30 09/06/20 23:41 73 23 30 09/06/20 21:37 75 20 30 09/06/20 20:00 30 09/06/20 20:00 Mechanical Ventilator 09/06/20 20:00 98.7 71 17 133/70 (91) 99 09/06/20 20:00 70 09/06/20 19:18 78 20 30 09/06/20 17:06 76 25 30 09/06/20 16:00 70 09/06/20 16:00 98.8 81 18 122/66 (84) 100 09/06/20 16:00 Mechanical Ventilator 09/06/20 15:17 75 20 30 09/06/20 13:14 73 23 30 09/06/20 12:00 98.2 66 20 135/76 (95) 100 09/06/20 12:00 30 09/06/20 12:00 Mechanical Ventilator 09/06/20 12:00 60 09/06/20 11:00 65 15 30 09/06/20 09:28 63 23 30 09/06/20 08:00 97.9 59 20 136/72 (93) 100 09/06/20 08:00 59 09/06/20 08:00 Mechanical Ventilator 09/06/20 08:00 30 09/06/20 07:26 62 24 30 Intake and Output 09/07/20 09/08/20 19:00 07:00 Intake Total 1250 ml 1190 ml Output Total 1000 ml 800 ml Balance 250 ml 390 ml Intake Free Water 200 ml 200 ml IV Total 330 ml 330 ml Tube Feeding 720 ml 660 ml Output Urine Total 1000 ml 800 ml Labs Test 09/05/20 11:15 09/06/20 07:35 09/06/20 13:16 09/06/20 17:43 POC Whole Blood Glucose 150 MG/DL (74-106) 171 MG/DL (74-106) 134 MG/DL (74-106) White Blood Count 11.3 K/UL (4.8-10.8) Red Blood Count 2.66 M/UL (4.70-6.10) Hemoglobin 8.0 G/DL (14.2-18.0) Hematocrit 25.5 % (42.0-52.0) Mean Corpuscular Volume 96 FL (80-99) Mean Corpuscular Hemoglobin 29.9 PG (27.0-31.0) Mean Corpuscular Hemoglobin Concent 31.2 G/DL (32.0-36.0) Red Cell Distribution Width 15.1 % (11.6-14.8) Platelet Count 334 K/UL (150-450) Mean Platelet Volume 6.6 FL (6.5-10.1) Neutrophils (%) (Auto) 69.8 % (45.0-75.0) Lymphocytes (%) (Auto) 17.3 % (20.0-45.0) Monocytes (%) (Auto) 9.5 % (1.0-10.0) Eosinophils (%) (Auto) 2.7 % (0.0-3.0) Basophils (%) (Auto) 0.7 % (0.0-2.0) Sodium Level 141 MMOL/L (136-145) Potassium Level 3.5 MMOL/L (3.5-5.1) Chloride Level 107 MMOL/L (98-107) Carbon Dioxide Level 25 MMOL/L (21-32) Anion Gap 9 mmol/L (5-15) Blood Urea Nitrogen 21 mg/dL (7-18) Creatinine 0.8 MG/DL (0.55-1.30) Estimat Glomerular Filtration Rate > 60 mL/min (>60) Glucose Level 132 MG/DL (74-106) Calcium Level 8.5 MG/DL (8.5-10.1) Phosphorus Level 2.6 MG/DL (2.5-4.9) Magnesium Level 1.9 MG/DL (1.8-2.4) Total Bilirubin 0.2 MG/DL (0.2-1.0) Direct Bilirubin < 0.1 MG/DL (0.0-0.3) Aspartate Amino Transf (AST/SGOT) 32 U/L (15-37) Alanine Aminotransferase (ALT/SGPT) 26 U/L (12-78) Alkaline Phosphatase 97 U/L (46-116) Total Protein 6.9 G/DL (6.4-8.2) Albumin 1.5 G/DL (3.4-5.0) Test 09/06/20 23:53 09/07/20 03:00 09/07/20 05:12 09/08/20 03:20 POC Whole Blood Glucose 128 MG/DL (74-106) 132 MG/DL (74-106) White Blood Count 10.1 K/UL (4.8-10.8) 9.4 K/UL (4.8-10.8) Red Blood Count 2.67 M/UL (4.70-6.10) 2.80 M/UL (4.70-6.10) Hemoglobin 8.0 G/DL (14.2-18.0) 8.5 G/DL (14.2-18.0) Hematocrit 25.4 % (42.0-52.0) 26.9 % (42.0-52.0) Mean Corpuscular Volume 95 FL (80-99) 96 FL (80-99) Mean Corpuscular Hemoglobin 29.9 PG (27.0-31.0) 30.3 PG (27.0-31.0) Mean Corpuscular Hemoglobin Concent 31.4 G/DL (32.0-36.0) 31.6 G/DL (32.0-36.0) Red Cell Distribution Width 14.6 % (11.6-14.8) 14.8 % (11.6-14.8) Platelet Count 389 K/UL (150-450) 444 K/UL (150-450) Mean Platelet Volume 6.4 FL (6.5-10.1) 6.6 FL (6.5-10.1) Neutrophils (%) (Auto) 70.9 % (45.0-75.0) 71.7 % (45.0-75.0) Lymphocytes (%) (Auto) 16.9 % (20.0-45.0) 17.9 % (20.0-45.0) Monocytes (%) (Auto) 8.4 % (1.0-10.0) 6.8 % (1.0-10.0) Eosinophils (%) (Auto) 3.5 % (0.0-3.0) 3.2 % (0.0-3.0) Basophils (%) (Auto) 0.4 % (0.0-2.0) 0.5 % (0.0-2.0) Sodium Level 139 MMOL/L (136-145) 138 MMOL/L (136-145) Potassium Level 4.2 MMOL/L (3.5-5.1) 3.7 MMOL/L (3.5-5.1) Chloride Level 106 MMOL/L (98-107) 104 MMOL/L (98-107) Carbon Dioxide Level 26 MMOL/L (21-32) 25 MMOL/L (21-32) Anion Gap 7 mmol/L (5-15) 9 mmol/L (5-15) Blood Urea Nitrogen 18 mg/dL (7-18) 18 mg/dL (7-18) Creatinine 0.8 MG/DL (0.55-1.30) 0.7 MG/DL (0.55-1.30) Estimat Glomerular Filtration Rate > 60 mL/min (>60) > 60 mL/min (>60) Glucose Level 130 MG/DL (74-106) 144 MG/DL (74-106) Calcium Level 8.2 MG/DL (8.5-10.1) 8.5 MG/DL (8.5-10.1) Phosphorus Level 2.7 MG/DL (2.5-4.9) Magnesium Level 1.6 MG/DL (1.8-2.4) Total Bilirubin < 0.1 MG/DL (0.2-1.0) Aspartate Amino Transf (AST/SGOT) 46 U/L (15-37) Alanine Aminotransferase (ALT/SGPT) 43 U/L (12-78) Alkaline Phosphatase 108 U/L (46-116) C-Reactive Protein, Quantitative 1.9 mg/dL (0.00-0.90) Pro-B-Type Natriuretic Peptide 627 pg/mL (0-125) Total Protein 7.0 G/DL (6.4-8.2) Albumin 1.5 G/DL (3.4-5.0) Globulin 5.5 g/dL Albumin/Globulin Ratio 0.3 (1.0-2.7) Height (Feet): 5 Height (Inches): 7.00 Weight (Pounds): 120 Objective Physical Exam Vitals abnormal General Appearance: nv, thin, Chronically Ill Heent: normocephalic, atraumatic ++ Trach in place VEnt++ Respiratory: rhonchi Cardiovascular: tachycardia Gastrointestinal: non tender, soft, non-distended, other ++ G-tube in the epigastric region Musculoskeletal: no calf tenderness, no lower extremity edema Psychiatric: other - Unable to assess as parent patient is nonverbal Skin: no rash Nick Ferguson MD Sep 08, 2020 06:49
--- NOTE | 2020-09-08 07:15 | NUR ---
NURSE HAND-OFF REPORT: Important Events on Shift: patient remains stable Patient Status: full code Diet: vital af @60 Pending Orders: [] Pending Results/Labs:[] Pending MD notification:[] Latest Vital Signs: Temperature 98.6 , Pulse 63 , B/P 115 /64 , Respiratory Rate 17 , O2 SAT 100 , Mechanical Ventilator, O2 Flow Rate 15.0 . Vital Sign Comment: [] EKG Rhythm: Sinus Rhythm Rhythm change?: N MD Notified?: - MD Response: Latest Brewer Fall Score: 35 Fall Risk: Medium Risk Safety Measures: Call light Within Reach, Bed Alarm Zone 2, Side Rails Side Rails x3, Bed position Low and Locked. Fall Precautions: Yellow Socks Patient Fall Education Report given to EDGAR Jacobs.
--- NOTE | 2020-09-08 07:30 | NUR ---
NURSE NOTES: Received pt from RN Gutierrez, pt is awake, pt has trach to ventilator AC 14 TV 450 PEEP 5 FIO2 30%, Pt is on continues heart monitoring. pt has g tube in place is working well. pt has intact PICC LESVIA SL. No complain of pain at this moment. All needs attended, bed is locked and is in the lowest position, call light within easy reach. will continue to monitor.
[2020-09-08 07:58] VITALS: BP 114/69
[2020-09-08] MEDS: Sucralfate 1gm tab ORAL SCH ×4 (08:45→20:43)
--- NOTE | 2020-09-08 08:56 | Infectious Diseases Prog Note ---
Assessment/Plan 64 yo male with PMHx of CVA, S/P PEG s/p Trach, DM and HTN who was sent to the ED form his intermediate with hypoxia. Sepsis Leuckotyosis- SP No fever Bacteremialikely GI source Blood Cx 08/30/20- Enterococcus Amp and Vanco sen Blood Cx 08/31/20 - Enterococcus Blood Cx 09/02/20 - NTD Resp fail - Acute on chronic Trached PNA CXR shows - LLL PNA and possible N/V/D and abd pain Some blood In the vomit CVA s/p PEG and s/p Trach DM HTN PLAN Ampicillin 2g Q4hr #7/14 ( End date ) If dosing frequency is to high then he could be switch to vancomycin on D/C 09/02/20 - SP Flagyl #3 and Cefepime #3 and Vancomycin #3 f/u TTE f/u culture Blood Monitor Resp status Monitor CBC and Temps Thank you for this consult. [facility] will continue to follow Mr. Shaikh with you. Subjective Allergies: Coded Allergies: No Known Allergies (Unverified , 08/30/20) Afebrile WBCs 9 today No acute complaints CLARICE Objective Last 24 Hour Vital Signs Date Time Temp Pulse Resp B/P (MAP) Pulse Ox O2 Delivery O2 Flow Rate FiO2 09/08/20 08:00 Mechanical Ventilator 09/08/20 08:00 30 09/08/20 07:58 97.3 65 20 114/69 (84) 99 09/08/20 04:00 Mechanical Ventilator 09/08/20 04:00 30 09/08/20 04:00 61 09/08/20 04:00 98.6 63 17 115/64 (81) 100 09/08/20 03:12 65 19 30 09/08/20 01:30 64 09/08/20 00:00 Mechanical Ventilator 09/08/20 00:00 98.1 63 17 113/65 (81) 100 09/08/20 00:00 30 09/07/20 23:09 64 18 30 09/07/20 20:00 98.1 68 18 116/68 (84) 100 09/07/20 20:00 30 09/07/20 20:00 63 09/07/20 20:00 Mechanical Ventilator 09/07/20 19:03 60 18 30 09/07/20 16:00 Mechanical Ventilator 09/07/20 16:00 98.0 66 17 117/68 (84) 100 09/07/20 16:00 68 09/07/20 15:00 65 17 30 09/07/20 14:57 30 09/07/20 12:00 97.9 64 17 124/72 (89) 100 09/07/20 12:00 65 09/07/20 12:00 Mechanical Ventilator 09/07/20 12:00 30 09/07/20 11:45 57 15 30 Height (Feet): 5 Height (Inches): 7.00 Weight (Pounds): 120 Gen: NAD, On Vent 30% O2 HEENT: NCAT, MMM, EOMI, No scleral icterus, Trach in place Pulm: Equal rise and fall B/L No accessory muscle use Abd: Soft,ND PEG ( No E/P) SKIN: Exposed skin normal in color no rash noted Laboratory Tests Test 09/08/20 03:20 White Blood Count 9.4 K/UL (4.8-10.8) Red Blood Count 2.80 M/UL (4.70-6.10) L Hemoglobin 8.5 G/DL (14.2-18.0) L Hematocrit 26.9 % (42.0-52.0) L Mean Corpuscular Volume 96 FL (80-99) Mean Corpuscular Hemoglobin 30.3 PG (27.0-31.0) Mean Corpuscular Hemoglobin Concent 31.6 G/DL (32.0-36.0) L Red Cell Distribution Width 14.8 % (11.6-14.8) Platelet Count 444 K/UL (150-450) Mean Platelet Volume 6.6 FL (6.5-10.1) Neutrophils (%) (Auto) 71.7 % (45.0-75.0) Lymphocytes (%) (Auto) 17.9 % (20.0-45.0) L Monocytes (%) (Auto) 6.8 % (1.0-10.0) Eosinophils (%) (Auto) 3.2 % (0.0-3.0) H Basophils (%) (Auto) 0.5 % (0.0-2.0) Sodium Level 138 MMOL/L (136-145) Potassium Level 3.7 MMOL/L (3.5-5.1) Chloride Level 104 MMOL/L (98-107) Carbon Dioxide Level 25 MMOL/L (21-32) Anion Gap 9 mmol/L (5-15) Blood Urea Nitrogen 18 mg/dL (7-18) Creatinine 0.7 MG/DL (0.55-1.30) Estimat Glomerular Filtration Rate > 60 mL/min (>60) Glucose Level 144 MG/DL (74-106) H Calcium Level 8.5 MG/DL (8.5-10.1) Phosphorus Level 2.7 MG/DL (2.5-4.9) Magnesium Level 1.6 MG/DL (1.8-2.4) L Total Bilirubin < 0.1 MG/DL (0.2-1.0) L Aspartate Amino Transf (AST/SGOT) 46 U/L (15-37) H Alanine Aminotransferase (ALT/SGPT) 43 U/L (12-78) Alkaline Phosphatase 108 U/L (46-116) C-Reactive Protein, Quantitative 1.9 mg/dL (0.00-0.90) H Pro-B-Type Natriuretic Peptide 627 pg/mL (0-125) H Total Protein 7.0 G/DL (6.4-8.2) Albumin 1.5 G/DL (3.4-5.0) L Globulin 5.5 g/dL Albumin/Globulin Ratio 0.3 (1.0-2.7) L Current Medications Medications (Trade) Dose Ordered Sig/Kirby Route PRN Reason Start Time Stop Time Status Last Admin Dose Admin Acetaminophen (Tylenol) 650 mg Q4H PRN NG Mild Pain (Pain Scale 1-3) 08/31/20 09:00 09/30/20 08:59 09/05/20 20:30 Acetaminophen (Tylenol) 650 mg Q4H PRN NG Temp >100.5 08/31/20 09:00 09/30/20 08:59 Ampicillin 2 gm/ Sodium Chloride 110 ml @ 220 mls/hr EVERY 4 HOURS IV 09/02/20 09:30 09/16/20 23:59 09/08/20 08:46 Chlorhexidine Gluconate (Janet-Hex 2%) 1 applic DAILY@2000 TOPIC 09/06/20 21:15 12/05/20 21:14 09/07/20 21:04 Dextrose (Dextrose 50%) 25 ml Q30M PRN IV Hypoglycemia 08/30/20 16:45 11/28/20 16:44 Dextrose (Dextrose 50%) 50 ml Q30M PRN IV Hypoglycemia 08/30/20 16:45 11/28/20 16:44 Insulin Aspart (NovoLOG) Q6HR SUBQ 08/30/20 18:00 11/28/20 17:59 09/08/20 00:24 Lansoprazole (Prevacid) 30 mg BID GT 09/01/20 18:00 09/30/20 17:59 09/08/20 08:45 Magnesium Sulfate 100 ml @ 100 mls/hr Q1H IVPB 09/08/20 08:30 09/08/20 10:29 09/08/20 08:45 Ondansetron HCl (Zofran) 4 mg Q4H PRN IVP Nausea & Vomiting 08/30/20 16:45 09/29/20 16:44 Potassium Chloride (K-Dur) 40 meq BID GT 09/08/20 09:00 12/05/20 11:29 09/08/20 08:46 Sucralfate (Carafate) 1 gm FOUR TIMES A DAY ORAL 09/03/20 13:00 12/02/20 12:59 09/08/20 08:45 Kostas Packer MD Sep 08, 2020 08:56
--- NOTE | 2020-09-08 09:36 | General Progress Note ---
Subjective ROS Limited/Unobtainable: No Allergies: Coded Allergies: No Known Allergies (Unverified , 08/30/20) Objective Last 24 Hour Vital Signs Date Time Temp Pulse Resp B/P (MAP) Pulse Ox O2 Delivery O2 Flow Rate FiO2 09/08/20 08:00 Mechanical Ventilator 09/08/20 08:00 30 09/08/20 07:58 97.3 65 20 114/69 (84) 99 09/08/20 04:00 Mechanical Ventilator 09/08/20 04:00 30 09/08/20 04:00 61 09/08/20 04:00 98.6 63 17 115/64 (81) 100 09/08/20 03:12 65 19 30 09/08/20 01:30 64 09/08/20 00:00 Mechanical Ventilator 09/08/20 00:00 98.1 63 17 113/65 (81) 100 09/08/20 00:00 30 09/07/20 23:09 64 18 30 09/07/20 20:00 98.1 68 18 116/68 (84) 100 09/07/20 20:00 30 09/07/20 20:00 63 09/07/20 20:00 Mechanical Ventilator 09/07/20 19:03 60 18 30 09/07/20 16:00 Mechanical Ventilator 09/07/20 16:00 98.0 66 17 117/68 (84) 100 09/07/20 16:00 68 09/07/20 15:00 65 17 30 09/07/20 14:57 30 09/07/20 12:00 97.9 64 17 124/72 (89) 100 09/07/20 12:00 65 09/07/20 12:00 Mechanical Ventilator 09/07/20 12:00 30 09/07/20 11:45 57 15 30 Intake and Output 09/07/20 09/08/20 19:00 07:00 Intake Total 1250 ml 1250 ml Output Total 1000 ml 800 ml Balance 250 ml 450 ml Intake Free Water 200 ml 200 ml IV Total 330 ml 330 ml Tube Feeding 720 ml 720 ml Output Urine Total 1000 ml 800 ml Laboratory Tests 09/08/20 03:20: White Blood Count 9.4, Red Blood Count 2.80L, Hemoglobin 8.5L, Hematocrit 26.9L, Mean Corpuscular Volume 96, Mean Corpuscular Hemoglobin 30.3, Mean Corpuscular Hemoglobin Concent 31.6L, Red Cell Distribution Width 14.8, Platelet Count 444, Mean Platelet Volume 6.6, Neutrophils (%) (Auto) 71.7, Lymphocytes (%) (Auto) 17.9L, Monocytes (%) (Auto) 6.8, Eosinophils (%) (Auto) 3.2H, Basophils (%) (Auto) 0.5, Sodium Level 138, Potassium Level 3.7, Chloride Level 104, Carbon Dioxide Level 25, Anion Gap 9, Blood Urea Nitrogen 18, Creatinine 0.7, Estimat Glomerular Filtration Rate > 60, Glucose Level 144H, Calcium Level 8.5, Phosphorus Level 2.7, Magnesium Level 1.6L, Total Bilirubin < 0.1L, Aspartate Amino Transf (AST/SGOT) 46H, Alanine Aminotransferase (ALT/SGPT) 43, Alkaline Phosphatase 108, C-Reactive Protein, Quantitative 1.9H, Pro-B-Type Natriuretic Peptide 627H, Total Protein 7.0, Albumin 1.5L, Globulin 5.5, Albumin/Globulin Ratio 0.3L Height (Feet): 5 Height (Inches): 7.00 Weight (Pounds): 120 General Appearance: no apparent distress EENT: normal ENT inspection Neck: supple Cardiovascular: normal rate Respiratory/Chest: decreased breath sounds Abdomen: hypoactive bowel sounds Extremities: non-tender Assessment/Plan Problem List: (1) Upper GI bleed ICD Codes: K92.2 - Gastrointestinal hemorrhage, unspecified SNOMED: 23619504 (2) Pneumonia ICD Codes: J18.9 - Pneumonia, unspecified organism SNOMED: 947462028 (3) Sepsis ICD Codes: A41.9 - Sepsis, unspecified organism SNOMED: 91494137 (4) Acute renal failure ICD Codes: N17.9 - Acute kidney failure, unspecified SNOMED: 97099225 (5) Septic shock ICD Codes: A41.9 - Sepsis, unspecified organism; R65.21 - Severe sepsis with septic shock SNOMED: 74511735 Assessment/Plan: s/p EGD stable H&H tolerating TF ppi Yaakov Napoles MD Sep 08, 2020 09:36
--- NOTE | 2020-09-08 10:40 | Nephrology Progress Note ---
Assessment/Plan Problem List: (1) Acute renal failure (2) Sepsis (3) Pneumonia (4) Upper GI bleed (5) Anemia Assessment Acute renal failure Prerenal azotemia/dehydration Acute GI bleed Sepsis, pneumonia Hypotension, septic shock PEG Trach to vent Plan September 08: Labs reviewed. Low magnesium addressed. Potassium dose adjusted. Continue per consultants. September 07: Labs reviewed renal parameters stable. Continue per consultants. September 06: Labs reviewed. Abnormal electrolytes addressed. Medication list reviewed. Continue per consultants. September 05: Labs reviewed. Abnormal electrolytes addressed. Medication list reviewed. Continue her current treatment plan. September 04: Labs reviewed. Abnormal electrolytes addressed. Medication list reviewed and adjusted. Continue per consultants. Continue to monitor electrolytes September 03: Labs reviewed. Abnormal electrolyte addressed. Discussed with RN. Continue to monitor renal parameters and electrolytes. Medication list reviewed. September 02: Labs reviewed. Abnormal electrolytes addressed. Continue to monitor renal parameters and electrolytes. Continue per consultants. Medication list reviewed. Previously: Hydrate Monitor renal parameters and electrolytes Correct abnormal electrolytes Monitor hemoglobin and hematocrit IV Pepcid Albumin bolus Per compensation consultant Subjective ROS Limited/Unobtainable: Yes Objective Objective Last 24 Hour Vital Signs Date Time Temp Pulse Resp B/P (MAP) Pulse Ox O2 Delivery O2 Flow Rate FiO2 09/08/20 08:00 Mechanical Ventilator 09/08/20 08:00 30 09/08/20 07:58 97.3 65 20 114/69 (84) 99 09/08/20 04:00 Mechanical Ventilator 09/08/20 04:00 30 09/08/20 04:00 61 09/08/20 04:00 98.6 63 17 115/64 (81) 100 09/08/20 03:12 65 19 30 09/08/20 01:30 64 09/08/20 00:00 Mechanical Ventilator 09/08/20 00:00 98.1 63 17 113/65 (81) 100 09/08/20 00:00 30 09/07/20 23:09 64 18 30 09/07/20 20:00 98.1 68 18 116/68 (84) 100 09/07/20 20:00 30 09/07/20 20:00 63 09/07/20 20:00 Mechanical Ventilator 09/07/20 19:03 60 18 30 09/07/20 16:00 Mechanical Ventilator 09/07/20 16:00 98.0 66 17 117/68 (84) 100 09/07/20 16:00 68 09/07/20 15:00 65 17 30 09/07/20 14:57 30 09/07/20 12:00 97.9 64 17 124/72 (89) 100 09/07/20 12:00 65 09/07/20 12:00 Mechanical Ventilator 09/07/20 12:00 30 09/07/20 11:45 57 15 30 Intake and Output 09/07/20 09/08/20 19:00 07:00 Intake Total 1250 ml 1250 ml Output Total 1000 ml 800 ml Balance 250 ml 450 ml Intake Free Water 200 ml 200 ml IV Total 330 ml 330 ml Tube Feeding 720 ml 720 ml Output Urine Total 1000 ml 800 ml Current Medications Medications (Trade) Dose Ordered Sig/Kirby Route PRN Reason Start Time Stop Time Status Last Admin Dose Admin Acetaminophen (Tylenol) 650 mg Q4H PRN NG Mild Pain (Pain Scale 1-3) 08/31/20 09:00 09/30/20 08:59 09/05/20 20:30 Acetaminophen (Tylenol) 650 mg Q4H PRN NG Temp >100.5 08/31/20 09:00 09/30/20 08:59 Ampicillin 2 gm/ Sodium Chloride 110 ml @ 220 mls/hr EVERY 4 HOURS IV 09/02/20 09:30 09/16/20 23:59 09/08/20 08:46 Chlorhexidine Gluconate (Janet-Hex 2%) 1 applic DAILY@2000 TOPIC 09/06/20 21:15 12/05/20 21:14 09/07/20 21:04 Dextrose (Dextrose 50%) 25 ml Q30M PRN IV Hypoglycemia 08/30/20 16:45 11/28/20 16:44 Dextrose (Dextrose 50%) 50 ml Q30M PRN IV Hypoglycemia 08/30/20 16:45 11/28/20 16:44 Insulin Aspart (NovoLOG) Q6HR SUBQ 08/30/20 18:00 11/28/20 17:59 09/08/20 00:24 Lansoprazole (Prevacid) 30 mg BID GT 09/01/20 18:00 09/30/20 17:59 09/08/20 08:45 Ondansetron HCl (Zofran) 4 mg Q4H PRN IVP Nausea & Vomiting 08/30/20 16:45 09/29/20 16:44 Potassium Chloride (K-Dur) 40 meq BID GT 09/08/20 09:00 12/05/20 11:29 09/08/20 08:46 Sucralfate (Carafate) 1 gm FOUR TIMES A DAY ORAL 09/03/20 13:00 12/02/20 12:59 09/08/20 08:45 Laboratory Tests 09/08/20 03:20: White Blood Count 9.4, Red Blood Count 2.80L, Hemoglobin 8.5L, Hematocrit 26.9L, Mean Corpuscular Volume 96, Mean Corpuscular Hemoglobin 30.3, Mean Corpuscular Hemoglobin Concent 31.6L, Red Cell Distribution Width 14.8, Platelet Count 444, Mean Platelet Volume 6.6, Neutrophils (%) (Auto) 71.7, Lymphocytes (%) (Auto) 17.9L, Monocytes (%) (Auto) 6.8, Eosinophils (%) (Auto) 3.2H, Basophils (%) (Auto) 0.5, Sodium Level 138, Potassium Level 3.7, Chloride Level 104, Carbon Dioxide Level 25, Anion Gap 9, Blood Urea Nitrogen 18, Creatinine 0.7, Estimat Glomerular Filtration Rate > 60, Glucose Level 144H, Calcium Level 8.5, Phosphorus Level 2.7, Magnesium Level 1.6L, Total Bilirubin < 0.1L, Aspartate Amino Transf (AST/SGOT) 46H, Alanine Aminotransferase (ALT/SGPT) 43, Alkaline Phosphatase 108, C-Reactive Protein, Quantitative 1.9H, Pro-B-Type Natriuretic Peptide 627H, Total Protein 7.0, Albumin 1.5L, Globulin 5.5, Albumin/Globulin Ratio 0.3L Height (Feet): 5 Height (Inches): 7.00 Weight (Pounds): 120 General Appearance: no apparent distress EENT: other - Trach to vent Cardiovascular: normal rate Respiratory/Chest: decreased breath sounds Abdomen: distended Ben Aguilar MD Sep 08, 2020 10:40
--- NOTE | 2020-09-08 10:45 | Pulmonology Progress Note ---
Subjective ROS Limited/Unobtainable: Yes Interval Events: s/p EGD; esophagitis Constitutional: Reports: no symptoms HEENT: Repors: no symptoms Respiratory: Reports: no symptoms Cardiovascular: Reports: no symptoms Gastrointestinal/Abdominal: Reports: no symptoms Allergies: Coded Allergies: No Known Allergies (Unverified , 08/30/20) All Systems: reviewed and negative except above Objective Last 24 Hour Vital Signs Date Time Temp Pulse Resp B/P (MAP) Pulse Ox O2 Delivery O2 Flow Rate FiO2 09/08/20 08:00 Mechanical Ventilator 09/08/20 08:00 30 09/08/20 07:58 97.3 65 20 114/69 (84) 99 09/08/20 04:00 Mechanical Ventilator 09/08/20 04:00 30 09/08/20 04:00 61 09/08/20 04:00 98.6 63 17 115/64 (81) 100 09/08/20 03:12 65 19 30 09/08/20 01:30 64 09/08/20 00:00 Mechanical Ventilator 09/08/20 00:00 98.1 63 17 113/65 (81) 100 09/08/20 00:00 30 09/07/20 23:09 64 18 30 09/07/20 20:00 98.1 68 18 116/68 (84) 100 09/07/20 20:00 30 09/07/20 20:00 63 09/07/20 20:00 Mechanical Ventilator 09/07/20 19:03 60 18 30 09/07/20 16:00 Mechanical Ventilator 09/07/20 16:00 98.0 66 17 117/68 (84) 100 09/07/20 16:00 68 09/07/20 15:00 65 17 30 09/07/20 14:57 30 09/07/20 12:00 97.9 64 17 124/72 (89) 100 09/07/20 12:00 65 09/07/20 12:00 Mechanical Ventilator 09/07/20 12:00 30 09/07/20 11:45 57 15 30 Intake and Output 09/07/20 09/08/20 19:00 07:00 Intake Total 1250 ml 1250 ml Output Total 1000 ml 800 ml Balance 250 ml 450 ml Intake Free Water 200 ml 200 ml IV Total 330 ml 330 ml Tube Feeding 720 ml 720 ml Output Urine Total 1000 ml 800 ml General Appearance: no acute distress HEENT: atraumatic Respiratory: other - trach vent Cardiovascular: normal rate, regular rhythm Abdomen: soft, non tender Musculoskeletal: other - SCDs in LE Laboratory Tests 09/08/20 03:20: White Blood Count 9.4, Red Blood Count 2.80L, Hemoglobin 8.5L, Hematocrit 26.9L, Mean Corpuscular Volume 96, Mean Corpuscular Hemoglobin 30.3, Mean Corpuscular Hemoglobin Concent 31.6L, Red Cell Distribution Width 14.8, Platelet Count 444, Mean Platelet Volume 6.6, Neutrophils (%) (Auto) 71.7, Lymphocytes (%) (Auto) 17.9L, Monocytes (%) (Auto) 6.8, Eosinophils (%) (Auto) 3.2H, Basophils (%) (Auto) 0.5, Sodium Level 138, Potassium Level 3.7, Chloride Level 104, Carbon Dioxide Level 25, Anion Gap 9, Blood Urea Nitrogen 18, Creatinine 0.7, Estimat Glomerular Filtration Rate > 60, Glucose Level 144H, Calcium Level 8.5, Phosphorus Level 2.7, Magnesium Level 1.6L, Total Bilirubin < 0.1L, Aspartate Amino Transf (AST/SGOT) 46H, Alanine Aminotransferase (ALT/SGPT) 43, Alkaline Phosphatase 108, C-Reactive Protein, Quantitative 1.9H, Pro-B-Type Natriuretic Peptide 627H, Total Protein 7.0, Albumin 1.5L, Globulin 5.5, Albumin/Globulin Ratio 0.3L Current Medications Medications (Trade) Dose Ordered Sig/Kirby Route PRN Reason Start Time Stop Time Status Last Admin Dose Admin Acetaminophen (Tylenol) 650 mg Q4H PRN NG Mild Pain (Pain Scale 1-3) 08/31/20 09:00 09/30/20 08:59 09/05/20 20:30 Acetaminophen (Tylenol) 650 mg Q4H PRN NG Temp >100.5 08/31/20 09:00 09/30/20 08:59 Ampicillin 2 gm/ Sodium Chloride 110 ml @ 220 mls/hr EVERY 4 HOURS IV 09/02/20 09:30 09/16/20 23:59 09/08/20 08:46 Chlorhexidine Gluconate (Janet-Hex 2%) 1 applic DAILY@2000 TOPIC 09/06/20 21:15 5/30/21 21:14 09/07/20 21:04 Dextrose (Dextrose 50%) 25 ml Q30M PRN IV Hypoglycemia 08/30/20 16:45 11/28/20 16:44 Dextrose (Dextrose 50%) 50 ml Q30M PRN IV Hypoglycemia 08/30/20 16:45 11/28/20 16:44 Insulin Aspart (NovoLOG) Q6HR SUBQ 08/30/20 18:00 11/28/20 17:59 09/08/20 00:24 Lansoprazole (Prevacid) 30 mg BID GT 09/01/20 18:00 09/30/20 17:59 09/08/20 08:45 Ondansetron HCl (Zofran) 4 mg Q4H PRN IVP Nausea & Vomiting 08/30/20 16:45 09/29/20 16:44 Potassium Chloride (K-Dur) 40 meq BID GT 09/08/20 09:00 12/05/20 11:29 09/08/20 08:46 Sucralfate (Carafate) 1 gm FOUR TIMES A DAY ORAL 09/03/20 13:00 12/02/20 12:59 09/08/20 08:45 Assessment/Plan Assessment/Plan 1. Bilateral health-care associated pneumonia. - on Abx per ID 2. GI bleed. - On PPI - s/p EGD -> esophagitis 3. Tracheostomy. - Continue AC mode; now FiO2 30%; Keep SaO2 >94% 4. Diabetes mellitus. 5. Hypertension. 6. CVA. 7. hypokalemia, resolved 8. hypomagnesemia 9. DVT ppx - V/D legs negative for DVT - continue SCD GI prophylaxes, we will hold anticoagulation given GI bleed. Medically stable from pulmonary standpoint The care for this patient was discussed with my supervising physician Time spent for this case was approximately 31 minutes Vicente Zhu Sep 08, 2020 10:45
[2020-09-08 11:51] VITALS: BP 114/73
--- NOTE | 2020-09-08 13:27 | Surgery Progress Note ---
Surgery Progress Note Subjective Additional Comments no acute events comfortable stable Objective Last 24 Hour Vital Signs Date Time Temp Pulse Resp B/P (MAP) Pulse Ox O2 Delivery O2 Flow Rate FiO2 09/08/20 12:00 30 09/08/20 12:00 Mechanical Ventilator 09/08/20 11:51 97.0 71 18 114/73 (87) 100 09/08/20 11:45 61 09/08/20 08:00 Mechanical Ventilator 09/08/20 08:00 30 09/08/20 07:58 97.3 65 20 114/69 (84) 99 09/08/20 07:34 62 09/08/20 04:00 Mechanical Ventilator 09/08/20 04:00 30 09/08/20 04:00 61 09/08/20 04:00 98.6 63 17 115/64 (81) 100 09/08/20 03:12 65 19 30 09/08/20 01:30 64 09/08/20 00:00 Mechanical Ventilator 09/08/20 00:00 98.1 63 17 113/65 (81) 100 09/08/20 00:00 30 09/07/20 23:09 64 18 30 09/07/20 20:00 98.1 68 18 116/68 (84) 100 09/07/20 20:00 30 09/07/20 20:00 63 09/07/20 20:00 Mechanical Ventilator 09/07/20 19:03 60 18 30 09/07/20 16:00 Mechanical Ventilator 09/07/20 16:00 98.0 66 17 117/68 (84) 100 09/07/20 16:00 68 09/07/20 15:00 65 17 30 09/07/20 14:57 30 I&O Intake and Output 09/07/20 09/08/20 19:00 07:00 Intake Total 1250 ml 1250 ml Output Total 1000 ml 800 ml Balance 250 ml 450 ml Intake Free Water 200 ml 200 ml IV Total 330 ml 330 ml Tube Feeding 720 ml 720 ml Output Urine Total 1000 ml 800 ml Dressing: saturated Cardiovascular: RSR Respiratory: decreased breath sounds Abdomen: soft, non-tender, present bowel sounds, non-distended Extremities: no tenderness, no cyanosis Laboratory Tests Test 09/08/20 03:20 White Blood Count 9.4 K/UL (4.8-10.8) Red Blood Count 2.80 M/UL (4.70-6.10) L Hemoglobin 8.5 G/DL (14.2-18.0) L Hematocrit 26.9 % (42.0-52.0) L Mean Corpuscular Volume 96 FL (80-99) Mean Corpuscular Hemoglobin 30.3 PG (27.0-31.0) Mean Corpuscular Hemoglobin Concent 31.6 G/DL (32.0-36.0) L Red Cell Distribution Width 14.8 % (11.6-14.8) Platelet Count 444 K/UL (150-450) Mean Platelet Volume 6.6 FL (6.5-10.1) Neutrophils (%) (Auto) 71.7 % (45.0-75.0) Lymphocytes (%) (Auto) 17.9 % (20.0-45.0) L Monocytes (%) (Auto) 6.8 % (1.0-10.0) Eosinophils (%) (Auto) 3.2 % (0.0-3.0) H Basophils (%) (Auto) 0.5 % (0.0-2.0) Sodium Level 138 MMOL/L (136-145) Potassium Level 3.7 MMOL/L (3.5-5.1) Chloride Level 104 MMOL/L (98-107) Carbon Dioxide Level 25 MMOL/L (21-32) Anion Gap 9 mmol/L (5-15) Blood Urea Nitrogen 18 mg/dL (7-18) Creatinine 0.7 MG/DL (0.55-1.30) Estimat Glomerular Filtration Rate > 60 mL/min (>60) Glucose Level 144 MG/DL (74-106) H Calcium Level 8.5 MG/DL (8.5-10.1) Phosphorus Level 2.7 MG/DL (2.5-4.9) Magnesium Level 1.6 MG/DL (1.8-2.4) L Total Bilirubin < 0.1 MG/DL (0.2-1.0) L Aspartate Amino Transf (AST/SGOT) 46 U/L (15-37) H Alanine Aminotransferase (ALT/SGPT) 43 U/L (12-78) Alkaline Phosphatase 108 U/L (46-116) C-Reactive Protein, Quantitative 1.9 mg/dL (0.00-0.90) H Pro-B-Type Natriuretic Peptide 627 pg/mL (0-125) H Total Protein 7.0 G/DL (6.4-8.2) Albumin 1.5 G/DL (3.4-5.0) L Globulin 5.5 g/dL Albumin/Globulin Ratio 0.3 (1.0-2.7) L Plan Problems: (1) Septic shock (2) Acute renal failure (3) Sepsis Assessment & Plan: 64-year-old male leukocytosis abnormal labs ultrasound with gallbladder wall thickening no pericholecystic fluid no gallstones potentially a calculus cholecystitis. Patient unable to verbalize or identify tenderness. Examination fairly unreliable. Clinically recommend given patient's history and condition medical management and will monitor clinically. The liver and spleen are homogeneous. Mild wall thickening of the gallbladder noted. Common bile duct measures 3 mm. The pancreas is unremarkable to the extent visualized. There are nonshadowing cortical echogenic focus in the left kidney likely perivascular fat. No renal stone or hydronephrosis seen bilaterally. Aorta and cava are within normal limits. IMPRESSION: NO GALLSTONE OR SLUDGE IS IDENTIFIED BUT THERE IS EDEMA AND GALLBLADDER WALL THICKENING. PATIENT IS UNABLE TO REPORT FOCAL SYMPTOMS. LEFT RENAL CORTICAL ECHOGENIC FOCUS WITHOUT SHADOWING LIKELY PERIVASCULAR FAT. NO DISCRETE RENAL STONE OR HYDRONEPHROSIS. INCIDENTAL SMALL LEFT PLEURAL EFFUSION. (4) Pneumonia (5) Upper GI bleed Assessment & Plan: Patient had acute drop in hemoglobin noted some dark stool consider removed potentially blood GI called GI eval pending occult stool trend H&H PRBC if drops below 7 will follow with recommendations s/p egd peg bx results pending DAILY ESTIMATED NEEDS: Needs based on Critical care, underweight, TF [employer] 50kg 28-33 kcals/kg 7778-8900 total kcals 1.2-2 g protein/kg 60-100 g total protein 25-30 mL/kg 6444-0038 total fluid mLs NUTRITION DIAGNOSIS: Swallowing difficulty r/t respiratory failure as evidenced by pt is vent dep via trach/ PEG dep. CURRENT TF:Vital @60ml/hr x24 hrs -> now NPO for EGD ENTERAL NUTRITION RECOMMENDATIONS: rec to LOWER Vital 1.2 goal of 55ml/hr x24 hrs to provide 1320ml, 1584 kcal, 99g pro, 1071ml free H2O - rec to LOWER goal to 55ml/hr to not exceed est needs - flush per MD. HOB over 30 degrees ADDITIONAL RECOMMENDATIONS: 1) Maintain calibrated bed scale wts 2) rec bedside BG testing/ niss -> now on NISS 3) replete lytes as needed (low K and phos) 4) DC D5 IVF when TF resumes for improved BG control Doe Nina Sep 08, 2020 13:27
[2020-09-08 15:57] VITALS: BP 113/66
--- NOTE | 2020-09-08 16:06 | NUR ---
NURSE NOTES: Dr Jacques is aware about residual today, ordered to hold g tube feeding till 12midnight, noted and carried out.
--- NOTE | 2020-09-08 19:00 | NUR ---
NURSE NOTES: Received patient from [facility]. patient is awake in bed watching TV. sinus rhythm on the monitor. trach to vent AC 14 TV 450 FiO2 30% PEEP 5, saturation 100%. gtube in place and tube feeding on hold until midnight per Dr. Bueno's order. will restart after midnight. hayden in place and draining well to gravity. bed to lowest position and locked. call light within easy reach. side rails up x2. will monitor closely.
--- NOTE | 2020-09-08 19:06 | NUR ---
NURSE HAND-OFF REPORT: Important Events on Shift: Patient Status: Diet: Pending Orders: Pending Results/Labs: Pending MD notification: Latest Vital Signs: Temperature 97.3 , Pulse 67 , B/P 113 /66 , Respiratory Rate 20 , O2 SAT 100 , Mechanical Ventilator, O2 Flow Rate 15.0 . Vital Sign Comment: EKG Rhythm: Sinus Rhythm Rhythm change?: N MD Notified?: - MD Response: Latest Brewer Fall Score: 35 Fall Risk: Medium Risk Safety Measures: Call light Within Reach, Bed Alarm Zone 2, Side Rails Side Rails x3, Bed position Low and Locked. Fall Precautions: Yellow Socks Patient Fall Education Report given to . pt is awake and stable,no stress noted. Endorsed plan of care, endorsed to hold feeding till midnight due to residual.
[2020-09-08 20:00] VITALS: BP 117/70
[2020-09-08] MEDS: Dyna-Hex 2% Top Sol 2oz TOPIC SCH (20:43)
--- NOTE | 2020-09-08 22:58 | NUR ---
NURSE NOTES: Dr. Perdue came at bedside and ordered to start discharge planning for patient. patient will be discharged with PICC line and antibiotics. will carry out orders.
--- NOTE | 2020-09-08 23:31 | General Progress Note ---
Subjective Constitutional: Reports: no symptoms HEENT: Reports: no symptoms Cardiovascular: Reports: no symptoms Respiratory: Reports: no symptoms Gastrointestinal/Abdominal: Reports: no symptoms Genitourinary: Reports: no symptoms Neurologic/Psychiatric: Reports: no symptoms Endocrine: Reports: no symptoms Hematologic/Lymphatic: Reports: no symptoms, other - In effect he denies any sy mptom and performed we will sign his hand in regard to his medical condition Allergies: Coded Allergies: No Known Allergies (Unverified , 08/30/20) Objective Last 24 Hour Vital Signs Date Time Temp Pulse Resp B/P (MAP) Pulse Ox O2 Delivery O2 Flow Rate FiO2 09/08/20 23:23 65 16 30 09/08/20 21:17 62 14 30 09/08/20 20:00 64 09/08/20 20:00 Mechanical Ventilator 09/08/20 20:00 30 09/08/20 20:00 97.0 67 20 117/70 (86) 100 09/08/20 19:30 63 14 30 09/08/20 16:00 30 09/08/20 15:59 Mechanical Ventilator 09/08/20 15:57 97.3 67 20 113/66 (82) 100 09/08/20 15:18 70 09/08/20 15:05 67 17 30 09/08/20 12:00 30 09/08/20 12:00 Mechanical Ventilator 09/08/20 11:51 97.0 71 18 114/73 (87) 100 09/08/20 11:45 61 09/08/20 10:40 62 17 30 09/08/20 08:00 Mechanical Ventilator 09/08/20 08:00 30 09/08/20 07:58 97.3 65 20 114/69 (84) 99 09/08/20 07:35 63 17 30 09/08/20 07:34 62 09/08/20 04:00 Mechanical Ventilator 09/08/20 04:00 30 09/08/20 04:00 61 09/08/20 04:00 98.6 63 17 115/64 (81) 100 09/08/20 03:12 65 19 30 09/08/20 01:30 64 09/08/20 00:00 Mechanical Ventilator 09/08/20 00:00 98.1 63 17 113/65 (81) 100 09/08/20 00:00 30 Intake and Output 09/07/20 09/08/20 19:00 07:00 Intake Total 1250 ml 1250 ml Output Total 1000 ml 800 ml Balance 250 ml 450 ml Intake Free Water 200 ml 200 ml IV Total 330 ml 330 ml Tube Feeding 720 ml 720 ml Output Urine Total 1000 ml 800 ml Laboratory Tests 09/08/20 03:20: White Blood Count 9.4, Red Blood Count 2.80L, Hemoglobin 8.5L, Hematocrit 26.9L, Mean Corpuscular Volume 96, Mean Corpuscular Hemoglobin 30.3, Mean Corpuscular Hemoglobin Concent 31.6L, Red Cell Distribution Width 14.8, Platelet Count 444, Mean Platelet Volume 6.6, Neutrophils (%) (Auto) 71.7, Lymphocytes (%) (Auto) 17.9L, Monocytes (%) (Auto) 6.8, Eosinophils (%) (Auto) 3.2H, Basophils (%) (Auto) 0.5, Sodium Level 138, Potassium Level 3.7, Chloride Level 104, Carbon Dioxide Level 25, Anion Gap 9, Blood Urea Nitrogen 18, Creatinine 0.7, Estimat Glomerular Filtration Rate > 60, Glucose Level 144H, Calcium Level 8.5, Phosphorus Level 2.7, Magnesium Level 1.6L, Total Bilirubin < 0.1L, Aspartate Amino Transf (AST/SGOT) 46H, Alanine Aminotransferase (ALT/SGPT) 43, Alkaline Phosphatase 108, C-Reactive Protein, Quantitative 1.9H, Pro-B-Type Natriuretic Peptide 627H, Total Protein 7.0, Albumin 1.5L, Globulin 5.5, Albumin/Globulin Ratio 0.3L Height (Feet): 5 Height (Inches): 7.00 Weight (Pounds): 120 General Appearance: WD/WN, no apparent distress, alert EENT: normal ENT inspection, TMs normal Neck: supple Cardiovascular: normal rate, regular rhythm, no gallop/murmur, no JVD Respiratory/Chest: lungs clear, normal breath sounds, no respiratory distress, no accessory muscle use Extremities: normal range of motion, non-tender, normal inspection Skin: warm/dry Assessment/Plan Status Narrative Awake alert afebrile hemodynamically stable denies any symptom request to be transferred back to the subacute unit his physical examination is normal with normal blood and pulse pressure lungs are clear heart normal sounds that irregular beat is not bradycardia at rest laboratory tests reviewed and the indication for the antibiotic the patient will have to stay here 1 more week toward his discharge however his clinical status appears to be markedly improved as compared to the one I observe on admission Patrice laboratory tests will be done in a.m. Jason Figueroa MD, MD Sep 08, 2020 23:31
[2020-09-09] VITALS: BP 126/72
--- NOTE | 2020-09-09 | NUR ---
NURSE NOTES: GT feeding resumed.
[2020-09-09] MEDS: Ampicillin 2 GM in NS 110 ML IV SCH ×4 (01:35→12:12)
--- NOTE | 2020-09-09 02:28 | NUR ---
NURSE NOTES: bed bath performed. patient had a large soft BM. oral care and suction performed. bed linens changed. vital signs stable. Addendum: 09/09/20 at 0449 by Gutierrez [place] Acha, RN Right upper arm PICC line dressing changed.
[2020-09-09 04:00] VITALS: BP 115/70
--- NOTE | 2020-09-09 04:41 | NUR ---
NURSE NOTES: patient remains asleep without any acute distress noted. maintained comfort and low stimulus environment.
[2020-09-09] MEDS: NovoLOG Insulin Flexpen SUBQ SCH ×3 (05:29→12:00)
[2020-09-09 05:47] LABS: BASOPHILS % (AUTO) 6.6 % (0.0-2.0); EOSINOPHILS % (AUTO) 2.6 % (0.0-3.0); HEMATOCRIT 26.2 % (42.0-52.0); LYMPHOCYTES % (AUTO) 4.7 % (20.0-45.0); MEAN CORPUSCULAR VOLUME 98 FL (80-99); MONOCYTES % (AUTO) 10.8 % (1.0-10.0); NEUTROPHILS % (AUTO) 75.3 % (45.0-75.0); PLATELET COUNT 382 K/UL (150-450); RED BLOOD COUNT 2.67 M/UL (4.70-6.10); RED CELL DISTRIBUTION WIDTH 15.3 % (11.6-14.8); WHITE BLOOD COUNT 9.3 K/UL (4.8-10.8)
--- NOTE | 2020-09-09 06:25 | Hematology/Onc Progress Note ---
Assessment/Plan Assessment/Plan Assessment and recs # Leukocytosis due to underlying Sepsis --> per ID recs --> ABX cefepime/vanc--ampicillin --> wbc 13-->13-->9 # Anemia with a upper gi bleed --> per gi eval --> hgb 12-->8.8-->8.6-->8.8->8-->8.5-->8 --> anemia panel is noted, and dw ACD --> transfuse prn basis --> review smear # Pneumonia b//l pna on imaging --> imaging seen --> per id # Respiratory failure --> s/p vent/trach # Septic shock # Acute renal failure # Upper GI bleed # Hypotensive and tachycardic. --> Patient given IV fluids and is fluid responsive. # Dvt ppx scds Appreciate consultation and stefany Rn Subjective HEENT: Denies: no symptoms, eye pain, blurred vision, tearing, double vision, ear pain, ear discharge, nose pain, nose congestion, throat pain, throat swelling, mouth pain, mouth swelling, other Cardiovascular: Denies: no symptoms, chest pain, edema, irregular heart rate, lightheadedness, palpitations, syncope, other Respiratory: Denies: no symptoms, cough, shortness of breath, SOB with excertion, SOB at rest, sputum, wheezing, other Gastrointestinal/Abdominal: Denies: no symptoms, abdomen distended, abdominal pain, black stools, tarry stools, blood in stool, constipated, diarrhea, difficulty swallowing, nausea, poor appetite, poor fluid intake, rectal bleeding, vomiting, other Genitourinary: Denies: no symptoms, burning, discharge, frequency, flank pain, hematuria, incontinence, pain, urgency, other Neurologic/Psychiatric: Denies: no symptoms, anxiety, depressed, emotional problems, headache, numbness, paresthesia, pre-existing deficit, seizure, tingling, tremors, weakness, other Endocrine: Denies: no symptoms, excessive sweating, flushing, intolerance to cold, intolerance to heat, increased hunger, increased thirst, increased urine, unexplained weight gain, unexplained weight loss, other Hematologic/Lymphatic: Denies: no symptoms, anemia, easy bleeding, easy bruising, adenopathy, other Allergies: Coded Allergies: No Known Allergies (Unverified , 08/30/20) Subjective 09/01 stefany rn, on abx broad spectrum, labs noted, no active bleed at this time 09/02 meds noted, no bleeding, stefany rn, wbc 18, hgb 8.6, no hemolysis 09/03 plan for egd this am, labs noted, no bleeding, stefany rn 09/05 meds noted, no bleeding, vent setting tolerated, no bleeding 09/06 sr, on tube feeds, labs are pending, on ampicillin 09/07 no events, sr, labs are noted, on abx, cbc noted 09/08 t/v, labs reviewed, gt, labs reviewed 09/09 t/v, is asleep, with large bm overnight, no fc Objective Objective Current Medications Medications (Trade) Dose Ordered Sig/Kirby Route PRN Reason Start Time Stop Time Status Last Admin Dose Admin Acetaminophen (Tylenol) 650 mg Q4H PRN NG Mild Pain (Pain Scale 1-3) 08/31/20 09:00 09/30/20 08:59 09/05/20 20:30 Acetaminophen (Tylenol) 650 mg Q4H PRN NG Temp >100.5 08/31/20 09:00 09/30/20 08:59 Ampicillin 2 gm/ Sodium Chloride 110 ml @ 220 mls/hr EVERY 4 HOURS IV 09/02/20 09:30 09/16/20 23:59 09/09/20 05:09 Chlorhexidine Gluconate (Janet-Hex 2%) 1 applic DAILY@2000 TOPIC 09/06/20 21:15 12/05/20 21:14 09/08/20 20:43 Dextrose (Dextrose 50%) 25 ml Q30M PRN IV Hypoglycemia 08/30/20 16:45 11/28/20 16:44 Dextrose (Dextrose 50%) 50 ml Q30M PRN IV Hypoglycemia 08/30/20 16:45 11/28/20 16:44 Insulin Aspart (NovoLOG) Q6HR SUBQ 08/30/20 18:00 11/28/20 17:59 09/08/20 12:11 Lansoprazole (Prevacid) 30 mg BID GT 09/01/20 18:00 09/30/20 17:59 09/08/20 17:02 Ondansetron HCl (Zofran) 4 mg Q4H PRN IVP Nausea & Vomiting 08/30/20 16:45 09/29/20 16:44 Potassium Chloride (K-Dur) 40 meq BID GT 09/08/20 09:00 12/05/20 11:29 09/08/20 17:01 Sucralfate (Carafate) 1 gm FOUR TIMES A DAY ORAL 09/03/20 13:00 12/02/20 12:59 09/08/20 20:43 Last 24 Hour Vital Signs Date Time Temp Pulse Resp B/P (MAP) Pulse Ox O2 Delivery O2 Flow Rate FiO2 09/09/20 05:30 60 17 30 09/09/20 04:00 97.9 64 15 115/70 (85) 100 09/09/20 04:00 65 09/09/20 03:50 30 09/09/20 03:50 Mechanical Ventilator 09/09/20 03:08 62 16 30 09/09/20 01:36 64 16 30 09/09/20 00:00 98.6 60 15 126/72 (90) 100 09/09/20 00:00 30 09/09/20 00:00 63 09/09/20 00:00 Mechanical Ventilator 09/08/20 23:23 65 16 30 09/08/20 21:17 62 14 30 09/08/20 20:00 64 09/08/20 20:00 Mechanical Ventilator 09/08/20 20:00 30 09/08/20 20:00 97.0 67 20 117/70 (86) 100 09/08/20 19:30 63 14 30 09/08/20 16:00 30 09/08/20 15:59 Mechanical Ventilator 09/08/20 15:57 97.3 67 20 113/66 (82) 100 09/08/20 15:18 70 09/08/20 15:05 67 17 30 09/08/20 12:00 30 09/08/20 12:00 Mechanical Ventilator 09/08/20 11:51 97.0 71 18 114/73 (87) 100 09/08/20 11:45 61 09/08/20 10:40 62 17 30 09/08/20 08:00 Mechanical Ventilator 09/08/20 08:00 30 09/08/20 07:58 97.3 65 20 114/69 (84) 99 09/08/20 07:35 63 17 30 09/08/20 07:34 62 09/08/20 04:00 Mechanical Ventilator 09/08/20 04:00 30 09/08/20 04:00 61 09/08/20 04:00 98.6 63 17 115/64 (81) 100 09/08/20 03:12 65 19 30 09/08/20 01:30 64 09/08/20 00:00 Mechanical Ventilator 09/08/20 00:00 98.1 63 17 113/65 (81) 100 09/08/20 00:00 30 09/07/20 23:09 64 18 30 09/07/20 20:00 98.1 68 18 116/68 (84) 100 09/07/20 20:00 30 09/07/20 20:00 63 09/07/20 20:00 Mechanical Ventilator 09/07/20 19:03 60 18 30 09/07/20 16:00 Mechanical Ventilator 09/07/20 16:00 98.0 66 17 117/68 (84) 100 09/07/20 16:00 68 09/07/20 15:00 65 17 30 09/07/20 14:57 30 09/07/20 12:00 97.9 64 17 124/72 (89) 100 09/07/20 12:00 65 09/07/20 12:00 Mechanical Ventilator 09/07/20 12:00 30 09/07/20 11:45 57 15 30 09/07/20 08:00 98.1 64 17 111/60 (77) 100 09/07/20 08:00 Mechanical Ventilator 09/07/20 08:00 64 09/07/20 08:00 30 09/07/20 07:45 67 25 30 Intake and Output 09/08/20 09/09/20 19:00 07:00 Intake Total 920 ml 670 ml Output Total 700 ml Balance 220 ml 670 ml Intake Free Water 200 ml 200 ml IV Total 420 ml 110 ml Tube Feeding 300 ml 360 ml Output Urine Total 700 ml # Bowel Movements 2 Labs Test 09/06/20 07:35 09/06/20 13:16 09/06/20 17:43 09/06/20 23:53 White Blood Count 11.3 K/UL (4.8-10.8) Red Blood Count 2.66 M/UL (4.70-6.10) Hemoglobin 8.0 G/DL (14.2-18.0) Hematocrit 25.5 % (42.0-52.0) Mean Corpuscular Volume 96 FL (80-99) Mean Corpuscular Hemoglobin 29.9 PG (27.0-31.0) Mean Corpuscular Hemoglobin Concent 31.2 G/DL (32.0-36.0) Red Cell Distribution Width 15.1 % (11.6-14.8) Platelet Count 334 K/UL (150-450) Mean Platelet Volume 6.6 FL (6.5-10.1) Neutrophils (%) (Auto) 69.8 % (45.0-75.0) Lymphocytes (%) (Auto) 17.3 % (20.0-45.0) Monocytes (%) (Auto) 9.5 % (1.0-10.0) Eosinophils (%) (Auto) 2.7 % (0.0-3.0) Basophils (%) (Auto) 0.7 % (0.0-2.0) Sodium Level 141 MMOL/L (136-145) Potassium Level 3.5 MMOL/L (3.5-5.1) Chloride Level 107 MMOL/L (98-107) Carbon Dioxide Level 25 MMOL/L (21-32) Anion Gap 9 mmol/L (5-15) Blood Urea Nitrogen 21 mg/dL (7-18) Creatinine 0.8 MG/DL (0.55-1.30) Estimat Glomerular Filtration Rate > 60 mL/min (>60) Glucose Level 132 MG/DL (74-106) Calcium Level 8.5 MG/DL (8.5-10.1) Phosphorus Level 2.6 MG/DL (2.5-4.9) Magnesium Level 1.9 MG/DL (1.8-2.4) Total Bilirubin 0.2 MG/DL (0.2-1.0) Direct Bilirubin < 0.1 MG/DL (0.0-0.3) Aspartate Amino Transf (AST/SGOT) 32 U/L (15-37) Alanine Aminotransferase (ALT/SGPT) 26 U/L (12-78) Alkaline Phosphatase 97 U/L (46-116) Total Protein 6.9 G/DL (6.4-8.2) Albumin 1.5 G/DL (3.4-5.0) POC Whole Blood Glucose 171 MG/DL (74-106) 134 MG/DL (74-106) 128 MG/DL (74-106) Test 09/07/20 03:00 09/07/20 05:12 09/08/20 03:20 09/09/20 03:10 White Blood Count 10.1 K/UL (4.8-10.8) 9.4 K/UL (4.8-10.8) 9.3 K/UL (4.8-10.8) Red Blood Count 2.67 M/UL (4.70-6.10) 2.80 M/UL (4.70-6.10) 2.67 M/UL (4.70-6.10) Hemoglobin 8.0 G/DL (14.2-18.0) 8.5 G/DL (14.2-18.0) 8.0 G/DL (14.2-18.0) Hematocrit 25.4 % (42.0-52.0) 26.9 % (42.0-52.0) 26.2 % (42.0-52.0) Mean Corpuscular Volume 95 FL (80-99) 96 FL (80-99) 98 FL (80-99) Mean Corpuscular Hemoglobin 29.9 PG (27.0-31.0) 30.3 PG (27.0-31.0) 29.8 PG (27.0-31.0) Mean Corpuscular Hemoglobin Concent 31.4 G/DL (32.0-36.0) 31.6 G/DL (32.0-36.0) 30.3 G/DL (32.0-36.0) Red Cell Distribution Width 14.6 % (11.6-14.8) 14.8 % (11.6-14.8) 15.3 % (11.6-14.8) Platelet Count 389 K/UL (150-450) 444 K/UL (150-450) 382 K/UL (150-450) Mean Platelet Volume 6.4 FL (6.5-10.1) 6.6 FL (6.5-10.1) 5.7 FL (6.5-10.1) Neutrophils (%) (Auto) 70.9 % (45.0-75.0) 71.7 % (45.0-75.0) 75.3 % (45.0-75.0) Lymphocytes (%) (Auto) 16.9 % (20.0-45.0) 17.9 % (20.0-45.0) 4.7 % (20.0-45.0) Monocytes (%) (Auto) 8.4 % (1.0-10.0) 6.8 % (1.0-10.0) 10.8 % (1.0-10.0) Eosinophils (%) (Auto) 3.5 % (0.0-3.0) 3.2 % (0.0-3.0) 2.6 % (0.0-3.0) Basophils (%) (Auto) 0.4 % (0.0-2.0) 0.5 % (0.0-2.0) 6.6 % (0.0-2.0) Sodium Level 139 MMOL/L (136-145) 138 MMOL/L (136-145) Potassium Level 4.2 MMOL/L (3.5-5.1) 3.7 MMOL/L (3.5-5.1) Chloride Level 106 MMOL/L (98-107) 104 MMOL/L (98-107) Carbon Dioxide Level 26 MMOL/L (21-32) 25 MMOL/L (21-32) Anion Gap 7 mmol/L (5-15) 9 mmol/L (5-15) Blood Urea Nitrogen 18 mg/dL (7-18) 18 mg/dL (7-18) Creatinine 0.8 MG/DL (0.55-1.30) 0.7 MG/DL (0.55-1.30) Estimat Glomerular Filtration Rate > 60 mL/min (>60) > 60 mL/min (>60) Glucose Level 130 MG/DL (74-106) 144 MG/DL (74-106) Calcium Level 8.2 MG/DL (8.5-10.1) 8.5 MG/DL (8.5-10.1) POC Whole Blood Glucose 132 MG/DL (74-106) Phosphorus Level 2.7 MG/DL (2.5-4.9) Magnesium Level 1.6 MG/DL (1.8-2.4) Total Bilirubin < 0.1 MG/DL (0.2-1.0) Aspartate Amino Transf (AST/SGOT) 46 U/L (15-37) Alanine Aminotransferase (ALT/SGPT) 43 U/L (12-78) Alkaline Phosphatase 108 U/L (46-116) C-Reactive Protein, Quantitative 1.9 mg/dL (0.00-0.90) Pro-B-Type Natriuretic Peptide 627 pg/mL (0-125) Total Protein 7.0 G/DL (6.4-8.2) Albumin 1.5 G/DL (3.4-5.0) Globulin 5.5 g/dL Albumin/Globulin Ratio 0.3 (1.0-2.7) Height (Feet): 5 Height (Inches): 7.00 Weight (Pounds): 120 Objective Physical Exam Vitals abnormal General Appearance: nv, thin, Chronically Ill Heent: normocephalic, atraumatic ++ Trach in place VEnt++ Respiratory: rhonchi Cardiovascular: tachycardia Gastrointestinal: non tender, soft, non-distended, other ++ G-tube in the epigastric region Musculoskeletal: no calf tenderness, no lower extremity edema Psychiatric: other - Unable to assess as parent patient is nonverbal Skin: no rash Nick Ferguson MD Sep 09, 2020 06:25
--- NOTE | 2020-09-09 06:28 | NUR ---
NURSE NOTES: patient gtube feeding residual 90ml. held feeding.
--- NOTE | 2020-09-09 07:09 | NUR ---
NURSE HAND-OFF REPORT: Important Events on Shift: patient had a large BM Patient Status: full code Diet: vital AF @60 Pending Orders: [] Pending Results/Labs:[] Pending MD notification:[] Latest Vital Signs: Temperature 97.9 , Pulse 60 , B/P 115 /70 , Respiratory Rate 17 , O2 SAT 100 , Mechanical Ventilator, O2 Flow Rate 15.0 . Vital Sign Comment: stable EKG Rhythm: Sinus Rhythm Rhythm change?: N MD Notified?: - MD Response: Latest Brewer Fall Score: 35 Fall Risk: Medium Risk Safety Measures: Call light Within Reach, Bed Alarm Zone 2, Side Rails Side Rails x3, Bed position Low and Locked. Fall Precautions: Yellow Socks Patient Fall Education Report given to EDGAR Jacobs.
--- NOTE | 2020-09-09 07:22 | NUR ---
NURSE NOTES: Received pt from RN Gutierrez, pt is awake, pt has trach to ventilator AC 14 TV 450 PEEP 5 FIO2 30%, Pt is on continues heart monitoring. pt has g tube in place is patent and off because of residual. pt has intact PICC LESVIA SL. No complain of pain at this moment. All needs attended, bed is locked and is in the lowest position, call light within easy reach. will continue to monitor.
[2020-09-09 07:54] VITALS: BP 112/64
[2020-09-09] MEDS: Sucralfate 1gm tab ORAL SCH ×2 (08:51→12:12)
--- NOTE | 2020-09-09 09:46 | NUR ---
NURSE NOTES: Dr Aguilar visited pt and is aware about residual ordered Reglan 10mg Q8hrs, noted and carried out. will continue to monitor.
[2020-09-09] MEDS ORDERED: Metoclopramide 10mg/2ml Inj IVP SCH (10:00)
--- NOTE | 2020-09-09 10:17 | Surgery Progress Note ---
Surgery Progress Note Subjective Additional Comments no acute events afebrile, HD Stable labs improved exam stable dressings changed site okay Objective Last 24 Hour Vital Signs Date Time Temp Pulse Resp B/P (MAP) Pulse Ox O2 Delivery O2 Flow Rate FiO2 09/09/20 08:00 30 09/09/20 07:58 Mechanical Ventilator 09/09/20 07:54 64 09/09/20 07:54 97.0 65 17 112/64 (80) 98 09/09/20 05:30 60 17 30 09/09/20 04:00 97.9 64 15 115/70 (85) 100 09/09/20 04:00 65 09/09/20 03:50 30 09/09/20 03:50 Mechanical Ventilator 09/09/20 03:08 62 16 30 09/09/20 01:36 64 16 30 09/09/20 00:00 98.6 60 15 126/72 (90) 100 09/09/20 00:00 30 09/09/20 00:00 63 09/09/20 00:00 Mechanical Ventilator 09/08/20 23:23 65 16 30 09/08/20 21:17 62 14 30 09/08/20 20:00 64 09/08/20 20:00 Mechanical Ventilator 09/08/20 20:00 30 09/08/20 20:00 97.0 67 20 117/70 (86) 100 09/08/20 19:30 63 14 30 09/08/20 16:00 30 09/08/20 15:59 Mechanical Ventilator 09/08/20 15:57 97.3 67 20 113/66 (82) 100 09/08/20 15:18 70 09/08/20 15:05 67 17 30 09/08/20 12:00 30 09/08/20 12:00 Mechanical Ventilator 09/08/20 11:51 97.0 71 18 114/73 (87) 100 09/08/20 11:45 61 09/08/20 10:40 62 17 30 I&O Intake and Output 09/08/20 09/09/20 19:00 07:00 Intake Total 920 ml 670 ml Output Total 700 ml 800 ml Balance 220 ml -130 ml Intake Free Water 200 ml 200 ml IV Total 420 ml 110 ml Tube Feeding 300 ml 360 ml Output Urine Total 700 ml 800 ml # Bowel Movements 2 Dressing: saturated Cardiovascular: RSR Respiratory: decreased breath sounds Abdomen: soft, non-tender, present bowel sounds, non-distended Extremities: no edema, no tenderness, no cyanosis Laboratory Tests Test 09/09/20 03:10 White Blood Count 9.3 K/UL (4.8-10.8) Red Blood Count 2.67 M/UL (4.70-6.10) L Hemoglobin 8.0 G/DL (14.2-18.0) L Hematocrit 26.2 % (42.0-52.0) L Mean Corpuscular Volume 98 FL (80-99) Mean Corpuscular Hemoglobin 29.8 PG (27.0-31.0) Mean Corpuscular Hemoglobin Concent 30.3 G/DL (32.0-36.0) L Red Cell Distribution Width 15.3 % (11.6-14.8) H Platelet Count 382 K/UL (150-450) Mean Platelet Volume 5.7 FL (6.5-10.1) L Neutrophils (%) (Auto) 75.3 % (45.0-75.0) H Lymphocytes (%) (Auto) 4.7 % (20.0-45.0) L Monocytes (%) (Auto) 10.8 % (1.0-10.0) H Eosinophils (%) (Auto) 2.6 % (0.0-3.0) Basophils (%) (Auto) 6.6 % (0.0-2.0) H Plan Problems: (1) Septic shock (2) Acute renal failure (3) Sepsis Assessment & Plan: 64-year-old male leukocytosis abnormal labs ultrasound with gallbladder wall thickening no pericholecystic fluid no gallstones potentially a calculus cholecystitis. Patient unable to verbalize or identify tenderness. Examination fairly unreliable. Clinically recommend given patient's history and condition medical management and will monitor clinically. The liver and spleen are homogeneous. Mild wall thickening of the gallbladder noted. Common bile duct measures 3 mm. The pancreas is unremarkable to the extent visualized. There are nonshadowing cortical echogenic focus in the left kidney likely perivascular fat. No renal stone or hydronephrosis seen bilaterally. Aorta and cava are within normal limits. IMPRESSION: NO GALLSTONE OR SLUDGE IS IDENTIFIED BUT THERE IS EDEMA AND GALLBLADDER WALL THICKENING. PATIENT IS UNABLE TO REPORT FOCAL SYMPTOMS. LEFT RENAL CORTICAL ECHOGENIC FOCUS WITHOUT SHADOWING LIKELY PERIVASCULAR FAT. NO DISCRETE RENAL STONE OR HYDRONEPHROSIS. INCIDENTAL SMALL LEFT PLEURAL EFFUSION. (4) Pneumonia (5) Upper GI bleed Assessment & Plan: Patient had acute drop in hemoglobin noted some dark stool consider removed potentially blood GI called GI eval pending occult stool trend H&H PRBC if drops below 7 will follow with recommendations s/p egd peg bx results pending DAILY ESTIMATED NEEDS: Needs based on Critical care, underweight, TF LEARNING PROGRAM MANAGER 50kg 28-33 kcals/kg 4809-5579 total kcals 1.2-2 g protein/kg 60-100 g total protein 25-30 mL/kg 4965-9384 total fluid mLs NUTRITION DIAGNOSIS: Swallowing difficulty r/t respiratory failure as evidenced by pt is vent dep via trach/ PEG dep. CURRENT TF:Vital @60ml/hr x24 hrs -> now NPO for EGD ENTERAL NUTRITION RECOMMENDATIONS: rec to LOWER Vital 1.2 goal of 55ml/hr x24 hrs to provide 1320ml, 1584 kcal, 99g pro, 1071ml free H2O - rec to LOWER goal to 55ml/hr to not exceed est needs - flush per MD. HOB over 30 degrees ADDITIONAL RECOMMENDATIONS: 1) Maintain calibrated bed scale wts 2) rec bedside BG testing/ niss -> now on NISS 3) replete lytes as needed (low K and phos) 4) DC D5 IVF when TF resumes for improved BG control Doe Nina Sep 09, 2020 10:17
--- NOTE | 2020-09-09 10:42 | NUR ---
RD ASSESSMENT & RECOMMENDATIONS SEE CARE ACTIVITY FOR COMPLETE ASSESSMENT DAILY ESTIMATED NEEDS: Needs based on Critical care, underweight, TF TECHNICAL PROGRAMS MANAGER 50kg 28-33 kcals/kg 2522-5932 total kcals 1.2-2 g protein/kg 60-100 g total protein 25-30 mL/kg 0773-4252 total fluid mLs NUTRITION DIAGNOSIS: Swallowing difficulty r/t respiratory failure as evidenced by pt is vent dep via trach/ PEG dep. CURRENT TF:Vital @60ml/hr x24 hrs - held for residuals ENTERAL NUTRITION RECOMMENDATIONS: rec to LOWER Vital 1.2 goal of 55ml/hr x24 hrs to provide 1320ml, 1584 kcal, 99g pro, 1071ml free H2O - rec to LOWER goal to 55ml/hr to not exceed est needs - flush per MD. HOB over 30 degrees ADDITIONAL RECOMMENDATIONS: 1) Maintain calibrated bed scale wts 2) rec bedside BG testing/ niss -> now on NISS 3) replete lytes as needed (low mg) 4) DC D5 IVF when TF resumes for improved BG control
--- NOTE | 2020-09-09 11:00 | Pulmonology Progress Note ---
Subjective ROS Limited/Unobtainable: Yes Interval Events: s/p EGD; esophagitis Constitutional: Reports: no symptoms HEENT: Repors: no symptoms Respiratory: Reports: no symptoms Cardiovascular: Reports: no symptoms Gastrointestinal/Abdominal: Reports: no symptoms Allergies: Coded Allergies: No Known Allergies (Unverified , 08/30/20) All Systems: reviewed and negative except above Objective Last 24 Hour Vital Signs Date Time Temp Pulse Resp B/P (MAP) Pulse Ox O2 Delivery O2 Flow Rate FiO2 09/09/20 08:00 30 09/09/20 07:58 Mechanical Ventilator 09/09/20 07:54 64 09/09/20 07:54 97.0 65 17 112/64 (80) 98 09/09/20 05:30 60 17 30 09/09/20 04:00 97.9 64 15 115/70 (85) 100 09/09/20 04:00 65 09/09/20 03:50 30 09/09/20 03:50 Mechanical Ventilator 09/09/20 03:08 62 16 30 09/09/20 01:36 64 16 30 09/09/20 00:00 98.6 60 15 126/72 (90) 100 09/09/20 00:00 30 09/09/20 00:00 63 09/09/20 00:00 Mechanical Ventilator 09/08/20 23:23 65 16 30 09/08/20 21:17 62 14 30 09/08/20 20:00 64 09/08/20 20:00 Mechanical Ventilator 09/08/20 20:00 30 09/08/20 20:00 97.0 67 20 117/70 (86) 100 09/08/20 19:30 63 14 30 09/08/20 16:00 30 09/08/20 15:59 Mechanical Ventilator 09/08/20 15:57 97.3 67 20 113/66 (82) 100 09/08/20 15:18 70 09/08/20 15:05 67 17 30 09/08/20 12:00 30 09/08/20 12:00 Mechanical Ventilator 09/08/20 11:51 97.0 71 18 114/73 (87) 100 09/08/20 11:45 61 Intake and Output 09/08/20 09/09/20 19:00 07:00 Intake Total 920 ml 670 ml Output Total 700 ml 800 ml Balance 220 ml -130 ml Intake Free Water 200 ml 200 ml IV Total 420 ml 110 ml Tube Feeding 300 ml 360 ml Output Urine Total 700 ml 800 ml # Bowel Movements 2 General Appearance: no acute distress HEENT: atraumatic Respiratory: other - trach vent Cardiovascular: normal rate, regular rhythm Abdomen: soft, non tender Musculoskeletal: other - SCDs in LE Laboratory Tests 09/09/20 03:10: White Blood Count 9.3, Red Blood Count 2.67L, Hemoglobin 8.0L, Hematocrit 26.2L, Mean Corpuscular Volume 98, Mean Corpuscular Hemoglobin 29.8, Mean Corpuscular Hemoglobin Concent 30.3L, Red Cell Distribution Width 15.3H, Platelet Count 382, Mean Platelet Volume 5.7L, Neutrophils (%) (Auto) 75.3H, Lymphocytes (%) (Auto) 4.7L, Monocytes (%) (Auto) 10.8H, Eosinophils (%) (Auto) 2.6, Basophils (%) (Auto) 6.6H Current Medications Medications (Trade) Dose Ordered Sig/Kirby Route PRN Reason Start Time Stop Time Status Last Admin Dose Admin Acetaminophen (Tylenol) 650 mg Q4H PRN NG Mild Pain (Pain Scale 1-3) 08/31/20 09:00 09/30/20 08:59 09/05/20 20:30 Acetaminophen (Tylenol) 650 mg Q4H PRN NG Temp >100.5 08/31/20 09:00 09/30/20 08:59 Ampicillin 2 gm/ Sodium Chloride 110 ml @ 220 mls/hr EVERY 4 HOURS IV 09/02/20 09:30 09/16/20 23:59 09/09/20 08:52 Chlorhexidine Gluconate (Janet-Hex 2%) 1 applic DAILY@2000 TOPIC 09/06/20 21:15 12/05/20 21:14 09/08/20 20:43 Dextrose (Dextrose 50%) 25 ml Q30M PRN IV Hypoglycemia 08/30/20 16:45 11/28/20 16:44 Dextrose (Dextrose 50%) 50 ml Q30M PRN IV Hypoglycemia 08/30/20 16:45 11/28/20 16:44 Insulin Aspart (NovoLOG) Q6HR SUBQ 08/30/20 18:00 11/28/20 17:59 09/08/20 12:11 Lansoprazole (Prevacid) 30 mg BID GT 09/01/20 18:00 09/30/20 17:59 09/09/20 08:51 Metoclopramide HCl (Reglan) 10 mg Q8H IVP 09/09/20 10:00 10/09/20 09:59 09/09/20 10:42 Ondansetron HCl (Zofran) 4 mg Q4H PRN IVP Nausea & Vomiting 08/30/20 16:45 09/29/20 16:44 Potassium Chloride (K-Dur) 40 meq BID GT 09/08/20 09:00 12/05/20 11:29 09/09/20 08:52 Sucralfate (Carafate) 1 gm FOUR TIMES A DAY ORAL 09/03/20 13:00 12/02/20 12:59 09/09/20 08:51 Assessment/Plan Assessment/Plan 1. Bilateral health-care associated pneumonia. - on Abx per ID 2. GI bleed. - On PPI - s/p EGD -> esophagitis 3. Tracheostomy. - Continue AC mode; now FiO2 30%; Keep SaO2 >94% 4. Diabetes mellitus. 5. Hypertension. 6. CVA. 7. hypokalemia, resolved 8. hypomagnesemia 9. DVT ppx - V/D legs negative for DVT - continue SCD GI prophylaxes, we will hold anticoagulation given GI bleed. Medically stable from pulmonary standpoint The care for this patient was discussed with my supervising physician Time spent for this case was approximately 31 minutes Vicente Zhu Sep 09, 2020 11:00
--- NOTE | 2020-09-09 11:38 | NUR ---
BLANKER OPERATOR NOTES PT ACCEPTED BACK TO [facility] [place] ROOM [address]ED [address]. NURSE TO CALL REPORT TO [phone]. [facility] TO TRANSPORT PT, WITH AN ETA 1300. NURSE MADE AWARE.FAMILY NOTIFIED.
[2020-09-09] MEDS ORDERED: AMPICILLIN2 GM IV (11:47)
[2020-09-09 11:54] VITALS: BP 143/67
--- NOTE | 2020-09-09 12:16 | Nephrology Progress Note ---
Assessment/Plan Problem List: (1) Acute renal failure (2) Sepsis (3) Pneumonia (4) Upper GI bleed (5) Anemia Assessment Acute renal failure Prerenal azotemia/dehydration Acute GI bleed Sepsis, pneumonia Hypotension, septic shock PEG Trach to vent Plan September 09: No CHEM panel drawn today. CBC noted. Hemoglobin 8. Stable from renal standpoint of view. If discharged agree to discontinue the Bob catheter. Continue per consultants. September 08: Labs reviewed. Low magnesium addressed. Potassium dose adjusted. Continue per consultants. September 07: Labs reviewed renal parameters stable. Continue per consultants. September 06: Labs reviewed. Abnormal electrolytes addressed. Medication list reviewed. Continue per consultants. September 05: Labs reviewed. Abnormal electrolytes addressed. Medication list reviewed. Continue her current treatment plan. September 04: Labs reviewed. Abnormal electrolytes addressed. Medication list reviewed and adjusted. Continue per consultants. Continue to monitor electrolytes September 03: Labs reviewed. Abnormal electrolyte addressed. Discussed with RN. Continue to monitor renal parameters and electrolytes. Medication list reviewed. September 02: Labs reviewed. Abnormal electrolytes addressed. Continue to monitor renal parameters and electrolytes. Continue per consultants. Medication list reviewed. Previously: Hydrate Monitor renal parameters and electrolytes Correct abnormal electrolytes Monitor hemoglobin and hematocrit IV Pepcid Albumin bolus Per bridal consultant Subjective ROS Limited/Unobtainable: Yes Objective Objective Last 24 Hour Vital Signs Date Time Temp Pulse Resp B/P (MAP) Pulse Ox O2 Delivery O2 Flow Rate FiO2 09/09/20 11:54 96.3 61 17 143/67 (92) 100 09/09/20 08:00 30 09/09/20 07:58 Mechanical Ventilator 09/09/20 07:54 64 09/09/20 07:54 97.0 65 17 112/64 (80) 98 09/09/20 05:30 60 17 30 09/09/20 04:00 97.9 64 15 115/70 (85) 100 09/09/20 04:00 65 09/09/20 03:50 30 09/09/20 03:50 Mechanical Ventilator 09/09/20 03:08 62 16 30 09/09/20 01:36 64 16 30 09/09/20 00:00 98.6 60 15 126/72 (90) 100 09/09/20 00:00 30 09/09/20 00:00 63 09/09/20 00:00 Mechanical Ventilator 09/08/20 23:23 65 16 30 09/08/20 21:17 62 14 30 09/08/20 20:00 64 09/08/20 20:00 Mechanical Ventilator 09/08/20 20:00 30 09/08/20 20:00 97.0 67 20 117/70 (86) 100 09/08/20 19:30 63 14 30 09/08/20 16:00 30 09/08/20 15:59 Mechanical Ventilator 09/08/20 15:57 97.3 67 20 113/66 (82) 100 09/08/20 15:18 70 09/08/20 15:05 67 17 30 Intake and Output 09/08/20 09/09/20 19:00 07:00 Intake Total 920 ml 670 ml Output Total 700 ml 800 ml Balance 220 ml -130 ml Intake Free Water 200 ml 200 ml IV Total 420 ml 110 ml Tube Feeding 300 ml 360 ml Output Urine Total 700 ml 800 ml # Bowel Movements 2 Current Medications Medications (Trade) Dose Ordered Sig/Kirby Route PRN Reason Start Time Stop Time Status Last Admin Dose Admin Acetaminophen (Tylenol) 650 mg Q4H PRN NG Mild Pain (Pain Scale 1-3) 08/31/20 09:00 09/30/20 08:59 09/05/20 20:30 Acetaminophen (Tylenol) 650 mg Q4H PRN NG Temp >100.5 08/31/20 09:00 09/30/20 08:59 Ampicillin 2 gm/ Sodium Chloride 110 ml @ 220 mls/hr EVERY 4 HOURS IV 09/02/20 09:30 09/16/20 23:59 09/09/20 12:12 Chlorhexidine Gluconate (Janet-Hex 2%) 1 applic DAILY@2000 TOPIC 09/06/20 21:15 12/05/20 21:14 09/08/20 20:43 Dextrose (Dextrose 50%) 25 ml Q30M PRN IV Hypoglycemia 08/30/20 16:45 11/28/20 16:44 Dextrose (Dextrose 50%) 50 ml Q30M PRN IV Hypoglycemia 08/30/20 16:45 11/28/20 16:44 Insulin Aspart (NovoLOG) Q6HR SUBQ 08/30/20 18:00 11/28/20 17:59 09/08/20 12:11 Lansoprazole (Prevacid) 30 mg BID GT 09/01/20 18:00 09/30/20 17:59 09/09/20 08:51 Metoclopramide HCl (Reglan) 10 mg Q8H IVP 09/09/20 10:00 10/09/20 09:59 09/09/20 10:42 Ondansetron HCl (Zofran) 4 mg Q4H PRN IVP Nausea & Vomiting 08/30/20 16:45 09/29/20 16:44 Potassium Chloride (K-Dur) 40 meq BID GT 09/08/20 09:00 12/05/20 11:29 09/09/20 08:52 Sucralfate (Carafate) 1 gm FOUR TIMES A DAY ORAL 09/03/20 13:00 12/02/20 12:59 09/09/20 12:12 Laboratory Tests 09/09/20 03:10: White Blood Count 9.3, Red Blood Count 2.67L, Hemoglobin 8.0L, Hematocrit 26.2L, Mean Corpuscular Volume 98, Mean Corpuscular Hemoglobin 29.8, Mean Corpuscular Hemoglobin Concent 30.3L, Red Cell Distribution Width 15.3H, Platelet Count 382, Mean Platelet Volume 5.7L, Neutrophils (%) (Auto) 75.3H, Lymphocytes (%) (Auto) 4.7L, Monocytes (%) (Auto) 10.8H, Eosinophils (%) (Auto) 2.6, Basophils (%) (Auto) 6.6H Height (Feet): 5 Height (Inches): 7.00 Weight (Pounds): 120 General Appearance: no apparent distress EENT: other - Trach to vent Cardiovascular: normal rate Respiratory/Chest: decreased breath sounds Abdomen: soft Ben Aguilar MD Sep 09, 2020 12:16
--- NOTE | 2020-09-09 12:53 | Infectious Diseases Prog Note ---
Assessment/Plan 64 yo male with PMHx of CVA, S/P PEG s/p Trach, DM and HTN who was sent to the ED form his care home with hypoxia. Sepsis Leuckotyosis- SP No fever Bacteremialikely GI source Blood Cx 08/30/20- Enterococcus Amp and Vanco sen Blood Cx 08/31/20 - Enterococcus Blood Cx 09/02/20 - NTD Resp fail - Acute on chronic Trached PNA CXR shows - LLL PNA and possible N/V/D and abd pain Some blood In the vomit CVA s/p PEG and s/p Trach DM HTN PLAN Ampicillin 2g Q4hr #8/14 ( End date ) If dosing frequency is to high then he could be switch to vancomycin on D/C 09/02/20 - SP Flagyl #3 and Cefepime #3 and Vancomycin #3 f/u TTE f/u culture Blood Monitor Resp status Monitor CBC and Temps Thank you for this consult. [facility] will continue to follow Mr. Shaikh with you. Subjective Allergies: Coded Allergies: No Known Allergies (Unverified , 08/30/20) Afebrile No Leukocytosis No acute complaints Objective Last 24 Hour Vital Signs Date Time Temp Pulse Resp B/P (MAP) Pulse Ox O2 Delivery O2 Flow Rate FiO2 09/09/20 12:00 Mechanical Ventilator 09/09/20 12:00 30 09/09/20 11:54 96.3 61 17 143/67 (92) 100 09/09/20 11:02 60 26 30 09/09/20 08:00 30 09/09/20 07:58 Mechanical Ventilator 09/09/20 07:54 64 09/09/20 07:54 97.0 65 17 112/64 (80) 98 09/09/20 07:23 60 16 30 09/09/20 05:30 60 17 30 09/09/20 04:00 97.9 64 15 115/70 (85) 100 09/09/20 04:00 65 09/09/20 03:50 30 09/09/20 03:50 Mechanical Ventilator 09/09/20 03:08 62 16 30 09/09/20 01:36 64 16 30 09/09/20 00:00 98.6 60 15 126/72 (90) 100 09/09/20 00:00 30 09/09/20 00:00 63 09/09/20 00:00 Mechanical Ventilator 09/08/20 23:23 65 16 30 09/08/20 21:17 62 14 30 09/08/20 20:00 64 09/08/20 20:00 Mechanical Ventilator 09/08/20 20:00 30 09/08/20 20:00 97.0 67 20 117/70 (86) 100 09/08/20 19:30 63 14 30 09/08/20 16:00 30 09/08/20 15:59 Mechanical Ventilator 09/08/20 15:57 97.3 67 20 113/66 (82) 100 09/08/20 15:18 70 09/08/20 15:05 67 17 30 Height (Feet): 5 Height (Inches): 7.00 Weight (Pounds): 120 Gen: NAD, On Vent HEENT: NCAT, MMM, EOMI, No scleral icterus, Trach in place Pulm: Equal rise and fall B/L No accessory muscle use Abd: Soft,ND PEG ( No E/P) SKIN: Exposed skin normal in color no rash noted Laboratory Tests Test 09/09/20 03:10 White Blood Count 9.3 K/UL (4.8-10.8) Red Blood Count 2.67 M/UL (4.70-6.10) L Hemoglobin 8.0 G/DL (14.2-18.0) L Hematocrit 26.2 % (42.0-52.0) L Mean Corpuscular Volume 98 FL (80-99) Mean Corpuscular Hemoglobin 29.8 PG (27.0-31.0) Mean Corpuscular Hemoglobin Concent 30.3 G/DL (32.0-36.0) L Red Cell Distribution Width 15.3 % (11.6-14.8) H Platelet Count 382 K/UL (150-450) Mean Platelet Volume 5.7 FL (6.5-10.1) L Neutrophils (%) (Auto) 75.3 % (45.0-75.0) H Lymphocytes (%) (Auto) 4.7 % (20.0-45.0) L Monocytes (%) (Auto) 10.8 % (1.0-10.0) H Eosinophils (%) (Auto) 2.6 % (0.0-3.0) Basophils (%) (Auto) 6.6 % (0.0-2.0) H Current Medications Medications (Trade) Dose Ordered Sig/Kirby Route PRN Reason Start Time Stop Time Status Last Admin Dose Admin Acetaminophen (Tylenol) 650 mg Q4H PRN NG Mild Pain (Pain Scale 1-3) 08/31/20 09:00 09/30/20 08:59 09/05/20 20:30 Acetaminophen (Tylenol) 650 mg Q4H PRN NG Temp >100.5 08/31/20 09:00 09/30/20 08:59 Ampicillin 2 gm/ Sodium Chloride 110 ml @ 220 mls/hr EVERY 4 HOURS IV 09/02/20 09:30 09/16/20 23:59 09/09/20 12:12 Chlorhexidine Gluconate (Janet-Hex 2%) 1 applic DAILY@2000 TOPIC 09/06/20 21:15 12/05/20 21:14 09/08/20 20:43 Dextrose (Dextrose 50%) 25 ml Q30M PRN IV Hypoglycemia 08/30/20 16:45 11/28/20 16:44 Dextrose (Dextrose 50%) 50 ml Q30M PRN IV Hypoglycemia 08/30/20 16:45 11/28/20 16:44 Insulin Aspart (NovoLOG) Q6HR SUBQ 08/30/20 18:00 11/28/20 17:59 09/08/20 12:11 Lansoprazole (Prevacid) 30 mg BID GT 09/01/20 18:00 09/30/20 17:59 09/09/20 08:51 Metoclopramide HCl (Reglan) 10 mg Q8H IVP 09/09/20 10:00 10/09/20 09:59 09/09/20 10:42 Ondansetron HCl (Zofran) 4 mg Q4H PRN IVP Nausea & Vomiting 08/30/20 16:45 09/29/20 16:44 Potassium Chloride (K-Dur) 40 meq BID GT 09/08/20 09:00 12/05/20 11:29 09/09/20 08:52 Sucralfate (Carafate) 1 gm FOUR TIMES A DAY ORAL 09/03/20 13:00 12/02/20 12:59 09/09/20 12:12 Kostas Packer MD Sep 09, 2020 12:53
--- NOTE | 2020-09-09 13:11 | NUR ---
NURSE NOTES: Pt has discharge order, all D/C assessments and instructions done, pt is stable, V/S stable, no belongings with pt, per Dr Packer and feliberto D/C pt with Ampicillin 2g iv q4hr till 09/16/2020 and PICC, RN called Dr Perdue x3 if continue home meds or hospital meds no response yet, [facility] is notified. Bob D/C, [facility] is aware about D/C, No more g tube residual, Report given to [facility], endorsed plan of care. pt left hospital with accompany of ambulance personnel.
--- NOTE | 2020-09-09 13:43 | NUR ---
NURSE NOTES: DR COHEN CALLED BACK NOW AND ORDERED TO CONTINUE SNF MEDS UPON DC, NOTED AND SNF RN RADHA IS AWARE.
--- NOTE | 2020-09-09 14:36 | General Progress Note ---
Subjective ROS Limited/Unobtainable: No Allergies: Coded Allergies: No Known Allergies (Unverified , 08/30/20) Objective Last 24 Hour Vital Signs Date Time Temp Pulse Resp B/P (MAP) Pulse Ox O2 Delivery O2 Flow Rate FiO2 09/09/20 12:00 Mechanical Ventilator 09/09/20 12:00 30 09/09/20 11:54 96.3 61 17 143/67 (92) 100 09/09/20 11:40 61 09/09/20 11:02 60 26 30 09/09/20 08:00 30 09/09/20 07:58 Mechanical Ventilator 09/09/20 07:54 64 09/09/20 07:54 97.0 65 17 112/64 (80) 98 09/09/20 07:23 60 16 30 09/09/20 05:30 60 17 30 09/09/20 04:00 97.9 64 15 115/70 (85) 100 09/09/20 04:00 65 09/09/20 03:50 30 09/09/20 03:50 Mechanical Ventilator 09/09/20 03:08 62 16 30 09/09/20 01:36 64 16 30 09/09/20 00:00 98.6 60 15 126/72 (90) 100 09/09/20 00:00 30 09/09/20 00:00 63 09/09/20 00:00 Mechanical Ventilator 09/08/20 23:23 65 16 30 09/08/20 21:17 62 14 30 09/08/20 20:00 64 09/08/20 20:00 Mechanical Ventilator 09/08/20 20:00 30 09/08/20 20:00 97.0 67 20 117/70 (86) 100 09/08/20 19:30 63 14 30 09/08/20 16:00 30 09/08/20 15:59 Mechanical Ventilator 09/08/20 15:57 97.3 67 20 113/66 (82) 100 09/08/20 15:18 70 09/08/20 15:05 67 17 30 Intake and Output 09/08/20 09/09/20 19:00 07:00 Intake Total 920 ml 670 ml Output Total 700 ml 800 ml Balance 220 ml -130 ml Intake Free Water 200 ml 200 ml IV Total 420 ml 110 ml Tube Feeding 300 ml 360 ml Output Urine Total 700 ml 800 ml # Bowel Movements 2 Laboratory Tests 09/09/20 03:10: White Blood Count 9.3, Red Blood Count 2.67L, Hemoglobin 8.0L, Hematocrit 26.2L, Mean Corpuscular Volume 98, Mean Corpuscular Hemoglobin 29.8, Mean Corpuscular Hemoglobin Concent 30.3L, Red Cell Distribution Width 15.3H, Platelet Count 382, Mean Platelet Volume 5.7L, Neutrophils (%) (Auto) 75.3H, Lymphocytes (%) (Auto) 4.7L, Monocytes (%) (Auto) 10.8H, Eosinophils (%) (Auto) 2.6, Basophils (%) (Auto) 6.6H Height (Feet): 5 Height (Inches): 7.00 Weight (Pounds): 120 General Appearance: no apparent distress EENT: normal ENT inspection Neck: supple Cardiovascular: normal rate Respiratory/Chest: lungs clear Abdomen: normal bowel sounds, non tender, soft Extremities: non-tender Assessment/Plan Problem List: (1) Upper GI bleed ICD Codes: K92.2 - Gastrointestinal hemorrhage, unspecified SNOMED: 77308534 (2) Pneumonia ICD Codes: J18.9 - Pneumonia, unspecified organism SNOMED: 791645575 (3) Sepsis ICD Codes: A41.9 - Sepsis, unspecified organism SNOMED: 68179241 (4) Acute renal failure ICD Codes: N17.9 - Acute kidney failure, unspecified SNOMED: 31930581 (5) Septic shock ICD Codes: A41.9 - Sepsis, unspecified organism; R65.21 - Severe sepsis with septic shock SNOMED: 79095283 Assessment/Plan: s/p EGD stable H&H tolerating TF ppi Yaakov Napoles MD Sep 09, 2020 14:36
--- NOTE | 2020-09-10 14:59 | Discharge Summary ---
Discharge Summary Discharge Summary _ Date of admission: 08/30/2020 Date of discharge: 09/09/[address] Perdue History of Present Illness and Brief Hospital Course Mr. Shaikh is a 64-year-old male with past medical history of diabetes, CVA, tracheostomy and ventilator dependence, who presented to the ER for evaluation of hypoxia. Patient also presented with coffee-ground emesis and was given IV Pepcid and Zofran. Patient was very dehydrated, hypotensive and tachycardic. Patient was given IV fluids and was responsive to fluids. Patient had acute renal insufficiency with elevated BUN and creatinine. Patient also had elevated white blood cell count and elevated lactate. Patient was pancultured and was started on broad-spectrum antibiotics. Patient likely aspirated his vomitus and x-ray demonstrated bilateral pneumonia. Patient was admitted to the hospital for further treatment and evaluation. Patient was continued on antibiotics given the chest x-ray findings consistent with pneumonia. His blood cultures grew Enterococcus faecalis. Patient was continued on antibiotics and antibiotics were adjusted accordingly to the sensitivity result. Sputum cultures grew Pseudomonas aeruginosa, Achromobacter Xylosoxidans, and Shani Tropicalis. Throughout patient's hospitalization patient's oxygen saturation remained stable on ventilator. Patient underwent endoscopy given the GI bleeding. Patient was found to have esophagitis. Patient's H&H remained stable and did not require transfusion. Patient was continued on PPIs. The ultrasound of abdomen showed gallbladder wall thickening with no pericholecystic fluid, and no gallstones. Examination was fairly unreliable as patient was nonverbal and ventilator dependent. Given patient's history and condition, medical management was recommended and patient was monitored clinically. Throughout his hospitalization, patient's oxygen saturation remained stable. Patient was treated for pneumonia, and sepsis. Patient was medically stable and was discharged back to his facility on 09/09/2020. Consultants: Pulmonology Dr. Pleitez Surgery Dr. Nina Infectious disease Dr. Packer Nephrology Dr. Erazo Gastroenterology Dr. Jacques Hematology oncology Dr. Monique Discharge Condition Stable Discharge Activity Bedrest Discharge Diet Tube feeding Final diagnoses Leukocytosis due to underlying sepsis Anemia with upper GI bleed Bilateral pneumonia, Pseudomonas, Achromobacter Xylosoxidans, and Shani Tropicalis Healthcare associated pneumonia Acute on chronic respiratory failure, s/p trach/vent Septic shock Acute renal failure Upper GI bleed Hypotension Tachycardia Bacteremia Diabetes mellitus Hypomagnesemia Hypokalemia I have been assigned to dictate discharge summary for this account. Vicente Zhu Sep 10, 2020 14:59
== END 2020-09-09 13:26 | DRG 870 ==
LOC: EDBD 07:57 → EMR 09:04 → ICU 09:53 → EDBEDREQ 13:21 → 2W 08-31 13:44
PROC: 5A1955Z Respiratory Ventilation, Greater than 96 Consecutive Hours (ICD-10-PCS; principal; 2020-08-26)
PROC: 02HV33Z Insertion of Infusion Device into Superior Vena Cava, Percutaneous Approach (ICD-10-PCS; 2020-09-01)
PROC: 0DB78ZX Excision of Stomach, Pylorus, Via Natural or Artificial Opening Endoscopic, Diagnostic (ICD-10-PCS; 2020-09-03 12:35)
PROC: 0DH68UZ Insertion of Feeding Device into Stomach, Via Natural or Artificial Opening Endoscopic (ICD-10-PCS; 2020-09-03 12:35)
DX: A41.9 Sepsis, unspecified organism (principal); R65.21 Severe sepsis with septic shock; J15.6 Pneumonia due to other Gram-negative bacteria; J15.1 Pneumonia due to Pseudomonas; J15.8 Pneumonia due to other specified bacteria; J96.21 Acute and chronic respiratory failure with hypoxia; N17.9 Acute kidney failure, unspecified; K92.2 Gastrointestinal hemorrhage, unspecified; K94.23 Gastrostomy malfunction; D50.0 Iron deficiency anemia secondary to blood loss (chronic); Z86.16 Personal history of COVID-19; E86.0 Dehydration; Y95 Nosocomial condition; E11.9 Type 2 diabetes mellitus without complications; E83.42 Hypomagnesemia; E87.6 Hypokalemia; Z43.0 Encounter for attention to tracheostomy; K20.90 Esophagitis, unspecified without bleeding; Y83.3 Surgical operation with formation of external stoma as the cause of abnormal reaction of the patient, or of later complication, without mention of misadventure at the time of the procedure; K29.70 Gastritis, unspecified, without bleeding; Z86.73 Personal history of transient ischemic attack (TIA), and cerebral infarction without residual deficits
CPT/HCPCS: 36415; 36569; 71045; 76700; 76937; 80048; 80053; 80076; 80202; 81001; 81003; 82009; 82010; 82150; 82550; 82607; 82728; 82746; 82803; 82962; 82977; 83036; 83540; 83550; 83605; 83615; 83690; 83735; 83880; 84100; 84439; 84443; 84484; 84550; 85007; 85025; 85379; 85610; 85730; 86140; 87040; 87070; 87081; 87086; 87181; 87205; 93005; 93306; 93970; 94002; 94003; 94150; 96361; 96365; 96367; 96375; 99291; 99292; J1815; J2405; J2765; J7030; J7620; J8499